=== PATIENT | male | born 1950 | race Caucasian/White ===

== ENCOUNTER 2016-11-02 10:06 | Outpatient (RCR) | payer MEDICARE, MEDICAID ==
--- OUTSIDE RECORDS SUMMARY | 2016-08-17 14:19 | XMS REPORT | Continuity of Care Document ---
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 Name Role Phone ZAC LUZ DO PCP Insurance Providers Payer Name Policy Number Subscriber Name Relationship Wps Medicare [id number] Teresita Blanco 18 Self / Same As Patient [facility] [id number] Teresita Blanco 18 Self / Same As Patient Advance Directives Directive Response Recorded Date/Time Advance Directives No 03/16/16 10:05am Health Care Power of Archivist Military History No 03/16/16 10:05am Organ Donor No 03/16/16 10:05am Chief Complaint and Reason for Visit Chief Complaint Trauma-Non Activation Reason for Visit Morbid exogenous obesity Anticoagulated on Coumadin Fall Contusion of right hip Problems Active Problems Medical Problem Onset Date Status Anticoagulated on Coumadin Unknown Acute Contusion of right hip Unknown Acute Epistaxis Unknown Acute Fall Unknown Acute Foot sprain Unknown Acute Morbid exogenous obesity Unknown Acute Medications Current Home Medications Medication Dose Units Route Directions Days/Qty Instructions Start Date Amlodipine Besylate (Norvasc 2.5 Mg) 2.5 Mg 2.5 Mg Oral Daily Isosorbide Mononitrate 60 Mg 60 Mg Oral Daily 02/04/09 Gabapentin 300 Mg 300 Mg Oral Three Times A Day 02/04/09 Chlorzoxazone 500 Mg 500 Mg Oral Twice A Day 02/04/09 Fenofibrate 145 Mg 145 Mg Oral Daily 02/04/09 Metoprolol Tartrate (Lopressor) 50 Mg 50 Mg Oral Twice A Day Niacin 1,000 Mg 1,000 Mg Oral Bedtime 01/05/11 Alprazolam 0.25 Mg 0.25 Mg Oral Twice A Day as needed for Anxiety Atorvastatin Calcium 10 Mg 10 Mg Oral Bedtime 09/18/11 Aspirin 81 Mg 81 Mg Oral Bedtime 11/05/11 Acetaminophen/Hydrocodone Bitart 1 Ea 1 Tab Oral Daily as needed for Pain 04/14/12 [place]-3/Dha/Epa/Fish Oil 1 Each 1,000 Mg Oral Three Times A Day Carbidopa/Levodopa 1 Each 1 Tab Oral Three Times A Day 05/17/13 Insulin Detemir 100 U/Ml 45 Unit Sub-Q Twice A Day 05/17/13 Promethazine Hcl 25 Mg 25 Mg Oral Three Times A Day as needed for Nausea 05/17/13 Warfarin Sodium 5 Mg 7.5 Mg Oral Mo,Fr @ 1100 TAKES 1 & 1/2 (5MG) TABLET 08/15/14 Warfarin Sodium 5 Mg 5 Mg Oral Gotti,Tu,We,Th,Sa @1100 08/15/14 Furosemide (Lasix) 80 Mg 80 Mg Oral Daily 08/15/14 Ranolazine 1,000 Mg 1,000 Mg Oral Twice A Day 08/15/14 Ascorbic Acid 1,000 Mg 1,000 Mg Oral Daily 08/15/14 Docusate Sodium 100 Mg 100 Mg Oral Twice A Day 08/15/14 Promethazine Hcl (Phenergan Tablet) 25 Mg 1 Tab Oral Three Times A Day as needed for Nausea 03/06/16 Dapagliflozin Propanediol 5 Mg 1 Tab Oral Daily 03/06/16 Past Home Medications Medication Directions Ordered Status Diazepam (Valium) 2 Mg Tablet, 02/04/09 Discontinued Glyburide 5 Mg Tablet, 02/04/09 Discontinued Furosemide 40 Mg Tab, 80 Mg Oral Daily 02/04/09 Discontinued Losartan Potassium 50 Mg Tab, 50 Mg Oral Twice A Day 02/04/09 Discontinued Aspirin 325 Mg Tab, 81 Mg Oral Daily 06/25/09 Discontinued Fish Oil 1,000 Mg Cap, 06/25/09 Discontinued [Metoprolol] , 12/16/09 Discontinued Propoxyphene Hcl/Acetaminophen 1 Tab Tablet, 12/16/09 Discontinued Acetaminophen/Hydrocodone Bitart 1 Tab Tab, 1 Ea Oral Q 4 - 6 Hr Prn Discontinued Acetaminophen/Hydrocodone Bitart (Lorcet-Hd) 1 Each Capsule, 1 - 2 Each Oral Q6hr Prn 06/27/10 Discontinued Tramadol Hcl 50 Mg Tablet, 50 Mg Oral Every 4HRS as needed 01/05/11 Discontinued Metformin Hcl (Glucophage) 500 Mg Tablet, Buccal As Directed 01/05/11 Discontinued [place]-3/Dha/Epa/Fish Oil 1 Each Capsule.dr, 1000 Mg Oral Three Times A Day Discontinued Omeprazole 40 Mg Capsule.dr, 40 Mg Oral Daily 04/09/11 Discontinued Cephalexin Monohydrate (Keflex) 500 Mg Capsule, 1 Tab Oral Daily 04/09/11 Discontinued Doxycycline Hyclate (Vibramycin) 100 Mg Capsule, 100 Mg 04/09/11 Discontinued Ascorbate Calcium 500 Mg Tablet, 1000 Mg Oral Daily 08/04/11 Discontinued Ranolazine 500 Mg Tab.sr.12h, 1000 Mg Oral Twice A Day 09/18/11 Discontinued Warfarin Sodium 5 Mg Tablet, 5 Mg Oral 11/05/11 Discontinued Warfarin Sodium 5 Mg Tab, 7.5 Mg Oral Tuesday01/26/12 Discontinued Linezolid 600 Mg Tab, 600 Mg Oral Twice A Day 05/26/12 Discontinued Sitagliptin Phosphate 100 Mg Tablet, 1 Each Oral Daily 07/12/12 Discontinued Carbidopa/Levodopa 1 Each Tab.rapdis, 1 Each Oral Three Times A Day 07/12/12 Discontinued Sulfamethoxazole/Trimethoprim 1 Each Tablet, 1 Each Oral Twice A Day Discontinued Metformin Hcl (Glucophage) 500 Mg Tablet, 1 Each Oral Daily 11/08/12 Discontinued Ascorbic Acid 250 Mg Tab, 1000 Mg Oral Daily 05/17/13 Discontinued Pantoprazole Sodium 40 Mg Tablet.dr, 40 Mg Oral 05/17/13 Discontinued Social History Social History Problem Response Recorded Date/Time Alcohol Use Denies Use 03/16/2016 10:05am Recreational Drug Use No 03/16/2016 10:05am Recent Foreign Travel No 04/05/2016 11:22am Recent Infectious Disease Exposure No 04/05/2016 11:22am Do you dip or chew tobacco? Y 1can/4days 03/06/2016 2:50am Type Used Smokeless Tobacco 03/16/2016 10:05am Recent Hopitalizations No 04/05/2016 11:42am Hospital Discharge Instructions No hospital discharge instructions. Plan of Care Discharge Date 04/05/16 2:00pm Disposition 01 HOME, SELF-CARE Condition at Discharge Stable Instructions/Education Provided Contusion (ED) Prescriptions See Medication Section Referrals ZAC LUZ DO - Primary Care Physician Additional Instructions/Education All discharge instructions reviewed with patient and/or family. Voiced understanding. RECOMMEND MAKING A FOLLOW UP APPOINTMENT WITH DR. LUZ REGARDING PATIENT'S FREQUENT FALLS. Functional Status No functional status results. Allergies, Adverse Reactions, Alerts Allergen Type Severity Reaction Status Last Updated amoxicillin ([id number]) Allergy Mild Active 02/04/09 Immunizations No immunization records. Vital Signs Acute Vital Signs Vital Response Date/Time Temperature (Fahrenheit) 97.5 degrees F (97.6 - 99.5) 04/05/2016 2:00pm Temperature (Calculated Celsius) 36.72784 degrees C (36.4 - 37.5) 04/05/2016 2:00pm Temperature Source Tympanic 04/05/2016 2:00pm Pulse Rate (adult) 72 bpm (60 - 90) 04/05/2016 2:00pm Respiratory Rate 16 bpm (12 - 24) 04/05/2016 2:00pm O2 Sat by Pulse Oximetry 98 % (88 - 100) 04/05/2016 2:00pm Blood Pressure 140/82 mm Hg 04/05/2016 2:00pm Blood Pressure Mean 103 mm Hg 04/05/2016 11:42am Pain Numeric Pain Scale 2 04/05/2016 2:00pm Height (Feet) 6 feet 04/05/2016 11:22am Height (Inches) 2 inches 04/05/2016 11:22am Height (Calculated Centimeters) 187.059682 cm 04/05/2016 11:22am Weight (Pounds) 445 pounds 04/05/2016 11:22am Weight (Ounces) 0 oz 03/16/2016 10:05am Weight (Calculated Grams) 580890.976 gm 03/16/2016 10:05am Weight (Calculated Kilograms) 201.043668 kilograms 04/05/2016 11:22am Calculated BMI 62.76 03/16/2016 10:05am Capillary Refill Capillary Refill Less Than 3 Seconds 04/05/2016 11:42am Results Laboratory Results Test Name Result Units Flags Reference Collection Date/Time Result Date/ Time Comments Prothrombin Time 25.0 SEC H 12.2-14.7 02/11/2016 2:56pm 02/11/2016 3: 19pm INR Comment 2.3 H 0.8-1.4 02/11/2016 2:56pm 02/11/2016 3:19pm INTERPRETIVE DATA SUGGESTED THERAPEUTIC RANGE FOR INR'S: VENOUS THROMBOSIS, PULMONARY EMBOLISM, OR PREVENTION OF SYSTEMIC EMBOLISM (EG. IN ATRIAL FIBRILLATION): 2.0 - 3.0 MECHANICAL PROSTHETIC HEART VALVES: 2.5 - 3.5* *NOTE: INR'S UP TO 4.5 MAY BE NECESSARY IN SELECTED GROUPS OF HIGH RISK PATIENTS. [employer] CONSENSUS CONFERENCE ON ANTITHROMBOTIC THERAPY (2000). Pending Laboratory Results Test Name Collection Date/Time Procedures No known history of procedures. Encounters Encounter Location Arrival/Admit Date Discharge/Depart Date Attending Provider Departed Emergency Room [facility] 04/05/16 11:12am 04/13 2:00pm CARLOS DE LA CRUZ DO Departed Emergency Room [facility] 03/16/16 10:07am 11:00am MANPREET NEWBERRY APRN Discharged Recurring [facility] 02/11/16 2:56pm 11:59pm ZAC LUZ DO Recent Diagnosis
[2016-08-17 14:34] LABS: INR 2.9 (0.8-1.4); PROTHROMBIN TIME PATIENT 30.3 SEC (12.2-14.7)
[2016-09-21 14:13] LABS: INR 3.1 (0.8-1.4); PROTHROMBIN TIME PATIENT 31.5 SEC (12.2-14.7)
[2016-10-06 10:55] LABS: INR 2.3 (0.8-1.4); PROTHROMBIN TIME PATIENT 25.5 SEC (12.2-14.7)
[~2016-11-02 10:06] MED LIST: ALPR.25T PO; AMLO2.5T PO; ASCO-262 PO; ASCO-277 PO; ASP325T PO; ASP81TEC PO; ATRV10T PO; C250T PO; CARB1TAB4 PO; CARB1TAB44 PO; CEPH500C PO; CHLO500T2 PO; DAPA5TAB PO; DCS100C PO; DIAZ2TAB2; DOXY100C2; FENO145T2 PO; FRSM40T PO; FURO80TA3 PO; GABA300C PO; GLYB5TAB3; HCT25T PO; HYDR-34 PO; HYDR-3583 PO; HYDR1CAP2 PO; HYDR1TAB PO; ISOS60TA PO; LEVE1U SQ; LNZ600T PO; LSRT50T PO; METOPROLOL; MTF500T BC; MTF500T PO; MTF500TCR PO; MTP50T PO; NIAC1000 PO; OMEG-12 PO; OMEP40CA36 PO; OMG1KC; PANT40TA PO; PNT40TEC PO; PRM25T PO; PROM25TA14 PO; PROP1TAB77; RANI150T66 PO; RANO10003 PO; RANO500T2 PO; SITA100T PO; SULF1TAB7 PO; TRAM-21 PO; TRAM50TA2 PO; WARF5TAB58 PO; WRF5T PO
[2016-11-02 10:24] LABS: INR 2.1 (0.8-1.4); PROTHROMBIN TIME PATIENT 23.4 SEC (12.2-14.7)
== END 2016-11-15 | disposition home or self-care (01) ==
LOC: LAB 10:06
PROVIDERS: ATTEND Family Medicine
DX: I82.401 Acute embolism and thrombosis of unspecified deep veins of right lower extremity (principal)
CPT/HCPCS: 36415; 85610

== ENCOUNTER 2016-12-16 11:51 | Observation (INO) | payer MEDICARE, MEDICAID ==
[~2016-12-16] VITALS: Ht 180.3 cm; Wt 191.0 kg
--- NOTE | 2016-12-16 12:02 | ED General ---
General Chief Complaint: Neurological Problems Stated Complaint: WEAKNESS IN LEGS Source of Information: Patient History of Present Illness Time Seen by Provider: 11:57 Initial Comments Patient is a 65-year-old white male known to me. He was sent by ambulance from Dr. Luz's office. He presented with complaints of progressive weakness. At the end of the office visit he was unable to stand for discharge. His weight is 415 pounds at best guess. He has always been heavy but has steadily gained weight over the last 20 years. He also reports having fallen several times recently. Timing/Duration: Other (weeks) Associated Systoms: Weakness Allergies and Home Medications Allergies Coded Allergies: amoxicillin (Unverified Allergy, Mild, 02/04/09) Home Medications Alprazolam 0.25 Mg Tablet, 0.25 MG PO BID PRN for ANXIETY, (Reported) Amlodipine Besylate 2.5 Mg Tablet, 2.5 MG PO DAILY, (Reported) Ascorbic Acid 1,000 Mg Tablet.er, 1,000 MG PO DAILY, (Reported) Aspirin 81 Mg Tabec, 81 MG PO HS, (Reported) Atorvastatin Calcium 10 Mg Tablet, 10 MG PO HS, (Reported) Carbidopa/Levodopa 1 Each Tablet.sa, 1 TAB PO TID, (Reported) Chlorzoxazone 500 Mg Tablet, 500 MG PO BID, (Reported) Dapagliflozin Propanediol 5 Mg Tablet, 1 TAB PO DAILY, #30 (Reported) Docusate Sodium 100 Mg Cap, 100 MG PO BID, (Reported) Fenofibrate,Micronized 145 Mg Tablet, 145 MG PO DAILY, (Reported) Furosemide 80 Mg Tablet, 80 MG PO DAILY, (Reported) Gabapentin 300 Mg Capsule, 300 MG PO TID, (Reported) Hydrocodone Bit/Acetaminophen 1 Ea Tablet, 1 TAB PO DAILY PRN for PAIN, ( Reported) Insulin Determir 100 U/Ml Insuln.pen, 45 UNIT SQ BID, (Reported) Isosorbide Mononitrate 60 Mg Tab.sr.24h, 60 MG PO DAILY, (Reported) Metoprolol Tartrate 50 Mg Tablet, 50 MG PO BID, (Reported) Niacin 1,000 Mg Tablet.sa, 1,000 MG PO HS, (Reported) [place]-3/Dha/Epa/Fish Oil 1 Each Capsule.dr, 1,000 MG PO TID, (Reported) Promethazine HCl 25 Mg Tablet, 1 TAB PO TID PRN for NAUSEA, #18 (Reported) Promethazine Hcl 25 Mg Tablet, 25 MG PO TID PRN for NAUSEA, (Reported) Ranolazine 1,000 Mg Tab.sr.12h, 1,000 MG PO BID, (Reported) Warfarin Sodium 5 Mg Tablet, 7.5 MG PO MO,FR @ 1100, (Reported) TAKES 1 & 1/2 (5MG) TABLET Warfarin Sodium 5 Mg Tablet, 5 MG PO CEDILLO,TU,WE,TH,SA @1100, (Reported) Constitutional: see HPI EENTM: no symptoms reported Respiratory: dyspnea on exertion, short of breath Cardiovascular: no symptoms reported Gastrointestinal: no symptoms reported Genitourinary: no symptoms reported Musculoskeletal: joint pain, joint swelling, muscle stiffness, muscle weakness Skin: no symptoms reported Psychiatric/Neurological: No Symptoms Reported Hematologic/Lymphatic: No Symptoms Reported Immunological/Allergic: no symptoms reported Past Kwsgadr-Usttqc-Kwsbdp Hx Patient Social History Type Used: Smokeless Tobacco Former Smoker/When Quit: Oct 29, 1983 Recent Hopitalizations: No Immunizations Up To Date Tetanus Booster (TDap): Less than 5yrs Date of Pneumonia Vaccine: May 07, 2014 Date of Influenza Vaccine: May 29, 2014 Seasonal Allergies Seasonal Allergies: No Surgeries HX Surgeries: Yes (right ear) Surgeries: Ear Surgery, Tonsillectomy Respiratory Hx Respiratory Disorders: Yes Respiratory Disorders: Pulmonary Embolism, COPD Cardiovascular Hx Cardiac Disorders: Yes Cardiac Disorders: Deep Vein Thrombosis, High Cholesterol, Hypertension Neurological Hx Neurological Disorders: Yes Neurological Disorders: Neuropathy Reproductive System Hx Reproductive Disorders: No Genitourinary Hx Genitourinary Disorders: No Gastrointestinal Hx Gastrointestinal Disorders: Yes Gastrointestinal Disorders: Gastroesophageal Reflux Musculoskeletal Hx Musculoskeletal Disorders: Yes Musculoskeletal Disorders: Arthritis Endocrine Hx Endocrine Disorders: Yes Endocrine Disorders: Diabetes, Insulin dep HEENT HX ENT Disorders: No Cancer Hx Cancer: No Psychosocial Hx Psychiatric Problems: Yes Behavioral Health Disorders: Anxiety Integumentary HX Skin/Integumentary Disorder: No Blood Transfusions Hx Blood Disorders: No Adverse Reaction to a Blood Tr: No Physical Exam Vital Signs Capillary Refill : General Appearance: Mild Distress, Moderate Distress Eyes: Bilateral Eye Normal Inspection HEENT: Normal ENT Inspection Neck: Normal Inspection Respiratory: Decreased Breath Sounds (distant) Cardiovascular: Regular Rate, Rhythm, No Edema, No Gallop, No JVD, No Murmur, Normal Peripheral Pulses Gastrointestinal: Other (belly was huge and impossible to palpate) Extremity: Other (2+ bilateral pitting edema and bronzy discoloration consistent with venous stasis) Neurologic/Psychiatric: Alert, Oriented x3, No Motor/Sensory Deficits, Normal Mood/Affect Skin: Normal Color, Warm/Dry Lymphatic: No Adenopathy Departure Impression Impression: Primary Impression: Generalized weakness Additional Impression: morbidly morbid obesity Disposition: ADMITTED INPATIENT Decision to Admit Reason: Admit from ER (General) Decision to Admit/Date: Dec 16, 2016 Time/Decision to Admit Time: 11:59 Departure-Patient Inst. Referrals: ZAC LUZ DO (PCP/Family) Primary Care Physician GERRI SPEARS MD Dec 16, 2016 12:02
[2016-12-16 12:30] VITALS: BP 165/72
[2016-12-16] MEDS ORDERED: CATHETER FLUSH 10 ML SYR IV PRN (12:30)
[2016-12-16] MEDS ORDERED: DOCU100C23 PO (14:13)
[2016-12-16] MEDS ORDERED: RANO10003 PO (14:13)
[2016-12-16] MEDS ORDERED: ALPR0.254 PO (14:13)
[2016-12-16] MEDS ORDERED: NIAC100045 PO (14:13)
[2016-12-16] MEDS ORDERED: POLY255P PO (14:13)
[2016-12-16] MEDS ORDERED: AMLO5TAB2 PO (14:13)
[2016-12-16] MEDS ORDERED: CARB1TAB22 PO ×2 (14:13)
[2016-12-16] MEDS ORDERED: GABA-488 PO (14:13)
[2016-12-16] MEDS ORDERED: FURO80TA3 PO (14:13)
[2016-12-16] MEDS ORDERED: INSU100I14 SC (14:13)
[2016-12-16] MEDS ORDERED: ISM60TCR PO (14:13)
[2016-12-16] MEDS ORDERED: ASCO500T7 PO (14:13)
[2016-12-16] MEDS ORDERED: DAPA10TA PO (14:13)
[2016-12-16] MEDS ORDERED: HYDR-3812 PO (14:13)
[2016-12-16] MEDS ORDERED: METO50TA2 PO (14:13)
[2016-12-16] MEDS ORDERED: WARF5TAB8 PO (14:13)
[2016-12-16] MEDS ORDERED: CYCL10TA9 PO (14:13)
[2016-12-16] MEDS ORDERED: ATOR10TA66 PO (14:13)
[2016-12-16] MEDS ORDERED: INSU100I29 SC (14:13)
[2016-12-16] MEDS: CATHETER FLUSH 10 ML SYR IV SCH ×2 (15:22→21:05)
[2016-12-16 15:25] VITALS: BP 161/85
[2016-12-16] MEDS ORDERED: warFARin 5 MG (COUMADIN) TAB PO SCH (18:30)
[2016-12-16] MEDS ORDERED: PROMETHAZINE 25 MG (PHENERGAN) TAB PO PRN (18:30)
[2016-12-16] MEDS ORDERED: PATIENT MAY USE OWN MEDS, ALL MC SCH (18:45)
[2016-12-16 19:20] VITALS: BP 152/89
[2016-12-16] MEDS ORDERED: HYDROcodone/APAP 5 MG/325 MG (LORTAB) TAB PO PRN (19:45)
[2016-12-16] MEDS: Ranolazine (Ranexa) 1,000 MG PO SCH (20:57)
[2016-12-16] MEDS: DOCUSATE SODIUM 100 MG (COLACE) CAP PO SCH (20:58)
[2016-12-16] MEDS: CYCLOBENZAPRINE 10 MG (FLEXERIL) TAB PO SCH (20:59)
[2016-12-16] MEDS ORDERED: POLYETHYLENE GLYCOL 17 GM (MIRALAX) PACK PO PRN (21:00)
[2016-12-16] MEDS ORDERED: NIACIN 1000 MG PO SCH (21:00)
[2016-12-16] MEDS ORDERED: ASPIRIN E.C. 81 MG (ECOTRIN) TAB PO SCH (21:00)
[2016-12-16] MEDS ORDERED: ATORVASTATIN 10 MG (LIPITOR) TABLET PO SCH (21:00)
[2016-12-16] MEDS: meTOprolol TARTRATE 50 MG (LOPRESSOR) TAB PO SCH (21:01)
[2016-12-16] MEDS: GABAPENTIN 300 MG (NEURONTIN) CAP PO SCH (21:01)
[2016-12-16] MEDS: ALPRAZolam 0.25 MG (XANAX) TAB PO SCH (21:02)
[2016-12-16] MEDS: SINEMET 25/250 (CARBIDOPA/LEVODOPA) TAB PO SCH (21:04)
[2016-12-16] MEDS: inSUlin (REGULAR) HUMAN 1 UNIT/0.01 ML (CHARGE PER UNIT) SC SCH (21:06)
[2016-12-16 21:07] LABS: BILIRUBIN,URINE NEGATIVE (NEGATIVE); KETONES,URINE NEGATIVE (NEGATIVE); LEUKOCYTE ESTERASE ,URINE NEGATIVE (NEGATIVE); NITRITE,URINE NEGATIVE (NEGATIVE); PH,URINE 5 (5-9); PROTEIN,URINE 2+ (NEGATIVE); UROBILINOGEN,URINE NORMAL (NORMAL)
[2016-12-16 21:15] LABS: SQUAMOUS EPITHELIAL CELL,UR RARE /HPF
[2016-12-17 00:59] VITALS: BP 126/82
[2016-12-17 04:20] VITALS: BP 141/75
[2016-12-17 04:59] LABS: BASOPHILS # (AUTO) 0.1 10^3/uL (0.0-0.1); BASOPHILS % (AUTO) 1 % (0-10); EOSINOPHILS # (AUTO) 0.2 10^3/uL (0.0-0.3); EOSINOPHILS % (AUTO) 3 % (0-10); LYMPHOCYTES % (AUTO) 26 % (12-44); MEAN CORPUSCULAR HEMOGLOBIN 28 PG (25-34); MEAN CORPUSCULAR HGB CONC 33 G/DL (32-36); MEAN CORPUSCULAR VOLUME 86 FL (80-99); MEAN PLATELET VOLUME 9.7 FL (7.4-10.4); MONOCYTES # (AUTO) 0.7 X 10^3 (0.0-1.0); MONOCYTES % (AUTO) 10 % (0-12); NEUTROPHILS # (AUTO) 4.5 X 10^3 (1.8-7.8); NEUTROPHILS % (AUTO) 60 % (42-75); PLATELET COUNT 189 10^3/uL (130-400); WHITE BLOOD COUNT 7.4 10^3/uL (4.3-11.0)
[2016-12-17 05:10] LABS: INR 2.5 (0.8-1.4); PROTHROMBIN TIME PATIENT 26.5 SEC (12.2-14.7)
[2016-12-17 05:24] LABS: ALANINE AMINOTRANSFERASE < 6 U/L (0-55); ALBUMIN 3.5 G/DL (3.2-4.5); ANION GAP 11 MMOL/L (5-14); ASPARTATE AMINO TRANSFERASE 18 U/L (5-34); BILIRUBIN,TOTAL 0.9 MG/DL (0.1-1.0); BLOOD UREA NITROGEN 17 MG/DL (7-18); BUN/CREATININE RATIO 16; CALCIUM 8.7 MG/DL (8.5-10.1); CARBON DIOXIDE 23 MMOL/L (21-32); CHLORIDE 105 MMOL/L (98-107); CREATININE SERUM 1.04 MG/DL (0.60-1.30); GFR ESTIMATED > 60; GLUCOSE 149 MG/DL (70-105); POTASSIUM 4.5 MMOL/L (3.6-5.0); SODIUM 139 MMOL/L (135-145); TOTAL PROTEIN 6.8 G/DL (6.4-8.2)
[2016-12-17] MEDS: inSUlin (REGULAR) HUMAN 1 UNIT/0.01 ML (CHARGE PER UNIT) SC SCH ×2 (05:54→11:28)
[2016-12-17] MEDS: OMEGA 3 (FISH OIL) 1000 MG CAP PO SCH ×2 (06:52→12:22)
[2016-12-17] MEDS: CATHETER FLUSH 10 ML SYR IV SCH (06:52)
[2016-12-17] MEDS ORDERED: ASCORBIC ACID (VIT C) 500 MG TABLET PO SCH (07:00)
--- NOTE | 2016-12-17 07:58 | Progress Note (SOAP) ---
Subjective Subjective/Events-last exam patient was in my office yesterday. Patient unable to get up and walk. Patient weighs over 425 pounds. Patient has fallen 4 times in the last few days. Patient sent to emergency room by ambulance. Patient has generalized weakness. Patient and known diabetic, coronary artery disease, hyperlipidemia, and back pain. Patient admitted Objective Exam Vital Signs Date Time Temp Pulse Resp B/P (MAP) Pulse Ox O2 Delivery O2 Flow Rate FiO2 12/17/16 04:20 98.8 77 18 141/75 94 Room Air 12/17/16 00:59 97.6 78 24 126/82 93 Room Air 12/16/16 22:14 Room Air 12/16/16 19:20 98.1 92 16 152/89 93 Room Air 12/16/16 15:25 97.0 90 24 161/85 93 Room Air 12/16/16 12:30 99.0 92 20 165/72 93 Room Air 12/16/16 11:56 98.9 96 16 93 12/16/16 11:51 98.9 96 16 197/95 93 Room Air I & O 12/17/16 07:00 Intake Total 1930 ml Output Total 1400 ml Balance 530 ml Capillary Refill : Less Than 3 Seconds General Appearance: No Apparent Distress, WD/WN HEENT: Normal ENT Inspection Neck: Normal Inspection Respiratory: Chest Non Tender, Lungs Clear, Normal Breath Sounds, No Accessory Muscle Use, No Respiratory Distress Cardiovascular: Regular Rate, Rhythm, No Murmur Gastrointestinal: soft Results Lab Laboratory Tests 12/16/16 17:57: Glucometer 158H 12/16/16 20:58: Urine Color YELLOW, Urine Clarity CLEAR, Urine pH 5, Urine Specific [place] 1.020, Urine Protein 2+H, Urine Glucose (UA) 4+H, Urine Ketones NEGATIVE, Urine Nitrite NEGATIVE, Urine Bilirubin NEGATIVE, Urine Urobilinogen NORMAL, Urine Leukocyte Esterase NEGATIVE, Urine RBC (Auto) NEGATIVE, Urine RBC NONE, Urine WBC NONE, Urine Squamous Epithelial Cells RARE, Urine Crystals NONE, Urine Bacteria NONE, Urine Casts NONE, Urine Mucus NEGATIVE, Urine Culture Indicated NO 12/16/16 21:05: Glucometer 209H 12/17/16 04:30: White Blood Count 7.4, Red Blood Count 5.40, Hemoglobin 15.3, Hematocrit 47, Mean Corpuscular Volume 86, Mean Corpuscular Hemoglobin 28, Mean Corpuscular Hemoglobin Concent 33, Red Cell Distribution Width 15.0H, Platelet Count 189, Mean Platelet Volume 9.7, Neutrophils (%) (Auto) 60, Lymphocytes (%) (Auto) 26, Monocytes (%) (Auto) 10, Eosinophils (%) (Auto) 3, Basophils (%) (Auto) 1, Neutrophils # (Auto) 4.5, Lymphocytes # (Auto) 2.0, Monocytes # (Auto) 0.7, Eosinophils # (Auto) 0.2, Basophils # (Auto) 0.1, Prothrombin Time 26.5H, INR Comment 2.5H, Sodium Level 139, Potassium Level 4.5, Chloride Level 105, Carbon Dioxide Level 23, Anion Gap 11, Blood Urea Nitrogen 17, Creatinine 1.04, Estimat Glomerular Filtration Rate > 60, BUN/Creatinine Ratio 16, Glucose Level 149H, Calcium Level 8.7, Total Bilirubin 0.9, Aspartate Amino Transf (AST/SGOT) 18, Alanine Aminotransferase (ALT/SGPT) < 6, Alkaline Phosphatase 57, Total Protein 6.8, Albumin 3.5 Assessment/Plan Assessment/Plan Assess & Plan/Chief Complaint generalized weakness. Diabetes. Exogenous obesity. Coronary artery disease. Clinical Quality Measures DVT/VTE Risk/Contraindication: Risk Factor Score Per Nursin RFS Level Per Nursing on Admit: 4+=Very High ZAC LUZ DO Dec 17, 2016 07:58
[2016-12-17 08:00] VITALS: BP 135/80
[2016-12-17] MEDS ORDERED: SINEMET 25/250 (CARBIDOPA/LEVODOPA) TAB PO SCH (08:00)
--- NOTE | 2016-12-17 08:04 | History & Physicial ---
History of Present Illness History of Present Illness Reason for visit/HPI patient in office. Patient unable to get out of chair. Patient weighs over 425 pounds. Patient is generalized weakness. Patient has diabetes, coronary artery disease,. And Parkinson disease. hyperlipidemia. Patient sent out by ambulance to the emergency room. Patient evaluated and admitted. Patient has fallen 4 times in the last few days at home Date of Admission Dec 16, 2016 at 11:59 I consulted on this patient on 12/17/16 08:00 Attending Physician Anshu Luz DO Admitting Physician Anshu Luz DO Consult Allergies and Home Medications Allergies Coded Allergies: amoxicillin (Unverified Allergy, Mild, 02/04/09) Home Medications Alprazolam 0.25 Mg Tablet, 0.25 MG PO BID, (Reported) Amlodipine Besylate 5 Mg Tablet, 5 MG PO DAILY, (Reported) Ascorbic Acid 500 Mg Tablet, 1,000 MG PO DAILY, (Reported) TAKES 2 (1000MG) TABLETS Aspirin 81 Mg Tabec, 81 MG PO HS, (Reported) Atorvastatin Calcium 10 Mg Tablet, 10 MG PO HS, (Reported) Carbidopa/Levodopa 1 Each Tablet, 2 TAB PO 0800, (Reported) Carbidopa/Levodopa 1 Each Tablet, 1 TAB PO 1200,1700,2200, (Reported) Cyclobenzaprine HCl 10 Mg Tablet, 10 MG PO BID, (Reported) Dapagliflozin Propanediol 10 Mg Tablet, 10 MG PO DAILY, (Reported) Docusate Sodium 100 Mg Capsule, 100 MG PO BID, (Reported) Furosemide 80 Mg Tablet, 80 MG PO DAILY, (Reported) Gabapentin 300 Mg Capsule, 600 MG PO TID, (Reported) TAKES 2 (300MG) CAPSULES Hydrocodone/Acetaminophen 1 Each Tablet, 1 TAB PO DAILY PRN for PAIN-MODERATE, ( Reported) Insulin Aspart 300 Units/3 Ml Solution, SC 1200,1700, (Reported) USES SLIDING SCALE WITH NOON AND EVENING MEALS Insulin Detemir 100 Unit/1 Ml Insuln.pen, 52 UNITS SC BID, (Reported) Isosorbide Mononitrate 60 Mg Tab, 60 MG PO DAILY, (Reported) Metoprolol Tartrate 50 Mg Tablet, 50 MG PO BID, (Reported) Niacin 1,000 Mg Tab.er.24h, 1,000 MG PO HS, (Reported) [place]-3/Dha/Epa/Fish Oil 1 Each Capsule.dr, 1,000 MG PO TID, (Reported) Polyethylene Glycol 3350 255 Gm Powder, 17 GM PO DAILY PRN for CONSTIPATION-2ND LINE, (Reported) Promethazine Hcl 25 Mg Tablet, 25 MG PO TID PRN for NAUSEA/VOMITING-2ND LINE, ( Reported) Ranolazine 1,000 Mg Tab.er.12h, 1,000 MG PO BID, (Reported) Warfarin Sodium 5 Mg Tablet, 5 MG PO SuTuTh, (Reported) TAKES AT 1800 Warfarin Sodium 5 Mg Tablet, 7.5 MG PO MoWeFrSa, (Reported) TAKES 1 & 1/2 (5MG) TABLET Past Drryfum-Vcaeet-Xmfwyv Hx Patient Social History Marrital Status: Employed/Student: unemployed Alcohol Use: Denies Use Recreational Drug Use: No Smoking Status: Light Tobacco Smoker Former smoker/When Quit: Oct 29, 1983 Type Used: Smokeless Tobacco Physical Abuse Screen: No Sexual Abuse: No Recent Foreign Travel: No Contact w/other who traveled: No Recent Hopitalizations: No Recent Infectious Disease Expo: No Immunizations Up To Date Tetanus Booster (TDap): Less than 5yrs Date of Pneumonia Vaccine: May 07, 2014 Date of Influenza Vaccine: May 29, 2014 Seasonal Allergies Seasonal Allergies: No Surgeries HX Surgeries: Yes (right ear) Surgeries: Ear Surgery, Tonsillectomy Respiratory Hx Respiratory Disorders: Yes Cardiovascular Hx Cardiovascular Disorders: Yes Cardiac Disorders: Deep Vein Thrombosis, High Cholesterol, Hypertension Neurological Hx Neurological Disorders: Yes Neurological Disorders: Neuropathy Reproductive System Hx Reproductive Disorders: No Genitourinary Hx Genitourinary Disorders: No Gastrointestinal Hx Gastrointestinal Disorders: Yes Gastrointestinal Disorders: Gastroesophageal Reflux Musculoskeletal Hx Musculoskeletal Disorders: Yes Musculoskeletal Disorders: Arthritis Endocrine Hx Endocrine Disorders: Yes Endocrine Disorders: Diabetes, Insulin dep HEENT HX ENT Disorders: No Cancer Hx Cancer: No Psychosocial Hx Psychiatric Problems: Yes Behavioral Health Disorders: Anxiety Integumentary HX Skin/Integumentary Disorder: No Blood Transfusions Hx Blood Disorders: No Adverse Reaction to a Blood Tr: No Constitutional: weakness, weight gain EENTM: no symptoms reported Respiratory: no symptoms reported Cardiovascular: other (coronary artery disease, hyperlipidemia) Gastrointestinal: no symptoms reported Genitourinary: no symptoms reported Physical Exam Vital Signs Vital Sign - Last 12Hours 12/16/16 11:51 Temp 98.9 Pulse 96 Resp 16 B/P (MAP) 197/95 Pulse Ox 93 O2 Delivery Room Air Capillary Refill : Less Than 3 Seconds General Appearance: No Apparent Distress, WD/WN, Obese Eyes: Bilateral Eye Normal Inspection HEENT: Normal ENT Inspection Neck: Full Range of Motion, Normal Inspection Respiratory: Chest Non Tender, Lungs Clear, No Accessory Muscle Use, No Respiratory Distress Cardiovascular: Regular Rate, Rhythm, No Murmur Gastrointestinal: Non Tender, Soft Assessment/Plan Assessment and Plan generalized weakness. Obesity. Parkinson disease. Coronary artery disease. Diabetes. Problems: Clinical Quality Measures DVT/VTE Risk/Contraindication: Risk Factor Score Per Nursin RFS Level Per Nursing on Admit: 4+=Very High Contraindications-Pharm: Other *list below* ANSHU LUZ DO Dec 17, 2016 08:04
--- NOTE | 2016-12-17 08:39 | Physical Therapy Evaluation ---
PT Evaluation-General Medical Diagnosis Admission Date Dec 16, 2016 at 11:59 Medical Diagnosis: Generalized weakness Onset Date: Dec 16, 2016 Therapy Diagnosis Therapy Diagnosis: generalized weakness/debility Height/Weight Height (Feet): 5 Height (Inches): 11.00 Weight (Pounds): 421 Weight (Ounces): 0.0 Precautions Precautions/Isolations: Standard Precautions Referral Physician: Paty Reason for Referral: Evaluation/Treatment Medical History Pertinent Medical History: Arthritis, CAD, COPD, DM, GERD, HTN, Neuropathy, Parkinson's Additional Medical History morbid obesity Current History progressive weakness; transferred from office to ED via ambulance; multiple falls Reviewed History: Yes Social History Home: Single Level Current Living Status: Spouse Entry Into Home: Stairs With Railing PT Steps Into Home: 4 Prior/Core FIM Prior Level of Function Functional [place] Measure 0=Not Assessed/NA 4=Minimal Assistance 1=Total Assistance 5=Supervision or Setup 2=Maximal Assistance 6=Modified [place] 3=Moderate Assistance 7=Complete [place] Bed Mobility: 6 Transfers (B,C,W/C) (FIM): 6 Gait: 1 ambulates short distances only with FWW PT Evaluation-Current Subjective Patient reports he is feeling "100% better" than yesterday. Pain Numeric Pain Scale: 0-No Pain Location: No Pain Reported Objective Patient Orientation: Normal For Age Problem Solving: Fair ROM/Strength ROM Lower Extremities bilateral WNL Strenght Lower Extremities right knee flexion/extension 4/5; hip flexion NT secondary to obesity and unable to perform; ankle dorsi/plantarflexion 4/5 left knee flexion/extension 4/5; hip flexion NT; ankle dorsi/plantarflexion 4/5 Integumentary/Posture Integumentary refer to nursing notes Bowel Incontinence: No Bladder Incontinence: No Posture hip flexed posture in stand and with FWW Neuromuscular (Tone, Coordination, Reflexes) Parkinson's - decrease coordination Sensory Vision: Wears Glasses Hearing: Functional Sensation Right Lower Extremit: Impaired Sensation Left Lower Extremity: Impaired Transfers Functional [place] Measure 0=Not Assessed/NA 4=Minimal Assistance 1=Total Assistance 5=Supervision or Setup 2=Maximal Assistance 6=Modified [place] 3=Moderate Assistance 7=Complete [place] Transfers (B, C, W/C) (FIM): 6 Scootin Supine to/from Sit: 6 Sit to/from Stand: 6 Patient performed sit to stand from recliner x 20 reps Gait Mode of Locomotion: Walk Anticipated Mode of Locomotion: Walk Gait (FIM): 1 Distance (FIM): 1=up to 49 ft Distance: 20' Gait Level of Assist: 6 Gait Assistive Device: FWW Comments/Gait Description slow, shuffle gait sequence Balance Sitting Static: Normal Sitting Dynamic: Normal Standing Static: Normal Standing Dynamic: Good Treatment bilateral LE exercises 20 reps each sit to stand, AP, LAQ; standing marching Assessment/Needs 65 y.o. male, is currently at [facility] with gross motor skills. Patient reports he has continued his PT exercises issued to him from outpatient services. From a PT standpoint, patient would benefit from home health PT. Dr. Newman notified. Rehab Potential: Fair Post Rehab Potential-Barriers: morbid obesity/inactivity [facility] PT Plan Treatment/Plan Treatment Plan: Discontinue PT, goals met Safety Risks/Education Patient Education: Transfer Techniques, Safety Issues Teaching Recipient: Patient Teaching Methods: Demonstration, Discussion Response to Teaching: Verbalize Understanding, Return Demonstration Discharge Recommendations Therapy D/C Recommendations: Physical Therapy Home Care Equpiment Recommendations-D/C: 3 in 1 Commode Barriers to Progress Progression of Parkinson's prevents patient from consistent days of mobility. A bedside commode would allow patient to return to home successfully. Time/GCodes Time In: 805 Time Out: 835 Total Billed Treatment Time: 25 Total Billed Treatment 1 visit EVHighC 20 min EX 10 min G Codes Necessary: Yes PT/OT Therapy GCodes Therapy Functional Limitation: Physical Therapy Test(s)/Tool used to determine: Level of Assistance Scale Functional Limitation-Current Charge Code: MOBCUR Modifier: CI Functional Limitation-Goal Charge Code: MOBGOAL Modifier: CI Functional Limitation-D/C Charge Codes: MOBDC Modifier: CI SIENA REYES PT Dec 17, 2016 08:39
[2016-12-17] MEDS ORDERED: amLODIPine 5 MG (NORVASC) TAB PO SCH (09:00)
[2016-12-17] MEDS ORDERED: FUROSEMIDE 80 MG PO SCH (09:00)
[2016-12-17] MEDS ORDERED: ISOSORBIDE MONONITRATE 60 MG (IMDUR) TAB PO SCH (09:00)
[2016-12-17] MEDS: DOCUSATE SODIUM 100 MG (COLACE) CAP PO SCH (09:54)
[2016-12-17] MEDS: CYCLOBENZAPRINE 10 MG (FLEXERIL) TAB PO SCH (09:56)
[2016-12-17] MEDS: meTOprolol TARTRATE 50 MG (LOPRESSOR) TAB PO SCH (09:56)
[2016-12-17] MEDS: GABAPENTIN 300 MG (NEURONTIN) CAP PO SCH ×2 (09:57→15:16)
[2016-12-17] MEDS: Ranolazine (Ranexa) 1,000 MG PO SCH (10:04)
[2016-12-17] MEDS: ALPRAZolam 0.25 MG (XANAX) TAB PO SCH (10:06)
[2016-12-17 12:00] VITALS: BP 127/77
[2016-12-17] MEDS: SINEMET 25/250 (CARBIDOPA/LEVODOPA) TAB PO SCH (12:22)
--- NOTE | 2016-12-17 14:20 | Occ Therapy Progress Note ---
Therapy Progress Note [id number] Pt seen in room, dressed and waiting to be discharged to home. Per case management note, pt will be getting a BSC for home. He is getting a bariatric one which will be adequate for his weight. Pt also will be getting Home Health PT and OT. No OT evaluation due to imminent discharge and follow-up therapy ordered. Pt and family have no concerns. DC OT visit LANDRY GARCIA OT Dec 17, 2016 14:20
[2016-12-17] MEDS ORDERED: warFARin 5 MG (COUMADIN) TAB PO SCH (18:00)
--- NOTE | 2016-12-22 08:45 | Clinic Account Progress/Dx ---
Clinic Account Progress/Dx DIAGNOSIS: Diagnosis generalized weakness. Morbid obesity. Anxiety disorder. Coronary artery disease. Body mass index 50-59. Parkinson disease. COPD. Hyperlipidemia. Type II diabetes ZAC LUZ DO Dec 22, 2016 08:45
== END 2016-12-17 12:17 | disposition home health service (06) ==
LOC: EDUNIT# 11:51 → ER 11:53 → UNDOADMOB 11:59 → 4TH 11:59
PROVIDERS: ADMIT Family Medicine; ATTEND Family Medicine
DX: R53.1 Weakness (principal); J44.9 Chronic obstructive pulmonary disease, unspecified; I10 Essential (primary) hypertension; E11.9 Type 2 diabetes mellitus without complications; Z79.4 Long term (current) use of insulin; E66.01 Morbid (severe) obesity due to excess calories; Z68.43 Body mass index [BMI] 50.0-59.9, adult; I25.10 Atherosclerotic heart disease of native coronary artery without angina pectoris; F41.9 Anxiety disorder, unspecified; E78.5 Hyperlipidemia, unspecified; Z86.718 Personal history of other venous thrombosis and embolism; Z86.711 Personal history of pulmonary embolism
CPT/HCPCS: 36415; 80053; 81000; 82962; 85025; 85610; 99211; G0378

== ENCOUNTER → 2016-12-22 | Outpatient (CLI) | payer MEDICARE, MEDICAID ==
[~2016-12-22] MED LIST changes: +ALPR0.254 PO; +AMLO5TAB2 PO; +ASCO500T7 PO; +ATOR10TA66 PO; +CARB1TAB22 PO; +CYCL10TA9 PO; +DAPA10TA PO; +DOCU100C23 PO; +GABA-488 PO; +HYDR-3812 PO; +INSU100I14 SC; +INSU100I29 SC; +ISM60TCR PO; +METO50TA2 PO; +NIAC100045 PO; +POLY255P PO; +WARF5TAB8 PO
[2016-12-22 11:41] LABS: INR 2.8 (0.8-1.4); PROTHROMBIN TIME PATIENT 29.7 SEC (12.2-14.7)
== END ==
LOC: HH 11:00
PROVIDERS: ATTEND Family Medicine
DX: Z51.81 Encounter for therapeutic drug level monitoring (principal); Z79.01 Long term (current) use of anticoagulants
CPT/HCPCS: 85610

== ENCOUNTER 2017-02-01 12:03 | Outpatient (RCR) | payer MEDICARE, MEDICAID ==
[2016-12-01 14:24] LABS: INR 2.3 (0.8-1.4); PROTHROMBIN TIME PATIENT 25.5 SEC (12.2-14.7)
[2017-01-03 12:50] LABS: INR 2.9 (0.8-1.4)
[2017-02-01 12:47] LABS: INR 2.2 (0.8-1.4); PROTHROMBIN TIME PATIENT 24.1 SEC (12.2-14.7)
== END 2017-03-01 | disposition home or self-care (01) ==
LOC: LAB 12:03
PROVIDERS: ATTEND Family Medicine
DX: I82.401 Acute embolism and thrombosis of unspecified deep veins of right lower extremity (principal)
CPT/HCPCS: 36415; 85610

== ENCOUNTER 2017-05-12 09:50 | Outpatient (RCR) | payer MEDICARE, MEDICAID ==
[2017-03-08 10:50] LABS: INR 2.5 (0.8-1.4); PROTHROMBIN TIME PATIENT 26.6 SEC (12.2-14.7)
[2017-04-13 10:41] LABS: INR 2.4 (0.8-1.4); PROTHROMBIN TIME PATIENT 26.1 SEC (12.2-14.7)
[2017-05-12 10:25] LABS: INR 2.9 (0.8-1.4); PROTHROMBIN TIME PATIENT 30.1 SEC (12.2-14.7)
== END 2017-05-28 | disposition home or self-care (01) ==
LOC: LAB 09:50
PROVIDERS: ATTEND Family Medicine
DX: I82.401 Acute embolism and thrombosis of unspecified deep veins of right lower extremity (principal)
CPT/HCPCS: 36415; 85610

== ENCOUNTER 2017-06-17 11:17 | Outpatient (RCR) | payer MEDICARE, MEDICAID ==
[~2017-06-17 11:17] MED LIST changes: +ACHD5005 PO; +ASPI-983 PO; -HYDR-3812 PO; +LISI2.5T PO; +METO50TA15 PO; -METO50TA2 PO; +OMEG-160 PO
[2017-06-17 11:39] LABS: INR 2.6 (0.8-1.4); PROTHROMBIN TIME PATIENT 27.6 SEC (12.2-14.7)
== END 2017-09-15 | disposition home or self-care (01) ==
LOC: LAB 11:17
PROVIDERS: ATTEND Family Medicine
DX: I82.401 Acute embolism and thrombosis of unspecified deep veins of right lower extremity (principal)
CPT/HCPCS: 36415; 85610

== ENCOUNTER 2018-11-10 08:31 | Outpatient (CLI) | payer MEDICARE, MEDICAID ==
[~2018-11-10] VITALS: Ht 180.3 cm; Wt 152.4 kg
[~2018-11-10 08:31] MED LIST changes: -AMLO5TAB2 PO; +AMLO5TAB9 PO; +DOCU-250 PO; -DOCU100C23 PO; -POLY255P PO; +POLY255P16 PO
[2018-11-10 08:42] VITALS: BP 132/61
[2018-11-10] MEDS ORDERED: TRAM50TA2 PO (09:28)
[2018-11-10] MEDS ORDERED: ALPR0.254 PO (09:28)
[2018-11-10] MEDS ORDERED: ONDA8TAB12 PO (09:28)
[2018-11-10] MEDS ORDERED: OMEP20CA12 PO (09:28)
[2018-11-10 09:30] LABS: BASOPHILS % (AUTO) 0 % (0-10); EOSINOPHILS # (AUTO) 0.2 10^3/uL (0.0-0.3); EOSINOPHILS % (AUTO) 2 % (0-10); HEMATOCRIT 44 % (40-54); HEMOGLOBIN 14.6 G/DL (13.3-17.7); LYMPHOCYTES # (AUTO) 1.7 X 10^3 (1.0-4.0); LYMPHOCYTES % (AUTO) 20 % (12-44); MEAN CORPUSCULAR HEMOGLOBIN 30 PG (25-34); MEAN CORPUSCULAR HGB CONC 33 G/DL (32-36); MEAN CORPUSCULAR VOLUME 89 FL (80-99); MEAN PLATELET VOLUME 9.8 FL (7.4-10.4); MONOCYTES # (AUTO) 0.9 X 10^3 (0.0-1.0); MONOCYTES % (AUTO) 10 % (0-12); NEUTROPHILS # (AUTO) 5.7 X 10^3 (1.8-7.8); NEUTROPHILS % (AUTO) 68 % (42-75); PLATELET COUNT 205 10^3/uL (130-400); RED CELL DISTRIBUTION WIDTH 14.7 % (10.0-14.5); WHITE BLOOD COUNT 8.4 10^3/uL (4.3-11.0)
[2018-11-10 09:44] LABS: BUN/CREATININE RATIO 14; CALCIUM 8.8 MG/DL (8.5-10.1); CARBON DIOXIDE 24 MMOL/L (21-32); CHLORIDE 103 MMOL/L (98-107); CREATININE SERUM 0.98 MG/DL (0.60-1.30); GFR ESTIMATED > 60; GLUCOSE 95 MG/DL (70-105); POTASSIUM 3.7 MMOL/L (3.6-5.0); SODIUM 140 MMOL/L (135-145)
== END 2018-11-10 09:15 | disposition home or self-care (01) ==
LOC: PREOP 08:31
PROVIDERS: ATTEND Surgery
DX: Z01.812 Encounter for preprocedural laboratory examination (principal); Z11.2 Encounter for screening for other bacterial diseases; L98.9 Disorder of the skin and subcutaneous tissue, unspecified
CPT/HCPCS: 36415; 80048; 85025; 87081

== ENCOUNTER 2018-11-16 07:18 | Day surgery (SDC) | payer MEDICARE, MEDICAID ==
[~2018-11-16] VITALS: Ht 180.3 cm; Wt 148.3 kg
[~2018-11-16 07:18] MED LIST changes: +OMEP20CA12 PO; +ONDA8TAB12 PO
[2018-11-16 07:30] VITALS: BP 126/66
[2018-11-16] MEDS ORDERED: CLINDAMYCIN 600 MG/50 ML IVPB 50 ML IV ONE (08:00)
[2018-11-16] MEDS: LACTATED RINGERS 1,000 ML IV PRN ×2 (08:15→12:21)
[2018-11-16 08:52] LABS: INR 1.1 (0.8-1.4); PROTHROMBIN TIME PATIENT 13.9 SEC (12.2-14.7)
--- NOTE | 2018-11-16 11:09 | Progress Note-Pre Operative ---
Pre-Operative Progress Note H&P Reviewed The H&P was reviewed, patient examined and no changes noted. Date Seen by Provider: Nov 16, 2018 Time Seen by Provider: 11:08 Date H&P Reviewed: Nov 16, 2018 Time H&P Reviewed: 11:08 Pre-Operative Diagnosis: lesion right chest PORSHA BYRNES DO Nov 16, 2018 11:09
[2018-11-16] MEDS ORDERED: ONDANSETRON 4 MG/2 ML (SDV) Z0FRAN IVP PRN (11:15)
[2018-11-16] MEDS ORDERED: morphine INJ 10 MG/ML 1ML (SYR OR VIAL) IVP ONE (11:15)
[2018-11-16] MEDS ORDERED: LIDOCAINE 1% INJ 20 ML 20 ML VIAL ONE (11:20)
[2018-11-16] MEDS ORDERED: BUP/EPI 0.5% 1:200,000 (SENSORCAINE) 30 ML VIAL ONE (11:20)
[2018-11-16] MEDS ORDERED: ONDANSETRON 4 MG/2 ML (SDV) Z0FRAN ONE (11:53)
[2018-11-16] MEDS ORDERED: PROPOFOL INJECTION 50 ML IV ONE (11:53)
[2018-11-16] MEDS ORDERED: MIDAZOLAM 2 MG/2 ML (VERSED) VIAL ONE (11:54)
--- NOTE | 2018-11-16 13:17 | Discharge Inst-Simple/Standard ---
Discharge Inst-Standard Patient Instructions/Follow Up Plan of Care/Instructions/FU: 2 weeks Speedy Activity as Tolerated: Yes Discharge Diet: Regular Diet Other Inst to Patient Follow up Appt: Make appointment for 2 week. Instructions: No strenuous activity. May shower in 24 hours, no tub bath or soaking. Use incentive spirometer at home as directed. No Smoking Skin/Wound Care: May remove bandages in 24 hours. Keep area clean and dry. Symptoms to Report: Appetite Changes, Extremity Discoloration, Numbness/Tingling, Swelling Increased , Bleeding Excessive, Eyesight Changes, Pain Increased, Urine Color Change, Constipation(Persistent), Fever over 101 degree F, Pain/Pressure in chest, Urinating Difficulty, Cough Up/Vomit Blood, Heart Beat Irreg/Pounding, Pain/ Pressure in jaw, Vaginal Bleeding Increase, Cramps in feet or legs, Lightheadedness, Pain/Pressure in shoulder, Diarrhea(Persistent), Memory Changes Suddenly, Questions/Concerns, Weight gain consecutive days, Dizziness/ Fainting, Nausea/Vomiting, Shortness of Breath, Weight gain over 2 pounds If questions or concerns contact your physician Or seek help at emergency department. PORSHA BYRNES DO Nov 16, 2018 13:17
--- NOTE | 2018-11-16 13:20 | Progress Note-Post Operative ---
Post-Operative Progess Note Surgeon (s)/Manager Pool (s) Surgeon PORSHA BYRNES DO Manager Pool: na Pre-Operative Diagnosis lesion right chest Post-Operative Diagnosis same Procedure & Operative Findings Date of Procedure 11/16/18 Procedure Performed/Findings excision lesion right chest 5.5x4cm Anesthesia Type mac c local Estimated Blood Loss Estimated blood loss (mL): min Specimens/Packing Specimens Removed lesion chest PORSHA BYRNES DO Nov 16, 2018 13:20
[2018-11-16 13:30] VITALS: BP 162/72
[2018-11-16 14:00] VITALS: BP 143/64
[2018-11-16 14:10] VITALS: BP 126/66
--- NOTE | 2018-11-16 14:24 | Anesthesia-General Post-Op ---
MAC Patient Condition Mental Status/LOC: Same as Preop Cardiovascular: Satisfactory Nausea/Vomiting: Absent Respiratory: Satisfactory Pain: Controlled Complications: Absent Post Op Complications Complications None Follow Up Care/Instructions Patient Instructions None needed. Anesthesiology Discharge Order Discharge Order Patient is doing well, no complaints, stable vital signs, no apparent adverse anesthesia problems. No complications reported per nursing. PÉREZ YANES CRNA Nov 16, 2018 14:24
--- NOTE | 2018-11-16 18:24 | OPERATIVE REPORT ---
DATE OF SERVICE: 11/16/2018 PREOPERATIVE DIAGNOSIS: Lesion, right chest. POSTOPERATIVE DIAGNOSIS: Lesion, right chest. PROCEDURE PERFORMED: Excision of lesion right chest, 5.5 x 4 cm. ANESTHESIA: MAC with local. ESTIMATED BLOOD LOSS: Minimal. COMPLICATIONS: None. INDICATIONS: The patient is a 67-year-old male with large right chest lesion. He understands risks and benefits of procedure and wished to proceed with the procedure. Consent was signed on the chart. DESCRIPTION OF PROCEDURE: The patient was taken to the operating suite. He was prepped and draped in sterile fashion. Surgical pause was performed. Local anesthetic was used to infiltrate the area. An elliptical incision measuring 5.5 x 4 cm was made around the lesion and the skin and subcutaneous tissues were removed. Long suture lateral and short suture superior for markings of the lesion. Hemostasis was then achieved. The skin was then closed using 3-0 Prolene in a simple running fashion. The patient then had the area washed and dried, sterile bandage applied. The patient tolerated the procedure well without any complications. He was taken to the recovery room in stable condition. Job ID: [id number] DocumentID: [id number] Dictated Date: 11/16/2018 13:20:30 Steam Heating Installer Date: 11/16/2018 18:24:36 Dictated By: PORSHA BYRNES DO
== END 2018-11-16 14:10 | disposition home or self-care (01) ==
LOC: SDC 07:18
PROVIDERS: ATTEND Surgery
DX: D04.5 Carcinoma in situ of skin of trunk (principal); E11.43 Type 2 diabetes mellitus with diabetic autonomic (poly)neuropathy; I25.10 Atherosclerotic heart disease of native coronary artery without angina pectoris; I10 Essential (primary) hypertension; E78.5 Hyperlipidemia, unspecified; E66.01 Morbid (severe) obesity due to excess calories; Z68.42 Body mass index [BMI] 45.0-49.9, adult; J44.9 Chronic obstructive pulmonary disease, unspecified; Z79.01 Long term (current) use of anticoagulants; G47.33 Obstructive sleep apnea (adult) (pediatric); K21.9 Gastro-esophageal reflux disease without esophagitis; R60.0 Localized edema; Z79.82 Long term (current) use of aspirin; Z79.4 Long term (current) use of insulin; Z79.899 Other long term (current) drug therapy; Z87.891 Personal history of nicotine dependence; Z86.711 Personal history of pulmonary embolism; Z86.718 Personal history of other venous thrombosis and embolism
CPT/HCPCS: 36415; 82962; 85610; 88305

== ENCOUNTER → 2019-01-25 | Outpatient (CLI) | payer MEDICARE, MEDICAID | LOC: CARD 13:34 | PROVIDERS: ATTEND Physician Assistant | DX: I25.10 Atherosclerotic heart disease of native coronary artery without angina pectoris (principal); I10 Essential (primary) hypertension; E78.5 Hyperlipidemia, unspecified; R06.02 Shortness of breath; I34.0 Nonrheumatic mitral (valve) insufficiency | CPT/HCPCS: 93306 ==

== ENCOUNTER → 2019-01-31 | Outpatient (CLI) | payer MEDICARE, MEDICAID ==
[~2019-01-31] VITALS: Ht 182.9 cm; Wt 148.3 kg
[~2019-01-31] MED LIST changes: +CATHETER FLUSH 10 ML SYR IV PRN; +REGADENOSON 0.4 MG/5 ML SYR (LEXISCAN) IV ONE
--- NOTE | 2019-01-31 17:05 | STRESS TEST ---
DATE OF SERVICE: 01/31/2019 LEXISCAN MYOVIEW STRESS TEST REPORT REFERRING PHYSICIAN: Anshu Newman DO. Baseline heart rate is 69, baseline blood pressure 133/79. Baseline EKG is sinus rhythm with no ischemic changes. In summary, the patient was injected with 10.78 mCi of technetium-99 Myoview and the resting images were obtained. Then, the patient received 0.4 mg of Lexiscan followed by 31.6 mCi of technetium-99 Myoview. Throughout the test, there were no EKG changes. The resting and stress images were reviewed and compared in the short axis, horizontal long axis, and vertical long axis views. Review of the images showed diaphragmatic attenuation with mild decreased uptake involving the basal to mid inferolateral wall with no significant reversibility. SSS is 2, SDS 2, TID value 0.98. On the gated images, the left ventricle appeared to be normal size with normal contractility. Calculated ejection fraction is 55%. CONCLUSION: 1. The patient tolerated Lexiscan well. 2. Diaphragmatic attenuation with typical male pattern with no significant ischemia or infarction on SPECT images. 3. Normal left ventricular size with normal contractility. Calculated ejection fraction is 55%. Job ID: [id number] DocumentID: [id number] Dictated Date: 01/31/2019 16:50:28 Concrete Products Machine Operator Date: 01/31/2019 17:04:46 Dictated By: JUANITO MANDUJANO MD
== END ==
LOC: CARD 11:35
PROVIDERS: ATTEND Physician Assistant
DX: I25.10 Atherosclerotic heart disease of native coronary artery without angina pectoris (principal); I10 Essential (primary) hypertension; E78.5 Hyperlipidemia, unspecified; R06.02 Shortness of breath
CPT/HCPCS: 78452; 93017

== ENCOUNTER 2020-07-11 05:53 | Outpatient (RCR) | payer MEDICAID, MEDICARE ==
[~2020-07-11] VITALS: Ht 180.3 cm; Wt 148.3 kg
[~2020-07-11 05:53] MED LIST changes: -ALPR0.254 PO; +AMLO-250 PO; -AMLO5TAB9 PO; +ASCO100024 PO; +ASPI-1238 PO; -ASPI-983 PO; -CATHETER FLUSH 10 ML SYR IV PRN; +GBPN600T PO; -OMEP20CA12 PO; +OMEP20CA18 PO; -ONDA8TAB12 PO; +ONDA8TAB15 PO; -REGADENOSON 0.4 MG/5 ML SYR (LEXISCAN) IV ONE; +TRM50T PO; -WARF5TAB8 PO; +WARF7.5T6 PO
== END 2020-07-11 10:28 | disposition home or self-care (01) ==
LOC: PREOP 05:53
PROVIDERS: ATTEND Surgery
DX: Z01.812 Encounter for preprocedural laboratory examination (principal); Z20.828 Contact with and (suspected) exposure to other viral communicable diseases
CPT/HCPCS: 87635

== ENCOUNTER 2020-07-15 09:55 | Day surgery (SDC) | payer MEDICARE, MEDICAID ==
[~2020-07-15] VITALS: Ht 180.3 cm; Wt 148.3 kg
[2020-07-15] MEDS ORDERED: LACTATED RINGERS 1,000 ML IV ONE (10:04)
[2020-07-15] MEDS ORDERED: LACTATED RINGERS 1,000 ML IV STA (10:08)
[2020-07-15 10:30] VITALS: BP 105/74
[2020-07-15] MEDS ORDERED: PROPOFOL INJECTION 50 ML IV ONE ×2 (11:31→11:52)
[2020-07-15] MEDS ORDERED: MIDAZOLAM 2 MG/2 ML (VERSED) VIAL ONE (11:31)
[2020-07-15] MEDS ORDERED: KETAMINE/NaCl 50 MG/5 ML SYRINGE (ED ONLY) ONE (11:41)
[2020-07-15 12:38] VITALS: BP 109/62
--- NOTE | 2020-07-15 12:39 | Progress Note-Post Operative ---
Post-Operative Progess Note Surgeon (s)/Garbage Worker (s) Surgeon PORSHA BYRNES DO Garbage Worker: na Pre-Operative Diagnosis +cologuard Post-Operative Diagnosis colon polyps Procedure & Operative Findings Date of Procedure 07/15/20 Procedure Performed/Findings colonoscopy c hot bx polypectomy x 5 and snare polypectomy x 1 Anesthesia Type per parking regulation enforcement officer Estimated Blood Loss Estimated blood loss (mL): none Specimens/Packing Specimens Removed colon polyps PORSHA BYRNES DO Jul 15, 2020 12:39
--- NOTE | 2020-07-15 12:41 | Discharge Inst-Simple/Standard ---
Discharge Inst-Standard Patient Instructions/Follow Up Plan of Care/Instructions/FU: 2 weeks Speedy Activity as Tolerated: Yes Discharge Diet: Regular Diet PORSHA BYRNES DO Jul 15, 2020 12:41
[2020-07-15 12:43] VITALS: BP 110/64
[2020-07-15 12:45] VITALS: BP 110/64
[2020-07-15 13:15] VITALS: BP 108/72
--- NOTE | 2020-07-15 13:25 | Anesthesia-General Post-Op ---
MAC Patient Condition Mental Status/LOC: Same as Preop Cardiovascular: Satisfactory Nausea/Vomiting: Absent Respiratory: Satisfactory Pain: Controlled Complications: Absent Post Op Complications Complications None Follow Up Care/Instructions Patient Instructions None needed. Anesthesiology Discharge Order Discharge Order Patient is doing well, no complaints, stable vital signs, no apparent adverse anesthesia problems. No complications reported per nursing. SANDRA ALONSO CRNA Jul 15, 2020 13:25
[2020-07-15 13:45] VITALS: BP 108/72
--- NOTE | 2020-07-15 19:52 | OPERATIVE REPORT ---
DATE OF SERVICE: 07/15/2020 PREOPERATIVE DIAGNOSIS: Positive Cologuard. POSTOPERATIVE DIAGNOSIS: Colon polyps x6. SURGEON: Porsha Ruff DO PROCEDURE: Colonoscopy with hot biopsy polypectomy x5 and snare polypectomy x1. ANESTHESIA: Per GARDEN EQUIPMENT MECHANIC. ESTIMATED BLOOD LOSS: None. COMPLICATIONS: None. INDICATIONS: The patient is a 69-year-old male with a positive Cologuard test. He understands risks and benefits of procedure and wished to proceed with procedure. Consent was signed in the chart. DESCRIPTION OF PROCEDURE: The patient was taken to endoscopy suite, placed in left lateral recumbent position. Timeout was performed. Digital rectal exam was performed. There were no palpable polyps, masses or ulcerations. Scope was inserted in the rectum, advanced all the way to cecum with minimal difficulty. Prep was adequate with lots of irrigation and suction. Scope was then slowly retracted back. There were no polyps, masses or ulcerations in the cecum. In the ascending colon, a small polyp was present, which snare polypectomy was performed. Scope was then continuously retracted back. There were no polyps, masses or ulcerations within the remainder of the ascending colon and transverse colon, there was polyps in close proximity, which hot biopsy polypectomies were performed. Scope was then continuously retracted back. No polyps, masses or ulcerations within the descending colon. In the sigmoid colon, two small polyps were present, which hot biopsy polypectomy was performed. Scope was then continuously retracted back in the rectum, it was also retroflexed noting no other pathology. Scope was returned to its normal position, slowly withdrawn until completely removed. The patient tolerated procedure well without any complications, taken to recovery room in stable condition. RECOMMENDATIONS: The patient will follow up on pathology in 2 to 3 weeks. Any issues before that be seen at that time. The patient would recommend repeat colonoscopy in 3 to 5 years. Any issues before that be seen at that time. Job ID: [id number] DocumentID: [id number] Dictated Date: 07/15/2020 12:44:42 Lead Solutions Architect Date: 07/15/2020 19:51:50 Dictated By: PORSHA RUFF DO
== END 2020-07-15 13:45 | disposition home or self-care (01) ==
LOC: ENDO 09:55
PROVIDERS: ATTEND Surgery
DX: D12.2 Benign neoplasm of ascending colon (principal); D12.3 Benign neoplasm of transverse colon; D12.5 Benign neoplasm of sigmoid colon; I65.23 Occlusion and stenosis of bilateral carotid arteries; I12.9 Hypertensive chronic kidney disease with stage 1 through stage 4 chronic kidney disease, or unspecified chronic kidney disease; N18.9 Chronic kidney disease, unspecified; E11.22 Type 2 diabetes mellitus with diabetic chronic kidney disease; I25.10 Atherosclerotic heart disease of native coronary artery without angina pectoris; E11.51 Type 2 diabetes mellitus with diabetic peripheral angiopathy without gangrene; J44.9 Chronic obstructive pulmonary disease, unspecified; G47.33 Obstructive sleep apnea (adult) (pediatric); K21.9 Gastro-esophageal reflux disease without esophagitis; E66.01 Morbid (severe) obesity due to excess calories; Z68.42 Body mass index [BMI] 45.0-49.9, adult; Z79.82 Long term (current) use of aspirin; Z79.899 Other long term (current) drug therapy; Z88.0 Allergy status to penicillin; Z88.1 Allergy status to other antibiotic agents; Z87.891 Personal history of nicotine dependence; Z80.9 Family history of malignant neoplasm, unspecified; Z80.0 Family history of malignant neoplasm of digestive organs
CPT/HCPCS: 82962; 88305

== ENCOUNTER 2021-07-26 14:37 | Observation (INO) | payer MEDICARE, MEDICAID ==
[~2021-07-26] VITALS: Ht 180.3 cm; Wt 161.0 kg
[~2021-07-26 14:37] MED LIST changes: +CYCL10TA25 PO; -CYCL10TA9 PO; -ISM60TCR PO; +ISOS60TA63 PO; -LISI2.5T PO; +LISI2.5T13 PO; +ONDA-106 PO; -ONDA8TAB15 PO
--- NOTE | 2021-07-26 14:59 | ED Lower Extremity ---
General Stated Complaint: L LEG LAC/ON BLOOD THINNERS Source: patient, family Exam Limitations: no limitations History of Present Illness Date Seen by Provider: Jul 26, 2021 Time Seen by Provider: 14:57 Initial Comments Patient is a 70-year-old male who presents ED with bilateral leg swelling, drainage, bleeding. Patient states today he hit his left leg against his wheelchair at home. This resulted in bleeding. Patient was brought to ED by family. Patient states he has been having lower leg swelling. Crusting and noted odor to his left leg. Patient is diabetic. 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 Denies any chest pain or shortness of breath. Concern for redness to the lower extremities. Denies any fever, vomiting, diarrhea. Reports numbness and tingling distally but is able to move his digits. Mild bleeding noted to left lower leg. Not up-to-date on his tetanus. Allergies and Home Medications Allergies Coded Allergies: amoxicillin (Unverified Allergy, Mild, 02/04/09) Penicillins (Unverified Allergy, Unknown, 07/09/20) Patient Home Medication List Home Medication List Reviewed: Yes Ascorbic Acid (Vitamin C) 1,000 Mg Tablet, 1,000 MG PO DAILY, (Reported) Entered as Reported by: TRISTON RESENDEZ on 07/09/20 1147 Aspirin (Aspirin EC) 81 Mg Tablet.dr, 81 MG PO HS, (Reported) Entered as Reported by: SARITA KUHN on 06/03/17 0948 Atorvastatin Calcium (Atorvastatin Calcium) 10 Mg Tablet, 10 MG PO HS, ( Reported) Entered as Reported by: SARITA KUHN on 12/16/16 1413 Carbidopa/Levodopa (Carbidopa-Levodopa 25-250 Tab) 1 Each Tablet, 2 TAB PO 0800, (Reported) Entered as Reported by: SARITA KUHN on 12/16/16 141 Carbidopa/Levodopa (Carbidopa-Levodopa 25-250 Tab) 1 Each Tablet, 1 TAB PO 1200,1700,2200, (Reported) Entered as Reported by: SARITA KUHN on 12/16/16 1413 Furosemide (Furosemide) 80 Mg Tablet, 80 MG PO DAILY, (Reported) Entered as Reported by: SARITA KUHN on 12/16/16 1413 Gabapentin (Gabapentin) 600 Mg Tablet, 600 MG PO TID, (Reported) Entered as Reported by: TRISTON RESENDEZ on 07/09/20 1147 Isosorbide Mononitrate (Isosorbide Mononitrate ER) 60 Mg Tab, 60 MG PO DAILY, (Reported) Entered as Reported by: SARITA KUHN on 12/16/16 1413 Lisinopril (Lisinopril) 2.5 Mg Tablet, 2.5 MG PO DAILY, (Reported) Entered as Reported by: SARITA KUHN on 06/03/17 0948 Niacin (Niaspan) 1,000 Mg Tab.er.24h, 1,000 MG PO DAILY, (Reported) Entered as Reported by: TRISTON RESENDEZ on 07/09/20 1147 [place]-3/Dha/Epa/Fish Oil (Fish Oil 1,000 mg Softgel) 1 Each Capsule, 1,000 MG PO TID, (Reported) Entered as Reported by: SARITA KUHN on 06/03/17 0948 Warfarin Sodium (Jantoven) 7.5 Mg Tablet, 7.5 MG PO MOWEFR, (Reported) Entered as Reported by: TRISTON RESENDEZ on 07/09/20 1147 Warfarin Sodium (Jantoven) 5 Mg Tablet, 5 MG PO TUTHSATSUN, (Reported) Entered as Reported by: TRISTON RESENDEZ on 07/09/20 1147 Review of Systems Constitutional: No chills, No diaphoresis, No dizziness, No fever EENTM: No ear discharge, No ear pain, No eye pain Respiratory: No cough, No short of breath Gastrointestinal: see HPI; No abdominal pain, No constipation, No diarrhea Musculoskeletal: muscle pain Skin: other (Swelling, crusting, redness and bleeding of left leg and swelling of right leg with mild redness) All Other Systems Reviewed Negative Unless Noted: Yes Past Rqdvkva-Smjeeb-Luuguv Hx Immunizations Up To Date Tetanus Booster (TDap): Less than 5yrs Seasonal Allergies Seasonal Allergies: No Past Medical History Surgeries: Yes (right ear) Ear Surgery, Tonsillectomy Respiratory: Yes Pulmonary Embolism, Sleep Apnea, COPD Currently Using CPAP: No Currently Using BIPAP: No Cardiac: Yes Deep Vein Thrombosis, High Cholesterol, Hypertension Neurological: Yes Neuropathy, Parkinson's Disease Reproductive Disorders: No Genitourinary: No Gastrointestinal: Yes Gastroesophageal Reflux Musculoskeletal: Yes Arthritis, Chronic Back Pain Endocrine: Yes Diabetes, Insulin dep HEENT: No (glasses) Cancer: No Psychosocial: Yes Anxiety, Depression Integumentary: Yes (chest lesion) Pruritis Blood Disorders: No Adverse Reaction/Blood Tranf: No Physical Exam Vital Signs Vital Signs - First Documented 07/26/21 14:40 Temp 36.4 Pulse 86 Resp 16 B/P (MAP) 174/80 (111) Pulse Ox 100 O2 Delivery Room Air Capillary Refill : Height, Weight, BMI Height: 6'0.00" Weight: 327lbs. 0.0oz. 148.148164ex; 45.61 BMI Method:Estimated General Appearance: WD/WN, no apparent distress HEENT: PERRL/EOMI, normal ENT inspection, TMs normal, pharynx normal Neck: non-tender, full range of motion, supple Cardiovascular: regular rate, rhythm Respiratory: chest non-tender, lungs clear, normal breath sounds Gastrointestinal: non tender, soft Back: normal inspection, no CVA tenderness Legs: bilateral leg soft tissue tenderness, bilateral leg swelling Skin: other (Swelling bilateral lower extremities. Edematous. +2 dorsalis pedis bilateral. Crusting, with purulent drainage left lower leg. Mild bleeding) Progress/Results/Core Measures Results/Orders Lab Results Laboratory Tests Test 07/26/21 15:00 Range/Units White Blood Count 11.0 4.3-11.0 10^3/uL Red Blood Count 4.22 L 4.30-5.52 10^6/uL Hemoglobin 11.2 L 13.3-17.7 g/dL Hematocrit 36 L 40-54 % Mean Corpuscular Volume 86 80-99 fL Mean Corpuscular Hemoglobin 27 25-34 pg Mean Corpuscular Hemoglobin Concent 31 L 32-36 g/dL Red Cell Distribution Width 15.8 H 10.0-14.5 % Platelet Count 309 130-400 10^3/uL Mean Platelet Volume 8.7 L 9.0-12.2 fL Immature Granulocyte % (Auto) 1 % Neutrophils (%) (Auto) 69 42-75 % Lymphocytes (%) (Auto) 19 12-44 % Monocytes (%) (Auto) 8 0-12 % Eosinophils (%) (Auto) 3 0-10 % Basophils (%) (Auto) 0 0-10 % Neutrophils # (Auto) 7.7 1.8-7.8 X 10^3 Lymphocytes # (Auto) 2.0 1.0-4.0 X 10^3 Monocytes # (Auto) 0.9 0.0-1.0 X 10^3 Eosinophils # (Auto) 0.4 H 0.0-0.3 10^3/uL Basophils # (Auto) 0.0 0.0-0.1 10^3/uL Immature Granulocyte # (Auto) 0.1 0.0-0.1 10^3/uL Prothrombin Time 31.2 H 12.2-14.7 SEC INR Comment 2.9 H 0.8-1.4 Activated Partial Thromboplast Time 59 H 24-35 SEC Sodium Level 138 135-145 MMOL/L Potassium Level 4.3 3.6-5.0 MMOL/L Chloride Level 103 98-107 MMOL/L Carbon Dioxide Level 22 21-32 MMOL/L Anion Gap 13 5-14 MMOL/L Blood Urea Nitrogen 25 H 7-18 MG/DL Creatinine 1.57 H 0.60-1.30 MG/DL Estimat Glomerular Filtration Rate 44 BUN/Creatinine Ratio 16 Glucose Level 177 H 70-105 MG/DL Lactic Acid Level 2.42 *H 0.50-2.00 MMOL/L Calcium Level 8.6 8.5-10.1 MG/DL Corrected Calcium 8.8 8.5-10.1 MG/DL Total Bilirubin 0.4 0.1-1.0 MG/DL Aspartate Amino Transf (AST/SGOT) 9 5-34 U/L Alanine Aminotransferase (ALT/SGPT) < 6 0-55 U/L Alkaline Phosphatase 67 40-136 U/L C-Reactive Protein High Sensitivity 2.90 H 0.00-0.50 MG/DL B-Type Natriuretic Peptide 56.1 <100.0 PG/ML Total Protein 7.5 6.4-8.2 GM/DL Albumin 3.8 3.2-4.5 GM/DL My Orders Orders - MARITA YANG PA Blood Culture (07/26/21 14:50) Lactic Acid Analyzer (07/26/21 14:50) Cbc With Automated Diff (07/26/21 14:50) Comprehensive Metabolic Panel (07/26/21 14:50) Hs C Reactive Protein (07/26/21 14:50) Tibia/Fibula, Left, 2 Views (07/26/21 14:50) Ankle, Left, 3 Views (07/26/21 14:50) Vancomycin Injection (Vancomycin Injecti (07/26/21 15:00) Chest 1 View, Ap/Pa Only (07/26/21 14:50) BNP (07/26/21 14:50) Dipht,Pertuss(Acell),Tet Adult (Boostrix (07/26/21 15:00) Protime With Inr (07/26/21 14:57) Partial Thromboplastin Time (07/26/21 14:57) Blood Culture (07/26/21 15:28) Wound Culture (07/26/21 15:34) Ns Iv 1000 Ml (Sodium Chloride 0.9%) (07/26/21 16:15) Medications Given in ED Current Medications Medications Dose Ordered Sig/Myla Route Start Time Stop Time Status Last Admin Dose Admin Diphtheria/ Tetanus/Acell Pertussis 0.5 ml ONCE ONCE IM 07/26/21 15:00 07/26/21 15:01 DC 07/26/21 15:59 0.5 ML Vancomycin HCl 1000 mg/Sodium Chloride 250 ml @ 250 mls/hr ONCE ONCE IV 07/26/21 15:00 07/26/21 15:59 DC 07/26/21 16:00 250 MLS/HR Vital Signs/I&O 07/26/21 14:40 Temp 36.4 Pulse 86 Resp 16 B/P (MAP) 174/80 (111) Pulse Ox 100 O2 Delivery Room Air Departure Communication (Admissions) Time/Spoke to Admitting Phy: 17:04 Patient was discussed with Dr. Camacho who accepts the patient at this time. Observation with cellulitis of left leg. Patient with lower extremity edema. +2 dorsalis pedis bilateral. Patient with normal sensation. Subtle delayed cap refill bilateral feet. Warm to touch. Normal active range of motion of the digits and ankle. Does have purulent drainage with scabbing left lower leg. Clear fluid drainage bilateral. Concerning for fluid overload. Normal BMP. Chest x-ray negative for effusion, pulmonary edema. Denies any chest pain or cough. 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 Patient with normal white blood count. Slightly eleva jazzy CRP and lactic acid. Was given a liter fluid here in the ED and started on vancomycin and Rocephin. Slight change in kidney function with acute kidney injury. Patient denies history of CHF. Concerning for cellulitis of the left leg. Patient was discussed with Dr. Burnett accepts patient at this time. Patient agrees with this plan of action. Patient does live at home. Patient uses a wheelchair. Concerning that patient may have difficulty taking care of himself at home. Recommend strong family support to help assist patient if he was to return. X-ray without strong evidence of infection. Possible lucency through the left distal fibula. He has no point tenderness. Unlikely fracture secondary to the mechanism of injury. Continue monitoring. Impression Primary Impression: Cellulitis Additional Impressions: BREANNA (acute kidney injury) Elevated lactic acid level Disposition: ADMITTED INPATIENT Condition: Stable Admissions Decision to Admit Reason: Admit from ER (General) Decision to Admit/Date: Jul 26, 2021 Time/Decision to Admit Time: 17:05 Departure-Patient Inst. Referrals: ZAC LUZ DO (PCP/Family) Primary Care Physician MARITA YANG Jul 26, 2021 14:59
[2021-07-26] MEDS ORDERED: TETANUS,DIPTH,PERTUSS P/F (BOOSTRIX) 0.5 ML VIAL IM ONE (15:00)
[2021-07-26] MEDS ORDERED: VANCOMYCIN INJECTION 1,000 MG in NS (IVPB) 250 ML IV ONE (15:00)
[2021-07-26 15:13] LABS: BASOPHILS % (AUTO) 0 % (0-10); EOSINOPHILS # (AUTO) 0.4 10^3/uL (0.0-0.3); EOSINOPHILS % (AUTO) 3 % (0-10); HEMATOCRIT 36 % (40-54); HEMOGLOBIN 11.2 g/dL (13.3-17.7); LYMPHOCYTES % (AUTO) 19 % (12-44); MEAN CORPUSCULAR HEMOGLOBIN 27 pg (25-34); MEAN CORPUSCULAR HGB CONC 31 g/dL (32-36); MEAN CORPUSCULAR VOLUME 86 fL (80-99); MEAN PLATELET VOLUME 8.7 fL (9.0-12.2); MONOCYTES # (AUTO) 0.9 X 10^3 (0.0-1.0); MONOCYTES % (AUTO) 8 % (0-12); NEUTROPHILS # (AUTO) 7.7 X 10^3 (1.8-7.8); NEUTROPHILS % (AUTO) 69 % (42-75); PLATELET COUNT 309 10^3/uL (130-400)
[2021-07-26 15:27] LABS: ALBUMIN 3.8 GM/DL (3.2-4.5); CHLORIDE 103 MMOL/L (98-107); POTASSIUM 4.3 MMOL/L (3.6-5.0); SODIUM 138 MMOL/L (135-145)
[2021-07-26 15:28] LABS: CALCIUM 8.6 MG/DL (8.5-10.1)
[2021-07-26 15:29] LABS: INR 2.9 (0.8-1.4); PROTHROMBIN TIME PATIENT 31.2 SEC (12.2-14.7)
[2021-07-26 15:30] LABS: GLUCOSE 177 MG/DL (70-105); TOTAL PROTEIN 7.5 GM/DL (6.4-8.2)
[2021-07-26 15:31] LABS: BILIRUBIN,TOTAL 0.4 MG/DL (0.1-1.0); CARBON DIOXIDE 22 MMOL/L (21-32)
[2021-07-26 15:33] LABS: ALKALINE PHOSPHATASE 67 U/L (40-136); CREATININE SERUM 1.57 MG/DL (0.60-1.30); GFR ESTIMATED 44
[2021-07-26 15:34] LABS: BUN/CREATININE RATIO 16
--- NOTE | 2021-07-26 15:35 | Diagnostic Imaging Report ---
INDICATION: Left leg laceration. EXAMINATION: Left ankle, 07/26/2021. COMPARISON: 10/01/2008. FINDINGS: Three views of the ankle demonstrate marked soft tissue prominence about the foot and ankle. There is severe osteopenia which limits evaluation for a nondisplaced fracture. The vague transverse lucency in the distal fibula is likely a nutrient foramen but if there is point tenderness a fracture not excluded. There are no dislocations. The ankle mortise and talar dome appear intact. There are no radiopaque foreign bodies. Atherosclerotic disease and a benign-appearing calcification are seen within the anterior soft tissues of the lower extremity. IMPRESSION: Severely limited evaluation for fracture given the osteopenia with a lucency in the distal fibula likely a nutrient foramen. If there is point tenderness a nondisplaced fracture not excluded. Otherwise incidental findings as above. Dictated by: Dictated on workstation # [id number]
[2021-07-26 15:36] LABS: ALANINE AMINOTRANSFERASE < 6 U/L (0-55)
--- NOTE | 2021-07-26 15:36 | Diagnostic Imaging Report ---
EXAMINATION: Chest 1 view. HISTORY: Injury, pain. COMPARISON: 10/29/2011. FINDINGS: Heart size and pulmonary vasculature are normal. The lungs are clear without consolidation, pleural effusion, or pneumothorax. The osseous structures are intact. IMPRESSION: No acute radiographic abnormality in the chest. Dictated by: Dictated on workstation # [id number]
--- NOTE | 2021-07-26 15:38 | Diagnostic Imaging Report ---
EXAM: Left tibia and fibular radiograph. EXAM DATE: 07/26/2021. COMPARISON: None. TECHNIQUE: Four views of the left tibia and fibula. FINDINGS: There is diffuse osseous demineralization. There is no acute fracture, dislocation or destructive osseous process. There is mild degenerative joint space narrowing. Diffuse soft tissue swelling. IMPRESSION: No acute osseous abnormality of the left tibia or fibula. Dictated by: Dictated on workstation # [id number]
[2021-07-26] MEDS: NS IV 1000 ML 1,000 ML IV SCH ×2 (16:16→22:54)
[2021-07-26] MEDS ORDERED: cefTRIAXone 1 GM PRE-MIX 50 ML IV STA (16:55)
[2021-07-26 17:55] VITALS: BP 132/58
[2021-07-26] MEDS ORDERED: ONDANSETRON 4 MG (ZOFRAN) ORAL DISSOLVE TAB PO PRN (19:30)
[2021-07-26] MEDS ORDERED: PATIENT MAY USE OWN MEDS, ALL PO SCH (19:30)
[2021-07-26] MEDS ORDERED: ANTACID SUSP 30 ML UDC (MYLANTA) PO PRN (19:30)
[2021-07-26] MEDS ORDERED: diphenhydrAMINE 25 MG TAB (BENADRYL) PO PRN (19:30)
[2021-07-26] MEDS ORDERED: polyethylene glycoL POWDER 17 GM (MIRALAX) PACK PO PRN (19:30)
[2021-07-26] MEDS ORDERED: ACETAMINOPHEN 325 MG TABLET PO PRN (19:30)
[2021-07-26] MEDS ORDERED: MELATONIN 3 MG TABLET PO PRN (19:30)
[2021-07-26 20:09] VITALS: BP 101/60
[2021-07-26] MEDS ORDERED: AtorvaSTATin TABLET 10 MG TABLET PO SCH (21:00)
[2021-07-26] MEDS ORDERED: SINEMET 25/250 (CARBIDOPA/LEVODOPA) TAB PO ONE (22:30)
[2021-07-26] MEDS: GABAPENTIN 600 MG (NEURONTIN) TAB PO SCH (22:30)
[2021-07-26] MEDS ORDERED: ASPIRIN E.C. 81 MG (ECOTRIN) TAB PO SCH (22:30)
[2021-07-26] MEDS ORDERED: warFARin 5 MG (COUMADIN) TAB PO ONE (22:30)
[2021-07-26] MEDS ORDERED: AtorvaSTATin TABLET 10 MG TABLET PO ONE (22:30)
[2021-07-26] MEDS: RANOLAZINE ER 500 MG TAB (RANEXA) PO SCH (22:30)
[2021-07-26] MEDS ORDERED: GABAPENTIN 600 MG (NEURONTIN) TAB PO ONE (22:30)
[2021-07-26] MEDS: inSUlin ASPART (NovoLOG) 1 UNIT/0.01 ML (CHARGE PER UNIT) SC SCH (22:55)
[2021-07-26] MEDS ORDERED: VANCOMYCIN 1 GM/NS 250 ML IVPB IV SCH ×2 (23:00)
[2021-07-27 00:38] VITALS: BP 105/66
[2021-07-27 04:00] VITALS: BP 103/52
[2021-07-27 05:53] LABS: BASOPHILS % (AUTO) 0 % (0-10); EOSINOPHILS # (AUTO) 0.2 10^3/uL (0.0-0.3); EOSINOPHILS % (AUTO) 2 % (0-10); HEMATOCRIT 31 % (40-54); HEMOGLOBIN 9.6 g/dL (13.3-17.7); LYMPHOCYTES # (AUTO) 2.1 10^3/uL (1.0-4.0); LYMPHOCYTES % (AUTO) 23 % (12-44); MEAN CORPUSCULAR HEMOGLOBIN 27 pg (25-34); MEAN CORPUSCULAR HGB CONC 31 g/dL (32-36); MEAN CORPUSCULAR VOLUME 85 fL (80-99); MEAN PLATELET VOLUME 9.3 fL (9.0-12.2); MONOCYTES # (AUTO) 0.9 10^3/uL (0.0-1.0); MONOCYTES % (AUTO) 10 % (0-12); NEUTROPHILS # (AUTO) 5.8 10^3/uL (1.8-7.8); NEUTROPHILS % (AUTO) 64 % (42-75); PLATELET COUNT 283 10^3/uL (130-400)
[2021-07-27 06:15] LABS: CALCIUM 8.2 MG/DL (8.5-10.1); CREATININE SERUM 1.33 MG/DL (0.60-1.30); POTASSIUM 4.2 MMOL/L (3.6-5.0)
[2021-07-27] MEDS: inSUlin ASPART (NovoLOG) 1 UNIT/0.01 ML (CHARGE PER UNIT) SC SCH ×3 (06:35→15:00)
[2021-07-27] MEDS ORDERED: VANCOMYCIN 1 GM/NS 250 ML IVPB IV SCH ×2 (07:00)
[2021-07-27 07:30] VITALS: BP 114/72
[2021-07-27] MEDS ORDERED: VANCOMYCIN 1 GM/NS 250 ML IVPB IV NR ×2 (08:30)
[2021-07-27] MEDS ORDERED: ISOSORBIDE MONONITRATE 60 MG (IMDUR) TAB PO SCH (09:00)
[2021-07-27] MEDS ORDERED: amLODIPine 5 MG (NORVASC) TAB PO SCH (09:00)
[2021-07-27] MEDS ORDERED: lisINopril 5 MG (PRINIVIL) TABLET PO SCH (09:00)
[2021-07-27] MEDS ORDERED: FUROSEMIDE 40 MG (LASIX) TAB PO SCH (09:00)
[2021-07-27] MEDS: GABAPENTIN 600 MG (NEURONTIN) TAB PO SCH (09:16)
[2021-07-27] MEDS: RANOLAZINE ER 500 MG TAB (RANEXA) PO SCH (09:17)
[2021-07-27] MEDS: SINEMET 25/250 (CARBIDOPA/LEVODOPA) TAB PO SCH ×2 (09:17→14:33)
[2021-07-27 11:15] VITALS: BP 111/67
[2021-07-27] MEDS: NS IV 1000 ML 1,000 ML IV SCH (12:09)
[2021-07-27] MEDS ORDERED: LEVO750T39 PO ×2 (12:19)
--- NOTE | 2021-07-27 13:58 | Discharge Summary ---
Discharge Summary Hospital Course Problems/Dx: (1) Cellulitis Status: Acute Qualifiers: Hospital Course Date of Admission: Jul 26, 2021 at 16:54 Admission Diagnosis : Cellulitis Family Physician/Provider: Zac Newman DO Date of Discharge: 07/27/21 Discharge Diagnosis: Cellulitis Hospital Course: Gurvinder Nevarez is a 70 year old male with PMH HTN, HLD, CAD, Parkinson's, history of DVT/PE on Warfarin, who was admitted with left leg cellulitis. He was not septic. He was started on IV Vancomycin and Rocephin. There was no evidence of purulence. He was transitioned to oral Levaquin and will complete a 10 day course as an outpatient. He should decrease his Warfarin to 5 mg daily while on Levaquin. He should have a repeat INR on . He was seen by wound care and they were able to provide wound care recommendations. He will follow up in the wound care clinic. He has a follow up scheduled with his PCP, Dr. Newman, on . He was discharged home in stable condition. Labs and Pending Lab Test: Laboratory Tests 07/26/21 15:00: White Blood Count 11.0, Red Blood Count 4.22L, Hemoglobin 11.2L, Hematocrit 36L, Mean Corpuscular Volume 86, Mean Corpuscular Hemoglobin 27, Mean Corpuscular Hemoglobin Concent 31L, Red Cell Distribution Width 15.8H, Platelet Count 309, Mean Platelet Volume 8.7L, Immature Granulocyte % (Auto) 1, Neutrophils (%) (Auto) 69, Lymphocytes (%) (Auto) 19, Monocytes (%) (Auto) 8, Eosinophils (%) (Auto) 3, Basophils (%) (Auto) 0, Neutrophils # (Auto) 7.7, Lymphocytes # (Auto) 2.0, Monocytes # (Auto) 0.9, Eosinophils # (Auto) 0.4H, Basophils # (Auto) 0.0, Immature Granulocyte # (Auto) 0.1, Prothrombin Time 31.2H, INR Comment 2.9H, Activated Partial Thromboplast Time 59H, Sodium Level 138, Potassium Level 4.3, Chloride Level 103, Carbon Dioxide Level 22, Anion Gap 13, Blood Urea Nitrogen 25H, Creatinine 1.57H, Estimat Glomerular Filtration Rate 44, BUN/Creatinine Ratio 16, Glucose Level 177H, Lactic Acid Level 2.42*H, Calcium Level 8.6, Corrected Calcium 8.8, Total Bilirubin 0.4, Aspartate Amino Transf (AST/SGOT) 9, Alanine Aminotransferase (ALT/SGPT) < 6, Alkaline Phosphatase 67, C-Reactive Protein High Sensitivity 2.90H, B-Type Natriuretic Peptide 56.1, Total Protein 7.5, Albumin 3.8 07/26/21 18:41: Lactic Acid Level 2.22*H 07/26/21 20:40: Lactic Acid Level 1.58 07/26/21 22:53: Glucometer 139H 07/27/21 05:14: White Blood Count 9.0, Red Blood Count 3.62L, Hemoglobin 9.6L, Hematocrit 31L, Mean Corpuscular Volume 85, Mean Corpuscular Hemoglobin 27, Mean Corpuscular Hemoglobin Concent 31L, Red Cell Distribution Width 15.5H, Platelet Count 283, Mean Platelet Volume 9.3, Immature Granulocyte % (Auto) 0, Neutrophils (%) (Auto) 64, Lymphocytes (%) (Auto) 23, Monocytes (%) (Auto) 10, Eosinophils (%) (Auto) 2, Basophils (%) (Auto) 0, Neutrophils # (Auto) 5.8, Lymphocytes # (Auto) 2.1, Monocytes # (Auto) 0.9, Eosinophils # (Auto) 0.2, Basophils # (Auto) 0.0, Immature Granulocyte # (Auto) 0.0, Sodium Level 140, Potassium Level 4.2, Chloride Level 110H, Carbon Dioxide Level 20L, Anion Gap 10, Blood Urea Nitrogen 28H, Creatinine 1.33H, Estimat Glomerular Filtration Rate 53, BUN/Creatinine Ratio 21, Glucose Level 115H, Calcium Level 8.2L 07/27/21 05:49: Glucometer 118H 07/27/21 10:03: Glucometer 129H Microbiology 07/26/21 Gram Stain, Resulted Pending 07/26/21 Wound Culture - Preliminary, Resulted Gram Negative Willam Gram Pos Mixed Bacterial Hemalatha Home Meds Active Levofloxacin 750 Mg Tablet 750 Mg PO DAILY 10 Days Reported Vitamin C (Ascorbic Acid) 1,000 Mg Tablet 1,000 Mg PO DAILY Niaspan (Niacin) 1,000 Mg Tab.er.24h 1,000 Mg PO DAILY Jantoven (Warfarin Sodium) 5 Mg Tablet 5 Mg PO ASAD Brandontoven (Warfarin Sodium) 7.5 Mg Tablet 7.5 Mg PO MOWEFR Gabapentin 600 Mg Tablet 600 Mg PO TID Lisinopril 2.5 Mg Tablet 2.5 Mg PO DAILY Fish Oil 1,000 mg Softgel ([place]-3/Dha/Epa/Fish Oil) 1 Each Capsule 1,000 Mg PO TID Aspirin EC (Aspirin) 81 Mg Tablet.dr 81 Mg PO HS Furosemide 80 Mg Tablet 80 Mg PO DAILY Isosorbide Mononitrate ER (Isosorbide Mononitrate) 60 Mg Tab 60 Mg PO DAILY Atorvastatin Calcium 10 Mg Tablet 10 Mg PO HS Carbidopa-Levodopa 25-250 Tab (Carbidopa/Levodopa) 1 Each Tablet 1 Tab PO 1200,1700,2200 Carbidopa-Levodopa 25-250 Tab (Carbidopa/Levodopa) 1 Each Tablet 2 Tab PO 0800 Assessment/Pt Instructions See instructions. Discharge Planning: <30 minutes discharge planning Discharge Instructions Discharge Diet: Low Sodium Diet Activity as Tolerated: Yes Consultations Wound care Discharge Physical Examination Vital Signs Vital Signs Date Time Temp Pulse Resp B/P (MAP) Pulse Ox O2 Delivery O2 Flow Rate FiO2 07/27/21 11:15 36.2 82 18 111/67 (82) 92 Room Air General Appearance: No Apparent Distress, Obese Respiratory: Lungs Clear, Normal Breath Sounds, No Respiratory Distress Cardiovascular: Regular Rate, Rhythm, No Murmur Gastrointestinal: Normal Bowel Sounds, Non Tender, Soft Extremity: Non Tender, Inflammation, Pedal Edema, Swelling Skin: Other (venous stasis dermatitis, left lateral leg wound with surrounding erythema) Neurologic/Psychiatric: Alert, Oriented x3, No Motor/Sensory Deficits, Normal Mood/Affect Allergies: Coded Allergies: amoxicillin (Unverified Allergy, Mild, 02/04/09) Penicillins (Unverified Allergy, Unknown, 07/09/20) Copy Copies To 1: ZAC NEWMAN DO Discharge Summary Date of Admission Jul 26, 2021 at 16:54 Date of Discharge Discharge Date: Jul 27, 2021 Discharge Time: 13:57 Admission Diagnosis Cellulitis Consults/Procedures Consulations Cellulitis Discharge Diagnosis (1) Cellulitis Status: Acute Qualifiers: SWAPNA FALLON MD Jul 27, 2021 13:57
[2021-07-27 14:00] VITALS: BP 111/67
[2021-07-27] MEDS ORDERED: warFARin 5 MG (COUMADIN) TAB PO SCH (18:00)
[2021-07-27] MEDS ORDERED: cefTRIAXone 1 GM/50 ML (PRE-MIX) IV SCH (18:00)
[2021-07-27] MEDS ORDERED: VANCOMYCIN 2000 MG/NS 500 ML IVPB IV SCH ×2 (21:00)
[2021-07-28] MEDS ORDERED: TROUGH ORDER-PHARMACY XX ONE (08:00)
== END 2021-07-27 13:50 | disposition home or self-care (01) ==
LOC: EDUNIT# 14:37 → ER 14:38 → 4TH 16:54
PROVIDERS: ADMIT Internal Medicine; ATTEND Internal Medicine
DX: L03.116 Cellulitis of left lower limb (principal); I10 Essential (primary) hypertension; E78.5 Hyperlipidemia, unspecified; G20 Parkinson's disease; Z86.718 Personal history of other venous thrombosis and embolism; Z79.01 Long term (current) use of anticoagulants; Z79.2 Long term (current) use of antibiotics; Z79.899 Other long term (current) drug therapy; Z79.82 Long term (current) use of aspirin; J44.9 Chronic obstructive pulmonary disease, unspecified; G47.30 Sleep apnea, unspecified; K21.9 Gastro-esophageal reflux disease without esophagitis; M19.90 Unspecified osteoarthritis, unspecified site; G89.29 Other chronic pain; M54.50 Low back pain, unspecified; F41.9 Anxiety disorder, unspecified; F32.A Depression, unspecified; E11.40 Type 2 diabetes mellitus with diabetic neuropathy, unspecified; Z79.4 Long term (current) use of insulin; E78.00 Pure hypercholesterolemia, unspecified; N17.9 Acute kidney failure, unspecified; R74.02 Elevation of levels of lactic acid dehydrogenase [LDH]
CPT/HCPCS: 71045; 73590; 73610; 80048; 80053; 82947 ×2; 83036; 83605; 83880; 85025 ×2; 85610; 85730; 86141; 87040; 87070; 87077; 87186; 87205; 99284; G0378; 36415; 90715

== ENCOUNTER → 2021-07-28 | Outpatient (CLI) | payer MEDICARE, MEDICAID ==
[~2021-07-28] MED LIST changes: +LEVO750T39 PO
== END ==
LOC: WOUNDCARE 13:02
PROVIDERS: ATTEND Family Medicine
DX: I89.0 Lymphedema, not elsewhere classified (principal); I96 Gangrene, not elsewhere classified; L97.222 Non-pressure chronic ulcer of left calf with fat layer exposed; L97.212 Non-pressure chronic ulcer of right calf with fat layer exposed; E11.622 Type 2 diabetes mellitus with other skin ulcer; L03.115 Cellulitis of right lower limb; L03.116 Cellulitis of left lower limb; Z86.718 Personal history of other venous thrombosis and embolism
CPT/HCPCS: 99213

== ENCOUNTER → 2021-08-06 | Outpatient (CLI) | payer MEDICARE, MEDICAID | LOC: WOUNDCARE 12:35 | PROVIDERS: ATTEND Family Medicine | DX: I89.0 Lymphedema, not elsewhere classified (principal); L97.222 Non-pressure chronic ulcer of left calf with fat layer exposed; L97.212 Non-pressure chronic ulcer of right calf with fat layer exposed; E11.52 Type 2 diabetes mellitus with diabetic peripheral angiopathy with gangrene; E11.622 Type 2 diabetes mellitus with other skin ulcer; L03.116 Cellulitis of left lower limb; L03.115 Cellulitis of right lower limb; Z86.718 Personal history of other venous thrombosis and embolism | CPT/HCPCS: 11042; A6197; A6253; G0463 ==

== ENCOUNTER → 2021-08-13 | Outpatient (CLI) | payer MEDICARE, MEDICAID | LOC: WOUNDCARE 14:24 | PROVIDERS: ATTEND Family Medicine | DX: I89.0 Lymphedema, not elsewhere classified (principal); L97.222 Non-pressure chronic ulcer of left calf with fat layer exposed; E11.52 Type 2 diabetes mellitus with diabetic peripheral angiopathy with gangrene; E11.622 Type 2 diabetes mellitus with other skin ulcer; Z86.718 Personal history of other venous thrombosis and embolism | CPT/HCPCS: 11042; 29581; G0463 ==

== ENCOUNTER → 2021-08-20 | Outpatient (CLI) | payer MEDICARE, MEDICAID ==
[~2021-08-20] MED LIST changes: +DOCU100T7 PO; +NITR0.4T39 SL; +PANT40TA52 PO
== END ==
LOC: WOUNDCARE 14:26
PROVIDERS: ATTEND Family Medicine
DX: I89.0 Lymphedema, not elsewhere classified (principal); L97.222 Non-pressure chronic ulcer of left calf with fat layer exposed; E11.622 Type 2 diabetes mellitus with other skin ulcer; E11.52 Type 2 diabetes mellitus with diabetic peripheral angiopathy with gangrene; Z86.718 Personal history of other venous thrombosis and embolism
CPT/HCPCS: 29581; A6197; G0463

== ENCOUNTER → 2021-08-27 | Outpatient (CLI) | payer MEDICARE, MEDICAID ==
[~2021-08-27] MED LIST changes: -DOCU100T7 PO; -NITR0.4T39 SL; -PANT40TA52 PO
== END ==
LOC: WOUNDCARE 14:26
PROVIDERS: ATTEND Family Medicine
DX: I89.0 Lymphedema, not elsewhere classified (principal); L97.222 Non-pressure chronic ulcer of left calf with fat layer exposed; E11.52 Type 2 diabetes mellitus with diabetic peripheral angiopathy with gangrene; E11.622 Type 2 diabetes mellitus with other skin ulcer; Z86.718 Personal history of other venous thrombosis and embolism
CPT/HCPCS: 99213

== ENCOUNTER 2021-09-02 10:16 | Inpatient (IN) | payer MEDICARE, MEDICAID ==
[~2021-09-02] VITALS: Ht 180 cm; Wt 147.0 kg
--- NOTE | 2021-09-02 11:10 | ED Abdominal Pain ---
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 DID FALL YESTERDAY AND LANDED ON KNEE'S IS ON BLOOD THINNER FOR PMH OF CLOTS. Source of Information: Patient, Family Exam Limitations: No Limitations History of Present Illness Date Seen by Provider: Sep 02, 2021 Time Seen by Provider: 11:09 Initial Comments Patient is a 70-year-old male with a history of PE currently on warfarin who presents ED with rectal bleeding. Patient has been wearing pads. Noted bright red blood and dark tarry stool yesterday. Few episodes today. Reports left lower quad abdominal discomfort. Reports history of colonoscopy in the past but has been several years. Denies history of cancer. Patient did fall injuring his right lower leg during transfer at home resulting in abrasion to his right lower leg. Bleeding controlled. Patient reports mild weakness of fatigue. Denies chest pain, shortness of breath, headache, dizziness, vomiting. Denies of any change in urination, fever, cough. Allergies and Home Medications Allergies Coded Allergies: amoxicillin (Unverified Allergy, Mild, 02/04/09) Penicillins (Unverified Allergy, Unknown, 07/09/20) Patient Home Medication List Home Medication List Reviewed: Yes Ascorbic Acid (Vitamin C) 1,000 Mg Tablet, 1,000 MG PO DAILY, (Reported) Entered as Reported by: TRISTON RESENDEZ on 07/09/20 1147 Aspirin (Aspirin EC) 81 Mg Tablet.dr, 81 MG PO HS, (Reported) Entered as Reported by: SARITA KUHN on 06/03/17 0948 Atorvastatin Calcium (Atorvastatin Calcium) 10 Mg Tablet, 10 MG PO HS, (Re ported) Entered as Reported by: SARITA KUHN on 12/16/16 1413 Carbidopa/Levodopa (Carbidopa-Levodopa 25-250 Tab) 1 Each Tablet, 2 TAB PO 0800, (Reported) Entered as Reported by: SARITA KUHN on 12/16/16 141 Carbidopa/Levodopa (Carbidopa-Levodopa 25-250 Tab) 1 Each Tablet, 1 TAB PO 1200,1700,2200, (Reported) Entered as Reported by: SARITA KUHN on 12/16/16 1413 Furosemide (Furosemide) 80 Mg Tablet, 80 MG PO DAILY, (Reported) Entered as Reported by: SARITA KUHN on 12/16/16 1413 Gabapentin (Gabapentin) 600 Mg Tablet, 600 MG PO TID, (Reported) Entered as Reported by: TRISTON RESENDEZ on 07/09/20 1147 Isosorbide Mononitrate (Isosorbide Mononitrate ER) 60 Mg Tab, 60 MG PO DAILY, (Reported) Entered as Reported by: SARITA KUHN on 12/16/16 1413 Levofloxacin (Levofloxacin) 750 Mg Tablet, 750 MG PO DAILY Prescribed by: SWAPNA FALLON on 07/27/21 1219 Lisinopril (Lisinopril) 2.5 Mg Tablet, 2.5 MG PO DAILY, (Reported) Entered as Reported by: SARITA KUHN on 06/03/17 0948 Niacin (Niaspan) 1,000 Mg Tab.er.24h, 1,000 MG PO DAILY, (Reported) Entered as Reported by: TRISTON RESENDEZ on 07/09/20 1147 Ellery-3/Dha/Epa/Fish Oil (Fish Oil 1,000 mg Softgel) 1 Each Capsule, 1,000 MG PO TID, (Reported) Entered as Reported by: SARITA KUHN on 06/03/17 0948 Warfarin Sodium (Jantoven) 7.5 Mg Tablet, 7.5 MG PO MOWEFR, (Reported) Entered as Reported by: TRISTON RESENDEZ on 07/09/20 114 Warfarin Sodium (Jantoven) 5 Mg Tablet, 5 MG PO TUTHSATSUN, (Reported) Entered as Reported by: TRISTON RESENDEZ on 07/09/20 1147 Review of Systems Review of Systems Constitutional: malaise EENTM: No Blurred Vision, No Double Vision Respiratory: Denies Cough, Denies Shortness of Air, Denies Stridor, Denies Wheezing Cardiovascular: Denies Chest Pain, Denies Edema, Denies Lightheadedness Gastrointestinal: Abdominal Pain; Denies Diarrhea; Rectal Bleeding; Denies Vomiting Genitourinary: Denies Burning, Denies Drainage, Denies Frequency Musculoskeletal: No back pain, No joint pain, No joint swelling Skin: No change in color, No change in hair/nails All Other Systems Reviewed Negative Unless Noted: Yes Past Jpthevt-Qwrwgk-Vlkwmd Hx Patient Social History Substance use?: No Alcohol Use?: No Immunizations Up To Date Tetanus Booster (TDap): Less than 5yrs First/Initial COVID19 Vaccinat: JUL Second COVID19 Vaccination Misael: OCTOBER 2020 Third COVID19 Vaccination Date: OCTOBER 2020 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 Seasonal Allergies Seasonal Allergies: No Past Medical History Surgeries: Yes (right ear) Ear Surgery, Tonsillectomy Respiratory: Yes Pulmonary Embolism, Sleep Apnea, COPD Currently Using CPAP: No Currently Using BIPAP: No Cardiac: Yes Deep Vein Thrombosis, High Cholesterol, Hypertension Neurological: Yes Neuropathy, Parkinson's Disease Reproductive Disorders: No Genitourinary: No Gastrointestinal: Yes Gastroesophageal Reflux Musculoskeletal: Yes Arthritis, Chronic Back Pain Endocrine: Yes Diabetes, Insulin dep HEENT: No (glasses) Cancer: No Psychosocial: Yes Anxiety, Depression Integumentary: Yes (chest lesion) Pruritis Blood Disorders: No Adverse Reaction/Blood Tranf: No Physical Exam Vital Signs Vital Signs - First Documented 09/02/21 10:30 Temp 37.0 Pulse 100 Resp 20 B/P (MAP) 119/61 (80) Pulse Ox 96 O2 Delivery Room Air Capillary Refill : Less Than 3 Seconds Height/Weight/BMI Height: 6'0.00" Weight: 327lbs. 0.0oz. 148.164665bt; 45.00 BMI Method:Estimated General Appearance: WD/WN, no apparent distress HEENT: PERRL/EOMI, normal ENT inspection, TMs normal, pharynx normal Neck: non-tender, full range of motion Respiratory: chest non-tender, lungs clear, normal breath sounds, no respiratory distress, no accessory muscle use Cardiovascular: normal peripheral pulses, regular rate, rhythm, no edema, no gallop, no JVD Gastrointestinal: normal bowel sounds, non tender, soft, no organomegaly Extremities: normal range of motion, non-tender, normal inspection, no pedal edema Back: normal inspection, no CVA tenderness, no vertebral tenderness Neurologic/Psychiatric: chili powder mixer II-XII nml as tested, no motor/sensory deficits, alert, normal mood/affect, oriented x 3 Skin: normal color, warm/dry Progress/Results/Core Measures Results/Orders Lab Results Laboratory Tests Test 09/02/21 10:56 Range/Units White Blood Count 17.3 H 4.3-11.0 10^3/uL Red Blood Count 3.95 L 4.30-5.52 10^6/uL Hemoglobin 10.6 L 13.3-17.7 g/dL Hematocrit 34 L 40-54 % Mean Corpuscular Volume 86 80-99 fL Mean Corpuscular Hemoglobin 27 25-34 pg Mean Corpuscular Hemoglobin Concent 31 L 32-36 g/dL Red Cell Distribution Width 15.7 H 10.0-14.5 % Platelet Count 177 130-400 10^3/uL Mean Platelet Volume 9.9 9.0-12.2 fL Immature Granulocyte % (Auto) 1 % Neutrophils (%) (Auto) 81 H 42-75 % Lymphocytes (%) (Auto) 8 L 12-44 % Monocytes (%) (Auto) 9 0-12 % Eosinophils (%) (Auto) 1 0-10 % Basophils (%) (Auto) 0 0-10 % Neutrophils # (Auto) 14.0 H 1.8-7.8 10^3/uL Lymphocytes # (Auto) 1.5 1.0-4.0 10^3/uL Monocytes # (Auto) 1.6 H 0.0-1.0 10^3/uL Eosinophils # (Auto) 0.2 0.0-0.3 10^3/uL Basophils # (Auto) 0.0 0.0-0.1 10^3/uL Immature Granulocyte # (Auto) 0.1 0.0-0.1 10^3/uL Neutrophils % (Manual) 84 % Lymphocytes % (Manual) 10 % Monocytes % (Manual) 6 % Anisocytosis SLIGHT Prothrombin Time 46.7 *H 12.2-14.7 SEC INR Comment 5.0 H 0.8-1.4 Activated Partial Thromboplast Time 29 24-35 SEC Sodium Level 136 135-145 MMOL/L Potassium Level 3.8 3.6-5.0 MMOL/L Chloride Level 106 98-107 MMOL/L Carbon Dioxide Level 18 L 21-32 MMOL/L Anion Gap 12 5-14 MMOL/L Blood Urea Nitrogen 33 H 7-18 MG/DL Creatinine 1.68 H 0.60-1.30 MG/DL Estimat Glomerular Filtration Rate 41 BUN/Creatinine Ratio 20 Glucose Level 130 H 70-105 MG/DL Calcium Level 8.4 L 8.5-10.1 MG/DL Corrected Calcium 8.7 8.5-10.1 MG/DL Total Bilirubin 0.8 0.1-1.0 MG/DL Aspartate Amino Transf (AST/SGOT) 7 5-34 U/L Alanine Aminotransferase (ALT/SGPT) < 6 0-55 U/L Alkaline Phosphatase 51 40-136 U/L Total Protein 7.0 6.4-8.2 GM/DL Albumin 3.6 3.2-4.5 GM/DL Lipase 5 L 8-78 U/L My Orders Orders - MARITA YANG Cbc With Automated Diff (09/02/21 11:04) Comprehensive Metabolic Panel (09/02/21 11:04) Partial Thromboplastin Time (09/02/21 11:04) Protime With Inr (09/02/21 11:04) Lipase (09/02/21 11:04) Type And Screen (09/02/21 11:04) Pantoprazole Injection (Protonix Injecti (09/02/21 11:15) Ns Iv 1000 Ml (Sodium Chloride 0.9%) (09/02/21 11:15) Occult Blood Stool (09/02/21 11:06) Tibia/Fibula, Right, 2 Views (09/02/21 11:07) Manual Differential (09/02/21 10:56) Ct Abdomen/Pelvis Wo (09/02/21 11:04) Ciprofloxacin Iv 400mg/200ml (Cipro Iv S (09/02/21 13:30) Metronidazole 500mg/100ml Ivpb (Flagyl 5 (09/02/21 13:30) Admission Order(Inpt,Obs,Sdc) (09/02/21 13:29) Code/Resuscitation (09/02/21 13:29) Ambulate 08,12,20 (09/02/21 13:29) Sequential Compression Device ONCE (09/02/21 13:29) Initiate Admission Nursing Pro .admission (09/02/21 13:29) Isolation Central Supply Req (09/02/21 13:29) Medications Given in ED Current Medications Medications Dose Ordered Sig/Myla Route Start Time Stop Time Status Last Admin Dose Admin Ciprofloxacin/ Dextrose 200 ml @ 200 mls/hr ONCE ONCE IV 09/02/21 13:30 09/02/21 14:29 DC 09/02/21 14:08 200 MLS/HR Metronidazole 100 ml @ 100 mls/hr ONCE ONCE IV 09/02/21 13:30 09/02/21 14:29 DC 09/02/21 14:08 100 MLS/HR Pantoprazole 40 mg ONCE ONCE IV 09/02/21 11:15 09/02/21 11:16 DC 09/02/21 11:18 40 MG Vital Signs/I&O 09/02/21 10:30 Temp 37.0 Pulse 100 Resp 20 B/P (MAP) 119/61 (80) Pulse Ox 96 O2 Delivery Room Air Blood Pressure Mean: 80 Departure Communication (Admissions) Patient presents ED with rectal bleeding, left side abdominal pain. Patient was hypotensive on arrival. Was given a liter fluid with significant improvement. Mild weakness with patient other complaint. No chest pain, shortness of breath or cough. Patient is currently on warfarin. Rectal exam negative for gross blood. Positive Hemoccult. Hemoglobin 10.6 which is stable. Elevated white blood count 17,000. Creatinine 1.68. History of kidney disease. Was given a liter of fluid. CT abdomen pelvis positive for colitis. Concerning for infecti ous etiology versus cancerous. Did have a colonoscopy on 06/2020 that did show tubular adenomas. Further GI and surgical evaluation is likely needed. Discussed patient with Dr. Maravilla who recommends Cipro and Flagyl with clear liquid diet at this time. Patient will be admitted to the hospitalist for further evaluation. Patient was not given vitamin K. His INR was 5.0. Patient agrees with admission at this time. Impression Primary Impression: Colitis Additional Impression: GI bleed Disposition: ADMITTED INPATIENT Condition: Stable Admissions Decision to Admit Reason: Admit from ER (General) Decision to Admit/Date: Sep 02, 2021 Time/Decision to Admit Time: 13:28 Departure-Patient Inst. Referrals: ZAC LUZ DO (PCP/Family) Primary Care Physician MARITA YANG Sep 02, 2021 11:10
[2021-09-02 11:12] LABS: BASOPHILS % (AUTO) 0 % (0-10); EOSINOPHILS # (AUTO) 0.2 10^3/uL (0.0-0.3); EOSINOPHILS % (AUTO) 1 % (0-10); HEMATOCRIT 34 % (40-54); HEMOGLOBIN 10.6 g/dL (13.3-17.7); LYMPHOCYTES # (AUTO) 1.5 10^3/uL (1.0-4.0); LYMPHOCYTES % (AUTO) 8 % (12-44); MEAN CORPUSCULAR HEMOGLOBIN 27 pg (25-34); MEAN CORPUSCULAR HGB CONC 31 g/dL (32-36); MEAN CORPUSCULAR VOLUME 86 fL (80-99); MEAN PLATELET VOLUME 9.9 fL (9.0-12.2); MONOCYTES # (AUTO) 1.6 10^3/uL (0.0-1.0); MONOCYTES % (AUTO) 9 % (0-12); NEUTROPHILS % (AUTO) 81 % (42-75); PLATELET COUNT 177 10^3/uL (130-400); WHITE BLOOD COUNT 17.3 10^3/uL (4.3-11.0)
[2021-09-02] MEDS ORDERED: NS IV 1000 ML 1,000 ML IV SCH (11:15)
[2021-09-02] MEDS ORDERED: PANTOPRAZOLE 40 MG (PROTONIX) VIAL IV ONE (11:15)
[2021-09-02 11:19] LABS: ALBUMIN 3.6 GM/DL (3.2-4.5); CHLORIDE 106 MMOL/L (98-107); POTASSIUM 3.8 MMOL/L (3.6-5.0); SODIUM 136 MMOL/L (135-145)
[2021-09-02 11:20] LABS: CALCIUM 8.4 MG/DL (8.5-10.1)
[2021-09-02 11:21] LABS: GLUCOSE 130 MG/DL (70-105)
[2021-09-02 11:22] LABS: PROTHROMBIN TIME PATIENT 46.7 SEC (12.2-14.7)
[2021-09-02 11:23] LABS: BILIRUBIN,TOTAL 0.8 MG/DL (0.1-1.0); CARBON DIOXIDE 18 MMOL/L (21-32)
[2021-09-02 11:25] LABS: ALKALINE PHOSPHATASE 51 U/L (40-136); CREATININE SERUM 1.68 MG/DL (0.60-1.30); GFR ESTIMATED 41
[2021-09-02 11:26] LABS: BUN/CREATININE RATIO 20
[2021-09-02 11:28] LABS: ALANINE AMINOTRANSFERASE < 6 U/L (0-55); LIPASE 5 U/L (8-78)
[2021-09-02 11:32] LABS: ANISOCYTOSIS SLIGHT; LYMPHOCYTES % (MANUAL) 10 %; MONOCYTES % (MANUAL) 6 %; NEUTROPHILS % (MANUAL) 84 %
--- NOTE | 2021-09-02 12:11 | Diagnostic Imaging Report ---
INDICATION: Right lower leg injury from a fall. FINDINGS: AP and lateral views of the right tibia-fibula show no fracture or dislocation. IMPRESSION: Negative right tibia and fibula. Dictated by: Dictated on workstation # [id number]
--- NOTE | 2021-09-02 12:13 | Diagnostic Imaging Report ---
PROCEDURE: CT abdomen and pelvis without contrast. TECHNIQUE: Multiple contiguous axial images were obtained through the abdomen and pelvis without the use of intravenous contrast. Auto Exposure Controls were utilized during the CT exam to meet ALARA standards for radiation dose reduction. INDICATION: Bleeding from rectum. There are no prior exams available for comparison. FINDINGS: There does seem to be generalized thickening of the wall of the descending colon and the rectosigmoid colon. There is also some distortion of the pericolonic fat about the descending colon and I suspect that there is an element of colitis present. Whether this accounts for the patient's rectal bleeding is not certain, however. If further evaluation is desired, then endoscopy would be recommended when the patient's condition permits. There is no pelvic mass or free fluid collection evident. The urinary bladder is grossly unremarkable as is the prostate gland. The appendix was not well-visualized but there are no indirect signs of acute appendicitis. The liver, spleen, pancreas, kidneys, adrenals, gallbladder, aorta and inferior vena cava show no sign of an acute abnormality. There is a 3 mL nonobstructive calculus within the left kidney. The stomach is not well-distended and difficult to assess. The lung bases are generally clear. The bone windows show no evidence for fracture or for destructive lesion. IMPRESSION: 1. There is generalized thickening of the wall of the rectosigmoid and descending colon. Furthermore the slight distortion of the pericolonic fat about the descending colon does suggest edema/inflammation and most likely there is an element of colitis present. Recommendations as above. 2. There is no acute abnormality the abdomen or pelvis noted otherwise. 3. There is a 3 mm nonobstructive calculus within the left kidney. Dictated by: Dictated on workstation # [id number]
[2021-09-02] MEDS ORDERED: metroNIDAZOLE 500MG/100ML IVPB 100 ML IV ONE (13:30)
[2021-09-02] MEDS ORDERED: CIPROFLOXACIN IV 400MG/200ML 200 ML IV ONE (13:30)
--- NOTE | 2021-09-02 14:44 | CONSULTATION REPORT ---
DATE OF SERVICE: ADMITTING PRIMARY CARE PHYSICIAN: Dr. Anshu Newman. HISTORY OF PRESENT ILLNESS: The patient is a 70-year-old male, who presented to the Emergency Department with a left-sided abdominal pain as well as several episodes of blood per rectum. He states that his last episode was yesterday. He also reports a mild left lower quadrant abdominal discomfort. He did have a colonoscopy in 06/2020 and was found to have a tubular adenoma; however, no other lesions. The patient is on Coumadin for a history of DVT as well as pulmonary embolism. Besides the previously mentioned symptoms, he states some mild weakness and fatigue at home. He does not report any shortness of breath as well as no chest pain, palpitations or diaphoresis. A CT scan was performed, which did show thickening of the descending as well as the sigmoid colon. There are also calcifications within his mesenteric arterial system, likely consistent with peripheral vascular disease. PAST MEDICAL HISTORY: Hypertension, hypercholesterolemia, COPD, sleep apnea, history of DVT and pulmonary embolism, Parkinson's disease, insulin-dependent diabetes, neuropathy, depression, and degenerative joint disease. PAST SURGICAL HISTORY: Tonsillectomy and right ear surgery. ALLERGIES: AMOXICILLIN and PENICILLIN. MEDICATIONS: Aspirin 81 mg daily, atorvastatin 10 mg daily, carbidopa/levodopa 25/250 mg q.i.d., furosemide 80 mg daily, gabapentin 600 mg t.i.d., isosorbide mononitrate 60 mg daily, levofloxacin 750 mg daily, lisinopril 2.5 mg daily, niacin 1000 mg daily, and Coumadin 7.5 mg three days a week, 5 mg four days a week. SOCIAL HISTORY: Negative smoke and negative alcohol. FAMILY HISTORY: Noncontributory. REVIEW OF SYSTEMS: A well-nourished male currently in no acute distress. He is not experiencing any shortness of breath or difficulty in breathing. No chest pain, palpitations, diaphoresis. No nausea, vomiting, crampy left lower as well as the left lateral abdominal pain starting yesterday with several episodes of blood per rectum, which he described as a maroon in coloration. No fever, chills, and no recent inadvertent weight loss. PHYSICAL EXAMINATION: VITAL SIGNS: Temperature is 37.0, blood pressure 119/61, pulse 100, respirations 20, and pulse ox 96% on room air. CHEST: Distant breath sounds and scattered wheezes bilaterally. HEART: Regular and no murmurs. EXTREMITIES: +1/3 bilateral lower extremity edema and negative Homans sign. HEENT: No scleral icterus. NECK: No cervical lymphadenopathy. ABDOMEN: Soft and nondistended. There is some mild discomfort in the left lower abdominal quadrant. No rebounding and no guarding. SKIN: Warm and dry. LABORATORY DATA: WBC 17.3, hemoglobin 10.6, hematocrit 34, and platelets 177. BUN 33, creatinine 1.68, PT 46.7, and INR is 5.0. ASSESSMENT AND PLAN: A 70-year-old male with likely an ischemic colitis due to low flow states from dehydration. The colitis on top of his supratherapeutic INR from Coumadin is the likely etiology of his rectal bleeding. Our recommendation is to correct his INR as well as antibiotics with ciprofloxacin and Flagyl to decrease the bacterial load as well as IV fluids to increase mesenteric arterial circulation and allow for resolution of the colitis. He had a recent colonoscopy and this is not likely a malignancy and we will recommend a followup colonoscopy in approximately six weeks. We will continue to follow him clinically as well. Job ID: [id number] DocumentID: [id number] Dictated Date: 09/02/2021 14:21:02 Product Grader Date: 09/02/2021 14:43:46 Dictated By: CARISSA GONZALEZ MD
[2021-09-02 15:50] VITALS: BP 115/74
[2021-09-02] MEDS ORDERED: polyethylene glycoL POWDER 17 GM (MIRALAX) PACK PO PRN (16:15)
[2021-09-02] MEDS ORDERED: ANTACID SUSP 30 ML UDC (MYLANTA) PO PRN (16:15)
[2021-09-02] MEDS ORDERED: ACETAMINOPHEN 325 MG TABLET PO PRN (16:15)
[2021-09-02] MEDS ORDERED: MELATONIN 3 MG TABLET PO PRN (16:15)
[2021-09-02] MEDS ORDERED: diphenhydrAMINE 25 MG TAB (BENADRYL) PO PRN (16:15)
[2021-09-02] MEDS ORDERED: ONDANSETRON 4 MG/2 ML (SDV) Z0FRAN IV PRN (16:15)
[2021-09-02] MEDS ORDERED: ONDANSETRON 4 MG (ZOFRAN) ORAL DISSOLVE TAB PO PRN (16:15)
[2021-09-02] MEDS: LACTATED RINGERS 1,000 ML IV SCH (17:34)
[2021-09-02 19:40] VITALS: BP 104/61
[2021-09-02] MEDS: CIPROFLOXACIN IV 400MG/200ML 200 ML IV SCH (19:57)
[2021-09-02] MEDS: inSUlin ASPART (NovoLOG) 1 UNIT/0.01 ML (CHARGE PER UNIT) SC SCH (21:34)
[2021-09-02] MEDS: metroNIDAZOLE 500MG/100ML IVPB 100 ML IV SCH (21:47)
[2021-09-02 23:30] VITALS: BP 93/57
[2021-09-03 04:00] VITALS: BP 114/56
[2021-09-03] MEDS: LACTATED RINGERS 1,000 ML IV SCH ×3 (05:02→23:17)
[2021-09-03] MEDS: metroNIDAZOLE 500MG/100ML IVPB 100 ML IV SCH ×3 (05:03→21:58)
[2021-09-03] MEDS: inSUlin ASPART (NovoLOG) 1 UNIT/0.01 ML (CHARGE PER UNIT) SC SCH ×4 (05:49→21:23)
[2021-09-03 07:26] LABS: BASOPHILS % (AUTO) 0 % (0-10); EOSINOPHILS # (AUTO) 0.3 10^3/uL (0.0-0.3); EOSINOPHILS % (AUTO) 2 % (0-10); HEMATOCRIT 31 % (40-54); HEMOGLOBIN 9.7 g/dL (13.3-17.7); LYMPHOCYTES # (AUTO) 1.6 10^3/uL (1.0-4.0); LYMPHOCYTES % (AUTO) 12 % (12-44); MEAN CORPUSCULAR HEMOGLOBIN 26 pg (25-34); MEAN CORPUSCULAR HGB CONC 31 g/dL (32-36); MEAN CORPUSCULAR VOLUME 85 fL (80-99); MEAN PLATELET VOLUME 9.5 fL (9.0-12.2); MONOCYTES % (AUTO) 8 % (0-12); NEUTROPHILS % (AUTO) 77 % (42-75); PLATELET COUNT 161 10^3/uL (130-400)
[2021-09-03 07:27] VITALS: BP 122/68
[2021-09-03 07:31] LABS: POTASSIUM 3.8 MMOL/L (3.6-5.0)
[2021-09-03 07:33] LABS: CALCIUM 8.2 MG/DL (8.5-10.1)
[2021-09-03 07:37] LABS: CREATININE SERUM 1.26 MG/DL (0.60-1.30)
[2021-09-03 07:39] LABS: MAGNESIUM 1.9 MG/DL (1.6-2.4)
[2021-09-03] MEDS: MAGNESIUM 1 GM/100 ML IVPB 100 ML IV SCH (07:46)
[2021-09-03] MEDS: POTASSIUM CL 10MEQ/50ML IVPB 50 ML IV SCH (07:46)
[2021-09-03 07:57] LABS: PROTHROMBIN TIME PATIENT 46.9 SEC (12.2-14.7)
[2021-09-03] MEDS: KCL 20 MEQ TAB (K-DUR) PO SCH (09:30)
[2021-09-03] MEDS: CIPROFLOXACIN IV 400MG/200ML 200 ML IV SCH ×2 (09:30→22:41)
[2021-09-03 11:21] VITALS: BP 130/61
[2021-09-03] MEDS ORDERED: ISOS60TA63 PO (11:48)
[2021-09-03] MEDS ORDERED: AMLO-250 PO (11:48)
[2021-09-03] MEDS ORDERED: RANO10003 PO (11:48)
[2021-09-03] MEDS ORDERED: DOCU100T7 PO (11:48)
[2021-09-03] MEDS ORDERED: NIAC100045 PO (11:48)
[2021-09-03] MEDS ORDERED: GABA300C PO (11:48)
[2021-09-03] MEDS ORDERED: NITR0.4T39 SL (11:48)
--- NOTE | 2021-09-03 15:30 | History & Physical-Hospitalist ---
History of Present Illness HPI/Chief Complaint Gurvinder Nevarez is a 70 year old male with PMH HTN, HLD, CAD, history of DVT/PE anticoagulated on Warfarin, Parkinson's disease, who presented with bloody stools. He has not had any bloody or dark stools since arrival. He denies abdominal pain. He denies nausea and vomiting. He denies fevers. He denies chest pain and shortness of breath. He is asking to go home. Source: patient Exam Limitations: no limitations Date Seen 09/03/21 Time Seen by a Provider: 10:30 Attending Physician Swapna Fallon MD PCP Anshu Newman DO Referring Physician Date of Admission Sep 02, 2021 at 14:58 Home Medications & Allergies Home Medications Reviewed patient Home Medication Reconciliation performed by pharmacy medication reconciliations optics manufacturing technician and/or nursing. Patients Allergies have been reviewed. Allergies Allergies Coded Allergies amoxicillin (Unverified Allergy, Mild, 02/04/09) Penicillins (Unverified Allergy, Unknown, 07/09/20) Past Cmubksc-Cflxoo-Nrztqk Hx Patient Social History Tobacco Use?: Yes Smokeless type used: Chew Smokeless Tobacco Frequency: Current Everyday User Use of E-Cig and/or Vaping dev: No Substance use?: No Alcohol Use?: No Pt feels they are or have been: No Immunizations Up To Date Date of Influenza Vaccine: May 03, 2021 First/Initial COVID19 Vaccinat: AUGUST Second COVID19 Vaccination Misael: OCTOBER Tetanus Booster (TDap): Unknown Date of Pneumonia Vaccine: Dec 22, 2017 Seasonal Allergies Seasonal Allergies: No Current Status Advance Directives: Yes Advance Directive Location: Scanned into EMR Communicates: Verbally Primary Language: Azeri Preferred Spoken Language: Azeri Is interpretation needed?: No Sensory deficits: Vision impairment Implanted or Applied Medical D: None Past Medical History Surgeries: Ear Surgery, Tonsillectomy Pulmonary Embolism, Sleep Apnea, COPD Currently Using CPAP: No Currently Using BIPAP: No Deep Vein Thrombosis, High Cholesterol, Hypertension Neuropathy, Parkinson's Disease Gastroesophageal Reflux Arthritis, Chronic Back Pain Diabetes, Insulin dep Anxiety, Depression Pruritis Blood Disorders: No Adverse Reaction/Blood Tranf: No Family Medical History No Pertinent Family Hx Review of Systems Constitutional: no symptoms reported EENTM: no symptoms reported Respiratory: no symptoms reported Cardiovascular: no symptoms reported Gastrointestinal: melena Genitourinary: no symptoms reported Musculoskeletal: no symptoms reported Skin: no symptoms reported Psychiatric/Neurological: No Symptoms Reported Physical Exam Physical Exam Vital Signs Vital Signs - First Documented 09/02/21 10:30 Temp 37.0 Pulse 100 Resp 20 B/P (MAP) 119/61 (80) Pulse Ox 96 O2 Delivery Room Air Capillary Refill : Less Than 3 Seconds Height, Weight, BMI Height: 6'0.00" Weight: 327lbs. 0.0oz. 148.097506yg; 45.37 BMI Method:Estimated General Appearance: No Apparent Distress, Obese HEENT: PERRL/EOMI, Pharynx Normal Neck: Normal Inspection, Supple Respiratory: Lungs Clear, Normal Breath Sounds, No Respiratory Distress Cardiovascular: Regular Rate, Rhythm, No Murmur Gastrointestinal: Normal Bowel Sounds, Non Tender, Soft Extremity: No Inflammation; Swelling, Other (venous stasis) Neurologic/Psychiatric: Alert, Normal Mood/Affect Skin: Warm/Dry, Ecchymosis Results Results/Procedures Labs Laboratory Tests 09/02/21 10:56 09/03/21 07:00 Patient resulted labs reviewed. Imaging: Reviewed Imaging Report Assessment/Plan Admission Diagnosis GI bleeding Admission Status: Inpatient Order (span 2 midnights) Reason for Inpatient Admission: Monitoring, possible intervention Assessment and Plan GI bleeding Supratherapeutic INR Anticoagulated on coumadin History of DVT/PE Hgb down slightly No evidence of ongoing bleeding INR 5, stable Hold coumadin Continue to monitor H/H and INR Surgery following HTN HLD CAD Parkinson's Continue home meds Morbid obesity Clinically significant, no acute management needs DVT prophylaxis: supratherapeutic INR Diagnosis/Problems Diagnosis/Problems (1) GI bleed Status: Acute (2) Anticoagulated on Coumadin Status: Acute (3) Supratherapeutic INR Status: Acute (4) History of DVT (deep vein thrombosis) Status: Chronic (5) History of pulmonary embolus (PE) Status: Chronic (6) Morbid obesity Status: Chronic SWAPNA FALLON MD Sep 03, 2021 15:30
[2021-09-03 16:00] VITALS: BP 130/69
[2021-09-03] MEDS: SINEMET 25/250 (CARBIDOPA/LEVODOPA) TAB PO SCH ×2 (17:20→22:03)
[2021-09-03 20:00] VITALS: BP 136/72
[2021-09-03] MEDS ORDERED: ASPIRIN E.C. 81 MG (ECOTRIN) TAB PO SCH (21:00)
[2021-09-03] MEDS ORDERED: RANOLAZINE PO SCH (21:00)
[2021-09-03] MEDS ORDERED: AtorvaSTATin TABLET 10 MG TABLET PO SCH (21:00)
[2021-09-03] MEDS: GABAPENTIN 300 MG (NEURONTIN) CAP PO SCH (21:58)
[2021-09-04 00:50] VITALS: BP 147/64
[2021-09-04] MEDS: metroNIDAZOLE 500MG/100ML IVPB 100 ML IV SCH (05:00)
[2021-09-04] MEDS: LACTATED RINGERS 1,000 ML IV SCH (05:00)
[2021-09-04] MEDS: inSUlin ASPART (NovoLOG) 1 UNIT/0.01 ML (CHARGE PER UNIT) SC SCH ×2 (06:23→13:18)
[2021-09-04 06:47] LABS: POTASSIUM 3.8 MMOL/L (3.6-5.0)
[2021-09-04 06:48] LABS: CALCIUM 8.2 MG/DL (8.5-10.1)
[2021-09-04] MEDS: POTASSIUM CL 10MEQ/50ML IVPB 50 ML IV SCH (06:51)
[2021-09-04] MEDS: KCL 20 MEQ TAB (K-DUR) PO SCH (06:51)
[2021-09-04 06:52] LABS: CREATININE SERUM 0.88 MG/DL (0.60-1.30)
[2021-09-04 06:54] LABS: PROTHROMBIN TIME PATIENT 39.5 SEC (12.2-14.7)
[2021-09-04 06:55] LABS: MAGNESIUM 1.9 MG/DL (1.6-2.4)
[2021-09-04] MEDS: MAGNESIUM 1 GM/100 ML IVPB 100 ML IV SCH (07:06)
[2021-09-04] MEDS ORDERED: SINEMET 25/250 (CARBIDOPA/LEVODOPA) TAB PO SCH (08:00)
[2021-09-04 08:01] VITALS: BP 129/77
[2021-09-04] MEDS: GABAPENTIN 300 MG (NEURONTIN) CAP PO SCH ×2 (08:40→13:19)
[2021-09-04] MEDS: CIPROFLOXACIN IV 400MG/200ML 200 ML IV SCH (08:42)
[2021-09-04] MEDS ORDERED: ISOSORBIDE MONONITRATE 60 MG (IMDUR) TAB PO SCH (09:00)
[2021-09-04] MEDS ORDERED: lisINopril 5 MG (PRINIVIL) TABLET PO SCH (09:00)
[2021-09-04] MEDS ORDERED: FUROSEMIDE 40 MG (LASIX) TAB PO SCH (09:00)
[2021-09-04] MEDS ORDERED: amLODIPine 5 MG (NORVASC) TAB PO SCH (09:00)
--- NOTE | 2021-09-04 11:27 | Progress Note ---
Subjective Date Seen by a Provider: Sep 04, 2021 Time Seen by a Provider: 11:15 Subjective/Events-last exam doing well. no episodes rectal bleed. tolerating diet. hb stable. Objective Exam Vital Signs Date Time Temp Pulse Resp B/P (MAP) Pulse Ox O2 Delivery O2 Flow Rate FiO2 09/04/21 08:01 36.6 77 20 129/77 (94) 96 Room Air 09/04/21 08:00 Room Air 09/04/21 07:00 74 09/04/21 01:00 73 09/04/21 00:50 37.2 82 20 147/64 (91) 96 Room Air 09/03/21 20:00 Room Air 09/03/21 20:00 36.8 85 22 136/72 (93) 97 Room Air 09/03/21 19:00 80 09/03/21 16:00 37.0 76 16 130/69 (89) 97 Room Air 09/03/21 12:16 78 I & O 09/04/21 06:59 Intake Total 1700 ml Output Total 3125 ml Balance -1425 ml Capillary Refill : Less Than 3 Seconds General Appearance: No Apparent Distress HEENT: PERRL/EOMI Neck: Full Range of Motion Respiratory: Chest Non Tender, Lungs Clear Cardiovascular: Regular Rate, Rhythm Gastrointestinal: normal bowel sounds, soft Extremity: Normal Capillary Refill Neurologic/Psychiatric: Alert, Oriented x3 Skin: Normal Color Lymphatic: No Adenopathy Results Lab Laboratory Tests 09/03/21 16:30: Glucometer 141H 09/03/21 20:41: Glucometer 129H 09/04/21 06:21: Glucometer 92 09/04/21 06:30: Prothrombin Time 39.5H, INR Comment 4.0H, Sodium Level 136, Potassium Level 3.8, Chloride Level 108H, Carbon Dioxide Level 19L, Anion Gap 9, Blood Urea Nitrogen 14, Creatinine 0.88, Estimat Glomerular Filtration Rate 86, BUN/Creatinine Ratio 16, Glucose Level 95, Calcium Level 8.2L, Magnesium Level 1.9 09/04/21 08:30: Hemoglobin 11.0L, Hematocrit 35L Assessment/Plan Assessment/Plan Assess & Plan/Chief Complaint ischemic colitis with supratherapeautic INR. diet as johs. weight loss/exercise. f/u colonoscopy 6 weeks. CARISSA GONZALEZ MD Sep 04, 2021 11:27
[2021-09-04] MEDS ORDERED: PANT40TA52 PO (11:33)
[2021-09-04] MEDS ORDERED: WRF5T PO (11:33)
--- NOTE | 2021-09-04 11:43 | Discharge Summary ---
Discharge Summary Hospital Course Was the Problem List Reviewed?: Yes Problems/Dx: (1) GI bleed Status: Acute (2) Anticoagulated on Coumadin Status: Acute (3) Supratherapeutic INR Status: Acute (4) History of DVT (deep vein thrombosis) Status: Chronic (5) History of pulmonary embolus (PE) Status: Chronic (6) Morbid obesity Status: Chronic Hospital Course Date of Admission: Sep 02, 2021 at 14:58 Admission Diagnosis : Gi bleeding, supratherapeutic INR Family Physician/Provider: Anshu Newman DO Date of Discharge: 09/04/21 Discharge Diagnosis: Gi bleeding, supratherapeutic INR Hospital Course: Gurvinder Nevarez is a 70 year old male with history of DVT/PE on coumadin who presented with melena. He was found to have a supratherapeutic INR. His hemoglobin remained stable around 10. His INR improved but remained slightly above goal. He was instructed to hold his coumadin today and resume a lower dose of 5 mg daily starting 09/05. He should get his INR checked early next week. He was given a one month supply of Protonix. He should follow up with his PCP, Dr. Newman, next week. He was discharged home in stable condition. Labs and Pending Lab Test: Laboratory Tests 09/03/21 16:30: Glucometer 141H 09/03/21 20:41: Glucometer 129H 09/04/21 06:21: Glucometer 92 09/04/21 06:30: Prothrombin Time 39.5H, INR Comment 4.0H, Sodium Level 136, Potassium Level 3.8, Chloride Level 108H, Carbon Dioxide Level 19L, Anion Gap 9, Blood Urea Nitrogen 14, Creatinine 0.88, Estimat Glomerular Filtration Rate 86, BUN/Creatinine Ratio 16, Glucose Level 95, Calcium Level 8.2L, Magnesium Level 1.9 09/04/21 08:30: Hemoglobin 11.0L, Hematocrit 35L Home Meds Active Pantoprazole Sodium 40 Mg Tablet. 40 Mg PO DAILY 30 Days Jantoven (Warfarin Sodium) 5 Mg Tablet 5 Mg PO DAILY 30 Days Reported Stool Softener (Docusate Sodium) 100 Mg Tablet 100 Mg PO DAILY PRN Nitroglycerin 0.4 Mg Tab.subl 0.4 Mg SL UD PRN Isosorbide Mononitrate ER (Isosorbide Mononitrate) 60 Mg Tab 60 Mg PO DAILY Ranexa (Ranolazine) 1,000 Mg Tab.er.12h 100 Mg PO HS Niacin ER (Niacin) 1,000 Mg Tab.er.24h 1,000 Mg PO HS Amlodipine Besylate 5 Mg Tablet 5 Mg PO DAILY Neurontin (Gabapentin) 300 Mg Capsule 600 Mg PO TID TAKES 2 (300MG) CAPS Jantoven (Warfarin Sodium) 7.5 Mg Tablet 7.5 Mg PO MOWEFR TAKES 1 & (5MG) TABS Lisinopril 2.5 Mg Tablet 2.5 Mg PO DAILY Aspirin EC (Aspirin) 81 Mg Tablet.dr 81 Mg PO HS Furosemide 80 Mg Tablet 80 Mg PO DAILY Atorvastatin Calcium 10 Mg Tablet 10 Mg PO HS Carbidopa-Levodopa 25-250 Tab (Carbidopa/Levodopa) 1 Each Tablet 1 Tab PO 1200,1700,2200 Carbidopa-Levodopa 25-250 Tab (Carbidopa/Levodopa) 1 Each Tablet 2 Tab PO 0800 Assessment/Pt Instructions Take medications as prescribed. Begin taking Protonix daily for one month. Decrease to Coumadin 5 mg daily starting 09/05. Get your INR checked on Tuesday or Tuesday. Follow up with Dr. Newman next week. Return with recurrent melena, lightheadedness/dizziness, uncontrolled bleeding, or if you feel like you are getting worse. Discharge Planning: <30 minutes discharge planning Discharge Instructions Discharge Diet: Coumadin Patient Diet Activity as Tolerated: Yes Consultations Surgery Discharge Physical Examination Vital Signs Vital Signs Date Time Temp Pulse Resp B/P (MAP) Pulse Ox O2 Delivery O2 Flow Rate FiO2 09/04/21 08:01 36.6 77 20 129/77 (94) 96 Room Air General Appearance: No Apparent Distress, Obese HEENT: PERRL/EOMI, Pharynx Normal Respiratory: Lungs Clear, Normal Breath Sounds, No Respiratory Distress Cardiovascular: Regular Rate, Rhythm, No Murmur Gastrointestinal: Normal Bowel Sounds, Non Tender, Soft Extremity: Normal Inspection, Pedal Edema Skin: Warm/Dry, Other (venous stasis dermatitis) Neurologic/Psychiatric: Alert, Oriented x3, No Motor/Sensory Deficits, Normal Mood/Affect Allergies: Coded Allergies: amoxicillin (Unverified Allergy, Mild, 02/04/09) Penicillins (Unverified Allergy, Unknown, 07/09/20) Copy Copies To 1: ANSHU NEWMAN DO Discharge Summary Date of Admission Sep 02, 2021 at 14:58 Date of Discharge Discharge Date: Sep 04, 2021 Discharge Time: 11:42 Admission Diagnosis GI bleeding Consults/Procedures Consulations Surgery Discharge Diagnosis GI bleeding Supratherapeutic INR Anticoagulated on coumadin History of DVT/PE (1) GI bleed Status: Acute (2) Anticoagulated on Coumadin Status: Acute (3) Supratherapeutic INR Status: Acute (4) History of DVT (deep vein thrombosis) Status: Chronic (5) History of pulmonary embolus (PE) Status: Chronic (6) Morbid obesity Status: Chronic SWAPNA FALLON MD Sep 04, 2021 11:42
[2021-09-04] MEDS: SINEMET 25/250 (CARBIDOPA/LEVODOPA) TAB PO SCH (13:19)
== END 2021-09-04 13:30 | disposition home or self-care (01) | DRG 392 ==
LOC: EDUNIT# 10:16 → ER 10:18 → 4TH 14:58
PROVIDERS: ADMIT Internal Medicine; ATTEND Internal Medicine
DX: K52.9 Noninfective gastroenteritis and colitis, unspecified (principal); Z68.42 Body mass index [BMI] 45.0-49.9, adult; E66.01 Morbid (severe) obesity due to excess calories; I25.10 Atherosclerotic heart disease of native coronary artery without angina pectoris; E11.40 Type 2 diabetes mellitus with diabetic neuropathy, unspecified; G20 Parkinson's disease; J44.9 Chronic obstructive pulmonary disease, unspecified; G47.30 Sleep apnea, unspecified; E78.00 Pure hypercholesterolemia, unspecified; E78.5 Hyperlipidemia, unspecified; I10 Essential (primary) hypertension; M19.91 Primary osteoarthritis, unspecified site; Z86.711 Personal history of pulmonary embolism; Z86.718 Personal history of other venous thrombosis and embolism; Z79.82 Long term (current) use of aspirin; Z88.1 Allergy status to other antibiotic agents; Z88.0 Allergy status to penicillin
CPT/HCPCS: 36415; 73590; 74176; 80048; 80053; 82947; 83690; 83735; 85007; 85014; 85018; 85025; 85027; 85610; 85730; 86850; 86900; 86901; 99281

== ENCOUNTER → 2021-09-11 | Outpatient (CLI) | payer MEDICARE, MEDICAID ==
[~2021-09-11] MED LIST changes: +DOCU100T7 PO; +NITR0.4T39 SL; +PANT40TA52 PO
== END ==
LOC: WOUNDCARE 11:10
PROVIDERS: ATTEND Family Medicine
DX: I89.0 Lymphedema, not elsewhere classified (principal); E11.622 Type 2 diabetes mellitus with other skin ulcer; S81.811A Laceration without foreign body, right lower leg, initial encounter; E11.52 Type 2 diabetes mellitus with diabetic peripheral angiopathy with gangrene; Z86.718 Personal history of other venous thrombosis and embolism
CPT/HCPCS: 11042; G0463

== ENCOUNTER → 2021-09-18 | Outpatient (CLI) | payer MEDICARE, MEDICAID | LOC: WOUNDCARE 10:23 | PROVIDERS: ATTEND Family Medicine | DX: S81.811A Laceration without foreign body, right lower leg, initial encounter (principal); I89.0 Lymphedema, not elsewhere classified; E11.622 Type 2 diabetes mellitus with other skin ulcer; E11.52 Type 2 diabetes mellitus with diabetic peripheral angiopathy with gangrene; Z86.718 Personal history of other venous thrombosis and embolism | CPT/HCPCS: 97597; G0463 ==

== ENCOUNTER → 2021-09-25 | Outpatient (CLI) | payer MEDICARE, MEDICAID | LOC: WOUNDCARE 10:21 | PROVIDERS: ATTEND Family Medicine | DX: I89.0 Lymphedema, not elsewhere classified (principal); E11.622 Type 2 diabetes mellitus with other skin ulcer; S81.811A Laceration without foreign body, right lower leg, initial encounter; Z86.718 Personal history of other venous thrombosis and embolism | CPT/HCPCS: 99212 ==

== ENCOUNTER 2021-10-05 15:50 | Emergency (ER) | payer MEDICARE, MEDICAID ==
[~2021-10-05] VITALS: Ht 180 cm; Wt 147.4 kg
[2021-10-05 15:56] VITALS: BP 147/74
[2021-10-05] MEDS ORDERED: NS IV 1000 ML 1,000 ML IV SCH (16:00)
[2021-10-05] MEDS ORDERED: ACETAMINOPHEN 500 MG TAB (TYLENOL) PO PRN (16:00)
[2021-10-05 16:51] LABS: BASOPHILS # (AUTO) 0.1 10^3/uL (0.0-0.1); BASOPHILS % (AUTO) 0 % (0-10); EOSINOPHILS % (AUTO) 0 % (0-10); HEMATOCRIT 36 % (40-54); MEAN CORPUSCULAR VOLUME 87 fL (80-99); MEAN PLATELET VOLUME 11.6 fL (9.0-12.2); MONOCYTES % (AUTO) 8 % (0-12); NEUTROPHILS % (AUTO) 88 % (42-75)
[2021-10-05 16:52] LABS: BILIRUBIN,URINE NEGATIVE (NEGATIVE); CLARITY,URINE CLEAR; COLOR,URINE YELLOW; GLUCOSE, URINE (UA) NEGATIVE (NEGATIVE); KETONES,URINE NEGATIVE (NEGATIVE); LEUKOCYTE ESTERASE ,URINE 2+ (NEGATIVE); NITRITE,URINE POSITIVE (NEGATIVE); PH,URINE 5.5 (5-9); PROTEIN,URINE 2+ (NEGATIVE)
[2021-10-05 16:53] LABS: LYMPHOCYTES # (AUTO) 0.9 10^3/uL (1.0-4.0); LYMPHOCYTES % (AUTO) 4 % (12-44); MEAN CORPUSCULAR HEMOGLOBIN 26 pg (25-34); MEAN CORPUSCULAR HGB CONC 31 g/dL (32-36); MONOCYTES # (AUTO) 1.9 10^3/uL (0.0-1.0); NEUTROPHILS # (AUTO) 21.6 10^3/uL (1.8-7.8); PLATELET COUNT 183 10^3/uL (130-400); WHITE BLOOD COUNT 24.6 10^3/uL (4.3-11.0)
--- NOTE | 2021-10-05 16:53 | Diagnostic Imaging Report ---
INDICATION: Increased generalized weakness. Fever. Slurred speech. COMPARISON: 07/26/2021. FINDINGS: Single frontal radiographic view of the chest was obtained and shows normal cardiac silhouette and pulmonary vasculature. Lungs show low inspiratory volumes with minimal patchy airspace opacities in the left base. There is no large effusion or pneumothorax. Osseous structures show no gross acute abnormalities. IMPRESSION: 1. Low lung volumes with probable patchy left basilar atelectasis. If there is concern for infiltrate, follow-up is advised. Dictated by: Dictated on workstation # [id number]
[2021-10-05 16:58] LABS: BACTERIA,URINE LARGE /HPF; SQUAMOUS EPITHELIAL CELL,UR 0-2 /HPF; WBC,URINE 25-50 /HPF
[2021-10-05 17:11] LABS: ELLIPT/OVALOCYTES SLIGHT; LYMPHOCYTES % (MANUAL) 5 %; MONOCYTES % (MANUAL) 7 %; NEUTROPHILS % (MANUAL) 88 %
[2021-10-05 17:12] LABS: ALBUMIN 4.1 GM/DL (3.2-4.5)
[2021-10-05 17:13] LABS: CHLORIDE 101 MMOL/L (98-107); POTASSIUM 4.3 MMOL/L (3.6-5.0); SODIUM 135 MMOL/L (135-145)
[2021-10-05 17:14] LABS: CALCIUM 9.2 MG/DL (8.5-10.1)
[2021-10-05 17:15] LABS: FIBRIN DEGRADATION PRODUCTS 0.5 UG/ML (0.00-0.49); GLUCOSE 176 MG/DL (70-105); INR 1.9 (0.8-1.4); TOTAL PROTEIN 8.2 GM/DL (6.4-8.2)
[2021-10-05] MEDS ORDERED: CEFEPIME INJECTION 1,000 MG in NS (IVPB) 50 ML IV ONE (17:15)
[2021-10-05 17:16] LABS: CARBON DIOXIDE 20 MMOL/L (21-32)
[2021-10-05 17:17] LABS: BILIRUBIN,TOTAL 0.8 MG/DL (0.1-1.0)
--- NOTE | 2021-10-05 17:17 | ED Neurological Problem ---
General Chief Complaint: Fever-Adult/Adol Stated Complaint: WEAKNESS Nursing Triage Note: PT PRESENTS TO ED VIA EMS FROM HOME WITH COMPLAITNS OF INCREASED GENERAL EAKNESS, FEVER, AND SLURRED SPEACH STARTING TODAY. Source: patient Exam Limitations: no limitations History of Present Illness Date Seen by Provider: Oct 05, 2021 Time Seen by Provider: 16:42 Initial Comments This is a 70-year-old male who presented to the ER via [facility] with complaints of lower extremity weakness that started around noon today. States that he was standing up when all of a sudden his legs became weak and he fell onto his knees. States that he did fall but did not hit his head or have any loss of consciousness. Also notes that he was shaking and shivering. Denies any no known ill contacts however he does note that he was admitted to this hospital proximally 1 month ago. At this time he has no complaints other than feeling cold. He denies headache, chest pain, cough, shortness of breath, nausea, vomiting, abdominal pain. States "I feel great". On arrival his temperature is 101.0. Allergies and Home Medications Allergies Coded Allergies: amoxicillin (Unverified Allergy, Mild, 02/04/09) Penicillins (Unverified Allergy, Unknown, 07/09/20) Patient Home Medication List Home Medication List Reviewed: Yes Amlodipine Besylate (Amlodipine Besylate) 5 Mg Tablet, 5 MG PO DAILY, (Reported) Entered as Reported by: KARLA PATEL on 09/03/21 1148 Aspirin (Aspirin EC) 81 Mg Tablet.dr, 81 MG PO HS, (Reported) Entered as Reported by: SARITA KUHN on 06/03/17 0948 Atorvastatin Calcium (Atorvastatin Calcium) 10 Mg Tablet, 10 MG PO HS, (Reported) Entered as Reported by: SARITA KUHN on 12/16/16 1413 Carbidopa/Levodopa (Carbidopa-Levodopa 25-250 Tab) 1 Each Tablet, 2 TAB PO 0800, (Reported) Entered as Reported by: SARITA KUHN on 12/16/16 1413 Carbidopa/Levodopa (Carbidopa-Levodopa 25-250 Tab) 1 Each Tablet, 1 TAB PO 1200,1700,2200, (Reported) Entered as Reported by: SARITA KUHN on 12/16/16 1413 Docusate Sodium (Stool Softener) 100 Mg Tablet, 100 MG PO DAILY PRN for CONSTIPATION-1ST LINE, (Reported) Entered as Reported by: KARLA PATEL on 09/03/21 1148 Furosemide (Furosemide) 80 Mg Tablet, 80 MG PO DAILY, (Reported) Entered as Reported by: SARITA KUHN on 12/16/16 1413 Gabapentin (Neurontin) 300 Mg Capsule, 600 MG PO TID, (Reported) Entered as Reported by: KARLA PATEL on 09/03/21 1148 Isosorbide Mononitrate (Isosorbide Mononitrate ER) 60 Mg Tab, 60 MG PO DAILY, (Reported) Entered as Reported by: KARLA PATEL on 09/03/21 1148 Lisinopril (Lisinopril) 2.5 Mg Tablet, 2.5 MG PO DAILY, (Reported) Entered as Reported by: SARITA KUHN on 06/03/17 0948 Niacin (Niacin ER) 1,000 Mg Tab.er.24h, 1,000 MG PO HS, (Reported) Entered as Reported by: KARLA PATEL on 09/03/21 1148 Nitroglycerin (Nitroglycerin) 0.4 Mg Tab.subl, 0.4 MG SL UD PRN for CHEST PAIN, (Reported) Entered as Reported by: KARLA PATEL on 09/03/21 1148 Pantoprazole Sodium (Pantoprazole Sodium) 40 Mg Tablet.dr, 40 MG PO DAILY Prescribed by: SWAPNA FALLON on 09/04/21 1133 Ranolazine (Ranexa) 1,000 Mg Tab.er.12h, 100 MG PO HS, (Reported) Entered as Reported by: KARLA PATEL on 09/03/21 1148 Warfarin Sodium (Jantoven) 5 Mg Tablet, 5 MG PO DAILY Prescribed by: SWAPNA FALLON on 09/04/21 1133 Review of Systems Review of Systems Constitutional: chills, fever, malaise, weakness Eyes: No Symptoms Reported Ears, Nose, Mouth, Throat: no symptoms reported Respiratory: no symptoms reported Cardiovascular: no symptoms reported Gastrointestinal: no symptoms reported Musculoskeletal: muscle weakness Skin: no symptoms reported Psychiatric/Neurological: See HPI Endocrine: No Symptoms Reported Hematologic/Lymphatic: No Symptoms Reported Past Kpjbzpr-Gbvtqn-Zsmfsh Hx Patient Social History Tobacco Use?: No Smokeless Tobacco Frequency: Current Everyday User Substance use?: No Alcohol Use?: No Pt feels they are or have been: No Immunizations Up To Date Tetanus Booster (TDap): Less than 5yrs First/Initial COVID19 Vaccinat: August COVID19 Vaccination Misael: October COVID19 Vaccination Date: JUL COVID19 Vaccine Evaluation Analyst: j&j and booster Seasonal Allergies Seasonal Allergies: No Past Medical History Surgery/Hospitalization HX: pmh: parkinsons, htn, Surgeries: Yes (right ear) Ear Surgery, Tonsillectomy Respiratory: Yes Pulmonary Embolism, Sleep Apnea, COPD Currently Using CPAP: No Currently Using BIPAP: No Cardiac: Yes Deep Vein Thrombosis, High Cholesterol, Hypertension Neurological: Yes Neuropathy, Parkinson's Disease Reproductive Disorders: No Genitourinary: No Gastrointestinal: Yes Gastroesophageal Reflux Musculoskeletal: Yes Arthritis, Chronic Back Pain Endocrine: Yes Diabetes, Insulin dep HEENT: No (glasses) Cancer: No Psychosocial: Yes Anxiety, Depression Integumentary: Yes (chest lesion) Pruritis Blood Disorders: No Adverse Reaction/Blood Tranf: No Family Medical History No Pertinent Family Hx Physical Exam Vital Signs Vital Signs - First Documented 10/05/21 15:56 Temp 38.3 Pulse 99 Resp 14 B/P (MAP) 147/74 (98) Pulse Ox 97 Capillary Refill : Less Than 3 Seconds Height, Weight, BMI Height: 6'0.00" Weight: 327lbs. 0.0oz. 148.867916og; 45.00 BMI Method:Estimated General Appearance: WD/WN, no apparent distress HEENT: PERRL/EOMI, normal ENT inspection, TMs normal, pharynx normal Neck: full range of motion, supple, normal inspection Respiratory: lungs clear, normal breath sounds, no respiratory distress, no accessory muscle use Cardiovascular: normal peripheral pulses; No no gallop; systolic murmur Gastrointestinal: normal bowel sounds, non tender, soft Back: normal inspection, no vertebral tenderness Extremities: normal range of motion, non-tender, normal inspection, pedal edema Neurologic/Psychiatric: metal fitter II-XII nml as tested, no motor/sensory deficits, alert, normal mood/affect, oriented x 3 Crainal Nerves: normal hearing (speech impedement ), normal speech, PERRL Coordination/Gait: normal finger to nose Motor/Sensory: no motor deficit, no sensory deficit Skin: normal color, warm/dry Stroke Onset of Symptoms Date of Onset of Symptoms: Oct 05, 2021 Time of Symptom Onset: 12:00 Onset of Symptoms: Yes (1200) NIH Stroke Scale Assessment Select: Initial Level of Consciousness: 0=Alert (0), Level of Consciousness- Questions: 0=Answers both month/age (0), LOC Commands: 0=Performs both tasks (0), Gaze: Normal (0), Visual Rivero: 0=No visual loss (0), Facial Movement (Facial Paresis): 0=Normal symmetrical mnt (0), Motor Function-Arms Right: 0=No drift (0), Motor Function-Arms Left: 0=No drift (0), Motor Function-Legs Right: 0=No drift (0), Motor Function-Legs Left: 0=No drift (0), Limb Ataxia: 0=Absent (0), Sensory: 0=Normal:no loss (0), Best Language: 0=No aphasia (0), Dysarthria: 0=Normal (0), Extinction & Inattention: 0=No abnormality (0), Total: 0 Focused Exam Sepsis Stage: Sepsis Lactate Level 10/05/21 16:05: Lactic Acid Level 2.22*H Time of Focused Exam: 18:15 Respiratory: Lungs Clear, Normal Breath Sounds, No Accessory Muscle Use, No Respiratory Distress Cardiovascular: Regular Rate, Rhythm, No Edema, Systolic Murmur; No Gallop/S3 Peripheral Pulses: 2+ Radial Pulses (R), 2+ Radial Pulses (L) Skin: normal color, warm/dry Lactic Acid Level Laboratory Tests Test 10/05/21 16:05 Lactic Acid Level 2.22 MMOL/L (0.50-2.00) *H Within 3hrs of presentation: Admin fluids, Admin ABX, Blood cultures prior to ABX's, Focus exam, Lactate level Progress/Results/Core Measures Results/Orders Lab Results Laboratory Tests Test 10/05/21 16:00 10/05/21 16:05 10/05/21 16:08 10/05/21 16:24 Range/Units Influenza Type A Antigen NEGATIVE NEGATIVE Influenza Type B Antigen NEGATIVE NEGATIVE SARS-CoV-2 RNA (RT-PCR) Not Detected Negative White Blood Count 24.6 H 4.3-11.0 10^3/uL Red Blood Count 4.16 L 4.30-5.52 10^6/uL Hemoglobin 11.0 L 13.3-17.7 g/dL Hematocrit 36 L 40-54 % Mean Corpuscular Volume 87 80-99 fL Mean Corpuscular Hemoglobin 26 25-34 pg Mean Corpuscular Hemoglobin Concent 31 L 32-36 g/dL Red Cell Distribution Width 16.0 H 10.0-14.5 % Platelet Count 183 130-400 10^3/uL Mean Platelet Volume 11.6 9.0-12.2 fL Immature Granulocyte % (Auto) 1 % Neutrophils (%) (Auto) 88 H 42-75 % Lymphocytes (%) (Auto) 4 L 12-44 % Monocytes (%) (Auto) 8 0-12 % Eosinophils (%) (Auto) 0 0-10 % Basophils (%) (Auto) 0 0-10 % Neutrophils # (Auto) 21.6 H 1.8-7.8 10^3/uL Lymphocytes # (Auto) 0.9 L 1.0-4.0 10^3/uL Monocytes # (Auto) 1.9 H 0.0-1.0 10^3/uL Eosinophils # (Auto) 0.0 0.0-0.3 10^3/uL Basophils # (Auto) 0.1 0.0-0.1 10^3/uL Immature Granulocyte # (Auto) 0.2 H 0.0-0.1 10^3/uL Neutrophils % (Manual) 88 % Lymphocytes % (Manual) 5 % Monocytes % (Manual) 7 % Percent Immature Platelet Fraction 3.9 0.0-7.6 % Elliptocytes SLIGHT Blood Morphology Comment NA Prothrombin Time 22.0 H 12.2-14.7 SEC INR Comment 1.9 H 0.8-1.4 Activated Partial Thromboplast Time 41 H 24-35 SEC D-Dimer 0.50 H 0.00-0.49 UG/ML Sodium Level 135 135-145 MMOL/L Potassium Level 4.3 3.6-5.0 MMOL/L Chloride Level 101 98-107 MMOL/L Carbon Dioxide Level 20 L 21-32 MMOL/L Anion Gap 14 5-14 MMOL/L Blood Urea Nitrogen 39 H 7-18 MG/DL Creatinine 2.19 H 0.60-1.30 MG/DL Estimat Glomerular Filtration Rate 32 BUN/Creatinine Ratio 18 Glucose Level 176 H 70-105 MG/DL Lactic Acid Level 2.22 *H 0.50-2.00 MMOL/L Calcium Level 9.2 8.5-10.1 MG/DL Corrected Calcium 9.1 8.5-10.1 MG/DL Total Bilirubin 0.8 0.1-1.0 MG/DL Aspartate Amino Transf (AST/SGOT) 15 5-34 U/L Alanine Aminotransferase (ALT/SGPT) 7 0-55 U/L Alkaline Phosphatase 61 40-136 U/L Troponin I < 0.028 <0.028 NG/ML Total Protein 8.2 6.4-8.2 GM/DL Albumin 4.1 3.2-4.5 GM/DL Glucometer 166 H 70-110 MG/DL Urine Color YELLOW Urine Clarity CLEAR Urine pH 5.5 5-9 Urine Specific [place] 1.025 H 1.016-1.022 Urine Protein 2+ H NEGATIVE Urine Glucose (UA) NEGATIVE NEGATIVE Urine Ketones NEGATIVE NEGATIVE Urine Nitrite POSITIVE H NEGATIVE Urine Bilirubin NEGATIVE NEGATIVE Urine Urobilinogen 0.2 < = 1.0 MG/DL Urine Leukocyte Esterase 2+ H NEGATIVE Urine RBC (Auto) 3+ H NEGATIVE Urine RBC NONE /HPF Urine WBC 25-50 H /HPF Urine Squamous Epithelial Cells 0-2 /HPF Urine Renal Epithelial Cells NONE /HPF Urine Crystals NONE /LPF Urine Bacteria LARGE H /HPF Urine Casts NONE /LPF Urine Mucus NEGATIVE /LPF Urine Culture Indicated YES My Orders Orders - REGGIE WOOD PANTS CLOSER Cbc With Automated Diff (10/05/21 15:57) Comprehensive Metabolic Panel (10/05/21 15:57) Blood Culture (10/05/21 15:57) Sputum Culture (10/05/21 15:57) Urine Culture (10/05/21 15:57) Protime With Inr (10/05/21 15:57) Partial Thromboplastin Time (10/05/21 15:57) Chest 1 View, Ap/Pa Only (10/05/21 15:57) Acetaminophen Tablet (Tylenol Tablet) (10/05/21 16:00) Ed Iv/Invasive Line Start (10/05/21 15:57) Vital Signs Adult Sepsis Patie Q15M (10/05/21 15:57) O2 (10/05/21 15:57) Remove Rings In Anticipation O (10/05/21 15:57) Lactic Acid Analyzer (10/05/21 15:57) Influenza A & B Antigens (10/05/21 15:57) Ns Iv 1000 Ml (Sodium Chloride 0.9%) (10/05/21 16:00) Fibrin Degradation Products (10/05/21 15:59) Troponin I Hanson (10/05/21 15:59) Ua Culture If Indicated (10/05/21 15:59) Ekg Tracing (10/05/21 15:59) Accucheck Stat ONCE (10/05/21 15:59) Vital Signs Stroke Patient Q15M (10/05/21 15:59) Ct Head Wo-R/O Stroke (10/05/21 15:59) Monitor-Rhythm Ecg Trace Only (10/05/21 15:59) Dysphagia Screening Tool (10/05/21 15:59) Manual Differential (10/05/21 16:05) Cefepime Injection (Maxipime Injection) (10/05/21 17:15) Covid 19 Inhouse Test (10/05/21 17:26) Ns Iv 1000 Ml (Sodium Chloride 0.9%) (10/05/21 17:30) Cefepime Injection (Maxipime Injection) (10/05/21 17:32) Ns (Ivpb) (Sodium Chloride 0.9% Ivpb Bag (10/05/21 17:32) Medications Given in ED Current Medications Medications Dose Ordered Sig/Myla Route Start Time Stop Time Status Last Admin Dose Admin Acetaminophen 1,000 mg ONCE PRN PO 10/05/21 16:00 10/05/21 16:33 DC 10/05/21 16:32 1,000 MG Cefepime HCl 1000 mg/Sodium Chloride 50 ml @ 100 mls/hr ONCE ONCE IV 10/05/21 17:15 10/05/21 17:44 DC 10/05/21 17:37 100 MLS/HR Sodium Chloride 1,000 ml @ 999 mls/hr ONCE ONCE IV 10/05/21 17:30 10/05/21 18:30 DC 10/05/21 17:37 999 MLS/HR Vital Signs/I&O 10/05/21 15:56 Temp 38.3 Pulse 99 Resp 14 B/P (MAP) 147/74 (98) Pulse Ox 97 Blood Pressure Mean: 98 FSBG Bedside Testing Finger Stick Blood Glucose: 166 Progress Progress Note #1: Progress Note Patient examined and in no acute distress. Upon arrival his vital signs are stable. Was reported to have slurred speech however he does remark that he has a speech impediment and his speech appears his norm. NIH 0. Initiated sepsis workup with COVID swabs. Orders placed for 1 liter NS bolus. With recent fall and current warfarin therapy will obtain CT head w/o contrast. Labs and imaging reviewed. Orders placed for Cefepime 1gm IV and 2nd liter NS. Labs indicative of urosepsis and acute kidney injury. Reviewed findings with patient, states "I was worried that was the problem" due to decreased urine, dark color, and foul odor. Reviewed case with Dr. Delatorre, will plan to admit to [facility] due to no bed availability at [facility]. Discussed plan with patient and he is agreeable with plan. Wendi FERNANDEZ updated family. Progress Note #2: Time: 18:[address] Delatorre here to evaluate patient in ED. Initial ECG Impression Date: Oct 05, 2021 Initial ECG Impression Time: 16:05 Initial ECG Rate: 109 Initial ECG Rhythm: S.Tach Initial ECG Impression: Nonspecific Changes Diagnostic Imaging Diagonstic Imaging: Xray Plain Films/CT/US/NM/MRI: chest Comments [facility] [place] NAME: TERESITA BLANCO [facility] REC#: [id number] PT STATUS: REG ER : 1950 PHYSICIAN: REGGIE WOOD APRN ADMIT DATE: 10/05/21/ER Draft Date of Exam:10/05/21 CHEST 1 VIEW, AP/PA ONLY INDICATION: Increased generalized weakness. Fever. Slurred speech. COMPARISON: 07/26/2021. FINDINGS: Single frontal radiographic view of the chest was obtained and shows normal cardiac silhouette and pulmonary vasculature. Lungs show low inspiratory volumes with minimal patchy airspace opacities in the left base. There is no large effusion or pneumothorax. Osseous structures show no gross acute abnormalities. IMPRESSION: 1. Low lung volumes with probable patchy left basilar atelectasis. If there is concern for infiltrate, follow-up is advised. Dictated on workstation # [id number] Dict: 10/05/21 1649 Trans: 10/05/21 1652 [id number] Interpreted by: ANANYA PERALTA MD Electronically signed by: Florian Imaging: CT Plain Films/CT/US/NM/MRI: head Comments [facility] [place] NAME: TERESITA BLANCO [facility] REC#: [id number] PT STATUS: REG ER : 1950 PHYSICIAN: REGGIE WOOD PANTS CLOSER ADMIT DATE: 10/05/21/ER Draft Date of Exam:10/05/21 CT HEAD WO-R/O STROKE EXAMINATION: CT head without contrast. TECHNIQUE: Multiple contiguous axial images were obtained through the brain without the use of intravenous contrast. All CT scans use one or more of the following dose optimizing techniques: Automated exposure control, MA and/or KvP adjustment based on patient size and exam type or iterative reconstruction. HISTORY: Weakness, fever, and slurred speech. COMPARISON: 04/05/2016. FINDINGS: Mild diffuse cerebral volume loss with proportional enlargement of the ventricles and sulci. No abnormal attenuation of brain parenchyma is present. No acute intracranial hemorrhage or abnormal extra-axial fluid collections are present. Calcification of the intracranial ICAs. No hyperdense vessel. The calvarium is intact. Surgical changes from right mastoidectomy. Left mastoid air cells are clear. Debris within the left external auditory canal and right external auditory canal. The visualized paranasal sinuses are clear. The orbits are normal. IMPRESSION: 1. No acute intracranial abnormality. 2. Mild volume loss. Dictated on workstation # [id number] Dict: 10/05/21 1753 Trans: 10/05/21 [id number] Interpreted by: SANDRA MISHRA DO Electronically signed by: Reviewed: Reviewed by Me Departure Impression Primary Impression: Urinary tract infection Additional Impressions: Sepsis BREANNA (acute kidney injury) Disposition: ADMITTED INPATIENT Condition: Stable Admissions Decision to Admit Reason: Admit from ER (General) Decision to Admit/Date: Oct 05, 2021 Time/Decision to Admit Time: 18:24 Transfer Transfer Reason: Diversion Time Spoke to Accepting Phy: 18:00 Transfer Progress Notes Will transfer to room 101 at [facility]. Transfer Time: 18:25 Transfer Facility: [facility] Method of Transfer: EMS Departure-Patient Inst. Referrals: ZAC LUZ DO (PCP/Family) Primary Care Physician Copy Copies To 1: ZAC LUZ STORMY D APRN Oct 05, 2021 17:17
[2021-10-05 17:18] LABS: ALKALINE PHOSPHATASE 61 U/L (40-136)
[2021-10-05 17:19] LABS: CREATININE SERUM 2.19 MG/DL (0.60-1.30); GFR ESTIMATED 32
[2021-10-05 17:20] LABS: BUN/CREATININE RATIO 18
[2021-10-05 17:21] LABS: ALANINE AMINOTRANSFERASE 7 U/L (0-55)
[2021-10-05] MEDS ORDERED: NS IV 1000 ML 1,000 ML IV ONE (17:30)
[2021-10-05] MEDS ORDERED: NS (IVPB) 50 ML ONE (17:32)
[2021-10-05] MEDS ORDERED: CEFEPIME 1 GM/10 ML (MAXIPIME) VIAL ONE (17:32)
--- NOTE | 2021-10-05 17:59 | Diagnostic Imaging Report ---
EXAMINATION: CT head without contrast. TECHNIQUE: Multiple contiguous axial images were obtained through the brain without the use of intravenous contrast. All CT scans use one or more of the following dose optimizing techniques: Automated exposure control, MA and/or KvP adjustment based on patient size and exam type or iterative reconstruction. HISTORY: Weakness, fever, and slurred speech. COMPARISON: 04/05/2016. FINDINGS: Mild diffuse cerebral volume loss with proportional enlargement of the ventricles and sulci. No abnormal attenuation of brain parenchyma is present. No acute intracranial hemorrhage or abnormal extra-axial fluid collections are present. Calcification of the intracranial ICAs. No hyperdense vessel. The calvarium is intact. Surgical changes from right mastoidectomy. Left mastoid air cells are clear. Debris within the left external auditory canal and right external auditory canal. The visualized paranasal sinuses are clear. The orbits are normal. IMPRESSION: 1. No acute intracranial abnormality. 2. Mild volume loss. Dictated by: Dictated on workstation # [id number]
== END 2021-10-05 19:31 | disposition other institution (70) ==
LOC: EDUNIT# 15:50 → ER 15:51
DX: N39.0 Urinary tract infection, site not specified (principal); A41.9 Sepsis, unspecified organism; N17.9 Acute kidney failure, unspecified; G47.30 Sleep apnea, unspecified; J44.9 Chronic obstructive pulmonary disease, unspecified; I10 Essential (primary) hypertension; G20 Parkinson's disease; K21.9 Gastro-esophageal reflux disease without esophagitis; E78.00 Pure hypercholesterolemia, unspecified; E11.9 Type 2 diabetes mellitus without complications; F17.290 Nicotine dependence, other tobacco product, uncomplicated; Z20.822 Contact with and (suspected) exposure to COVID-19; Z86.711 Personal history of pulmonary embolism; Z86.718 Personal history of other venous thrombosis and embolism; Z79.01 Long term (current) use of anticoagulants; Z79.82 Long term (current) use of aspirin; Z79.899 Other long term (current) drug therapy
CPT/HCPCS: 36415; 70450; 71045; 80053; 81000; 82947; 83605; 84484; 85007; 85027; 85379; 85610; 85730; 87040; 87077; 87088; 87184; 87186; 87636; 87804; 93005; 93041

== ENCOUNTER 2021-11-10 19:21 | Emergency (ER) | payer MEDICARE, MEDICAID ==
[~2021-11-10] VITALS: Ht 180 cm; Wt 148.0 kg
[2021-11-10] MEDS ORDERED: RX-MUPIROCIN (BACTROBAN) 2% OINT 22 GM TUBE TOP STA (19:37)
--- NOTE | 2021-11-10 19:45 | ED Lower Extremity ---
General Chief Complaint: Skin/Wound Problems Stated Complaint: LEG INJURY Source: patient, family History of Present Illness Date Seen by Provider: Nov 10, 2021 Time Seen by Provider: 19:32 Initial Comments PT ARRIVES VIA POV FROM HOME C/O INJURY TO LEFT LOWER LEG OCCURRED JUST PRIOR TO ARRIVAL STATES HE WAS GETTING UP TO GO TO THE BATHROOM AND BUMPED HIS LEFT LOWER LEG ON THE SIDE OF THE BED--WAS A PLASTIC PART OF THE BED HAS A SKIN TEAR TO LATERAL ASPECT OF LEFT LOWER LEG DID NOT FALL OR INJURE HIMSELF IN ANY OTHER WAY NO PAIN TO LEG ITSELF AND NO PAIN WITH WALKING PT IS ON COUMADIN FOR HISTORY OF BLOOD CLOTS/DVT AND P.E. HAS HISTORY OF SIMILAR SKIN TEARS PT IS DIABETIC, AND HAS HISTORY OF PARKINSON'S PT STATES HE IS UP TO DATE ON TETANUS VACCINE PCP: DR. LUZ Allergies and Home Medications Allergies Coded Allergies: amoxicillin (Unverified Allergy, Mild, 02/04/09) Penicillins (Unverified Allergy, Unknown, 07/09/20) Patient Home Medication List Home Medication List Reviewed: Yes Amlodipine Besylate (Amlodipine Besylate) 5 Mg Tablet, 5 MG PO DAILY, (Reported) Entered as Reported by: KARLA PATEL on 09/03/21 1148 Aspirin (Aspirin EC) 81 Mg Tablet.dr, 81 MG PO HS, (Reported) Entered as Reported by: SARITA KUHN on 06/03/17 0948 Atorvastatin Calcium (Atorvastatin Calcium) 10 Mg Tablet, 10 MG PO HS, (Reported) Entered as Reported by: SARITA KUHN on 12/16/16 1413 Carbidopa/Levodopa (Carbidopa-Levodopa 25-250 Tab) 1 Each Tablet, 2 TAB PO 0800, (Reported) Entered as Reported by: SARITA KUHN on 12/16/16 1413 Carbidopa/Levodopa (Carbidopa-Levodopa 25-250 Tab) 1 Each Tablet, 1 TAB PO 1200,1700,2200, (Reported) Entered as Reported by: SARITA KUHN on 12/16/16 1413 Docusate Sodium (Stool Softener) 100 Mg Tablet, 100 MG PO DAILY PRN for CONSTIPATION-1ST LINE, (Reported) Entered as Reported by: KARLA PATEL on 09/03/21 1148 Furosemide (Furosemide) 80 Mg Tablet, 80 MG PO DAILY, (Reported) Entered as Reported by: SARITA KUHN on 12/16/16 1413 Gabapentin (Neurontin) 300 Mg Capsule, 600 MG PO TID, (Reported) Entered as Reported by: KARLA PATEL on 09/03/21 1148 Isosorbide Mononitrate (Isosorbide Mononitrate ER) 60 Mg Tab, 60 MG PO DAILY, (Reported) Entered as Reported by: KARLA PATEL on 09/03/21 1148 Lisinopril (Lisinopril) 2.5 Mg Tablet, 2.5 MG PO DAILY, (Reported) Entered as Reported by: SARITA KUHN on 06/03/17 0948 Niacin (Niacin ER) 1,000 Mg Tab.er.24h, 1,000 MG PO HS, (Reported) Entered as Reported by: KARLA PATEL on 09/03/21 1148 Nitroglycerin (Nitroglycerin) 0.4 Mg Tab.subl, 0.4 MG SL UD PRN for CHEST PAIN, (Reported) Entered as Reported by: KARLA PATEL on 09/03/21 1148 Pantoprazole Sodium (Pantoprazole Sodium) 40 Mg Tablet.dr, 40 MG PO DAILY Prescribed by: SWAPNA FALLON on 09/04/21 1133 Ranolazine (Ranexa) 1,000 Mg Tab.er.12h, 100 MG PO HS, (Reported) Entered as Reported by: KARLA PATEL on 09/03/21 1148 Warfarin Sodium (Jantoven) 5 Mg Tablet, 5 MG PO DAILY Prescribed by: SWAPNA FALLON on 09/04/21 1133 Review of Systems Constitutional: no symptoms reported Musculoskeletal: see HPI Skin: see HPI Psychiatric/Neurological: No Symptoms Reported Past Ydwlara-Icrbhe-Hyhfpx Hx Patient Social History Tobacco Use?: No Substance use?: No Alcohol Use?: No Pt feels they are or have been: No Immunizations Up To Date Tetanus Booster (TDap): Less than 5yrs First/Initial COVID19 Vaccinat: August COVID19 Vaccination Misael: October COVID19 Vaccination Date: JUL COVID19 Vaccine Concrete Rubber: j&j Seasonal Allergies Seasonal Allergies: No Past Medical History Surgery/Hospitalization HX: pmh: parkinsons, htn, Surgeries: Yes (RIGHT EAR CANAL SURGERY; CARDIAC CATH-NO INTERVENTION) Adenoidectomy, Cardiac, Ear Surgery, Tonsillectomy Respiratory: Yes Pulmonary Embolism, Sleep Apnea, COPD Currently Using CPAP: No Currently Using BIPAP: No Cardiac: Yes Chronic Edema/Swelling, Deep Vein Thrombosis, High Cholesterol, Hypertension Neurological: Yes Neuropathy, Parkinson's Disease Reproductive Disorders: No Genitourinary: No Gastrointestinal: Yes Gastroesophageal Reflux Musculoskeletal: Yes Arthritis, Chronic Back Pain Endocrine: Yes (MORBID OBESITY) Diabetes, Insulin dep HEENT: Yes (S/P T&A, RIGHT EAR SURGERY) Cancer: No Psychosocial: Yes Anxiety, Depression Integumentary: Yes (chest lesion) Pruritis Blood Disorders: No Adverse Reaction/Blood Tranf: No Family Medical History No Pertinent Family Hx Physical Exam Vital Signs Vital Signs - First Documented 11/10/21 11/10/21 19:29 20:27 Temp 36.6 Pulse 94 Resp 18 B/P (MAP) 172/92 (118) Pulse Ox 96 O2 Delivery Room Air Capillary Refill : Height, Weight, BMI Height: 6'0.00" Weight: 327lbs. 0.0oz. 148.894407ct; 45.00 BMI Method:Estimated General Appearance: WD/WN, no apparent distress, obese, other (VERY PLEASANT AND SMILING, TALKATIVE. ) Cardiovascular: regular rate, rhythm Respiratory: normal breath sounds Hips: bilateral hip non-tender Legs: bilateral leg other (BOTH LOWER LEGS WITH 3-4+ EDEMA BILATERALLY WITH CHRONIC VENOUS STASIS CHANGES. LATERAL ASPECT OF LEFT LOWER LEG WITH APPROXIMATELY 3 CM DIAMETER C-SHAPED SKIN TEAR, WITH SLIGHT OOZING OF BLOOD AT THIS TIME. NO BONY TENDERNESS OR DEFORMITY. MILD EARLY BRUISING NOTED AROUND SKIN TEAR, BUT NO OBVIOUS LARGE HEMATOMA AT THIS TIME.) Knees: bilateral knee non-tender Progress/Results/Core Measures Results/Orders Lab Results Laboratory Tests Test 11/10/21 19:50 Range/Units White Blood Count 11.0 4.3-11.0 10^3/uL Red Blood Count 4.23 L 4.30-5.52 10^6/uL Hemoglobin 11.3 L 13.3-17.7 g/dL Hematocrit 36 L 40-54 % Mean Corpuscular Volume 85 80-99 fL Mean Corpuscular Hemoglobin 27 25-34 pg Mean Corpuscular Hemoglobin Concent 31 L 32-36 g/dL Red Cell Distribution Width 16.5 H 10.0-14.5 % Platelet Count 228 130-400 10^3/uL Mean Platelet Volume 8.9 L 9.0-12.2 fL Prothrombin Time 40.5 H 12.2-14.7 SEC INR Comment 4.1 H 0.8-1.4 Activated Partial Thromboplast Time 56 H 24-35 SEC My Orders Orders - TEENA NAJERA DO Cbc No Diff (11/10/21 19:37) Protime With Inr (11/10/21 19:37) Partial Thromboplastin Time (11/10/21 19:37) Wound Dressing-Ed (11/10/21 19:37) Rx-Mupirocin 2% Oint (Rx-Bactroban) (11/10/21 19:37) Vital Signs/I&O 11/10/21 11/10/21 19:29 20:27 Temp 36.6 36.5 Pulse 94 89 Resp 18 18 B/P (MAP) 172/92 (118) 157/89 Pulse Ox 96 O2 Delivery Room Air Room Air Progress Progress Note : Progress Note WOUND CLEANSED AND DRESSED--IS A SKIN TEAR WITH NO REPAIR REQUIRED, SKIN EDGES ARE WELL APPROXIMATED NO BLEEDING AT DISMISSAL Departure Impression Primary Impression: Noninfected skin tear of left leg Disposition: 01 HOME, SELF-CARE Condition: Stable Departure-Patient Inst. Decision time for Depature: 20:22 Referrals: ZAC LUZ DO (PCP/Family) Primary Care Physician Patient Instructions: Wound Care Add. Discharge Instructions: LEAVE DRESSING IN PLACE FOR 24 HOURS AFTER 24 HOURS, BEGAN TO CLEAN THE AREA TWICE A DAY WITH ANTIBACTERIAL SOAP AND WATER ON A Q-TIP, APPLY ANTIBIOTIC OINTMENT AND FRESH DRESSING TWICE A DAY IF WOUND BEGINS TO BLEED, LEAVE THE CURRENT DRESSING IN PLACE AND APPLY MORE DRESSINGS ON TOP OF CURRENT DRESSING. APPLY PRESSURE TO THE AREA APPLY ICE TO AREA AT 20 MINUTE INTERVALS ELEVATE THE LEG MUCH POSSIBLE YOU MAY TAKE TYLENOL NEEDED FOR PAIN CONTINUE YOUR REGULAR MEDICATIONS PRESCRIBED FOLLOW UP WITH DR. LUZ IN 2-3 DAYS TO RECHECK THE WOUND. CALL IN THE MORNING TO SCHEDULE APPOINTMENT All discharge instructions reviewed with patient and/or family. Voiced understanding. TEENA NAJERA DO Nov 10, 2021 19:45
[2021-11-10 19:56] LABS: HEMATOCRIT 36 % (40-54); HEMOGLOBIN 11.3 g/dL (13.3-17.7); MEAN CORPUSCULAR HEMOGLOBIN 27 pg (25-34); MEAN CORPUSCULAR HGB CONC 31 g/dL (32-36); MEAN CORPUSCULAR VOLUME 85 fL (80-99); MEAN PLATELET VOLUME 8.9 fL (9.0-12.2); PLATELET COUNT 228 10^3/uL (130-400)
[2021-11-10 20:11] LABS: INR 4.1 (0.8-1.4); PROTHROMBIN TIME PATIENT 40.5 SEC (12.2-14.7)
[2021-11-10 20:27] VITALS: BP 157/89
== END 2021-11-10 20:30 | disposition home or self-care (01) ==
LOC: EDUNIT# 19:21 → ER 19:23
DX: S81.812A Laceration without foreign body, left lower leg, initial encounter (principal); E66.9 Obesity, unspecified; Z68.42 Body mass index [BMI] 45.0-49.9, adult; Z86.711 Personal history of pulmonary embolism; Z86.718 Personal history of other venous thrombosis and embolism; Z79.01 Long term (current) use of anticoagulants; W22.8XXA Striking against or struck by other objects, initial encounter; Y92.091 Bathroom in other non-institutional residence as the place of occurrence of the external cause
CPT/HCPCS: 36415; 85027; 85610; 85730; 99282

== ENCOUNTER 2022-11-16 12:26 | Inpatient (IN) | payer MEDICARE, MEDICAID ==
[~2022-11-16] VITALS: Ht 182.9 cm; Wt 148.3 kg
[2022-11-16] VITALS (12 sets, daily range): BP systolic 91–160; BP diastolic 52–85
[~2022-11-16 12:26] MED LIST changes: -CARB1TAB22 PO; +CARB1TAB35 PO; +LEVO750T PO; -LEVO750T39 PO
[2022-11-16 13:01] LABS: BASOPHILS % (AUTO) 0 % (0-10); EOSINOPHILS # (AUTO) 0.1 10^3/uL (0.0-0.3); EOSINOPHILS % (AUTO) 1 % (0-10); LYMPHOCYTES # (AUTO) 1.6 10^3/uL (1.0-4.0); LYMPHOCYTES % (AUTO) 14 % (12-44); MEAN CORPUSCULAR HEMOGLOBIN 23 pg (25-34); MEAN CORPUSCULAR HGB CONC 28 g/dL (32-36); MEAN CORPUSCULAR VOLUME 83 fL (80-99); MEAN PLATELET VOLUME 9.9 fL (9.0-12.2); MONOCYTES # (AUTO) 0.8 10^3/uL (0.0-1.0); MONOCYTES % (AUTO) 7 % (0-12); NEUTROPHILS # (AUTO) 8.6 10^3/uL (1.8-7.8); NEUTROPHILS % (AUTO) 77 % (42-75); PLATELET COUNT 289 10^3/uL (130-400); WHITE BLOOD COUNT 11.1 10^3/uL (4.3-11.0)
[2022-11-16 13:05] LABS: HEMATOCRIT 13 % (40-54); HEMOGLOBIN 3.6 g/dL (13.3-17.7)
--- NOTE | 2022-11-16 13:05 | ED General ---
General Chief Complaint: General Problems/Pain Stated Complaint: LOW HEMOGLOBIN Nursing Triage Note: Patient to room 1 via EMS. EMS reports family called with altered mental status. Dr. Luz joanna labs today- low hbg. hx of GI bleed. Weak. family denies patient falling. Source of Information: Patient Exam Limitations: No Limitations History of Present Illness Date Seen by Provider: Nov 16, 2022 Time Seen by Provider: 13:02 Initial Comments Patient is a 71-year-old male with a history of GI bleed, DVT, PE, GERD, morbid obese, Parkinson's who presents ED for concern for GI bleed with dark tarry stool. Patient went to Dr. Luz's office today and had lab work drawn which showed low hemoglobin. Was recommended to come to the ER. Patient Was transferred by EMS. According to family patient has been more confused over the past few days. Patient appears pale. He is currently on warfarin for DVT and PE. Patient denies of any specific abdominal pain, chest pain, cough, headache. Does report some dizziness. He is slow to respond to questions. Alert and luciano ent x2. Denies of any urinary symptoms. Patient states he gets around with a motorized wheelchair. Denies fever, unilateral muscle weakness, visual changes, nausea, vomiting, diarrhea Allergies and Home Medications Allergies Coded Allergies: amoxicillin (Unverified Allergy, Mild, 02/04/09) Penicillins (Unverified Allergy, Unknown, 07/09/20) Patient Home Medication List Home Medication List Reviewed: Yes Amlodipine Besylate (Amlodipine Besylate) 5 Mg Tablet, 5 MG PO DAILY, (Reported) Entered as Reported by: KARLA PATEL on 09/03/21 1148 Last Action: Reviewed Aspirin (Aspirin EC) 81 Mg Tablet.dr, 81 MG PO HS, (Reported) Entered as Reported by: SARITA KUHN on 06/03/17 0948 Last Action: Reviewed Atorvastatin Calcium (Atorvastatin Calcium) 10 Mg Tablet, 10 MG PO HS, (Reported) Entered as Reported by: SARITA KUHN on 12/16/16 208 Last Action: Reviewed Carbidopa/Levodopa (Carbidopa-Levodopa 25-250 Tab) 1 Each Tablet, 2 TAB PO 0800, (Reported) Entered as Reported by: SARITA KUHN on 12/16/161412 Last Action: Reviewed Carbidopa/Levodopa (Carbidopa-Levodopa 25-250 Tab) 1 Each Tablet, 1 TAB PO 1200,1700,2200, (Reported) Entered as Reported by: SARITA KUHN on 12/16/161412 Last Action: Reviewed Docusate Sodium (Stool Softener) 100 Mg Tablet, 100 MG PO DAILY PRN for CONSTIPATION-1ST LINE, (Reported) Entered as Reported by: KARLA PATEL on 09/03/211147 Last Action: Reviewed Fish Oil/Dha/Epa (Fish Oil 1,200 mg Fish Oil) 1,200 Mg-144 Mg-216 Mg Capsule, 1 EACH PO TID, (Reported) Entered as Reported by: KARLA PATEL on 11/17/22 115 Last Action: Reviewed Furosemide (Furosemide) 80 Mg Tablet, 40 MG PO DAILY, (Reported) Entered as Reported by: SARITA KUHN on 12/16/161412 Last Action: Reviewed Gabapentin (Neurontin) 300 Mg Capsule, 600 MG PO TID, (Reported) Entered as Reported by: KARLA PATEL on 09/03/211147 Last Action: Reviewed Isosorbide Mononitrate (Isosorbide Mononitrate ER) 60 Mg Tab, 60 MG PO DAILY, (Reported) Entered as Reported by: KARLA PATEL on 09/03/211147 Last Action: Reviewed Lisinopril (Lisinopril) 5 Mg Tablet, 5 MG PO DAILY, (Reported) Entered as Reported by: KARLA PATEL on 11/17/22 115 Last Action: Reviewed Loratadine (Loratadine) 10 Mg Tablet, 10 MG PO DAILY PRN for ALLERGY SYMPTOMS, (Reported) Entered as Reported by: KARLA PATEL on 11/17/22 115 Last Action: Reviewed Niacin (Niacin ER) 1,000 Mg Tab.er.24h, 1,000 MG PO HS, (Reported) Entered as Reported by: KARLA PATEL on 09/03/211147 Last Action: Reviewed Nitroglycerin (Nitroglycerin) 0.4 Mg Tab.subl, 0.4 MG SL UD PRN for CHEST PAIN, (Reported) Entered as Reported by: KARLA PATEL on 09/03/211147 Last Action: Reviewed Ranolazine (Ranexa) 1,000 Mg Tab.er.12h, 1,000 MG PO 1700, (Reported) Entered as Reported by: KARLA PATEL on 09/03/21 1148 Last Action: Reviewed Warfarin Sodium (Warfarin Sodium) 5 Mg Tablet, 5 MG PO CEDILLO,,TH,SA @1200, (Reported) Entered as Reported by: KARLA PATEL on 11/17/22 1156 Last Action: Reviewed Warfarin Sodium (Warfarin Sodium) 5 Mg Tablet, 7.5 MG PO MO,,FR @1200, (Reported) Entered as Reported by: KARLA PATEL on 11/17/22 115 Last Action: Reviewed Discontinued Medications Lisinopril (Lisinopril) 2.5 Mg Tablet, 2.5 MG PO DAILY, (Reported) Discontinued Reason: No Longer Taking Entered as Reported by: SARITA KUHN on 06/03/17 0948 Last Action: Discontinued Pantoprazole Sodium (Pantoprazole Sodium) 40 Mg Tablet.dr, 40 MG PO DAILY Discontinued Reason: No Longer Taking Prescribed by: SWAPNA FALLON on 09/04/211132 Last Action: Discontinued Warfarin Sodium (Jantoven) 5 Mg Tablet, 5 MG PO DAILY Discontinued Reason: Duplicate Order Prescribed by: SWAPNA FALLON on 09/04/211132 Last Action: Discontinued Review of Systems Review of Systems Constitutional: No chills, No diaphoresis EENTM: No ear pain, No blurred vision, No double vision, No vision loss, No dental problems, No mouth pain, No mouth swelling, No throat pain, No throat swelling Respiratory: No cough Gastrointestinal: No abdominal pain, No diarrhea, No nausea, No vomiting Musculoskeletal: No back pain, No joint pain Skin: No change in color, No change in hair/nails Psychiatric/Neurological: Denies Anxiety, Denies Depressed All Other Systems Reviewed Negative Unless Noted: Yes Past Rphrhpa-Bkxhgy-Jgjsfl Hx Immunizations Up To Date Tetanus Booster (TDap): Less than 5yrs First/Initial COVID19 Vaccinat: August COVID19 Vaccination Misael: October COVID19 Vaccination Date: JUL Seasonal Allergies Seasonal Allergies: No Past Medical History Surgery/Hospitalization HX: pmh: parkinsons, htn, Surgeries: Yes (RIGHT EAR CANAL SURGERY; CARDIAC CATH-NO INTERVENTION) Adenoidectomy, Cardiac, Ear Surgery, Tonsillectomy Respiratory: Yes Pulmonary Embolism, Sleep Apnea, COPD Currently Using CPAP: No Currently Using BIPAP: No Cardiac: Yes Chronic Edema/Swelling, Deep Vein Thrombosis, High Cholesterol, Hypertension Neurological: Yes Neuropathy, Parkinson's Disease Reproductive Disorders: No Genitourinary: No Gastrointestinal: Yes Gastroesophageal Reflux Musculoskeletal: Yes Arthritis, Chronic Back Pain Endocrine: Yes (MORBID OBESITY) Diabetes, Insulin dep HEENT: Yes (S/P T&A, RIGHT EAR SURGERY) Cancer: No Psychosocial: Yes Anxiety, Depression Integumentary: Yes (chest lesion) Pruritis Blood Disorders: No Adverse Reaction/Blood Tranf: No Family Medical History No Pertinent Family Hx Physical Exam Vital Signs Vital Signs - First Documented 11/16/22 12:29 Temp 36.8 Pulse 97 Resp 18 B/P (MAP) 113/93 (100) Pulse Ox 100 O2 Delivery Room Air Capillary Refill : Less Than 3 Seconds Height, Weight, BMI Height: 6'0.00" Weight: 327lbs. 0.0oz. 148.235824or; 46.00 BMI Method:Estimated General Appearance: No Apparent Distress, WD/WN Eyes: Bilateral Eye Normal Inspection, Bilateral Eye PERRL, Bilateral Eye EOMI HEENT: PERRL/EOMI, TMs Normal, Normal ENT Inspection, Pharynx Normal Focused Exam Lactate Level 11/16/22 13:06: Lactic Acid Level 3.62*H Lactic Acid Level Laboratory Tests Test 11/16/22 13:06 Lactic Acid Level 3.62 MMOL/L (0.50-2.00) *H Progress/Results/Core Measures Suspected Sepsis SIRS Temperature: Pulse: 97 Respiratory Rate: 18 Laboratory Tests 11/16/22 12:51: White Blood Count 11.1H Blood Pressure 113 /93 Mean: 100 11/16/22 13:06: Lactic Acid Level 3.62*H Laboratory Tests 11/16/22 12:51: Creatinine 2.16H, INR Comment 4.2H, Platelet Count 289, Total Bilirubin 0.3 Results/Orders Lab Results Laboratory Tests Test 11/16/22 12:51 11/16/22 13:06 11/16/22 13:55 Range/Units White Blood Count 11.1 H 4.3-11.0 10^3/uL Red Blood Count 1.55 L 4.30-5.52 10^6/uL Hemoglobin 3.6 *L 3.6 *L 13.3-17.7 g/dL Hematocrit 13 *L 40-54 % Mean Corpuscular Volume 83 80-99 fL Mean Corpuscular Hemoglobin 23 L 25-34 pg Mean Corpuscular Hemoglobin Concent 28 L 32-36 g/dL Red Cell Distribution Width 16.8 H 10.0-14.5 % Platelet Count 289 130-400 10^3/uL Mean Platelet Volume 9.9 9.0-12.2 fL Immature Granulocyte % (Auto) 1 % Neutrophils (%) (Auto) 77 H 42-75 % Lymphocytes (%) (Auto) 14 12-44 % Monocytes (%) (Auto) 7 0-12 % Eosinophils (%) (Auto) 1 0-10 % Basophils (%) (Auto) 0 0-10 % Neutrophils # (Auto) 8.6 H 1.8-7.8 10^3/uL Lymphocytes # (Auto) 1.6 1.0-4.0 10^3/uL Monocytes # (Auto) 0.8 0.0-1.0 10^3/uL Eosinophils # (Auto) 0.1 0.0-0.3 10^3/uL Basophils # (Auto) 0.0 0.0-0.1 10^3/uL Immature Granulocyte # (Auto) 0.1 0.0-0.1 10^3/uL Prothrombin Time 40.9 H 12.2-14.7 SEC INR Comment 4.2 H 0.8-1.4 Activated Partial Thromboplast Time 45 H 24-35 SEC Sodium Level 137 135-145 MMOL/L Potassium Level 5.2 H 3.6-5.0 MMOL/L Chloride Level 108 H 98-107 MMOL/L Carbon Dioxide Level 15 L 21-32 MMOL/L Anion Gap 14 5-14 MMOL/L Blood Urea Nitrogen 61 H 7-18 MG/DL Creatinine 2.16 H 0.60-1.30 MG/DL Estimat Glomerular Filtration Rate 32 BUN/Creatinine Ratio 28 Glucose Level 196 H 70-105 MG/DL Calcium Level 8.3 L 8.5-10.1 MG/DL Corrected Calcium 8.8 8.5-10.1 MG/DL Total Bilirubin 0.3 0.1-1.0 MG/DL Aspartate Amino Transf (AST/SGOT) 7 5-34 U/L Alanine Aminotransferase (ALT/SGPT) 10 0-55 U/L Alkaline Phosphatase 48 40-136 U/L Troponin I < 0.028 <0.028 NG/ML Total Protein 6.2 L 6.4-8.2 GM/DL Albumin 3.4 3.2-4.5 GM/DL Lipase 24 8-78 U/L Lactic Acid Level 3.62 *H 0.50-2.00 MMOL/L My Orders Orders - MARITA YANG Cbc With Automated Diff (11/16/22 12:49) Comprehensive Metabolic Panel (11/16/22 12:49) Partial Thromboplastin Time (11/16/22 12:49) Protime With Inr (11/16/22 12:49) Ua Culture If Indicated (11/16/22 12:49) Iv/Invasive Line Insertion .IV INSERT (11/16/22 12:49) Lipase (11/16/22 12:49) Type And Screen (11/16/22 12:55) Troponin I Anatoly (11/16/22 12:56) Ekg Tracing (11/16/22 12:56) Lactic Acid Analyzer (11/16/22 12:59) Red Cells Leukocytes Reduced (11/16/22 13:05) Pantoprazole Injection (Protonix Injecti (11/16/22 13:15) Fresh Frozen Plasma (11/16/22 13:29) Ns Iv 500 Ml (Sodium Chloride 0.9%) (11/16/22 13:30) Phytonadione (Adult) Injection (Aquameph (11/16/22 13:45) Ns (Ivpb) (Sodium C... W/Pantoprazole In (11/16/22 13:34) Hemoglobin (11/16/22 13:36) Phytonadione (Adult) Injection (Aquameph (11/16/22 13:45) Ed Admission (Communication) (11/16/22 14:12) Ct Abdomen/Pelvis Wo (11/16/22 14:04) Code/Resuscitation (11/16/22 14:47) Medications Given in ED Vital Signs/I&O 11/16/22 11/16/22 11/16/22 11/16/22 12:29 14:41 15:00 15:00 Temp 36.8 37.0 37.2 Pulse 97 104 100 99 Resp 18 20 16 20 B/P (MAP) 113/93 (100) 122/52 118/65 118/65 Pulse Ox 100 100 99 99 O2 Delivery Room Air Room Air Room Air Room Air 11/17/22 00:00 Intake Total 270 ml Balance 270 ml Capillary Refill : Less Than 3 Seconds Blood Pressure Mean: 100 ECG Comment Sinus rhythm, 95 bpm, QRS duration 101 MS, QTc 387 MS. Critical Care Note Critical Care Start Time: 13:30 Stop Time: 12:15 Total Time (minutes) 45 min Progress Patient with active GI bleed currently on warfarin. Hemoglobin of 3.6. Patient Was given IV blood product, FFP, IV vitamin K. Patient was normotensive. Departure Communication (Admissions) Time/Spoke to Admitting Phy: 14:38 Patient was discussed with general surgeon Dr. Ruff. Recommend Protonix drip, FFP, vitamin K and admission to the ICU. Patient was discussed with hospitalist Dr. Ayala who accepts patient. Communication (PCP) Reviewed previous ER visits, H&P, lab testing. History of GI bleed. Patient lives at home. Home health does visit patient at home. Patient was sent to the ED by EMS secondary to low hemoglobin after lab drawn done today. Patient was unsure if he was on warfarin as patient was altered on arrival. Patient was able to contact his granddaughter who verified that patient is on warfarin. Due to current presentation of increased weakness, confusion, paleness, abdominal pain. Differential diagnosis of GI bleed, colitis, diverticulitis, abdominal mass, sepsis. CBC, CMP, coags, type and screen, CT abdomen and pelvis, urinalysis, cardiac work-up was initiated. Patient blood pressure was fairly normotensive. Patient with a heart rate between 90-100. Did not have any severe localized tenderness on exam of his abdomen. Concern for active bleed. Hemoccult was positive with dark tarry stool on digital exam. Concerning for upper GI bleed. Patient Was given 80 mg IV Protonix. Patient CBC showed a white blood count of 11. Hemoglobin 3.6. Redraw verified of hemoglobin of 3.6. Patient INR 4.2. Creatinine of 2.16 acute kidney injury. Had a potassium 5.2. EKG without any acute changes. Patient was given 1 unit FFP, started on 2 unit blood product, IV vitamin K 10 mg for reversal of the warfarin and active bleed. Patient started to have abdominal pain here. 2 IV sites were started due to the blood product. Patient was a difficult IV stick. Continue maintaining his blood pressure. CT abdomen and pelvis without contrast secondary to the kidney function and hemoglobin showed No obstructive features, inflammatory processes, free fluid, or findings of hemorrhage. Patient was slow to respond. Alert and orient x2- aware of name and place. Has no chest pain or shortness of breath. Did vomit this morning. No evidence of hematemesis. History of colonoscopy with polyectomy by Dr. Ruff in 2019 secondary to positive Cologuard and history of GI bleed. Patient was consulted with Dr. Ruff who recommended IV FFP 1 unit, vitamin K 10 mg, 2 unit of blood product. Critical care time secondary to severe anemia requiring blood transfusion, FFP and, vitamin K for active GI bleed. 45 minutes of critical care time. Spent time reviewing lab work, review of history, treatment for active GI bleed. Patient was discussed with Dr. Dyer hospitalist who graciously accepts patient to the ICU. Patient is currently a full code according to granddaughter. Impression Primary Impression: Acute GI bleeding Additional Impression: BREANNA (acute kidney injury) Disposition: ADMITTED INPATIENT Condition: Stable Admissions Decision to Admit Reason: Admit from ER (General) Decision to Admit/Date: Nov 16, 2022 Time/Decision to Admit Time: 14:38 Departure-Patient Inst. Referrals: ZAC LUZ DO (PCP/Family) Primary Care Physician MARITA YANG Nov 16, 2022 13:05
[2022-11-16 13:10] LABS: ALBUMIN 3.4 GM/DL (3.2-4.5); POTASSIUM 5.2 MMOL/L (3.6-5.0)
[2022-11-16 13:11] LABS: CALCIUM 8.3 MG/DL (8.5-10.1)
[2022-11-16 13:13] LABS: TOTAL PROTEIN 6.2 GM/DL (6.4-8.2)
[2022-11-16 13:14] LABS: BILIRUBIN,TOTAL 0.3 MG/DL (0.1-1.0)
[2022-11-16] MEDS ORDERED: PANTOPRAZOLE 40 MG (PROTONIX) VIAL IV ONE (13:15)
[2022-11-16 13:16] LABS: CREATININE SERUM 2.16 MG/DL (0.60-1.30); INR 4.2 (0.8-1.4); PROTHROMBIN TIME PATIENT 40.9 SEC (12.2-14.7)
[2022-11-16] MEDS ORDERED: NS IV 500 ML 500 ML IV SCH (13:30)
[2022-11-16] MEDS ORDERED: PANTOPRAZOLE INJECTION 200 MG in NS (IVPB) 100 ML IV STA (13:34)
[2022-11-16] MEDS ORDERED: PHYTONADIONE (ADULT) INJECTION 10 MG in NS (IVPB) 50 ML IV NR (13:45)
[2022-11-16] MEDS ORDERED: PHYTONADIONE (VIT. K) 10 MG/ML AMP IV ONE (13:45)
--- NOTE | 2022-11-16 14:07 | Consultation - Surgery ---
MAYRA VEGA 11/16/22 1407: History of Present Illness History of Present Illness Patient Consulted On(justin/time) 11/16/22 14:07 Date Seen by Provider: Nov 16, 2022 Time Seen by Provider: 14:20 Reason for Visit: GI Bleed History of Present Illness Consult requested by VICENTE Luna 71yo M with h/o GI bleed, colon polyps, and GERD was admitted after presenting to the ED today with AMS and low hgb. Pt is altered and only able to answer a few questions, history mainly obtained by granddaughter and previous notes. Per granddaughter, pt became progressively altered and somnolent today, prompting them to see pt's PCP, Dr. Newman. Pt was found to have a low Hgb and was referred to the ED for further evaluation. Granddaughter states that pt c/o abd pain last night and had a decreased appetite but was able to a small amount in the evening. This morning, granddaughter states that pt experienced an episode of vomiting in the presence of her uncle. She was unable to report whether or not there was blood in his emesis. Granddaughter states that pt has a h/o GI bleed a few years ago in which experienced similar symptoms to today. Granddaughter notes that GI bleed before was due to rectal bleeding that was apparent on his bed sheets. Granddaughter states that there was no evidence of rectal bleeding today or prior to onset of symptoms but does note that pt's bed was "covered in pee" when they checked today, which is not normal for the pt. In ED, workup found the pt's hgb to be 3.6, which was confirmed with recheck, and an elevated lactic acid of 3.62. FOB was also found to be positive. Pt given Vit K injection and was admitted. In room, pt has visible pallor, is shivering, and seems to be in mild distress, wincing and holding his abd intermittently throughout encounter. Pt states that he is currently having abd pain but does not respond to further questioning. Pt is on warfarin daily and has been taking it as prescribed, per granddaughter. INR, PT, and PTT were all elevated in ED at 4.2, 40.9, and 45, respectively. Pt was seen in [address] Byrnes for a colonoscopy that was remarkable for multiple tubular adenomatous colon polyps. Pt had an EGD in 2010 that was remarkable for GERD and negative for H.pylori. Granddaughter states that the pt has not been taking his protonix at home for some time. There are no other scopes on record but granddaughter states that the pt was "worked up for colon cancer but it was ruled out" a few years ago. Allergies and Home Medications Allergies Coded Allergies: amoxicillin (Unverified Allergy, Mild, 02/04/09) Penicillins (Unverified Allergy, Unknown, 07/09/20) Patient Home Medication List Home Medication List Reviewed: Yes Amlodipine Besylate (Amlodipine Besylate) 5 Mg Tablet, 5 MG PO DAILY, (Reported) Entered as Reported by: KARLA PATEL on 09/03/21 1148 Aspirin (Aspirin EC) 81 Mg Tablet.dr, 81 MG PO HS, (Reported) Entered as Reported by: SARITA KUHN on 06/03/17 0948 Atorvastatin Calcium (Atorvastatin Calcium) 10 Mg Tablet, 10 MG PO HS, (Reported) Entered as Reported by: SARITA KUHN on 12/16/16 1413 Carbidopa/Levodopa (Carbidopa-Levodopa 25-250 Tab) 1 Each Tablet, 2 TAB PO 0800, (Reported) Entered as Reported by: SARITA KUHN on 12/16/16 1413 Carbidopa/Levodopa (Carbidopa-Levodopa 25-250 Tab) 1 Each Tablet, 1 TAB PO 1200,1700,2200, (Reported) Entered as Reported by: SARITA KUHN on 12/16/16 1413 Docusate Sodium (Stool Softener) 100 Mg Tablet, 100 MG PO DAILY PRN for CONSTIPATION-1ST LINE, (Reported) Entered as Reported by: KARLA PATEL on 09/03/21 1148 Furosemide (Furosemide) 80 Mg Tablet, 80 MG PO DAILY, (Reported) Entered as Reported by: SARITA KUHN on 12/16/16 1413 Gabapentin (Neurontin) 300 Mg Capsule, 600 MG PO TID, (Reported) Entered as Reported by: KARLA PATEL on 09/03/21 1148 Isosorbide Mononitrate (Isosorbide Mononitrate ER) 60 Mg Tab, 60 MG PO DAILY, (Reported) Entered as Reported by: KARLA PATEL on 09/03/21 1148 Lisinopril (Lisinopril) 2.5 Mg Tablet, 2.5 MG PO DAILY, (Reported) Entered as Reported by: SARITA KUHN on 06/03/17 0948 Niacin (Niacin ER) 1,000 Mg Tab.er.24h, 1,000 MG PO HS, (Reported) Entered as Reported by: KARLA PATEL on 09/03/21 1148 Nitroglycerin (Nitroglycerin) 0.4 Mg Tab.subl, 0.4 MG SL UD PRN for CHEST PAIN, (Reported) Entered as Reported by: KARLA PATEL on 09/03/21 1148 Pantoprazole Sodium (Pantoprazole Sodium) 40 Mg Tablet.dr, 40 MG PO DAILY Prescribed by: SWAPNA FALLON on 09/04/21 1133 Ranolazine (Ranexa) 1,000 Mg Tab.er.12h, 100 MG PO HS, (Reported) Entered as Reported by: KARLA PATEL on 09/03/21 1148 Warfarin Sodium (Jantoven) 5 Mg Tablet, 5 MG PO DAILY Prescribed by: SWAPNA FALLON on 09/04/21 1133 Past Gcsuujg-Arguoy-Kfsufw Hx Patient Social History Former Smoker, Quit: Nov 10, 1973 Type Used: Smokeless Tobacco 2nd Hand Smoke Exposure: No Recent Hopitalizations: No Immunizations Up To Date Tetanus Booster (TDap): Less than 5yrs Date of Pneumonia Vaccine: Dec 22, 2017 Date of Influenza Vaccine: May 03, 2021 Seasonal Allergies Seasonal Allergies: No Surgeries History of Surgeries: Yes (RIGHT EAR CANAL SURGERY; CARDIAC CATH-NO INTERVENTION) Surgeries: Adenoidectomy, Cardiac, Ear Surgery, Tonsillectomy Respiratory History of Respiratory Disorde: Yes Respiratory Disorders: Pulmonary Embolism, Sleep Apnea, COPD Cardiovascular History of Cardiac Disorders: Yes Cardiac Disorders: Chronic Edema/Swelling, Deep Vein Thrombosis, High Cholesterol, Hypertension Neurological History of Neurological Disord: Yes Neurological Disorders: Neuropathy, Parkinson's Disease Reproductive System Hx Reproductive Disorders: No Genitourinary History of Genitourinary Disor: No Gastrointestinal History of Gastrointestinal Di: Yes Gastrointestinal Disorders: Gastroesophageal Reflux, Gastrointestinal Bleed, Polyps Musculoskeletal History of Musculoskeletal Dis: Yes Musculoskeletal Disorders: Arthritis, Chronic Back Pain Endocrine History of Endocrine Disorders: No HEENT History of HEENT Disorders: Yes (S/P T&A, RIGHT EAR SURGERY) Cancer History of Cancer: No Cancer: Skin (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 Byrnes) Psychosocial History of Psychiatric Problem: Yes Behavioral Health Disorders: Anxiety, Depression Integumentary History of Skin or Integumenta: No Blood Transfusions History of Blood Disorders: No Adverse Reaction to a Blood Tr: No Family Medical History Significant Family History: No Pertinent Family Hx, Cancer (father- stomach cancer; brother- lung cancer; aunt- unknown) Review of Systems-General ROS-Unable to Obtain: d/t AMS/somnolence Physical Exam-General Problems Physical Exam Vital Signs Vital Signs - First Documented 11/16/22 12:29 Temp 36.8 Pulse 97 Resp 18 B/P (MAP) 113/93 (100) Pulse Ox 100 O2 Delivery Room Air Capillary Refill : Less Than 3 Seconds General Appearance: other (somnolent, pale, groaning in pain intermittently, and shivering) Respiratory: lungs clear, normal breath sounds, no respiratory distress, no accessory muscle use Cardiovascular: no gallop, no murmur, tachycardia Gastrointestinal: non tender, soft, no pulsatile mass Extremities: no calf tenderness, pedal edema (3/4+ pitting edema b/l ) Neurologic/Psychiatric: No alert, No oriented x 3 Skin: cool (extremities cold to touch and cap refill; cap refill >3 seconds on all extremities ), other (venous stasis dermatitis b/l LE; erythema and warmth of L kumar; welts present on R kumar), pallor Lymphatic: no adenopathy Data Review Labs Laboratory Tests 11/16/22 12:51: White Blood Count 11.1H, Red Blood Count 1.55L, Hemoglobin 3.6*L, Hematocrit 13*L, Mean Corpuscular Volume 83, Mean Corpuscular Hemoglobin 23L, Mean Corpuscular Hemoglobin Concent 28L, Red Cell Distribution Width 16.8H, Platelet Count 289, Mean Platelet Volume 9.9, Immature Granulocyte % (Auto) 1, Neutrophils (%) (Auto) 77H, Lymphocytes (%) (Auto) 14, Monocytes (%) (Auto) 7, Eosinophils (%) (Auto) 1, Basophils (%) (Auto) 0, Neutrophils # (Auto) 8.6H, Lymphocytes # (Auto) 1.6, Monocytes # (Auto) 0.8, Eosinophils # (Auto) 0.1, Basophils # (Auto) 0.0, Immature Granulocyte # (Auto) 0.1, Prothrombin Time 40.9H, INR Comment 4.2H, Activated Partial Thromboplast Time 45H, Sodium Level 137, Potassium Level 5.2H, Chloride Level 108H, Carbon Dioxide Level 15L, Anion Gap 14, Blood Urea Nitrogen 61H, Creatinine 2.16H, Estimat Glomerular Filtration Rate 32, BUN/Creatinine Ratio 28, Glucose Level 196H, Calcium Level 8.3L, Corrected Calcium 8.8, Total Bilirubin 0.3, Aspartate Amino Transf (AST/SGOT) 7, Alanine Aminotransferase (ALT/SGPT) 10, Alkaline Phosphatase 48, Troponin I < 0.028, Total Protein 6.2L, Albumin 3.4, Lipase 24 11/16/22 13:06: Lactic Acid Level 3.62*H 11/16/22 13:55: Hemoglobin 3.6*L Assessment/Plan Assessment/Plan Assessment/Plan GI Bleed Anemia FOB+ Lactic acidosis h/o GI bleed h/o colon polyps GERD Chronic Anticoagulation Blood transfusion and FFP IVF IV Protonix Pain medication prn CT abd/pelvis ordered, awaiting results NPO Trend Hgb daily, transfuse if <7 No indication for emergent scope today as pt is currently hemodynamically stable. Will plan for inpt scope during pt's admission unless there is a worsening in pt condition PORSHA BYRNES DO 11/16/22 1809: History of Present Illness History of Present Illness History of Present Illness Patient altered. Found to have hgb of 3.6. Is on Warfarin and INR 4.2. Granddaughter present in ED was complaining of Epigastric pain yesterday and episode of emesis. Unsure if any blood in emesis or stool. History of polyps from colonoscopy in 2019. Allergies and Home Medications Allergies Coded Allergies: amoxicillin (Unverified Allergy, Mild, 02/04/09) Penicillins (Unverified Allergy, Unknown, 07/09/20) Patient Home Medication List Home Medication List Reviewed: Yes Amlodipine Besylate (Amlodipine Besylate) 5 Mg Tablet, 5 MG PO DAILY, (Reported) Entered as Reported by: KARLA PATEL on 09/03/21 1148 Aspirin (Aspirin EC) 81 Mg Tablet.dr, 81 MG PO HS, (Reported) Entered as Reported by: SARITA KUHN on 06/03/17 0948 Atorvastatin Calcium (Atorvastatin Calcium) 10 Mg Tablet, 10 MG PO HS, (Reported) Entered as Reported by: SARITA KUHN on 12/16/16 1413 Carbidopa/Levodopa (Carbidopa-Levodopa 25-250 Tab) 1 Each Tablet, 2 TAB PO 0800, (Reported) Entered as Reported by: SARITA KUHN on 12/16/16 141 Carbidopa/Levodopa (Carbidopa-Levodopa 25-250 Tab) 1 Each Tablet, 1 TAB PO 1200,1700,2200, (Reported) Entered as Reported by: SARITA KUHN on 12/16/16 141 Docusate Sodium (Stool Softener) 100 Mg Tablet, 100 MG PO DAILY PRN for CONSTIPATION-1ST LINE, (Reported) Entered as Reported by: KARLA PATEL on 09/03/21 1148 Furosemide (Furosemide) 80 Mg Tablet, 80 MG PO DAILY, (Reported) Entered as Reported by: SARITA KUHN on 12/16/16 1413 Gabapentin (Neurontin) 300 Mg Capsule, 600 MG PO TID, (Reported) Entered as Reported by: KARLA PATEL on 09/03/21 1148 Isosorbide Mononitrate (Isosorbide Mononitrate ER) 60 Mg Tab, 60 MG PO DAILY, (Reported) Entered as Reported by: KARLA PATEL on 09/03/21 1148 Lisinopril (Lisinopril) 2.5 Mg Tablet, 2.5 MG PO DAILY, (Reported) Entered as Reported by: SARITA KUHN on 06/03/17 0948 Niacin (Niacin ER) 1,000 Mg Tab.er.24h, 1,000 MG PO HS, (Reported) Entered as Reported by: KARLA PATEL on 09/03/21 1148 Nitroglycerin (Nitroglycerin) 0.4 Mg Tab.subl, 0.4 MG SL UD PRN for CHEST PAIN, (Reported) Entered as Reported by: KARLA PATEL on 09/03/21 1148 Pantoprazole Sodium (Pantoprazole Sodium) 40 Mg Tablet.dr, 40 MG PO DAILY Prescribed by: SWAPNA FALLON on 09/04/21 1133 Ranolazine (Ranexa) 1,000 Mg Tab.er.12h, 100 MG PO HS, (Reported) Entered as Reported by: KARLA PATEL on 09/03/21 1148 Warfarin Sodium (Jantoven) 5 Mg Tablet, 5 MG PO DAILY Prescribed by: SWAPNA FALLON on 09/04/21 1133 Past Tehhzrw-Kudcng-Jzigts Hx Reviewed Nursing Assessment Reviewed/Agree w Nursing PMH: Yes Family Medical History Significant Family History: Cancer (father- stomach cancer; brother- lung cancer; aunt- unknown) Review of Systems-General ROS-Unable to Obtain: altered mental status Physical Exam-General Problems Physical Exam General Appearance: no apparent distress, other (somnolent, pale, groaning in pain intermittently, and shivering) HEENT: PERRL/EOMI, normal ENT inspection Neck: non-tender Respiratory: chest non-tender, no respiratory distress, no accessory muscle use Cardiovascular: regular rate, rhythm, no JVD Gastrointestinal: non tender (maybe slight epigastric pain), soft Rectal: deferred Back: normal inspection, no CVA tenderness Extremities: non-tender, normal inspection Neurologic/Psychiatric: No alert, No oriented x 3 Skin: cool (extremities cold to touch and cap refill; cap refill >3 seconds on all extremities ), other (venous stasis dermatitis b/l LE; erythema and warmth of L kumar; welts present on R kumar), pallor Lymphatic: no adenopathy Assessment/Plan Assessment/Plan Assessment/Plan Anemia - possible upper or lower gi bleed with FOB+ Supratherapeutic INR Lactic acidosis h/o GI bleed h/o colon polyps GERD Chronic Anticoagulation Blood transfusion and FFP follow cbc and INR transfuse as needed IVF IV Protonix Pain medication prn CT abd/pelvis ordered NPO Trend Hgb daily, transfuse if <7 No indication for emergent scope today as pt is currently hemodynamically stable. Will plan for inpt vs outpatient scope during pt's admission unless there is a worsening in pt condition and need to do emergently Supervisory-Addendum Brief Verification & Attestation Participated in pt care: history, MDM, physical Personally performed: exam, history, MDM, supervision of care Care discussed with: Medical Student Procedures: n/a Results interpretation: Verified all documentation Verification and Attestation of Medical Student E/M Service A medical student performed and documented this service in my presence. I reviewed and verified all information documented by the medical student and made modifications to such information, when appropriate. I personally performed the physical exam and medical decision making. Porsha Byrnes, Nov 16, 2022,18:16 MAYRA VEGA Nov 16, 2022 14:07 PORSHA BYRNES DO Nov 16, 2022 18:09
--- NOTE | 2022-11-16 15:04 | History & Physical-Hospitalist ---
History of Present Illness HPI/Chief Complaint Patient is 71-year-old male with past medical history of GI bleed,PE, reported DVT, hypertension, Parkinson's who presented to the emergency department due to altered mental status and anemia. He is unable to provide any history but he has a granddaughter who supplements some. She reports yesterday he was not his normal self and was more confused and less alert. He complained of abdominal pain but they thought he just had a stomachache and did not think much of it. This morning he continued to complain of abdominal pain and vomited as well. He seemed pale and so they called Dr. Newman. Home health was there and [facility] and they were told his blood count was low and advised to go to the emergency department. In the emergency department he was found to have a suzy red and dark blood on a digital rectal exam and a hemoglobin of 3.6. He is on warfarin and his INR was 4.2. He is being admitted to the ICU for further management. Granddaughter reports that he was previously told to be on Protonix but has been refusing to take it. Date Seen 11/16/22 Time Seen by a Provider: 15:01 Attending Physician Anshu Newman DO PCP Admitting Physician: Attending Physician: Referring Physician Date of Admission Home Medications & Allergies Home Medications Reviewed patient Home Medication Reconciliation performed by pharmacy medication reconciliations electronic test technician and/or nursing. Patients Allergies have been reviewed. Allergies Allergies Coded Allergies amoxicillin (Unverified Allergy, Mild, 02/04/09) Penicillins (Unverified Allergy, Unknown, 07/09/20) Past Xmqkyws-Amozbx-Nybejs Hx Patient Social History Employed/Student: retired Immunizations Up To Date Date of Influenza Vaccine: May 03, 2021 First/Initial COVID19 Vaccinat: AUGUST Second COVID19 Vaccination Misael: OCTOBER Tetanus Booster (TDap): Unknown Date of Pneumonia Vaccine: Dec 22, 2017 Seasonal Allergies Seasonal Allergies: No Current Status Communicates: Verbally Primary Language: Malaysian Preferred Spoken Language: Malaysian Is interpretation needed?: No Past Medical History Surgeries: Adenoidectomy, Cardiac, Ear Surgery, Tonsillectomy Pulmonary Embolism, Sleep Apnea, COPD Currently Using CPAP: No Currently Using BIPAP: No Chronic Edema/Swelling, Deep Vein Thrombosis, High Cholesterol, Hypertension Neuropathy, Parkinson's Disease Gastroesophageal Reflux, Gastrointestinal Bleed, Polyps Arthritis, Chronic Back Pain Skin (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 Ruff) Anxiety, Depression Blood Disorders: No Adverse Reaction/Blood Tranf: No Family Medical History Reviewed Nursing Family Hx No Pertinent Family Hx, Cancer (father- stomach cancer; brother- lung cancer; aunt- unknown) Review of Systems Constitutional: see HPI Physical Exam Physical Exam Vital Signs Vital Signs - First Documented 11/16/22 11/17/22 12:29 03:01 Temp 36.8 Pulse 97 Resp 18 B/P (MAP) 113/93 (100) Pulse Ox 100 O2 Delivery Room Air O2 Flow Rate 2.00 Capillary Refill : Less Than 3 Seconds Height, Weight, BMI Height: 6'0.00" Weight: 327lbs. 0.0oz. 148.359233lp; 46.00 BMI Method:Estimated General Appearance: Chronically ill, Mild Distress, Obese Respiratory: Lungs Clear, No Respiratory Distress Cardiovascular: Regular Rate, Rhythm, No Murmur Gastrointestinal: Normal Bowel Sounds, Soft, Distended (mild), Tenderness (upper abd pain) Neurologic/Psychiatric: Disoriented, Other (opens eyes but did not otherwise ) Skin: Pallor Results Results/Procedures Labs Laboratory Tests 11/16/22 12:51 11/16/22 13:55 11/17/22 06:32 Patient resulted labs reviewed. Assessment/Plan Admission Diagnosis Acute GI Bleed Admission Status: Inpatient Order (span 2 midnights) Reason for Inpatient Admission: see below Assessment and Plan Acute GI Bleed Severe anemia Chronic anticoagulation Supratherapuetic INR h/o DVT Hgb 3.6 INR 4.2 2 units pRBCs ordered in ER and FFP Vitamin K given in ER Protonix gtt Surgery consulted, appreciate recs- Discussed with Dr Ruff- no indication for intervention right now as HDS CT Abd/pelvis Discussed with Dr Newman and Dr Brennan- PE/DVT the reason fro Warfarin but upon review of records last VTE was in 2011 Discussed with soniya that he may no longer be a candidate for anticoagulation pending clinical course HTN HLD CAD Parkinson's Continue home meds as appropriate granddaughter will call with med names or bring in if needs Morbid obesity Clinically significant, no acute management needs DVT prophylaxis: supratherapeutic INR Diagnosis/Problems Diagnosis/Problems (1) Acute GI bleeding (2) BREANNA (acute kidney injury) Status: Acute (3) History of DVT (deep vein thrombosis) Status: Chronic (4) Anticoagulated on Coumadin Status: Acute (5) History of pulmonary embolus (PE) Status: Chronic (6) Morbid obesity Status: Chronic (7) Parkinson disease Status: Chronic (8) Essential (primary) hypertension Status: Chronic (9) CAD (coronary artery disease) Qualifiers: Coronary Disease-Associated Artery/Lesion type: [place] artery [place] vs. transplanted heart: [place] heart Associated angina: without angina Qualified Codes: I25.10 - Atherosclerotic heart disease of [place] coronary artery without angina pectoris (10) CKD (chronic kidney disease) Qualifiers: Chronic kidney disease stage: stage 3 (moderate) Chronic kidney disease stage 3 subtype: stage 3b (GFR 30-44) Qualified Codes: N18.32 - Chronic kidney disease, stage 3b FRANCESCO DAWSON MD Nov 16, 2022 15:04
[2022-11-16] MEDS ORDERED: MELATONIN 3 MG TABLET PO PRN (15:30)
[2022-11-16] MEDS ORDERED: ONDANSETRON 4 MG/2 ML (SDV) Z0FRAN IV PRN (15:30)
[2022-11-16] MEDS ORDERED: ACETAMINOPHEN 325 MG TABLET PO PRN (15:30)
--- NOTE | 2022-11-16 15:41 | Diagnostic Imaging Report ---
PROCEDURE: CT abdomen and pelvis without contrast. TECHNIQUE: Multiple contiguous axial images were obtained through the abdomen and pelvis without the use of intravenous contrast. Auto Exposure Controls were utilized during the CT exam to meet ALARA standards for radiation dose reduction. INDICATION: Generalized pain, low hemoglobin, history of GI bleed. COMPARISON: Exam compared with study of 09/02/2021. FINDINGS: There is no free fluid. There were no findings of intraperitoneal or retroperitoneal hemorrhage. No focal small or large bowel wall thickening or mural irregularity. No perienteric or pericolonic edema. No focal inflammatory changes. No identifiable hollow visceral mass. There is a small hiatal hernia, chronic. Liver, gallbladder, spleen, adrenals, and pancreas are unremarkable. The unobstructed kidneys are nonfocal and nonacute. The atherosclerotic aorta is nonaneurysmal. No pneumatosis. No free gas. No appendicitis or diverticulitis. The unopacified urinary bladder is unremarkable and the bony structures were nonacute. IMPRESSION: 1. No obstructive features, inflammatory processes, free fluid, or findings of hemorrhage. No acute finding apparent at nonenhanced CT abdomen and pelvis. 2. We note interval resolution of prior features of left-sided colitis. Dictated by: Dictated on workstation # [id number]
[2022-11-16] MEDS: inSUlin ASPART (NovoLOG) 1 UNIT/0.01 ML (CHARGE PER UNIT) SC SCH ×2 (16:00→21:04)
[2022-11-16] MEDS ORDERED: RT-ALBUTEROL SULF 2.5 MG/3 ML PRE-MIX VIAL INH PRN (16:15)
[2022-11-16] MEDS: NS IV 1000 ML 1,000 ML IV SCH ×2 (18:55→23:30)
[2022-11-16] MEDS: RT-ALBUTEROL SULF 2.5 MG/3 ML PRE-MIX VIAL INH SCH (20:56)
[2022-11-16 20:59] LABS: BILIRUBIN,URINE NEGATIVE (NEGATIVE); CLARITY,URINE SL CLOUDY; COLOR,URINE YELLOW; GLUCOSE, URINE (UA) NEGATIVE (NEGATIVE); KETONES,URINE TRACE (NEGATIVE); LEUKOCYTE ESTERASE ,URINE NEGATIVE (NEGATIVE); NITRITE,URINE NEGATIVE (NEGATIVE); PROTEIN,URINE 1+ (NEGATIVE)
[2022-11-16] MEDS: MICONAZOLE 2% POWDER (DESENEX AF) 90 GM TOP SCH (21:05)
[2022-11-16 21:10] LABS: BACTERIA,URINE TRACE /HPF; RBC,URINE TNTC /HPF
[2022-11-16] MEDS: PANTOPRAZOLE INJECTION 200 MG in NS (IVPB) 100 ML IV SCH (21:45)
[2022-11-17] VITALS (13 sets, daily range): BP systolic 108–160; BP diastolic 46–92
[2022-11-17] MEDS: RT-ALBUTEROL SULF 2.5 MG/3 ML PRE-MIX VIAL INH SCH ×3 (02:52→14:35)
[2022-11-17] MEDS: NS IV 1000 ML 1,000 ML IV SCH ×3 (04:36→21:05)
[2022-11-17] MEDS: inSUlin ASPART (NovoLOG) 1 UNIT/0.01 ML (CHARGE PER UNIT) SC SCH ×4 (05:11→21:05)
[2022-11-17 06:49] LABS: MEAN CORPUSCULAR HEMOGLOBIN 25 pg (25-34); MEAN CORPUSCULAR HGB CONC 30 g/dL (32-36); MEAN CORPUSCULAR VOLUME 82 fL (80-99); MEAN PLATELET VOLUME 9.4 fL (9.0-12.2); PLATELET COUNT 246 10^3/uL (130-400); WHITE BLOOD COUNT 12.8 10^3/uL (4.3-11.0)
[2022-11-17 06:51] LABS: POTASSIUM 4.6 MMOL/L (3.6-5.0)
[2022-11-17 06:52] LABS: CALCIUM 8.2 MG/DL (8.5-10.1)
[2022-11-17 06:56] LABS: HEMOGLOBIN 4.8 g/dL (13.3-17.7)
[2022-11-17 06:57] LABS: CREATININE SERUM 1.84 MG/DL (0.60-1.30); HEMATOCRIT 16 % (40-54); PHOSPHORUS 2.8 MG/DL (2.3-4.7)
[2022-11-17 06:59] LABS: MAGNESIUM 2.5 MG/DL (1.6-2.4)
--- NOTE | 2022-11-17 07:33 | Progress Note - Surgery ---
ELYJACOBOMAYRA Gamez 11/17/22 0733: Subjective Date Seen by a Provider: Nov 17, 2022 Time Seen by a Provider: 07:00 Subjective/Events-last exam Pt is sleeping comfortably in bed. Pt is more alert and oriented today and is able to answer questions. Pt states that he is feeling better today and denies any abd pain at this time. Pt states that he has not had a BM since admit but does note prior to coming to ED yesterday he had a small BM that was black. Pt denies experiencing this prior to yesterday. Pt states that he hasn't been taking his protonix "for awhile" and says that his "doctor told me to stop taking it". Pt says that he would not like any scopes at this time but would be open to discussing it with Dr. Byrnes if needed. Hgb improved to 4.8 today after 2 UPRBCs yesterday. INR improved to 1.4 today after receiving 1 UFFP yesterday in ED. Pt has no complaints at this time and states he would like to go home. Pt denies nausea, vomiting, hematemesis, bloody BMs, CP, SOB, and chills. CT abd/pelvis 11/16/22: IMPRESSION: 1. No obstructive features, inflammatory processes, free fluid, or findings of hemorrhage. No acute finding apparent at nonenhanced CT abdomen and pelvis. 2. We note interval resolution of prior features of left-sided colitis. Review of Systems General: No Chills, No Night Sweats HEENT: No Head Aches, No Visual Changes Pulmonary: No Dyspnea, No Cough Cardiovascular: No: Chest Pain, Palpitations Gastrointestinal: No: Nausea, Vomiting, Abdominal Pain Genitourinary: No Dysuria, No Hematuria Musculoskeletal: No: neck pain, shoulder pain Neurological: No: Weakness, Numbness Focused Exam Lactate Level 11/16/22 13:06: Lactic Acid Level 3.62*H 11/16/22 15:52: Lactic Acid Level 2.54*H 11/16/22 18:00: Lactic Acid Level 2.16*H Objective Exam Vital Signs Date Time Temp Pulse Resp B/P (MAP) Pulse Ox O2 Delivery O2 Flow Rate FiO2 11/17/22 06:55 95 Room Air 11/17/22 06:00 86 11 134/68 (99) 95 Nasal Cannula 2.00 11/17/22 05:00 100 16 158/69 (98) 98 Nasal Cannula 2.00 11/17/22 04:00 96 22 139/71 (87) 96 Nasal Cannula 2.00 11/17/22 03:39 100 Nasal Cannula 2.00 11/17/22 03:36 36.8 11/17/22 03:01 Nasal Cannula 2.00 11/17/22 03:00 96 17 134/60 (81) 98 Room Air 11/17/22 02:52 100 Room Air 11/17/22 02:00 86 15 162/67 (92) 96 Room Air 11/17/22 01:52 37.0 11/17/22 01:00 102 11/17/22 01:00 96 17 151/74 (93) 97 Room Air 11/17/22 00:25 37.2 90 17 155/69 96 Room Air 11/17/22 00:00 88 17 155/62 (93) 95 Room Air 11/17/22 00:00 100 Room Air 11/16/22 23:47 37.2 91 16 146/64 Room Air 11/16/22 23:32 37.0 92 16 160/67 96 Room Air 11/16/22 23:17 37.2 93 17 157/66 94 Room Air 11/16/22 23:02 37.1 95 18 147/65 Room Air 11/16/22 23:00 96 16 147/65 (85) 95 Room Air 11/16/22 22:42 37.3 98 19 91/61 96 Room Air 11/16/22 22:00 110 20 115/70 (83) 97 Room Air 11/16/22 21:00 36.9 101 13 144/74 99 Room Air 11/16/22 21:00 101 19 144/74 (95) 100 Room Air 11/16/22 20:56 100 Room Air 11/16/22 20:00 100 19 100/69 (84) 99 Room Air 11/16/22 20:00 100 Room Air 11/16/22 19:37 37.1 11/16/22 19:00 93 21 117/73 (84) 98 Room Air 11/16/22 19:00 93 11/16/22 18:45 37.2 95 20 153/80 100 11/16/22 18:29 37.4 95 16 114/74 100 Room Air 11/16/22 18:00 92 17 97/65 (76) 100 Room Air 11/16/22 17:35 37.1 98 14 147/85 100 Room Air 11/16/22 17:00 97 80/58 (65) Room Air 11/16/22 16:22 99 11/16/22 16:00 100 16 124/113 (117) 93 Room Air 11/16/22 16:00 37.2 100 99 11/16/22 15:45 98 18 141/68 (92) 98 Room Air 11/16/22 15:35 100 Room Air 11/16/22 15:00 99 20 118/65 99 Room Air 11/16/22 15:00 37.2 100 16 118/65 99 Room Air 11/16/22 14:41 37.0 104 20 122/52 100 Room Air 11/16/22 12:29 36.8 97 18 113/93 (100) 100 Room Air I & O 11/17/22 06:59 Intake Total 1370 ml Output Total 1700 ml Balance -330 ml Capillary Refill : Less Than 3 Seconds General Appearance: No Apparent Distress, Chronically ill, Obese HEENT: PERRL/EOMI Neck: Supple Respiratory: Lungs Clear, Normal Breath Sounds, No Accessory Muscle Use, No Respiratory Distress Cardiovascular: Regular Rate, Rhythm, No Gallop, No Murmur Gastrointestinal: non tender, soft Extremity: No Calf Tenderness, Pedal Edema (3+ B/L LE; R>L) Neurologic/Psychiatric: Alert, Normal Mood/Affect Skin: Normal Color, Warm/Dry, Other (venous stasis dermatitis b/l LE) Lymphatic: No Adenopathy Results Lab Laboratory Tests 11/16/22 12:51: White Blood Count 11.1H, Red Blood Count 1.55L, Hemoglobin 3.6*L, Hematocrit 13*L, Mean Corpuscular Volume 83, Mean Corpuscular Hemoglobin 23L, Mean Corpuscular Hemoglobin Concent 28L, Red Cell Distribution Width 16.8H, Platelet Count 289, Mean Platelet Volume 9.9, Immature Granulocyte % (Auto) 1, Neutrophils (%) (Auto) 77H, Lymphocytes (%) (Auto) 14, Monocytes (%) (Auto) 7, Eosinophils (%) (Auto) 1, Basophils (%) (Auto) 0, Neutrophils # (Auto) 8.6H, Lymphocytes # (Auto) 1.6, Monocytes # (Auto) 0.8, Eosinophils # (Auto) 0.1, Basophils # (Auto) 0.0, Immature Granulocyte # (Auto) 0.1, Prothrombin Time 40.9H, INR Comment 4.2H, Activated Partial Thromboplast Time 45H, Sodium Level 137, Potassium Level 5.2H, Chloride Level 108H, Carbon Dioxide Level 15L, Anion Gap 14, Blood Urea Nitrogen 61H, Creatinine 2.16H, Estimat Glomerular Filtration Rate 32, BUN/Creatinine Ratio 28, Glucose Level 196H, Calcium Level 8.3L, Corrected Calcium 8.8, Total Bilirubin 0.3, Aspartate Amino Transf (AST/SGOT) 7, Alanine Aminotransferase (ALT/SGPT) 10, Alkaline Phosphatase 48, Troponin I < 0.028, Total Protein 6.2L, Albumin 3.4, Lipase 24 11/16/22 13:06: Lactic Acid Level 3.62*H 11/16/22 13:55: Hemoglobin 3.6*L 11/16/22 15:52: Lactic Acid Level 2.54*H 11/16/22 17:39: Glucometer 137H 11/16/22 18:00: Lactic Acid Level 2.16*H 11/16/22 20:46: Glucometer 161H 11/16/22 20:52: Urine Color YELLOW, Urine Clarity SL CLOUDY, Urine pH 6.0, Urine Specific [place] 1.015L, Urine Protein 1+H, Urine Glucose (UA) NEGATIVE, Urine Ketones TRACEH, Urine Nitrite NEGATIVE, Urine Bilirubin NEGATIVE, Urine Urobilinogen 1.0, Urine Leukocyte Esterase NEGATIVE, Urine RBC (Auto) 3+H, Urine RBC TNTCH, Urine WBC 5-10H, Urine Squamous Epithelial Cells NONE, Urine Crystals NONE, Urine Bacteria TRACE, Urine Casts NONE, Urine Mucus NEGATIVE, Urine Culture Indicated NO 11/17/22 05:10: Glucometer 140H 11/17/22 06:32: White Blood Count 12.8H, Red Blood Count 1.93L, Hemoglobin 4.8#*L, Hematocrit 16*L, Mean Corpuscular Volume 82, Mean Corpuscular Hemoglobin 25, Mean Corpuscular Hemoglobin Concent 30L, Red Cell Distribution Width 16.3H, Platelet Count 246, Mean Platelet Volume 9.4, Sodium Level 141, Potassium Level 4.6, Chloride Level 115H, Carbon Dioxide Level 15L, Anion Gap 11, Blood Urea Nitrogen 53H, Creatinine 1.84H, Estimat Glomerular Filtration Rate 39, BUN/Creatinine Ratio 29, Glucose Level 151H, Calcium Level 8.2L, Phosphorus Level 2.8, Magnesium Level 2.5H Radiology Date of Exam:11/16/22 CT ABDOMEN/PELVIS WO PROCEDURE: CT abdomen and pelvis without contrast. TECHNIQUE: Multiple contiguous axial images were obtained through the abdomen and pelvis without the use of intravenous contrast. Auto Exposure Controls were utilized during the CT exam to meet ALARA standards for radiation dose reduction. INDICATION: Generalized pain, low hemoglobin, history of GI bleed. COMPARISON: Exam compared with study of 09/02/2021. FINDINGS: There is no free fluid. There were no findings of intraperitoneal or retroperitoneal hemorrhage. No focal small or large bowel wall thickening or mural irregularity. No perienteric or pericolonic edema. No focal inflammatory changes. No identifiable hollow visceral mass. There is a small hiatal hernia, chronic. Liver, gallbladder, spleen, adrenals, and pancreas are unremarkable. The unobstructed kidneys are nonfocal and nonacute. The atherosclerotic aorta is nonaneurysmal. No pneumatosis. No free gas. No appendicitis or diverticulitis. The unopacified urinary bladder is unremarkable and the bony structures were nonacute. IMPRESSION: 1. No obstructive features, inflammatory processes, free fluid, or findings of hemorrhage. No acute finding apparent at nonenhanced CT abdomen and pelvis. 2. We note interval resolution of prior features of left-sided colitis. Dictated by: Dictated on workstation # [id number] Dict: 11/16/22 1533 Trans: 11/16/22 1651 [id number] [id number] Interpreted by: MALINI SMITH Electronically signed by: MALINI SMITH 11/16/22 1658 Assessment/Plan Assessment/Plan Assessment/Plan Anemia - possible upper or lower gi bleed with FOB+ S/P 2UPRBC and 1FFP Supratherapeutic INR-resolved Lactic acidosis- improved h/o GI bleed h/o colon polyps GERD Chronic Anticoagulation IVF IV Protonix Pain medication prn NPO Pt to receive 2UPRBCs today Trend Hgb daily, transfuse if <7 Continue to hold anticoagulation Pt remains to be hemodynamically stable; will discuss possible inpt scope with pt PORSHA BYRNES DO 11/17/227: Subjective Subjective/Events-last exam Patient more alert. Feeling better today. Not having abdominal pain at this time. Hgb 4.8 and being transfused 2 more units. INR 1.4. No family at bedside. Reviewed ct as above. Objective Exam General Appearance: No Apparent Distress, Chronically ill, Obese HEENT: PERRL/EOMI, Normal ENT Inspection Neck: Non Tender, Supple Respiratory: Chest Non Tender, No Accessory Muscle Use, No Respiratory Distress Cardiovascular: Regular Rate, Rhythm, No JVD Gastrointestinal: non tender, soft Extremity: Normal Inspection, No Calf Tenderness, Pedal Edema (3+ B/L LE; R>L) Neurologic/Psychiatric: Alert, Normal Mood/Affect Skin: Normal Color, Warm/Dry Lymphatic: No Adenopathy Assessment/Plan Assessment/Plan Assessment/Plan Anemia - possible upper or lower gi bleed with FOB+ S/P 2UPRBC and 1FFP Supratherapeutic INR-resolved Lactic acidosis- improved h/o GI bleed h/o colon polyps GERD Chronic Anticoagulation IVF IV Protonix Pain medication prn NPO, may have clears till midnight. Pt to receive 2UPRBCs today Trend Hgb daily, transfuse if <7 Continue to hold anticoagulation Pt remains to be hemodynamically stable Likely EGD tomorrow if patient consents to doing it. Supervisory-Addendum Brief Verification & Attestation Participated in pt care: history, MDM, physical Personally performed: exam, history, MDM, supervision of care Care discussed with: Medical Student Procedures: n/a Results interpretation: Verified all documentation Verification and Attestation of Medical Student E/M Service A medical student performed and documented this service in my presence. I reviewed and verified all information documented by the medical student and made modifications to such information, when appropriate. I personally performed the physical exam and medical decision making. Porsha Byrnes, Nov 17, 2022,22:06 MAYRA VEGA Nov 17, 2022 07:33 PORSHA BYRNES DO Nov 17, 2022 22:07
[2022-11-17 08:07] LABS: INR 1.4 (0.8-1.4); PROTHROMBIN TIME PATIENT 17.8 SEC (12.2-14.7)
[2022-11-17] MEDS: PANTOPRAZOLE INJECTION 200 MG in NS (IVPB) 100 ML IV SCH (08:24)
[2022-11-17] MEDS ORDERED: NS IV 500 ML 500 ML IV SCH ×3 (08:30→20:30)
--- NOTE | 2022-11-17 08:55 | Tele-ICU Progress Note ---
Subjective Date Seen by a Provider: Nov 17, 2022 Subjective/Events-last exam This virtual visit was conducted using real time audio/video. Thank you for asking us to see this patient for critical care needs due to GIB, elevated INR. PE: Morbid obesity. VSS. O2 sat 100% on RA HEENT: No obvious masses, adenopathy or JVD. Chest: clear to auscultation, diminished. CV: RRR S1 S2 No murmur or added sounds. Abd: Now non-tender. Bowel sounds Y. : Unremarkable. 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 No obvious focal findings. Extremities: 2+ edema. Capillary refill < 3 seconds. Skin: unremarkable. Results: Elevated BUN 53, Creat 1.84, BG 151, INR 4.2, WCC 12.8 Decreased Hb 4.8. Available chart/ vitals / labs / images reviewed. Video assessment done using teleICU camera, rest of exam as per RN. A/P:n. Critical Care: critically ill patient. Cont. PRBCs, PPI, SSI, possible FFP Discussed with RN OCTAVIO. Asked RN to reach out to eICU if any questions or concerns later. Time spent with patient/coordination of care with other health professionals (mins): 15 Sepsis Event Evaluation Height, Weight, BMI Height: 6'0.00" Weight: 327lbs. 0.0oz. 148.100317ao; 51.74 BMI Method:Estimated Focused Exam Lactate Level 11/16/22 13:06: Lactic Acid Level 3.62*H 11/16/22 15:52: Lactic Acid Level 2.54*H 11/16/22 18:00: Lactic Acid Level 2.16*H Exam Exam Patient acknowledged, consented, and participated in this virtual visit which was conducted using real time audio/video Vital Signs Date Time Temp Pulse Resp B/P (MAP) Pulse Ox O2 Delivery O2 Flow Rate FiO2 11/17/22 06:55 95 Room Air 11/17/22 06:00 86 11 134/68 (99) 95 Nasal Cannula 2.00 11/17/22 05:00 100 16 158/69 (98) 98 Nasal Cannula 2.00 11/17/22 04:00 96 22 139/71 (87) 96 Nasal Cannula 2.00 11/17/22 03:39 100 Nasal Cannula 2.00 11/17/22 03:36 36.8 11/17/22 03:01 Nasal Cannula 2.00 11/17/22 03:00 96 17 134/60 (81) 98 Room Air 11/17/22 02:52 100 Room Air 11/17/22 02:00 86 15 162/67 (92) 96 Room Air 11/17/22 01:52 37.0 11/17/22 01:00 102 11/17/22 01:00 96 17 151/74 (93) 97 Room Air 11/17/22 00:25 37.2 90 17 155/69 96 Room Air 11/17/22 00:00 88 17 155/62 (93) 95 Room Air 11/17/22 00:00 100 Room Air 11/16/22 23:47 37.2 91 16 146/64 Room Air 11/16/22 23:32 37.0 92 16 160/67 96 Room Air 11/16/22 23:17 37.2 93 17 157/66 94 Room Air 11/16/22 23:02 37.1 95 18 147/65 Room Air 11/16/22 23:00 96 16 147/65 (85) 95 Room Air 11/16/22 22:42 37.3 98 19 91/61 96 Room Air 11/16/22 22:00 110 20 115/70 (83) 97 Room Air 11/16/22 21:00 36.9 101 13 144/74 99 Room Air 11/16/22 21:00 101 19 144/74 (95) 100 Room Air 11/16/22 20:56 100 Room Air 11/16/22 20:00 100 19 100/69 (84) 99 Room Air 11/16/22 20:00 100 Room Air 11/16/22 19:37 37.1 11/16/22 19:00 93 21 117/73 (84) 98 Room Air 11/16/22 19:00 93 11/16/22 18:45 37.2 95 20 153/80 100 11/16/22 18:29 37.4 95 16 114/74 100 Room Air 11/16/22 18:00 92 17 97/65 (76) 100 Room Air 11/16/22 17:35 37.1 98 14 147/85 100 Room Air 11/16/22 17:00 97 80/58 (65) Room Air 11/16/22 16:22 99 11/16/22 16:00 100 16 124/113 (117) 93 Room Air 11/16/22 16:00 37.2 100 99 11/16/22 15:45 98 18 141/68 (92) 98 Room Air 11/16/22 15:35 100 Room Air 11/16/22 15:00 99 20 118/65 99 Room Air 11/16/22 15:00 37.2 100 16 118/65 99 Room Air 11/16/22 14:41 37.0 104 20 122/52 100 Room Air 11/16/22 12:29 36.8 97 18 113/93 (100) 100 Room Air I & O 11/17/22 07:00 Intake Total 1370 ml Output Total 1700 ml Balance -330 ml Height & Weight Height: 6'0.00" Weight: 327lbs. 0.0oz. [id number]; 51.74 BMI Method:Estimated General Appearance: No Apparent Distress, Chronically ill, Obese HEENT: PERRL/EOMI Neck: Supple Respiratory: Lungs Clear, Normal Breath Sounds, No Accessory Muscle Use, No Respiratory Distress Cardiovascular: Regular Rate, Rhythm, No Gallop, No Murmur Capillary Refill: Less Than 3 Seconds Gastrointestinal: non tender, soft Extremity: No Calf Tenderness, Pedal Edema (3+ B/L LE; R>L) Neurologic/Psychiatric: Alert, Normal Mood/Affect Skin: Normal Color, Warm/Dry, Other (venous stasis dermatitis b/l LE) Lymphatic: No Adenopathy Results Lab Laboratory Tests 11/16/22 12:51 11/16/22 13:55 11/17/22 06:32 Assessment/Plan Assessment/Plan See free text. Critical Care: Critically Ill Patient SACHA COLEMAN MD Nov 17, 2022 08:55
--- NOTE | 2022-11-17 09:43 | Progress Note - Hospitalist ---
Subjective HPI/CC On Admission Date Seen by Provider: Nov 17, 2022 Patient is 71-year-old male with past medical history of GI bleed,PE, reported DVT, hypertension, Parkinson's who presented to the emergency department due to altered mental status and anemia. He is unable to provide any history but he has a granddaughter who supplements some. She reports yesterday he was not his normal self and was more confused and less alert. He complained of abdominal pain but they thought he just had a stomachache and did not think much of it. This morning he continued to complain of abdominal pain and vomited as well. He seemed pale and so they called Dr. Newman. Home health was there and joanna labs and they were told his blood count was low and advised to go to the emergency department. In the emergency department he was found to have a suzy red and dark blood on a digital rectal exam and a hemoglobin of 3.6. He is on warfarin and his INR was 4.2. He is being admitted to the ICU for further management. Granddaughter reports that he was previously told to be on Protonix but has been refusing to take it. Subjective/Events-last exam Pt reports feeling better today. Abd pain improved. No complaints. Asking about going home. Reviewed his labs with him and how he's not medically stable for DC. Focused Exam Lactate Level 11/16/22 13:06: Lactic Acid Level 3.62*H 11/16/22 15:52: Lactic Acid Level 2.54*H 11/16/22 18:00: Lactic Acid Level 2.16*H Objective Exam Vital Signs Vital Signs Date Time Temp Pulse Resp B/P (MAP) Pulse Ox O2 Delivery O2 Flow Rate FiO2 11/17/22 13:00 36.8 93 22 108/81 99 Room Air 11/17/22 06:00 2.00 Capillary Refill : Less Than 3 Seconds General Appearance: Chronically ill, Obese Respiratory: Lungs Clear, No Respiratory Distress Cardiovascular: Regular Rate, Rhythm, No Murmur Neurologic/Psychiatric: Alert, Other (oriented to person and place) Results/Procedures Lab Laboratory Tests 11/16/22 13:55 11/17/22 06:32 Patient resulted labs reviewed. Assessment/Plan Assessment and Plan Assess & Plan/Chief Complaint Acute GI Bleed Severe anemia Chronic anticoagulation Supratherapuetic INR h/o DVT Hgb 4.8 This AM after 2 units INR down to 1.4 2 more units pRBCs ordered this am Protonix gtt Surgery consulted, appreciate recs- defer need for endoscopic evaluation to him CT Abd/pelvis without perforation or inflammatory process Hold Warfarin HTN HLD CAD Parkinson's Continue home meds as appropriate granddaughter will call with med names or bring in if needs Morbid obesity Clinically significant, no acute management needs DVT prophylaxis: SCDs only for GI bleed Critical Care Critically Ill Patient FRANCESCO DAWSON MD Nov 17, 2022 9:43 am
[2022-11-17] MEDS: MICONAZOLE 2% POWDER (DESENEX AF) 90 GM TOP SCH ×2 (10:35→21:05)
--- NOTE | 2022-11-17 11:55 | Physical Therapy Evaluation ---
PT Evaluation-General Medical Diagnosis Admission Date Nov 16, 2022 at 15:12 Medical Diagnosis: Parkinsons, AMS, anemia Onset Date: Nov 16, 2022 Therapy Diagnosis Therapy Diagnosis: Gait deficit, strength deficit Height/Weight Height (Feet): 6 Height (Inches): 0.00 Weight (Pounds): 327 Weight (Ounces): 0.0 Precautions Precautions/Isolations: Fall Prevention, Standard Precautions Weight Bear Status Right Lower Extremity: Right Full Weight Bearing Left Lower Extremity: Left Full Weight Bearing Referral Physician: Dr. Dyer Reason for Referral: Evaluation/Treatment Medical History Pertinent Medical History: Arthritis, CAD, COPD, DM, GERD, HTN, Neuropathy, Parkinson's Social History Home: Single Level Current Living Status: Alone Entry Into Home: Ramp Patient reports his granddaughter stays with him a significant amount throughout the day and assists with all ADLs except for bathing, his brother assists with that. Prior Prior Level of Function SCALE: Activities may be completed with or without assistive devices. 6-Yaliaqzzcu-ysbjfkz completes the activity by him/herself with no assistance from a helper. 5-Set-up or Clean-up Assistance-helper sets up or cleans up; patient completes activity. [place] assists only prior to or following the activity. 4-Supervision or Touching Assistance-helper provides verbal cues and/or touching/steadying and/or contact guard assistance as patient completes activity. Assistance may be provided throughout the activity or intermittently. 3-Partial/Moderate Assistance-helper does LESS THAN HALF the effort. [place] lifts, holds or supports trunk or limbs, but provides less than half the effort. 2-Substantial/Maximal Assistance-helper does MORE THAN HALF the effort. [place] lifts or holds trunk or limbs and provides more than half the effort. 6-Tptrfyfmg-hanonl does ALL the effort. Patient does none of the effort to complete the activity. Or, the assistance of 2 or more helpers is required for the patient to complete the activity. If activity was not attempted, code reason: 7-Patient Refused. 9-Not Applicable-not attempted and the patient did not perform the activity before the current illness, exacerbation or injury. 10-Not Attempted due to Environmental Limitations-(lack of equipment, weather restraints, etc.). 88-Not Attempted due to Medical Conditions or Safety Concerns. Bed Mobility: 6 Transfers (B,C,W/C): 4 Gait: 3 Wheelchair Mobility: 6 Prior Devices Use: Manual wheelchair PT Evaluation-Current Subjective Patient left sidelying in bed upon PT arrival, granddaughter in the room, agreeable to treatment. Patient rates pain at 0/10 currently. Objective Patient Orientation: Person, Place, Time, Situation Attachments: Oxygen, Beltrán Catheter, IV ROM/Strength ROM Lower Extremities Limited in all planes ~ 10 degrees with ROM BLEs Strength Lower Extremities 3-/5 all planes BLEs Sensory Vision: Functional Hearing: Hearing Aid/Aides Sensation Right Lower Extremit: Impaired Sensation Left Lower Extremity: Impaired Transfers Roll Left to Right (QC): 3 Sit to Lying (QC): 3 Lying to Sitting/Side of Bed(Q: 2 Gait Does the Patient Walk?: No and Walking Goal NOT indicated Mode of Locomotion: Wheelchair Anticipated Mode of Locomotion: Wheelchair Wheelchair Training Does the Pt Use a Wheelchair?: Yes W/C not used this visit but he and granddaughter both report patient uses the w/c for most mobility. Balance Sitting Static: Poor Sitting Dynamic: Poor Assessment/Needs Patient requires mod/max A for all observed bed mobility and transfers. Patient sat at edge of bed ~ 5 minutes. Requires mod/max A for return to bed. Patient able to pull himself up in the bed with UEs with bed flat and declined to allow him to slide. Patient tolerated mobility fair, but fatigues quickly. Patient in bed post treatment with all needs met, nursing notified, call light in hand. Patient and granddaughter report that his main mode of transportation in and outside of the house is the w/c. However he was also independent with bed mobility and transfers at [facility]. Rehab Potential: Guarded PT Fusing Line Inspector Goals Skilled Nursing Goals PT Skilled Nursing Goals Time Frame: Nov 26, 2022 Roll Left & Right (QC): 6 Sit to Lying (QC): 6 Lying-Sitting on Side/Bed(QC): 6 Sit to Stand (QC): 4 Chair/Ngh-uq-Tdaax Xfer(QC): 4 Toilet Transfer (QC): 4 PT Plan Problem List Problem List: Activity Tolerance, Functional Strength, Safety, Balance, Gait, Transfer, Bed Mobility, ROM Treatment/Plan Treatment Plan: Continue Plan of Care Treatment Plan: Bed Mobility, Education, Functional Activity Apple, Functional Strength, Group Therapy, Gait, Safety, Therapeutic Exercise, Transfers Treatment Duration: Nov 26, 2022 Frequency: 6 times per week Estimated Hrs Per Day: .25 hour per day Patient and/or Family Agrees t: Yes Safety Risks/Education Patient Education: Transfer Techniques Teaching Recipient: Patient Teaching Methods: Demonstration, Discussion Response to Teaching: Reinforcement Needed Discharge Recommendations Target Placement Based upon patients current living arrangements, unless significant improvement is made, the safest discharge destination may be a SNF given his recent decline. Time Time In: 1123 Time Out: 1142 DATE: Nov 17, 2022 Total Billed Treatment Time: 19 Total Billed Treatment Visit, OLINDA MCDOWELL PT Nov 17, 2022 11:55
[2022-11-17] MEDS ORDERED: WARF-48 PO ×2 (11:56)
[2022-11-17] MEDS ORDERED: LISI5TAB20 PO (11:56)
[2022-11-17] MEDS ORDERED: LORA10TA7 PO (11:56)
[2022-11-17] MEDS ORDERED: FISH1CAP15 PO (11:59)
--- NOTE | 2022-11-17 13:33 | Occupational Therapy Eval ---
OT Evaluation-General/PLF Medical Diagnosis Admission Date Nov 16, 2022 at 15:12 Medical Diagnosis: Parkinsons, AMS, anemia Onset Date: Nov 16, 2022 Therapy Diagnosis Therapy Diagnosis: Weakness Height/Weight Height (Feet): 6 Height (Inches): 0.00 Weight (Pounds): 327 Weight (Ounces): 0.0 Precautions Precautions/Isolations: Fall Prevention, Standard Precautions Weight Bear Status Weight Bearing Restriction: Weight Bearing/Tolerated Referral Physician: Dr. Dyer Referral Reason: Evaluation/Treatment Medical History Pertinent Medical History: Arthritis, CAD, COPD, DM, GERD, HTN, Neuropathy, Parkinson's Current History Patient is 71-year-old male with past medical history of GI bleed,PE, reported DVT, hypertension, Parkinson's who presented to the emergency department due to altered mental status and anemia Social History Home: Single Level Current Living Status: Alone Entry Into Home: Ramp Lives w/ family, has home [place]. Primary use of WC, barbaric DME needs ADL-Prior Level of Function SCALE: Activities may be completed with or without assistive devices. 6-Kikvoergcc-xixwewd completes the activity by him/herself with no assistance from a helper. 5-Set-up or Clean-up Assistance-helper sets up or cleans up; patient completes activity. [place] assists only prior to or following the activity. 4-Supervision or Touching Assistance-helper provides verbal cues and/or touching/steadying and/or contact guard assistance as patient completes activity. Assistance may be provided throughout the activity or intermittently. 3-Partial/Moderate Assistance-helper does LESS THAN HALF the effort. [place] lifts, holds or supports trunk or limbs, but provides less than half the effort. 2-Substantial/Maximal Assistance-helper does MORE THAN HALF the effort. [place] l ifts or holds trunk or limbs and provides more than half the effort. 9-Ytiksqjtb-sjnmxn does ALL the effort. Patient does none of the effort to complete the activity. Or, the assistance of 2 or more helpers is required for the patient to complete the activity. If activity was not attempted, code reason: 7-Patient Refused. 9-Not Applicable-not attempted and the patient did not perform the activity before the current illness, exacerbation or injury. 10-Not Attempted due to Environmental Limitations-(lack of equipment, weather restraints, etc.). 88-Not Attempted due to Medical Conditions or Safety Concerns. Self Care: Dependent Functional Cognition: Needed Some Help DME/Equipment Comments Wheelchair primary mode of mobility Drive Self: No OT Current Status Subjective Agreeable to OT Mental Status/Objective Attachments: Beltrán Catheter, IV, Oxygen, Telemetry Current Upper Extremity ROM BUE ROM WFLS Upper Extremity Strength BUE Strength WFLs, tip/pinch and composite channel marketing manager WFLS ADL-Treatment Oral Hygiene (QC): 3 Shower/Bathe Self (QC): 88 (OT used bathe clothe to cleanse B arms and hands of patient) Upper Body Dressing (QC): 1 Lower Body Dressing (QC): 1 On/Off Footwear (QC): 1 (multiple wounds, seeping blisters BLEs) Toileting Hygiene (QC): 1 Education OT Patient Education: Correct positioning, Exercise program, Modified ADL techniques, Progress toward Goal/Update tx plan, Purpose of tx/functional activities, Reviewed precautions, Rehab process, Safety issues, Transfer techniques, Use of adapted equipment Teaching Recipient: Patient Teaching Methods: Demonstration, Discussion Response to Teaching: Reinforcement Needed OT Prison Goals Prison Goals Eating (QC): 4 Oral Hygiene (QC): 4 Toileting Hygiene (QC): 4 Shower/Bathe Self (QC): 3 Upper Body Dressing (QC): 4 Lower Body Dressing (QC): 3 On/Off Footwear (QC): 4 1=Demonstrate adherence to instructed precautions during ADL tasks. 2=Patient will verbalize/demonstrate understanding of assistive devices/modifications for ADL. 3=Patient will improve strength/tolerance for activity to enable patient to perform ADL's. OT Education/Plan Problem List/Assessment Assessment: Decreased Activ Tolerance, Decreased UE Strength, Dependent Transfers, Impaired Bed Mobility, Impaired Coordination, Impaired Funct Balance, Impaired Self-Care Skills Discharge Recommendations Plan/Recommendations: Continue POC Therapy Discharge Recommendati: Post Acute OT Treatment Plan/Plan of Care Treatment,Training & Education: Yes Patient would benefit from OT for education, treatment and training to promote independence in ADL's, mobility, safety and/or upper extremity function for ADL's. Plan of Care: ADL Retraining, Cognitive Retraining Treatment Duration: Nov 27, 2022 Frequency: 3 times per week (3-5 times per week) Estimated Hrs Per Day: .25 hour per day Agreement: Yes Rehab Potential: Guarded Time Start Time: :20 Stop Time: 13:37 DATE: Nov 17, 2022 Total Time Billed (hr/min): 17 Billed Treatment Time EV 17 min KIET BARNES OT Nov 17, 2022 13:33
[2022-11-17 20:17] LABS: HEMOGLOBIN 6.5 g/dL (13.3-17.7)
[2022-11-18] VITALS (8 sets, daily range): BP systolic 108–175; BP diastolic 54–88
[2022-11-18 03:05] LABS: HEMOGLOBIN 7.1 g/dL (13.3-17.7)
[2022-11-18] MEDS: NS IV 1000 ML 1,000 ML IV SCH ×2 (04:05→15:19)
[2022-11-18 04:30] LABS: MEAN CORPUSCULAR HEMOGLOBIN 27 pg (25-34); MEAN CORPUSCULAR HGB CONC 33 g/dL (32-36); MEAN CORPUSCULAR VOLUME 83 fL (80-99); MEAN PLATELET VOLUME 9.4 fL (9.0-12.2); PLATELET COUNT 224 10^3/uL (130-400); WHITE BLOOD COUNT 11.2 10^3/uL (4.3-11.0)
[2022-11-18 04:36] LABS: HEMATOCRIT 20 % (40-54); HEMOGLOBIN 6.4 g/dL (13.3-17.7)
[2022-11-18 04:47] LABS: INR 1.2 (0.8-1.4); PROTHROMBIN TIME PATIENT 15.5 SEC (12.2-14.7)
[2022-11-18 04:55] LABS: POTASSIUM 4.1 MMOL/L (3.6-5.0)
[2022-11-18 04:56] LABS: CALCIUM 7.9 MG/DL (8.5-10.1)
[2022-11-18 05:00] LABS: CREATININE SERUM 1.33 MG/DL (0.60-1.30); PHOSPHORUS 2.3 MG/DL (2.3-4.7)
[2022-11-18] MEDS ORDERED: NS IV 500 ML 500 ML IV SCH ×2 (05:00)
[2022-11-18 05:02] LABS: MAGNESIUM 2.2 MG/DL (1.6-2.4)
[2022-11-18] MEDS: inSUlin ASPART (NovoLOG) 1 UNIT/0.01 ML (CHARGE PER UNIT) SC SCH ×4 (05:14→20:12)
--- NOTE | 2022-11-18 07:27 | Progress Note - Surgery ---
SILVIAMAYRA 11/18/22 0727: Subjective Date Seen by a Provider: Nov 18, 2022 Time Seen by a Provider: 06:30 Subjective/Events-last exam Pt sleeping comfortably in bed. Pt notes new onset of constant RLQ that started 20 mintues ago. Pt states that pain is stabbing in quality and rated it a 6/10. Pt states that he has experienced similar pain before in the past but not recently or leading up to admission. Pt is S/P 4 UPRCs and is currently receiving another unit this morning. Pt's Hgb dropped from 7.1 at 2am this morning to 6.4 at 4am this morning. Pt remains hemodynamically stable. Pt has not had a BM since admission. Pt has no complaints at this time. Pt denies nause a, vomiting, CP, SOB, hematuria, cough, chills, weakness, and lightheadedness. Review of Systems General: No Chills, No Night Sweats HEENT: No Head Aches, No Eye Pain Pulmonary: No Dyspnea, No Cough Cardiovascular: No: Chest Pain, Palpitations Gastrointestinal: Abdominal Pain (RLQ); No: Nausea, Vomiting Genitourinary: No Dysuria, No Hematuria Musculoskeletal: No: neck pain, shoulder pain Neurological: No: Weakness, Numbness Focused Exam Lactate Level 11/16/22 13:06: Lactic Acid Level 3.62*H 11/16/22 15:52: Lactic Acid Level 2.54*H 11/16/22 18:00: Lactic Acid Level 2.16*H Objective Exam Vital Signs Date Time Temp Pulse Resp B/P (MAP) Pulse Ox O2 Delivery O2 Flow Rate FiO2 11/18/22 06:08 36.3 83 19 144/55 Nasal Cannula 2.00 11/18/22 06:00 88 18 144/55 (84) 97 Nasal Cannula 2.00 11/18/22 05:53 36.9 82 23 124/54 98 Nasal Cannula 2.00 11/18/22 05:38 37.2 82 8 140/59 Nasal Cannula 2.00 11/18/22 05:23 36.8 82 21 138/62 98 Nasal Cannula 2.00 11/18/22 05:08 36.8 84 12 108/67 97 Nasal Cannula 2.00 11/18/22 05:00 80 13 124/54 (77) 96 Nasal Cannula 2.00 11/18/22 04:00 97 Nasal Cannula 2.00 11/18/22 04:00 75 13 115/57 (76) 96 Nasal Cannula 2.00 11/18/22 03:00 79 14 132/60 (84) 96 Nasal Cannula 2.00 11/18/22 02:00 81 15 150/63 (92) 97 Nasal Cannula 2.00 11/18/22 01:00 80 11/18/22 01:00 93 17 142/60 (87) 98 Nasal Cannula 2.00 11/18/22 00:30 36.6 93 14 147/66 Nasal Cannula 2.00 11/18/22 00:00 94 Nasal Cannula 2.00 11/18/22 00:00 73 14 147/66 (93) 94 Nasal Cannula 2.00 11/18/22 00:00 Nasal Cannula 2.00 11/17/22 23:36 36.9 75 15 154/71 94 Room Air 11/17/22 23:15 36.9 77 15 143/69 Room Air 11/17/22 23:00 37.1 80 15 140/69 96 Room Air 11/17/22 23:00 77 14 143/69 (93) 94 Room Air 11/17/22 22:46 36.9 79 19 146/67 96 Room Air 11/17/22 22:36 37.2 81 12 133/58 93 Room Air 11/17/22 22:00 95 18 120/74 (89) 96 Room Air 11/17/22 21:00 89 17 151/67 (95) 96 Room Air 11/17/22 20:00 96 Room Air 11/17/22 20:00 88 14 144/89 (107) 97 Room Air 11/17/22 19:47 36.9 11/17/22 19:43 36.8 90 97 21 11/17/22 19:00 94 11/17/22 19:00 98 20 127/61 (83) 97 Room Air 11/17/22 18:00 36.8 90 24 126/89 99 Room Air 11/17/22 18:00 100 29 133/60 (84) 97 Room Air 11/17/22 17:00 94 15 126/89 (101) 96 Room Air 11/17/22 16:00 97 Room Air 11/17/22 16:00 96 101/55 (70) 100 Room Air 11/17/22 15:15 36.8 97 24 160/66 94 Room Air 11/17/22 15:00 99 16 159/103 (121) 93 Room Air 11/17/22 14:59 36.9 99 16 138/92 97 Room Air 11/17/22 14:35 97 Room Air 11/17/22 14:00 104 11 138/92 (107) 98 Room Air 11/17/22 13:00 98 14 141/96 (111) 97 Room Air 11/17/22 13:00 36.8 93 22 108/81 99 Room Air 11/17/22 12:50 97 11/17/22 12:00 99 Room Air 11/17/22 12:00 90 13 146/67 (93) 96 Room Air 11/17/22 11:00 101 27 147/67 (93) 98 Room Air 11/17/22 10:48 37.3 100 18 116/66 97 Room Air 11/17/22 10:33 37.3 93 16 128/46 100 Room Air 11/17/22 10:00 101 17 128/46 (73) 98 Room Air 11/17/22 09:00 90 14 121/91 (101) 95 Room Air 11/17/22 08:00 92 14 132/58 (82) 94 Room Air 11/17/22 08:00 98 Nasal Cannula 2.00 I & O 11/18/22 07:00 Intake Total 4705 ml Output Total 3725 ml Balance 980 ml Capillary Refill : Less Than 3 Seconds General Appearance: No Apparent Distress, Chronically ill, Obese HEENT: PERRL/EOMI, Moist Mucous Membranes Neck: Non Tender, Supple Respiratory: Lungs Clear, Normal Breath Sounds, No Accessory Muscle Use, No Respiratory Distress Cardiovascular: Regular Rate, Rhythm, No Gallop, No Murmur Gastrointestinal: soft, tenderness (mild tenderness in RLQ) Extremity: Non Tender, No Calf Tenderness, Pedal Edema (3+ B/L LE; R>L) Neurologic/Psychiatric: Alert, Normal Mood/Affect Skin: Warm/Dry, Other (b/l LE venous stasis dermatitis) Lymphatic: No Adenopathy Results Lab Laboratory Tests 11/17/22 07:23: Prothrombin Time 17.8H, INR Comment 1.4 11/17/22 11:32: Glucometer 156H 11/17/22 16:37: Glucometer 145H 11/17/22 20:08: Hemoglobin 6.5#*L, Hematocrit 20*L 11/17/22 20:35: Glucometer 157H 11/18/22 02:40: Hemoglobin 7.1L, Hematocrit 22L 11/18/22 04:14: Hemoglobin 6.4*L, Hematocrit 20*L, White Blood Count 11.2H, Red Blood Count 2.38L, Mean Corpuscular Volume 83, Mean Corpuscular Hemoglobin 27, Mean Corpuscular Hemoglobin Concent 33, Red Cell Distribution Width 16.1H, Platelet Count 224, Mean Platelet Volume 9.4, Prothrombin Time 15.5H, INR Comment 1.2, Sodium Level 141, Potassium Level 4.1, Chloride Level 114H, Carbon Dioxide Level 18L, Anion Gap 9, Blood Urea Nitrogen 28H, Creatinine 1.33H, Estimat Glomerular Filtration Rate 58, BUN/Creatinine Ratio 21, Glucose Level 119H, Calcium Level 7.9L, Phosphorus Level 2.3, Magnesium Level 2.2 Microbiology 11/16/22 MRSA Screen - Final, Complete MRSA not isolated Assessment/Plan Assessment/Plan Assessment/Plan Anemia - possible upper or lower gi bleed with FOB+ S/P 4UPRBC and 1FFP Supratherapeutic INR-resolved Lactic acidosis- improved h/o GI bleed h/o colon polyps GERD Chronic Anticoagulation IVF IV Protonix Pain medication prn NPO Receiving 1U PRBC today Trend Hgb daily, transfuse if <7 Continue to hold anticoagulation Pt remains to be hemodynamically stable EGD possibly today, consent signed PORSHA RUFF DO 11/18/22 1552: Subjective Subjective/Events-last exam Had drop in hemoglobin to 6.4 from 7.1. NPO currently. Had some abdominal pain today. Denies any other complaints. Okay with EGD today. Denies n/v fever sweats chills shortness of breath or chest pain. Objective Exam General Appearance: Chronically ill, Obese HEENT: PERRL/EOMI, Moist Mucous Membranes Neck: Non Tender, Supple Respiratory: Chest Non Tender, No Accessory Muscle Use, No Respiratory Distress Cardiovascular: Regular Rate, Rhythm, No JVD Gastrointestinal: soft, tenderness (mild tenderness in RLQ) Extremity: Non Tender, No Calf Tenderness, Pedal Edema (3+ B/L LE; R>L) Neurologic/Psychiatric: Alert, Normal Mood/Affect Skin: Warm/Dry, Pallor, Other (b/l LE venous stasis dermatitis) Lymphatic: No Adenopathy Assessment/Plan Assessment/Plan Assessment/Plan Anemia - possible upper or lower gi bleed with FOB+ S/P 4UPRBC and 1FFP Supratherapeutic INR-resolved Lactic acidosis- improved h/o GI bleed h/o colon polyps GERD Chronic Anticoagulation IVF IV Protonix Pain medication prn NPO Receiving 1U PRBC today Trend Hgb daily, transfuse if <7 Continue to hold anticoagulation Pt remains to be hemodynamically stable EGD today, consent signed Supervisory-Addendum Brief Verification & Attestation Participated in pt care: history, MDM, physical Personally performed: exam, history, MDM, supervision of care Care discussed with: Medical Student Procedures: n/a Results interpretation: Verified all documentation Verification and Attestation of Medical Student E/M Service A medical student performed and documented this service in my presence. I reviewed and verified all information documented by the medical student and made modifications to such information, when appropriate. I personally performed the physical exam and medical decision making. Porsha Ruff Nov 18, 2022,15:54 MAYRA VEGA Nov 18, 2022 07:27 PORSHA RUFF DO Nov 18, 2022 15:52
--- NOTE | 2022-11-18 08:15 | Physical Therapy Daily Note ---
PT Daily Note-Current Subjective Patient agrees to bed exercises only. Declined EOB activity on this date. He reports he is going to have a scope today. Pain Section J - Health Conditions 1. Rarely or not at all 2. Occasionally 3. Frequently 4. Almost constantly 8. Unable to answer Pain Effect on Sleep: 2 Pain Interference with Therapy: 2 Pain Interference w/Day-to-Day: 2 Mental Status Patient Orientation: Person, Time, Situation Transfers SCALE: Activities may be completed with or without assistive devices. 5-Jfjomxfeni-vuckumg completes the activity by him/herself with no assistance from a helper. 5-Set-up or Clean-up Assistance-helper sets up or cleans up; patient completes activity. [place] assists only prior to or following the activity. 4-Supervision or Touching Assistance-helper provides verbal cues and/or shwetha freda/steadying and/or contact guard assistance as patient completes activity. Assistance may be provided throughout the activity or intermittently. 3-Partial/Moderate Assistance-helper does LESS THAN HALF the effort. [place] lifts, holds or supports trunk or limbs, but provides less than half the effort. 2-Substantial/Maximal Assistance-helper does MORE THAN HALF the effort. [place] lifts or holds trunk or limbs and provides more than half the effort. 1-Rwglexkpe-qtdjwh does ALL the effort. Patient does none of the effort to complete the activity. Or, the assistance of 2 or more helpers is required for the patient to complete the activity. If activity was not attempted, code reason: 7-Patient Refused. 9-Not Applicable-not attempted and the patient did not perform the activity before the current illness, exacerbation or injury. 10-Not Attempted due to Environmental Limitations-(lack of equipment, weather restraints, etc.). 88-Not Attempted due to Medical Conditions or Safety Concerns. Weight Bearing Right Lower Extremity: Right Full Weight Bearing Left Lower Extremity: Left Full Weight Bearing Exercises Supine Ex: Ankle pumps, Quad Set, Glut sets, Heel Slides, Straight leg raise, Hip abd/add Supine Reps: 20 (x 2 sets) Assessment Patient tolerated bed exercises and declined EOB or OOB activity. PT to increase activity as tolerated by patient. PT Radiator Mechanic Goals Skilled Nursing Goals PT Skilled Nursing Goals Time Frame: Nov 26, 2022 Roll Left & Right (QC): 6 Sit to Lying (QC): 6 Lying-Sitting on Side/Bed(QC): 6 Sit to Stand (QC): 4 Chair/Fsc-yv-Jncco Xfer(QC): 4 Toilet Transfer (QC): 4 PT Plan Treatment/Plan Treatment Plan: Continue Plan of Care Treatment Plan: Bed Mobility, Education, Functional Activity Apple, Functional Strength, Group Therapy, Gait, Safety, Therapeutic Exercise, Transfers Treatment Duration: Nov 26, 2022 Frequency: 6 times per week Estimated Hrs Per Day: .25 hour per day Patient and/or Family Agrees t: Yes Time Time In: 730 Time Out: 753 DATE: Nov 18, 2022 Total Billed Treatment Time: 23 Total Billed Treatment 1 visit EX x 2 23 min SIENA REYES PT Nov 18, 2022 08:15
[2022-11-18] MEDS: MICONAZOLE 2% POWDER (DESENEX AF) 90 GM TOP SCH ×2 (08:25→20:49)
--- NOTE | 2022-11-18 09:06 | Progress Note - Hospitalist ---
Subjective HPI/CC On Admission Date Seen by Provider: Nov 18, 2022 Patient is 71-year-old male with past medical history of GI bleed,PE, reported DVT, hypertension, Parkinson's who presented to the emergency department due to altered mental status and anemia. He is unable to provide any history but he has a granddaughter who supplements some. She reports yesterday he was not his normal self and was more confused and less alert. He complained of abdominal pain but they thought he just had a stomachache and did not think much of it. This morning he continued to complain of abdominal pain and vomited as well. He seemed pale and so they called Dr. Newman. Home health was there and joanna labs and they were told his blood count was low and advised to go to the emergency department. In the emergency department he was found to have a suzy red and dark blood on a digital rectal exam and a hemoglobin of 3.6. He is on warfarin and his INR was 4.2. He is being admitted to the ICU for further management. Granddaughter reports that he was previously told to be on Protonix but has been refusing to take it. Subjective/Events-last exam Pt reports doing ok. Discussed plan for scope today. Also discussed code status with him. He requests to be a DNR. Focused Exam Lactate Level 11/16/22 13:06: Lactic Acid Level 3.62*H 11/16/22 15:52: Lactic Acid Level 2.54*H 11/16/22 18:00: Lactic Acid Level 2.16*H Objective Exam Vital Signs Vital Signs Date Time Temp Pulse Resp B/P (MAP) Pulse Ox O2 Delivery O2 Flow Rate FiO2 11/18/22 08:50 36.6 81 22 125/62 96 Room Air 11/18/22 08:00 2.00 11/17/22 19:43 21 Capillary Refill : Less Than 3 Seconds General Appearance: No Apparent Distress, Chronically ill, Obese Respiratory: Lungs Clear, No Respiratory Distress Gastrointestinal: Normal Bowel Sounds, Non Tender, Soft Neurologic/Psychiatric: Alert, Other (oriented to person, place, and situation) Results/Procedures Lab Laboratory Tests 11/17/22 20:08 11/18/22 02:40 11/18/22 04:14 Patient resulted labs reviewed. Assessment/Plan Assessment and Plan Assess & Plan/Chief Complaint Acute GI Bleed Severe anemia Chronic anticoagulation Supratherapuetic INR h/o DVT Hgb 6.4 This AM after 5 units- another unit ordered INR down to 1.2 2 more units pRBCs ordered this am Protonix gtt Surgery consulted, appreciate recs CT Abd/pelvis without perforation or inflammatory process Hold Warfarin Scope today HTN HLD CAD Parkinson's Continue home meds as appropriate granddaughter will call with med names or bring in if needs Code status Pt requests to be DNR now that AMS status resolved Morbid obesity Clinically significant, no acute management needs DVT prophylaxis: SCDs only for GI bleed Critical Care Critically Ill Patient Diagnosis/Problems Diagnosis/Problems (1) Acute GI bleeding (2) BREANNA (acute kidney injury) Status: Acute (3) History of DVT (deep vein thrombosis) Status: Chronic (4) Anticoagulated on Coumadin Status: Acute (5) History of pulmonary embolus (PE) Status: Chronic (6) Morbid obesity Status: Chronic (7) Parkinson disease Status: Chronic (8) Essential (primary) hypertension Status: Chronic (9) CAD (coronary artery disease) Qualifiers: Coronary Disease-Associated Artery/Lesion type: [place] artery [place] vs. tr ansplanted heart: [place] heart Associated angina: without angina Qualified Codes: I25.10 - Atherosclerotic heart disease of [place] coronary artery without angina pectoris (10) CKD (chronic kidney disease) Qualifiers: Chronic kidney disease stage: stage 3 (moderate) Chronic kidney disease stage 3 subtype: stage 3b (GFR 30-44) Qualified Codes: N18.32 - Chronic kidney disease, stage 3b FRANCESCO DAWSON MD Nov 18, 2022 09:06
--- NOTE | 2022-11-18 10:01 | Tele-ICU Progress Note ---
Subjective Date Seen by a Provider: Nov 18, 2022 Time Seen by a Provider: 10:01 Subjective/Events-last exam (Tele-ICU Physician , Progress Note ) Service provided via interactive audio and video telecommunications E-CARE system to a patient admitted to ICU bed in [facility]. Patient is seen today due to persistent need of ICU care Available chart/ vitals / labs / Images reviewed Video assessment done using teleICU camera, rest of exam as per RN Discussed with RN Events overnight : Afebrile hemodynamically stable Respiratory - 2 l I/O = even Drips: Pressors- no Hospital course: (11/16) 71M Admitted for GIB/severe anemia on chronic anticoagulation w/supratherapeutic INR for h/o DVT. PRBC's/Vit K given. New ARF. A/P Suspected GIB - PPI gtt - CT - Sx consulted for scope ABLA - hb 3.6 --> 6.4 received 6 u prbc and 1 u FFP S/P 4UPRBC and 1FFP BREANNA - improving - cont hydration Coagulopathy , -Supratherapeutic INR on Coumadin -resolved with FFP + vit K - follow h/o PE . DVT - was on coumadin, on hold now Lactic acidosis- improved Lines : , (Central Line Necessity Reviewed) Beltrán: OG: Nutrition: Analgesia: Anxiety/ delirium VTE Prophylaxis: scd Stress Ulcer Prophylaxis: ppi gtt Plans in collaboration with bedside consultants and IM MDs. Discussed with RN to reach out if any questions or concerns Case and care daily discussed on multidisciplinary rounds ( RN, PharmD, Press Cleaner , Respiratory Therapy, frog or oyster farmworker ) A total of 25 minutes of critical care time was devoted to this patient today, required to treat and/or prevent further deterioration of critical care condition ( as above ) . I am remotely monitoring this patient from another state. I am unable to do the bedside exam, and history/physical and pertinent information is taken from other notes in the computer and bedside staff. Sepsis Event Evaluation Height, Weight, BMI Height: 6'0.00" Weight: 327lbs. 0.0oz. [id number]; 52.38 BMI Method:Estimated Focused Exam Lactate Level 11/16/22 13:06: Lactic Acid Level 3.62*H 11/16/22 15:52: Lactic Acid Level 2.54*H 11/16/22 18:00: Lactic Acid Level 2.16*H Exam Exam Patient acknowledged, consented, and participated in this virtual visit which was conducted using real time audio/video Vital Signs Date Time Temp Pulse Resp B/P (MAP) Pulse Ox O2 Delivery O2 Flow Rate FiO2 11/18/22 08:50 36.6 81 22 125/62 96 Room Air 11/18/22 08:00 84 25 125/62 (83) 97 Nasal Cannula 2.00 11/18/22 08:00 98 Room Air 11/18/22 08:00 36.8 Room Air 11/18/22 07:00 89 18 135/81 (99) 97 Nasal Cannula 2.00 11/18/22 07:00 78 11/18/22 06:08 36.3 83 19 144/55 Nasal Cannula 2.00 11/18/22 06:00 88 18 144/55 (84) 97 Nasal Cannula 2.00 11/18/22 05:53 36.9 82 23 124/54 98 Nasal Cannula 2.00 11/18/22 05:38 37.2 82 8 140/59 Nasal Cannula 2.00 11/18/22 05:23 36.8 82 21 138/62 98 Nasal Cannula 2.00 11/18/22 05:08 36.8 84 12 108/67 97 Nasal Cannula 2.00 11/18/22 05:00 80 13 124/54 (77) 96 Nasal Cannula 2.00 11/18/22 04:00 97 Nasal Cannula 2.00 11/18/22 04:00 75 13 115/57 (76) 96 Nasal Cannula 2.00 11/18/22 03:00 79 14 132/60 (84) 96 Nasal Cannula 2.00 11/18/22 02:00 81 15 150/63 (92) 97 Nasal Cannula 2.00 11/18/22 01:00 80 11/18/22 01:00 93 17 142/60 (87) 98 Nasal Cannula 2.00 11/18/22 00:30 36.6 93 14 147/66 Nasal Cannula 2.00 11/18/22 00:00 94 Nasal Cannula 2.00 11/18/22 00:00 73 14 147/66 (93) 94 Nasal Cannula 2.00 11/18/22 00:00 Nasal Cannula 2.00 11/17/22 23:36 36.9 75 15 154/71 94 Room Air 11/17/22 23:15 36.9 77 15 143/69 Room Air 11/17/22 23:00 37.1 80 15 140/69 96 Room Air 11/17/22 23:00 77 14 143/69 (93) 94 Room Air 11/17/22 22:46 36.9 79 19 146/67 96 Room Air 11/17/22 22:36 37.2 81 12 133/58 93 Room Air 11/17/22 22:00 95 18 120/74 (89) 96 Room Air 11/17/22 21:00 89 17 151/67 (95) 96 Room Air 11/17/22 20:00 96 Room Air 11/17/22 20:00 88 14 144/89 (107) 97 Room Air 11/17/22 19:47 36.9 11/17/22 19:43 36.8 90 97 21 11/17/22 19:00 94 11/17/22 19:00 98 20 127/61 (83) 97 Room Air 11/17/22 18:00 36.8 90 24 126/89 99 Room Air 11/17/22 18:00 100 29 133/60 (84) 97 Room Air 11/17/22 17:00 94 15 126/89 (101) 96 Room Air 11/17/22 16:00 97 Room Air 11/17/22 16:00 96 101/55 (70) 100 Room Air 11/17/22 15:15 36.8 97 24 160/66 94 Room Air 11/17/22 15:00 99 16 159/103 (121) 93 Room Air 11/17/22 14:59 36.9 99 16 138/92 97 Room Air 11/17/22 14:35 97 Room Air 11/17/22 14:00 104 11 138/92 (107) 98 Room Air 11/17/22 13:00 98 14 141/96 (111) 97 Room Air 11/17/22 13:00 36.8 93 22 108/81 99 Room Air 11/17/22 12:50 97 11/17/22 12:00 99 Room Air 11/17/22 12:00 90 13 146/67 (93) 96 Room Air 11/17/22 11:00 101 27 147/67 (93) 98 Room Air 11/17/22 10:48 37.3 100 18 116/66 97 Room Air 11/17/22 10:33 37.3 93 16 128/46 100 Room Air I & O 11/18/22 07:00 Intake Total 4705 ml Output Total 3725 ml Balance 980 ml Height & Weight Height: 6'0.00" Weight: 327lbs. 0.0oz. 148.462165yj; 52.38 BMI Method:Estimated General Appearance: No Apparent Distress, Chronically ill, Obese HEENT: PERRL/EOMI, Moist Mucous Membranes Neck: Non Tender, Supple Respiratory: Lungs Clear, No Respiratory Distress Cardiovascular: Regular Rate, Rhythm, No Gallop, No Murmur Capillary Refill: Less Than 3 Seconds Gastrointestinal: soft, tenderness (mild tenderness in RLQ) Extremity: Non Tender, No Calf Tenderness, Pedal Edema (3+ B/L LE; R>L) Neurologic/Psychiatric: Alert, Other (oriented to person, place, and situation) Skin: Warm/Dry, Other (b/l LE venous stasis dermatitis) Lymphatic: No Adenopathy Results Lab Laboratory Tests 11/16/22 12:51 11/16/22 13:55 11/17/22 06:32 11/17/22 20:08 11/18/22 02:40 11/18/22 04:14 Assessment/Plan Assessment/Plan 1 HENNY ALTMAN MD Nov 18, 2022 10:01
--- NOTE | 2022-11-18 10:32 | Occupational Ther Daily Note ---
OT Current Status-Daily Note Subjective Friend visitor in room, patient agrees to therapy w/ visitor in room. Mental Status/Objective Patient Orientation: Person, Place, Time, Situation Attachments: Beltrán Catheter, IV, Oxygen ADL-Treatment ADL not performed this visit d/t visitor in room. Therapy Code Descriptions/Definitions Functional H[place]ed Measure: 0=Not Assessed/NA 4=Minimal Assistance 1=Total Assistance 5=Supervision or Setup 2=Maximal Assistance 6=Modified Harned 3=Moderate Assistance 7=Complete IndependenceSCALE: Activities may be completed with or without assistive devices. 8-Zlmveowvdl-rugslzw completes the activity by him/herself with no assistance from a helper. 5-Set-up or Clean-up Assistance-helper sets up or cleans up; patient completes activity. [place] assists only prior to or following the activity. 4-Supervision or Touching Assistance-helper provides verbal cues and/or touching/steadying and/or contact guard assistance as patient completes activity. Assistance may be provided throughout the activity or intermittently. 3-Partial/Moderate Assistance-helper does LESS THAN HALF the effort. [place] lifts, holds or supports trunk or limbs, but provides less than half the effort. 2-Substantial/Maximal Assistance-helper does MORE THAN HALF the effort. [place] lifts or holds trunk or limbs and provides more than half the effort. 7-Yzgselzru-ajhmrv does ALL the effort. Patient does none of the effort to complete the activity. Or, the assistance of 2 or more helpers is required for the patient to complete the activity. If activity was not attempted, code reason: 7-Patient Refused. 9-Not Applicable-not attempted and the patient did not perform the activity before the current illness, exacerbation or injury. 10-Not Attempted due to Environmental Limitations-(lack of equipment, weather restraints, etc.). 88-Not Attempted due to Medical Conditions or Safety Concerns. Other Treatment BUE thre ex performed for strengthening for bed mobility, transfers and ADLS, Education for offloading and positional changes to reduce risk of APUs Education OT Patient Education: Correct positioning, Exercise program, Purpose of tx/functional activities, Safety issues Teaching Recipient: Patient Teaching Methods: Demonstration, Discussion Response to Teaching: Reinforcement Needed OT Data Management Analyst Goals Data Management Analyst Goals Eating (QC): 4 Oral Hygiene (QC): 4 Toileting Hygiene (QC): 4 Shower/Bathe Self (QC): 3 Upper Body Dressing (QC): 4 Lower Body Dressing (QC): 3 On/Off Footwear (QC): 4 1=Demonstrate adherence to instructed precautions during ADL tasks. 2=Patient will verbalize/demonstrate understanding of assistive devices/modifications for ADL. 3=Patient will improve strength/tolerance for activity to enable patient to perform ADL's. OT Education/Plan Discharge Recommendations Plan/Recommendations: Continue POC Treatment Plan/Plan of Care Patient would benefit from OT for education, treatment and training to promote independence in ADL's, mobility, safety and/or upper extremity function for ADL's. Plan of Care: ADL Retraining, Cognitive Retraining Treatment Duration: Nov 27, 2022 Frequency: 3 times per week (3-5 times per week) Estimated Hrs Per Day: .25 hour per day Agreement: Yes Rehab Potential: Guarded all needs met Time Start Time: 09:50 Stop Time: 10:10 DATE: Nov 18, 2022 Total Time Billed (hr/min): 20 Billed Treatment Time EX 20 min KIET BARNES OT Nov 18, 2022 10:32
[2022-11-18 11:06] LABS: HEMOGLOBIN 8.1 g/dL (13.3-17.7)
[2022-11-18] MEDS ORDERED: LACTATED RINGERS 1,000 ML IV STA (11:10)
[2022-11-18] MEDS ORDERED: HURRICAINE EXT TUBE (BENZOCAINE) XX PRN (11:15)
[2022-11-18] MEDS ORDERED: KETAMINE 50 MG/5 ML SYRINGE ONE (11:42)
[2022-11-18] MEDS ORDERED: proPOfol 200 MG/20 ML (DIPRIVAN) VIAL IV ONE (11:43)
--- NOTE | 2022-11-18 11:56 | Anesthesia-General Post-Op ---
MAC Patient Condition Mental Status/LOC: Same as Preop Cardiovascular: Satisfactory Nausea/Vomiting: Absent Respiratory: Satisfactory Pain: Controlled Complications: Absent Post Op Complications Complications None Follow Up Care/Instructions Patient Instructions None needed. Anesthesiology Discharge Order Discharge Order Patient is doing well, no complaints, stable vital signs, no apparent adverse anesthesia problems. No complications reported per nursing. ALY ZENG CRNA Nov 18, 2022 11:56
--- NOTE | 2022-11-18 15:08 | Progress Note-Post Operative ---
Post-Operative Progess Note Surgeon (s)/Down Filler (s) Surgeon PORSHA BYRNES DO Down Filler: na Pre-Operative Diagnosis Anemia Post-Operative Diagnosis Small hiatal hernia Possible healing ulcer at GE junction Procedure & Operative Findings Date of Procedure 11/18/22 Procedure Performed/Findings EGD with biopsy Anesthesia Type per [facility] Estimated Blood Loss Estimated blood loss (mL): none Specimens/Packing Specimens Removed GE junction biopsy x1 PORSHA BYRNES DO Nov 18, 2022 15:08
[2022-11-18] MEDS: PANTOPRAZOLE INJECTION 200 MG in NS (IVPB) 100 ML IV SCH (15:19)
[2022-11-18 17:41] LABS: HEMOGLOBIN 8.1 g/dL (13.3-17.7)
--- NOTE | 2022-11-18 21:06 | OPERATIVE REPORT ---
DATE OF SERVICE: 11/18/2022 PREOPERATIVE DIAGNOSIS: Anemia. POSTOPERATIVE DIAGNOSES: Small hiatal hernia, possible healing ulcer of the GE junction. SURGEON: Porsha Ruff DO ANESTHESIA: Per MDA. INDICATIONS: The patient is a 71-year-old male who was found to be severely anemic. He understands risks and benefits of procedure and wishes to proceed. Consent was signed in the chart. PROCEDURE PERFORMED: EGD with biopsy of GE junction. DESCRIPTION OF PROCEDURE: The patient was taken to endoscopy suite, placed in the left lateral recumbent position. Timeout was performed. Scope was inserted in the mouth, down the esophagus, stomach, into the duodenum without difficulty. There were no polyps, masses or ulcerations in the duodenum. Scope was then slowly retracted back in the stomach where it was further insufflated. No polyps, masses or ulcerations. Scope was retroflexed noting a questionable possible healing ulcer near the GE junction. Biopsy of this area was obtained. Scope was returned to its normal position, slowly withdrawn until distal esophagus, which had normal appearance, no polyps, masses or ulcerations. Scope was slowly retracted back until completely removed. The patient tolerated the procedure well with no complications, taken to recovery room in stable condition. RECOMMENDATIONS: The patient to continue on current medications. We will start him on clear liquids. The patient if continues to have drop in hemoglobin, would proceed with doing colonoscopy prep and setting up for colonoscopy. Job ID: [id number] DocumentID: [id number] Dictated Date: 11/18/2022 15:08:04 Sales Service Coordinator Date: 11/18/2022 21:05:00 Dictated By: PORSHA RUFF DO
[2022-11-19] MEDS: NS IV 1000 ML 1,000 ML IV SCH ×4 (01:41→23:05)
[2022-11-19 03:12] LABS: HEMATOCRIT 24 % (40-54); HEMOGLOBIN 7.8 g/dL (13.3-17.7); MEAN CORPUSCULAR HEMOGLOBIN 27 pg (25-34); MEAN CORPUSCULAR HGB CONC 32 g/dL (32-36); MEAN CORPUSCULAR VOLUME 83 fL (80-99); MEAN PLATELET VOLUME 9.1 fL (9.0-12.2); PLATELET COUNT 205 10^3/uL (130-400); WHITE BLOOD COUNT 11.8 10^3/uL (4.3-11.0)
[2022-11-19 03:18] LABS: INR 1.2 (0.8-1.4); POTASSIUM 3.7 MMOL/L (3.6-5.0); PROTHROMBIN TIME PATIENT 15.6 SEC (12.2-14.7)
[2022-11-19 03:19] LABS: CALCIUM 7.9 MG/DL (8.5-10.1)
[2022-11-19 03:24] LABS: CREATININE SERUM 1.15 MG/DL (0.60-1.30); PHOSPHORUS 2.1 MG/DL (2.3-4.7)
[2022-11-19 03:26] LABS: MAGNESIUM 1.9 MG/DL (1.6-2.4)
[2022-11-19] MEDS ORDERED: NS IV 500 ML 500 ML IV PRN (04:15)
[2022-11-19] MEDS ORDERED: KCL 20 MEQ TAB (K-DUR) PO ONE (04:15)
[2022-11-19] MEDS: POTASSIUM CL 10MEQ/50ML IVPB 50 ML IV SCH (04:29)
[2022-11-19] MEDS: MAGNESIUM 1 GM/100 ML IVPB 100 ML IV SCH ×3 (04:29→04:33)
[2022-11-19] MEDS: KCL 20 MEQ TAB (K-DUR) PO SCH (04:30)
[2022-11-19] MEDS: inSUlin ASPART (NovoLOG) 1 UNIT/0.01 ML (CHARGE PER UNIT) SC SCH ×4 (04:30→20:20)
--- NOTE | 2022-11-19 07:08 | Progress Note - Surgery ---
SILVIAMAYRA 11/19/22 0708: Subjective Date Seen by a Provider: Nov 19, 2022 Time Seen by a Provider: 07:01 Subjective/Events-last exam Pt is sleeping comfortably in bed. Pt had a large BM last night while in bed last night. Per nurse, stool was very dark and slightly tarry and looked similar to coffee grounds. Nurse states that pt had another small BM this morning that was also very dark and tarry. Pt this morning denies any pain. Pt has been tolerating clear liquids with no issue. Pt has no complaints at this time. Pt had an EGD yesterday that was remarkable for a small hiatal hernia and a possible healing ulcer but no active bleeding noted during scope. Pt's hgb is stable at 7.8 after receiving 1 UPRBCs yesterday. Pt denies nausea, vomiting, CP, SOB, lightheadedness, chills, cough, and weakness. Review of Systems General: No Chills, No Night Sweats HEENT: No Head Aches, No Eye Pain Pulmonary: No Dyspnea, No Cough Cardiovascular: No: Chest Pain, Palpitations Gastrointestinal: No: Nausea, Vomiting, Abdominal Pain Genitourinary: No Dysuria, No Hematuria Musculoskeletal: No: neck pain, shoulder pain Neurological: No: Weakness, Numbness Focused Exam Lactate Level 11/16/22 13:06: Lactic Acid Level 3.62*H 11/16/22 15:52: Lactic Acid Level 2.54*H 11/16/22 18:00: Lactic Acid Level 2.16*H Objective Exam Vital Signs Date Time Temp Pulse Resp B/P (MAP) Pulse Ox O2 Delivery O2 Flow Rate FiO2 11/19/22 06:00 82 19 142/67 (92) 96 Room Air 11/19/22 05:00 73 14 140/62 (88) 95 Room Air 11/19/22 04:03 100 Room Air 11/19/22 04:00 36.5 Room Air 11/19/22 04:00 77 13 143/65 (91) 96 Room Air 11/19/22 03:00 81 20 145/92 (109) 96 Room Air 11/19/22 02:00 85 15 151/73 (99) 97 Room Air 11/19/22 01:00 80 11/19/22 01:00 91 24 137/57 (83) 97 Room Air 11/19/22 00:00 80 15 173/74 (107) 97 Room Air 11/19/22 00:00 36.4 98 Room Air 11/19/22 00:00 98 Room Air 11/18/22 23:00 81 15 132/86 (101) 95 Nasal Cannula 2.00 11/18/22 22:00 75 30 137/68 (91) 95 Nasal Cannula 2.00 11/18/22 21:00 88 37 125/64 (84) 97 Nasal Cannula 2.00 11/18/22 20:00 97 Room Air 11/18/22 20:00 76 18 152/74 (100) 96 Nasal Cannula 2.00 11/18/22 19:47 36.8 11/18/22 19:00 83 11/18/22 19:00 79 14 137/76 (96) 97 Nasal Cannula 2.00 11/18/22 18:00 77 97 Nasal Cannula 2.00 11/18/22 17:00 73 97 Nasal Cannula 2.00 11/18/22 16:00 99 Room Air 11/18/22 16:00 77 16 178/82 (114) 96 Nasal Cannula 2.00 11/18/22 15:00 82 17 184/104 (130) 97 Nasal Cannula 2.00 11/18/22 14:00 84 22 190/98 (128) 97 Nasal Cannula 2.00 11/18/22 13:00 83 17 163/81 (108) 97 Nasal Cannula 2.00 11/18/22 12:00 95 Room Air 11/18/22 11:56 87 18 99 Room Air 11/18/22 11:00 75 17 148/79 (102) 96 Nasal Cannula 2.00 11/18/22 10:50 96 Room Air 11/18/22 10:00 85 18 143/64 (90) 96 Nasal Cannula 2.00 11/18/22 09:00 82 19 130/66 (87) 97 Nasal Cannula 2.00 11/18/22 08:50 36.6 81 22 125/62 96 Room Air 11/18/22 08:00 84 25 125/62 (83) 97 Nasal Cannula 2.00 11/18/22 08:00 98 Room Air 11/18/22 08:00 36.8 Room Air I & O 11/19/22 07:00 Intake Total 3960 ml Output Total 2450 ml Balance 1510 ml Capillary Refill : Less Than 3 Seconds General Appearance: No Apparent Distress, Chronically ill, Obese HEENT: PERRL/EOMI, Moist Mucous Membranes Neck: Non Tender, Supple Respiratory: Lungs Clear, Normal Breath Sounds, No Accessory Muscle Use, No Respiratory Distress Cardiovascular: Regular Rate, Rhythm, No Gallop, No Murmur Gastrointestinal: non tender, soft Extremity: No Calf Tenderness, Pedal Edema (1-2+ B/L LE; R>L; improved from last exam) Neurologic/Psychiatric: Alert, Normal Mood/Affect Skin: Warm/Dry, Pallor, Other (b/l LE venous stasis dermatitis) Lymphatic: No Adenopathy Results Lab Laboratory Tests 11/18/22 11:00: Hemoglobin 8.1#L, Hematocrit 25L, Glucometer 127H 11/18/22 16:20: Glucometer 146H 11/18/22 17:35: Hemoglobin 8.1L, Hematocrit 25L 11/18/22 20:08: Glucometer 124H 11/19/22 02:57: White Blood Count 11.8H, Red Blood Count 2.90L, Hemoglobin 7.8L, Hematocrit 24L, Mean Corpuscular Volume 83, Mean Corpuscular Hemoglobin 27, Mean Corpuscular Hemoglobin Concent 32, Red Cell Distribution Width 15.9H, Platelet Count 205, Mean Platelet Volume 9.1, Prothrombin Time 15.6H, INR Comment 1.2, Sodium Level 138, Potassium Level 3.7, Chloride Level 111H, Carbon Dioxide Level 18L, Anion Gap 9, Blood Urea Nitrogen 16, Creatinine 1.15, Estimat Glomerular Filtration Rate 68, BUN/Creatinine Ratio 14, Glucose Level 108H, Calcium Level 7.9L, Phosphorus Level 2.1L, Magnesium Level 1.9 Microbiology 11/16/22 MRSA Screen - Final, Complete MRSA not isolated Assessment/Plan Assessment/Plan Assessment/Plan Anemia - possible upper or lower gi bleed with FOB+ S/P 4UPRBC and 1FFP Supratherapeutic INR-resolved Lactic acidosis- improved h/o GI bleed h/o colon polyps GERD Chronic Anticoagulation IVF IV Protonix Pain medication prn Clear liquids Trend Hgb daily, transfuse if <7 Continue to hold anticoagulation Pt remains to be hemodynamically stable EGD yielded no source of active bleeding, discussed possible inpt colonoscopy with pt and he is agreeable. Obtain consent PORSHA RUFF DO 11/19/22 1426: Subjective Subjective/Events-last exam Patient having some dark red stools. No abominal pain. Hgb 7.8. No new complaints. Denies n/v fever sweats chills shortness of breath or chest pain. Objective Exam General Appearance: Chronically ill, Obese HEENT: PERRL/EOMI, Moist Mucous Membranes Neck: Full Range of Motion, Non Tender, Supple Respiratory: Chest Non Tender, No Accessory Muscle Use, No Respiratory Distress Cardiovascular: Regular Rate, Rhythm, No JVD Gastrointestinal: non tender, soft Extremity: Non Tender, No Calf Tenderness, Pedal Edema (1-2+ B/L LE; R>L; improved from last exam) Neurologic/Psychiatric: Alert, Oriented x3 Skin: Warm/Dry, Pallor, Other (b/l LE venous stasis dermatitis) Lymphatic: No Adenopathy Assessment/Plan Assessment/Plan Assessment/Plan Anemia - possible upper or lower gi bleed with FOB+ S/P 4UPRBC and 1FFP Supratherapeutic INR-resolved Lactic acidosis- improved h/o GI bleed h/o colon polyps GERD Chronic Anticoagulation IVF IV Protonix Pain medication prn Clear liquids Trend Hgb daily, transfuse if <7 Continue to hold anticoagulation Pt remains to be hemodynamically stable EGD yielded no source of active bleeding, discussed possible inpt colonoscopy with pt and he is agreeable. Obtain consent Prep today for colonoscopy. Supervisory-Addendum Brief Verification & Attestation Participated in pt care: history, MDM, physical Personally performed: exam, history, MDM, supervision of care Care discussed with: Medical Student Procedures: n/a Results interpretation: Verified all documentation Verification and Attestation of Medical Student E/M Service A medical student performed and documented this service in my presence. I reviewed and verified all information documented by the medical student and made modifications to such information, when appropriate. I personally performed the physical exam and medical decision making. Porsha Ruff Nov 19, 2022,14:26 MAYRA VEGA Nov 19, 2022 07:08 PORSHA RUFF DO Nov 19, 2022 14:26
--- NOTE | 2022-11-19 08:04 | Physical Therapy Daily Note ---
PT Daily Note-Current Subjective Patient agrees to PT. He states he may have a colonoscopy today. RN is unaware. Pain Numeric Pain Scale: 0-No Pain Location: No Pain Reported Section J - Health Conditions 1. Rarely or not at all 2. Occasionally 3. Frequently 4. Almost constantly 8. Unable to answer Pain Effect on Sleep: 1 Pain Interference with Therapy: 1 Pain Interference w/Day-to-Day: 1 Mental Status Patient Orientation: Person, Situation Attachments: Beltrán Catheter, IV Transfers SCALE: Activities may be completed with or without assistive devices. 3-Kkykwmlezm-ikknapi completes the activity by him/herself with no assistance from a helper. 5-Set-up or Clean-up Assistance-helper sets up or cleans up; patient completes activity. [place] assists only prior to or following the activity. 4-Supervision or Touching Assistance-helper provides verbal cues and/or touching/steadying and/or contact guard assistance as patient completes activity. Assistance may be provided throughout the activity or intermittently. 3-Partial/Moderate Assistance-helper does LESS THAN HALF the effort. [place] lifts, holds or supports trunk or limbs, but provides less than half the effort. 2-Substantial/Maximal Assistance-helper does MORE THAN HALF the effort. [place] lifts or holds trunk or limbs and provides more than half the effort. 6-Ifdfesgpl-hnblcu does ALL the effort. Patient does none of the effort to complete the activity. Or, the assistance of 2 or more helpers is required for the patient to complete the activity. If activity was not attempted, code reason: 7-Patient Refused. 9-Not Applicable-not attempted and the patient did not perform the activity before the current illness, exacerbation or injury. 10-Not Attempted due to Environmental Limitations-(lack of equipment, weather restraints, etc.). 88-Not Attempted due to Medical Conditions or Safety Concerns. Roll Left & Right (QC): 4 Sit to Lying (QC): 4 Lying to Sitting/Side of Bed(Q: 4 SBA with all bed mobility and sitting EOB Weight Bearing Right Lower Extremity: Right Full Weight Bearing Left Lower Extremity: Left Full Weight Bearing Exercises Supine Ex: Ankle pumps, Quad Set, Heel Slides, Straight leg raise, Hip abd/add Supine Reps: 15 Seated Therapy Exercises: Long arc quads Seated Reps: 15 Assessment Patient sat EOB for several minutes and performed bed exercises without difficulty on this date. SBA with all mobility. Patient is non ambulatory PLOF per report. PT Retirement Goals Retirement Goals PT Inspector And Mender Goals Time Frame: Nov 26, 2022 Roll Left & Right (QC): 6 Sit to Lying (QC): 6 Lying-Sitting on Side/Bed(QC): 6 Sit to Stand (QC): 4 Chair/Fdv-kk-Kwmuq Xfer(QC): 4 Toilet Transfer (QC): 4 PT Plan Treatment/Plan Treatment Plan: Continue Plan of Care Treatment Plan: Bed Mobility, Education, Functional Activity Apple, Functional Strength, Group Therapy, Gait, Safety, Therapeutic Exercise, Transfers Treatment Duration: Nov 26, 2022 Frequency: 6 times per week Estimated Hrs Per Day: .25 hour per day Patient and/or Family Agrees t: Yes Time Time In: 720 Time Out: 743 DATE: Nov 19, 2022 Total Billed Treatment Time: 23 Total Billed Treatment 1 visit EX x 2 23 min SIENA REYES PT Nov 19, 2022 08:04
--- NOTE | 2022-11-19 09:11 | Progress Note - Hospitalist ---
Subjective HPI/CC On Admission Date Seen by Provider: Nov 19, 2022 Patient is 71-year-old male with past medical history of GI bleed,PE, reported DVT, hypertension, Parkinson's who presented to the emergency department due to altered mental status and anemia. He is unable to provide any history but he has a granddaughter who supplements some. She reports yesterday he was not his normal self and was more confused and less alert. He complained of abdominal pain but they thought he just had a stomachache and did not think much of it. This morning he continued to complain of abdominal pain and vomited as well. He seemed pale and so they called Dr. Newman. Home health was there and joanna labs and they were told his blood count was low and advised to go to the emergency department. In the emergency department he was found to have a suzy red and dark blood on a digital rectal exam and a hemoglobin of 3.6. He is on warfarin and his INR was 4.2. He is being admitted to the ICU for further management. Granddaughter reports that he was previously told to be on Protonix but has been refusing to take it. Subjective/Events-last exam Pt reports doing well. No complaints. Only request is for a big Mac. Does ask if he his going to get a colonoscopy but I am unsure of this. Focused Exam Lactate Level 11/16/22 13:06: Lactic Acid Level 3.62*H 11/16/22 15:52: Lactic Acid Level 2.54*H 11/16/22 18:00: Lactic Acid Level 2.16*H Objective Exam Vital Signs Vital Signs Date Time Temp Pulse Resp B/P (MAP) Pulse Ox O2 Delivery O2 Flow Rate FiO2 11/19/22 08:05 96 Room Air 0.00 11/19/22 08:00 80 9 145/86 (95) 11/19/22 07:41 36.8 11/17/22 19:43 21 Capillary Refill : Less Than 3 Seconds General Appearance: No Apparent Distress, Chronically ill, Obese Respiratory: Lungs Clear, No Respiratory Distress Cardiovascular: Regular Rate, Rhythm, No Murmur Gastrointestinal: Normal Bowel Sounds, Non Tender, Soft Neurologic/Psychiatric: Alert, Oriented x3 Results/Procedures Lab Laboratory Tests 11/18/22 11:00 11/18/22 17:35 11/19/22 02:57 Patient resulted labs reviewed. Assessment/Plan Assessment and Plan Assess & Plan/Chief Complaint Acute GI Bleed Severe anemia Chronic anticoagulation Supratherapuetic INR h/o DVT Hgb 7.8 This AM after 6 total units INR still 1.2 Protonix gtt, switch to BID dosing Surgery consulted, appreciate recs CT Abd/pelvis without perforation or inflammatory process EGD with healling ulcer, discussed with Dr Ruff and will plan for colonoscopy tomorrow Transfer to [address] [place] [address] CAD Parkinson's Continue home meds as appropriate Code status Pt requests to be DNR now that AMS status resolved Morbid obesity Clinically significant, no acute management needs DVT prophylaxis: SCDs only for GI bleed Critical Care Critically Ill Patient Diagnosis/Problems Diagnosis/Problems (1) Acute GI bleeding (2) BREANNA (acute kidney injury) Status: Acute (3) History of DVT (deep vein thrombosis) Status: Chronic (4) Anticoagulated on Coumadin Status: Acute (5) History of pulmonary embolus (PE) Status: Chronic (6) Morbid obesity Status: Chronic (7) Parkinson disease Status: Chronic (8) Essential (primary) hypertension Status: Chronic (9) CAD (coronary artery disease) Qualifiers: Coronary Disease-Associated Artery/Lesion type: [place] artery [place] vs. transplanted heart: [place] heart Associated angina: without angina Qualified Codes: I25.10 - Atherosclerotic heart disease of [place] coronary artery without angina pectoris (10) CKD (chronic kidney disease) Qualifiers: Chronic kidney disease stage: stage 3 (moderate) Chronic kidney disease stage 3 subtype: stage 3b (GFR 30-44) Qualified Codes: N18.32 - Chronic kidney disease, stage 3b FRANCESCO DAWSON MD Nov 19, 2022 09:11
[2022-11-19] MEDS ORDERED: LORATADINE (CLARITIN) 10 MG TAB PO PRN (09:15)
[2022-11-19] MEDS ORDERED: POT PHOS/NA PHOS (K-PHOS NEUTRAL) PO NR (10:00)
[2022-11-19] MEDS: MICONAZOLE 2% POWDER (DESENEX AF) 90 GM TOP SCH ×2 (10:20→21:03)
[2022-11-19] MEDS: PANTOPRAZOLE 40 MG (PROTONIX) VIAL IV SCH ×2 (10:20→20:29)
--- NOTE | 2022-11-19 10:24 | Tele-ICU Progress Note ---
Subjective Date Seen by a Provider: Nov 19, 2022 Time Seen by a Provider: 10:24 Subjective/Events-last exam (Tele-ICU Physician , Progress Note ) Service provided via interactive audio and video telecommunications E-CARE system to a patient admitted to ICU bed in [facility]. Patient is seen today due to persistent need of ICU care Available chart/ vitals / labs / Images reviewed Video assessment done using teleICU camera, rest of exam as per RN Discussed with RN Events overnight : Afebrile hemodynamically stable Respiratory - 2 l I/O = even Drips: Pressors- no Hospital course: (11/16) 71M Admitted for GIB/severe anemia on chronic anticoagulation w/supratherapeutic INR for h/o DVT. PRBC's/Vit K given. New ARF. A/P Suspected GIB - PPI gtt - CT -egd 11/18- no active bleeding , for olonoscopy tomorrow as per sx ABLA - hb 3.6 --> 6.4 received 6 u prbc , hb stable now 24 h BREANNA - improving - stop hydration Coagulopathy , -Supratherapeutic INR on Coumadin -resolved with FFP + vit K - follow h/o PE . DVT - was on coumadin, on hold now Lactic acidosis- improved Lines : , (Central Line Necessity Reviewed) Beltrán: OG: Nutrition: Analgesia: Anxiety/ delirium VTE Prophylaxis: scd Stress Ulcer Prophylaxis: ppi gtt Plans in collaboration with bedside consultants and IM MDs. Discussed with RN to reach out if any questions or concerns Case and care daily discussed on multidisciplinary rounds ( RN, PharmD, Spray Ii Painter , Respiratory Therapy, lineworker ) A total of 15 minutes of critical care time was devoted to this patient today, required to treat and/or prevent further deterioration of critical care condition ( as above ) . Sepsis Event Evaluation Height, Weight, BMI Height: 6'0.00" Weight: 327lbs. 0.0oz. 148.101862jx; 52.29 BMI Method:Estimated Focused Exam Lactate Level 11/16/22 13:06: Lactic Acid Level 3.62*H 11/16/22 15:52: Lactic Acid Level 2.54*H 11/16/22 18:00: Lactic Acid Level 2.16*H Exam Exam Patient acknowledged, consented, and participated in this virtual visit which was conducted using real time audio/video Vital Signs Date Time Temp Pulse Resp B/P (MAP) Pulse Ox O2 Delivery O2 Flow Rate FiO2 11/19/22 09:00 89 17 127/91 (97) 98 Room Air 11/19/22 08:05 96 Room Air 0.00 11/19/22 08:00 80 9 145/86 (95) 98 Room Air 11/19/22 07:41 36.8 11/19/22 07:00 74 14 154/85 (110) 92 Room Air 11/19/22 07:00 89 11/19/22 06:00 82 19 142/67 (92) 96 Room Air 11/19/22 05:00 73 14 140/62 (88) 95 Room Air 11/19/22 04:03 100 Room Air 11/19/22 04:00 36.5 Room Air 11/19/22 04:00 77 13 143/65 (91) 96 Room Air 11/19/22 03:00 81 20 145/92 (109) 96 Room Air 11/19/22 02:00 85 15 151/73 (99) 97 Room Air 11/19/22 01:00 80 11/19/22 01:00 91 24 137/57 (83) 97 Room Air 11/19/22 00:00 80 15 173/74 (107) 97 Room Air 11/19/22 00:00 36.4 98 Room Air 11/19/22 00:00 98 Room Air 11/18/22 23:00 81 15 132/86 (101) 95 Nasal Cannula 2.00 11/18/22 22:00 75 30 137/68 (91) 95 Nasal Cannula 2.00 11/18/22 21:00 88 37 125/64 (84) 97 Nasal Cannula 2.00 11/18/22 20:00 97 Room Air 11/18/22 20:00 76 18 152/74 (100) 96 Nasal Cannula 2.00 11/18/22 19:47 36.8 11/18/22 19:00 83 11/18/22 19:00 79 14 137/76 (96) 97 Nasal Cannula 2.00 11/18/22 18:00 77 97 Nasal Cannula 2.00 11/18/22 17:00 73 97 Nasal Cannula 2.00 11/18/22 16:00 99 Room Air 11/18/22 16:00 77 16 178/82 (114) 96 Nasal Cannula 2.00 11/18/22 15:00 82 17 184/104 (130) 97 Nasal Cannula 2.00 11/18/22 14:00 84 22 190/98 (128) 97 Nasal Cannula 2.00 11/18/22 13:00 83 17 163/81 (108) 97 Nasal Cannula 2.00 11/18/22 12:00 95 Room Air 11/18/22 11:56 87 18 99 Room Air 11/18/22 11:00 75 17 148/79 (102) 96 Nasal Cannula 2.00 11/18/22 10:50 96 Room Air I & O 11/19/22 07:00 Intake Total 3960 ml Output Total 2450 ml Balance 1510 ml Height & Weight Height: 6'0.00" Weight: 327lbs. 0.0oz. 148.137294bn; 52.29 BMI Method:Estimated General Appearance: No Apparent Distress, Chronically ill, Obese HEENT: PERRL/EOMI, Moist Mucous Membranes Neck: Non Tender, Supple Respiratory: Lungs Clear, No Respiratory Distress Cardiovascular: Regular Rate, Rhythm, No Murmur Capillary Refill: Less Than 3 Seconds Gastrointestinal: non tender, soft Extremity: No Calf Tenderness, Pedal Edema (1-2+ B/L LE; R>L; improved from last exam) Neurologic/Psychiatric: Alert, Oriented x3 Skin: Warm/Dry, Pallor, Other (b/l LE venous stasis dermatitis) Lymphatic: No Adenopathy Results Lab Laboratory Tests 11/17/22 20:08 11/18/22 02:40 11/18/22 04:14 11/18/22 11:00 11/18/22 17:35 11/19/22 02:57 Assessment/Plan Assessment/Plan 1 HENNY ALTMAN MD Nov 19, 2022 10:24
[2022-11-19] MEDS ORDERED: GOLYTELY POWDER 4000 ML BTL PO NR (11:00)
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
[2022-11-19] MEDS: SINEMET 25/250 (CARBIDOPA/LEVODOPA) TAB PO SCH ×3 (12:09→21:04)
[2022-11-19] MEDS: GABAPENTIN 300 MG (NEURONTIN) CAP PO SCH ×2 (12:09→20:29)
[2022-11-19 15:42] VITALS: BP 142/66
[2022-11-19 19:13] VITALS: BP 150/77
--- NOTE | 2022-11-19 19:48 | Physician Query Clarification ---
Physician Query-General Query to Physician: The medical record reflects the following clinical evidence: Clinical Indicators: "anemia possible upper or lower GI bleed with FOBT positive", on Coumadin Risk Factor(s): Admission H/H 3.6/12 Has improved to 8.1/25, INR 4,2 PT 40.9 did decrease to 1.2 and 15.6, EGD: possible healing ulcer Treatment: 6 units of PRBC's, 1 unit of FFP, Phytonadione IV, Lab monitoring, Holding Coumadin, Hemorrhagic disorder due to extrinsic circulating anticoagulants, present on admission Other explanation of clinical findings Unable to determine (no explanation for clinical findings) Please clarify and document your clinical opinion in the progress notes and discharge summary including the definitive and/or presumptive diagnosis, (suspected or probable), related to the above clinical findings. Please include clinical findings supporting your diagnosis. Gwen Cohen, MSN, RN Clinical Laborer Drying Department [phone] [email or web address] PHYSICIAN RESPONSE: Based on the clinical findings in the record, please respond to the query above on this document as an addendum. Physician Response: Physician Response Hemorrhagic disorder due to extrinsic circulating anticoagulants, present on admission If you have questions please contact: [employer] Field Coordinator: Ext: Thank you for your time and cooperation. Clinical Laborer Drying Department/[employer] Field Coordinator This is a permanent part of the medical record GWEN COHEN Nov 19, 2022 19:48 FRANCESCO DAWSON MD Nov 20, 2022 10:25
[2022-11-19] MEDS: AtorvaSTATin TABLET 10 MG TABLET PO SCH (20:29)
[2022-11-20] VITALS (10 sets, daily range): BP systolic 111–152; BP diastolic 55–95
[2022-11-20 05:49] LABS: HEMATOCRIT 25 % (40-54); HEMOGLOBIN 7.8 g/dL (13.3-17.7); MEAN CORPUSCULAR HEMOGLOBIN 27 pg (25-34); MEAN CORPUSCULAR HGB CONC 32 g/dL (32-36); MEAN CORPUSCULAR VOLUME 84 fL (80-99); MEAN PLATELET VOLUME 9.6 fL (9.0-12.2); PLATELET COUNT 216 10^3/uL (130-400); WHITE BLOOD COUNT 8.1 10^3/uL (4.3-11.0)
[2022-11-20 05:54] LABS: INR 1.2 (0.8-1.4); POTASSIUM 3.6 MMOL/L (3.6-5.0); PROTHROMBIN TIME PATIENT 15.4 SEC (12.2-14.7)
[2022-11-20 05:55] LABS: CALCIUM 7.8 MG/DL (8.5-10.1)
[2022-11-20 05:59] LABS: PHOSPHORUS 2.6 MG/DL (2.3-4.7)
[2022-11-20] MEDS: KCL 20 MEQ TAB (K-DUR) PO SCH (06:00)
[2022-11-20] MEDS: POTASSIUM CL 10MEQ/50ML IVPB 50 ML IV SCH ×5 (06:00→12:54)
[2022-11-20] MEDS: inSUlin ASPART (NovoLOG) 1 UNIT/0.01 ML (CHARGE PER UNIT) SC SCH ×4 (06:01→21:06)
[2022-11-20] MEDS: MAGNESIUM 1 GM/100 ML IVPB 100 ML IV SCH (06:04)
--- NOTE | 2022-11-20 08:02 | Progress Note - Surgery ---
SILVIAMAYRA 11/20/22 0802: Subjective Date Seen by a Provider: Nov 20, 2022 Time Seen by a Provider: 07:00 Subjective/Events-last exam Pt is resting comfortably in bed. Pt denies any abd pain and has no complaints at this time. States that he feels good this morning. Pt finished his golytely prep and per nurse, had been having clear stools since yesterday afternoon. No stools overnight or this morning. Hgb stable today at 7.8. Pt denies any CP, SOB, abd pain, nausea, vomiting, lightheadedness, chills, and weakness. Review of Systems General: No Chills, No Night Sweats HEENT: No Head Aches, No Eye Pain Pulmonary: No Dyspnea, No Cough Cardiovascular: No: Chest Pain, Orthopnea Gastrointestinal: No: Nausea, Vomiting, Abdominal Pain Genitourinary: No Dysuria, No Hematuria Musculoskeletal: No: neck pain, shoulder pain Neurological: No: Weakness, Numbness Objective Exam Vital Signs Date Time Temp Pulse Resp B/P (MAP) Pulse Ox O2 Delivery O2 Flow Rate FiO2 11/20/22 07:18 36.7 78 20 111/56 (74) 97 Room Air 11/20/22 07:00 75 11/20/22 04:00 36.8 75 20 142/76 (98) 97 Room Air 11/20/22 01:00 74 11/20/22 00:52 36.8 80 97 21 11/20/22 00:15 37.0 96 22 133/63 (86) 96 Room Air 11/19/22 20:25 Room Air 11/19/22 19:13 36.8 77 20 150/77 (101) 97 Room Air 11/19/22 19:00 80 11/19/22 15:42 36.6 72 20 142/66 (91) 98 Room Air 11/19/22 13:10 37.3 80 20 151/74 (99) 98 Room Air 11/19/22 13:00 98 Room Air 0.00 11/19/22 13:00 77 11/19/22 12:00 100 Room Air 11/19/22 12:00 98 14 133/75 (81) 98 Room Air 11/19/22 11:47 36.9 11/19/22 09:00 89 17 127/91 (97) 98 Room Air 11/19/22 08:05 96 Room Air 0.00 11/19/22 08:00 100 Room Air 11/19/22 08:00 80 9 145/86 (95) 98 Room Air I & O 11/20/22 07:00 Intake Total 4851 ml Output Total 3875 ml Balance 976 ml Capillary Refill : Less Than 3 Seconds General Appearance: No Apparent Distress, Chronically ill, Obese HEENT: PERRL/EOMI, Moist Mucous Membranes Neck: Non Tender, Supple Respiratory: Lungs Clear, Normal Breath Sounds, No Accessory Muscle Use, No Respiratory Distress Cardiovascular: Regular Rate, Rhythm, No Edema, No Murmur Peripheral Pulses: 2+ Dorsalis Pedis (R), 2+ Left Dors-Pedis (L) Gastrointestinal: non tender, soft Extremity: No Calf Tenderness, Pedal Edema (1-2+ B/L LE; R>L; improved from last exam) Neurologic/Psychiatric: Alert, Oriented x3 Skin: Warm/Dry, Other (b/l LE venous stasis dermatitis) Lymphatic: No Adenopathy Results Lab Laboratory Tests 11/19/22 10:22: Glucometer 171H 11/19/22 13:28: Lab Scanned Report Transfusion Reaction Form 11/19/22 16:08: Glucometer 109 11/19/22 20:15: Glucometer 111H 11/20/22 05:30: White Blood Count 8.1, Red Blood Count 2.94L, Hemoglobin 7.8L, Hematocrit 25L, Mean Corpuscular Volume 84, Mean Corpuscular Hemoglobin 27, Mean Corpuscular Hemoglobin Concent 32, Red Cell Distribution Width 16.5H, Platelet Count 216, Mean Platelet Volume 9.6, Prothrombin Time 15.4H, INR Comment 1.2, Sodium Level 140, Potassium Level 3.6, Chloride Level 112H, Carbon Dioxide Level 19L, Anion Gap 9, Blood Urea Nitrogen 9, Creatinine 1.00, Estimat Glomerular Filtration Rate 81, BUN/Creatinine Ratio 9, Glucose Level 100, Calcium Level 7.8L, Phosphorus Level 2.6, Magnesium Level 2.0 Microbiology 11/16/22 MRSA Screen - Final, Complete MRSA not isolated Assessment/Plan Assessment/Plan Assessment/Plan Anemia - possible upper or lower gi bleed with FOB+ S/P 4UPRBC and 1FFP Supratherapeutic INR-resolved Lactic acidosis- improved h/o GI bleed h/o colon polyps GERD Chronic Anticoagulation IVF IV Protonix Pain medication prn NPO until after colonoscopy then clear liquids Trend Hgb daily, transfuse if <7 Continue to hold anticoagulation Pt remains to be hemodynamically stable Colonoscopy planned for today PORSHA RUFF DO 11/20/22 1005: Subjective Subjective/Events-last exam Laying in bed. Prep went good. No abdominal pain. Denies new complaints. Hgb stable. Denies n/v fever sweats chills shortness of breath or chest pain. Objective Exam General Appearance: No Apparent Distress, Chronically ill, Obese HEENT: PERRL/EOMI, Moist Mucous Membranes Neck: Non Tender, Supple Respiratory: Chest Non Tender, No Accessory Muscle Use, No Respiratory Distress Cardiovascular: Regular Rate, Rhythm, No JVD Gastrointestinal: non tender, soft Extremity: No Calf Tenderness, Pedal Edema (1-2+ B/L LE; R>L; improved from last exam) Neurologic/Psychiatric: Alert, Oriented x3 Skin: Normal Color, Warm/Dry Lymphatic: No Adenopathy Assessment/Plan Assessment/Plan Assessment/Plan Anemia - possible upper or lower gi bleed with FOB+ S/P 4UPRBC and 1FFP Supratherapeutic INR-resolved Lactic acidosis- improved h/o GI bleed h/o colon polyps GERD Chronic Anticoagulation IVF IV Protonix Pain medication prn NPO until after colonoscopy then clear liquids Trend Hgb daily, transfuse if <7 Continue to hold anticoagulation Pt remains to be hemodynamically stable Colonoscopy planned for today Supervisory-Addendum Brief Verification & Attestation Participated in pt care: history, MDM, physical Personally performed: exam, history, MDM, supervision of care Care discussed with: Medical Student Procedures: n/a Results interpretation: Verified all documentation Verification and Attestation of Medical Student E/M Service A medical student performed and documented this service in my presence. I reviewed and verified all information documented by the medical student and made modifications to such information, when appropriate. I personally performed the physical exam and medical decision making. Porsha Ruff Nov 20, 2022,10:04 MAYRA VEGA Nov 20, 2022 08:02 PORSHA RUFF DO Nov 20, 2022 10:05
[2022-11-20] MEDS ORDERED: LACTATED RINGERS 1,000 ML IV ONE (08:28)
[2022-11-20] MEDS ORDERED: KETAMINE 50 MG/5 ML SYRINGE ONE (09:08)
[2022-11-20] MEDS ORDERED: PROPOFOL INJECTION 50 ML IV ONE (09:08)
--- NOTE | 2022-11-20 10:06 | Progress Note-Post Operative ---
Post-Operative Progess Note Surgeon (s)/Shot Tube Machine Tender (s) Surgeon PORSHA BYRNES DO Shot Tube Machine Tender: na Pre-Operative Diagnosis Anemia Post-Operative Diagnosis colon polyp, diverticulosis Procedure & Operative Findings Date of Procedure 11/20/22 Procedure Performed/Findings colonoscopy with hot bx polypectomy x 2 Anesthesia Type per fall intern Estimated Blood Loss Estimated blood loss (mL): none Specimens/Packing Specimens Removed transverse colon polyp x 2 PORSHA BYRNES DO Nov 20, 2022 10:06
[2022-11-20] MEDS ORDERED: LACTATED RINGERS 1,000 ML IV STA (10:21)
[2022-11-20] MEDS: SINEMET 25/250 (CARBIDOPA/LEVODOPA) TAB PO SCH ×4 (10:39→22:21)
[2022-11-20] MEDS: PANTOPRAZOLE 40 MG (PROTONIX) VIAL IV SCH ×2 (10:39→20:16)
[2022-11-20] MEDS: GABAPENTIN 300 MG (NEURONTIN) CAP PO SCH ×3 (10:39→20:16)
[2022-11-20] MEDS: NS IV 1000 ML 1,000 ML IV SCH ×2 (10:39→20:21)
[2022-11-20] MEDS: MICONAZOLE 2% POWDER (DESENEX AF) 90 GM TOP SCH ×2 (10:40→20:17)
--- NOTE | 2022-11-20 11:23 | Progress Note - Hospitalist ---
Subjective HPI/CC On Admission Date Seen by Provider: Nov 20, 2022 Patient is 71-year-old male with past medical history of GI bleed,PE, reported DVT, hypertension, Parkinson's who presented to the emergency department due to altered mental status and anemia. He is unable to provide any history but he has a granddaughter who supplements some. She reports yesterday he was not his normal self and was more confused and less alert. He complained of abdominal pain but they thought he just had a stomachache and did not think much of it. This morning he continued to complain of abdominal pain and vomited as well. He seemed pale and so they called Dr. Newman. Home health was there and joanna labs and they were told his blood count was low and advised to go to the emergency department. In the emergency department he was found to have a suzy red and dark blood on a digital rectal exam and a hemoglobin of 3.6. He is on warfarin and his INR was 4.2. He is being admitted to the ICU for further management. Granddaughter reports that he was previously told to be on Protonix but has been refusing to take it. Subjective/Events-last exam Pt back to room after colonoscopy. No complaints. family at bedside. Discuss plan to watch labs tomorrow AM and if doing well maybe home tomorrow. Objective Exam Vital Signs Vital Signs Date Time Temp Pulse Resp B/P (MAP) Pulse Ox O2 Delivery O2 Flow Rate FiO2 11/20/22 10:25 94 Room Air 11/20/22 10:25 66 21 11/20/22 09:45 18 11/20/22 07:18 36.7 111/56 (74) 11/19/22 13:00 0.00 Capillary Refill : Less Than 3 Seconds General Appearance: No Apparent Distress, Chronically ill, Obese Respiratory: Lungs Clear, No Respiratory Distress Cardiovascular: Regular Rate, Rhythm Neurologic/Psychiatric: Alert, Oriented x3 Results/Procedures Lab Laboratory Tests 11/20/22 05:30 Patient resulted labs reviewed. Assessment/Plan Assessment and Plan Assess & Plan/Chief Complaint Acute GI Bleed Severe anemia Chronic anticoagulation Supratherapuetic INR h/o DVT Hgb stable at 7.8 This AM after 6 total units INR 1.2 Protonix BID Surgery consulted, appreciate recs CT Abd/pelvis without perforation or inflammatory process EGD with healing ulcer, and colonoscopy with diverticulosis s/p polypectomy x2 HTN HLD CAD Parkinson's Continue home meds as appropriate PT Code status Pt requests to be DNR now that AMS status resolved Morbid obesity Clinically significant, no acute management needs DVT prophylaxis: SCDs only for GI bleed Critical Care Critically Ill Patient Diagnosis/Problems Diagnosis/Problems (1) Acute GI bleeding (2) BREANNA (acute kidney injury) Status: Acute (3) History of DVT (deep vein thrombosis) Status: Chronic (4) Anticoagulated on Coumadin Status: Acute (5) History of pulmonary embolus (PE) Status: Chronic (6) Morbid obesity Status: Chronic (7) Parkinson disease Status: Chronic (8) Essential (primary) hypertension Status: Chronic (9) CAD (coronary artery disease) Qualifiers: Coronary Disease-Associated Artery/Lesion type: [place] artery [place] vs. transplanted heart: [place] heart Associated angina: without angina Qualified Codes: I25.10 - Atherosclerotic heart disease of [place] coronary artery without angina pectoris (10) CKD (chronic kidney disease) Qualifiers: Chronic kidney disease stage: stage 3 (moderate) Chronic kidney disease stage 3 subtype: stage 3b (GFR 30-44) Qualified Codes: N18.32 - Chronic kidney disease, stage 3b FRANCESCO DAWSON MD Nov 20, 2022 11:23
--- NOTE | 2022-11-20 11:24 | Physical Therapy Progress Note ---
Therapy Progress Note Patient returning to floor after having colonoscopy. Nurse requested hold for today. Will attempt treatment again and progress per patient tolerance at next available time. OLINDA MUSE PT Nov 20, 2022 11:24
--- NOTE | 2022-11-20 15:46 | OPERATIVE REPORT ---
DATE OF SERVICE: 11/20/2022 PREOPERATIVE DIAGNOSES: Anemia, gastrointestinal bleed. POSTOPERATIVE DIAGNOSES: Diverticulosis, transverse colon polyps. PROCEDURE: Colonoscopy with hot biopsy polypectomy x2. SURGEON: Porsha Ruff DO ANESTHESIA: Per RETREAD MOLD OPERATOR. ESTIMATED BLOOD LOSS: None. COMPLICATIONS: None. INDICATIONS: The patient is a 71-year-old male with anemia and some blood per rectum. He understands risks and benefits of procedure and wishes to proceed. Consent was signed in chart. DESCRIPTION OF PROCEDURE: The patient was taken to the endoscopy suite, placed in left lateral recumbent position. Timeout was performed. Digital rectal exam was performed. No palpable polyps, masses or ulcerations. Scope was inserted in the rectum, advanced all the way to the cecum with minimal difficulty. The terminal ileum was intubated. No pathology noted. Scope was retracted back into the colon, prep was adequate. Scope was then slowly retracted back. No polyps, masses or ulcerations in the cecum and ascending colon. In the transverse colon, 2 small polyps were present, which hot biopsy polypectomy was performed. Scope was then continuously retracted back. No polyps, masses or ulcerations in the remainder of the transverse, descending and sigmoid colon. Sigmoid colon had some minimal diverticulosis present. Scope was then continuously retracted back in the rectum where it was also retroflexed noting no other pathology. Scope was returned to its normal position, slowly withdrawn until completely removed. The patient tolerated the procedure well, no complications, taken to recovery room in stable condition. RECOMMENDATIONS: The patient with no evidence of any bleeding in the colon or terminal ileum. Continue to monitor. If he continues to have bleeding or drop in hemoglobin, we would depending on situation repeat endoscopy or also consider capsule endoscopy. Job ID: [id number] DocumentID: [id number] Dictated Date: 11/20/2022 10:09:46 Link Wire Fabric Machine Operator Date: 11/20/2022 15:43:00 Dictated By: PORSHA RUFF DO
[2022-11-20] MEDS: AtorvaSTATin TABLET 10 MG TABLET PO SCH (20:16)
[2022-11-21 03:30] VITALS: BP 141/64
[2022-11-21 03:58] LABS: HEMATOCRIT 25 % (40-54); HEMOGLOBIN 7.7 g/dL (13.3-17.7); MEAN CORPUSCULAR HEMOGLOBIN 27 pg (25-34); MEAN CORPUSCULAR HGB CONC 31 g/dL (32-36); MEAN CORPUSCULAR VOLUME 85 fL (80-99); MEAN PLATELET VOLUME 9.4 fL (9.0-12.2); PLATELET COUNT 183 10^3/uL (130-400); WHITE BLOOD COUNT 7.8 10^3/uL (4.3-11.0)
[2022-11-21 04:06] LABS: POTASSIUM 3.9 MMOL/L (3.6-5.0)
[2022-11-21 04:08] LABS: CALCIUM 7.6 MG/DL (8.5-10.1)
[2022-11-21 04:12] LABS: CREATININE SERUM 0.96 MG/DL (0.60-1.30); PHOSPHORUS 3.2 MG/DL (2.3-4.7)
[2022-11-21 04:14] LABS: MAGNESIUM 1.9 MG/DL (1.6-2.4)
[2022-11-21] MEDS: KCL 20 MEQ TAB (K-DUR) PO SCH (05:04)
[2022-11-21] MEDS: inSUlin ASPART (NovoLOG) 1 UNIT/0.01 ML (CHARGE PER UNIT) SC SCH ×4 (05:11→20:49)
[2022-11-21] MEDS: POTASSIUM CL 10MEQ/50ML IVPB 50 ML IV SCH (05:13)
[2022-11-21] MEDS: NS IV 1000 ML 1,000 ML IV SCH ×2 (06:38→16:49)
[2022-11-21] MEDS: MAGNESIUM 1 GM/100 ML IVPB 100 ML IV SCH (06:39)
[2022-11-21] MEDS ORDERED: MAGNESIUM 1 GM/100 ML IVPB 100 ML IV ONE (07:30)
--- NOTE | 2022-11-21 07:40 | Progress Note - Surgery ---
Subjective Date Seen by a Provider: Nov 21, 2022 Time Seen by a Provider: 07:38 Subjective/Events-last exam Patient tolerating diet. No more bloody bm. Hgb stable denies n/v fever sweats chills shortness of breath or chest pain. Objective Exam Vital Signs Date Time Temp Pulse Resp B/P (MAP) Pulse Ox O2 Delivery O2 Flow Rate FiO2 11/21/22 07:00 73 11/21/22 03:30 37.7 77 12 141/64 (89) 96 Room Air 11/21/22 01:00 80 11/20/22 23:20 36.7 88 12 152/71 (98) 97 Room Air 11/20/22 20:30 Room Air 11/20/22 19:47 37.1 74 16 122/71 (88) 96 Room Air 11/20/22 19:00 71 11/20/22 16:01 36.7 76 16 118/55 (76) 98 Room Air 11/20/22 12:35 73 11/20/22 11:59 35.9 79 18 144/95 (111) 97 Room Air 11/20/22 10:25 94 Room Air 11/20/22 10:25 66 94 21 11/20/22 09:45 70 18 99 Room Air 11/20/22 09:40 75 16 100 Room Air 11/20/22 08:50 Room Air I & O 11/21/22 07:00 Intake Total 2050 ml Output Total 2475 ml Balance -425 ml Capillary Refill : Less Than 3 Seconds General Appearance: No Apparent Distress, Chronically ill, Obese HEENT: PERRL/EOMI, Moist Mucous Membranes Neck: Non Tender, Supple Respiratory: Lungs Clear, No Respiratory Distress Cardiovascular: Regular Rate, Rhythm Peripheral Pulses: 2+ Dorsalis Pedis (R), 2+ Left Dors-Pedis (L) Gastrointestinal: non tender, soft Extremity: No Calf Tenderness, Pedal Edema (1-2+ B/L LE; R>L; improved from last exam) Neurologic/Psychiatric: Alert, Oriented x3 Skin: Normal Color, Warm/Dry Lymphatic: No Adenopathy Results Lab Laboratory Tests 11/20/22 11:05: Glucometer 96 11/20/22 15:56: Glucometer 119H 11/20/22 20:53: Glucometer 99 3/26/23 03:40: White Blood Count 7.8, Red Blood Count 2.90L, Hemoglobin 7.7L, Hematocrit 25L, Mean Corpuscular Volume 85, Mean Corpuscular Hemoglobin 27, Mean Corpuscular Hemoglobin Concent 31L, Red Cell Distribution Width 16.7H, Platelet Count 183, Mean Platelet Volume 9.4, Sodium Level 141, Potassium Level 3.9, Chloride Level 113H, Carbon Dioxide Level 17L, Anion Gap 11, Blood Urea Nitrogen 9, Creatinine 0.96, Estimat Glomerular Filtration Rate 85, BUN/Creatinine Ratio 9, Glucose Level 98, Calcium Level 7.6L, Phosphorus Level 3.2, Magnesium Level 1.9 11/21/22 05:08: Glucometer 95 Microbiology 11/16/22 MRSA Screen - Final, Complete MRSA not isolated Assessment/Plan Assessment/Plan Assessment/Plan Anemia - possible upper or lower gi bleed with FOB+ S/P 4UPRBC and 1FFP Supratherapeutic INR-resolved Lactic acidosis- improved h/o GI bleed h/o colon polyps GERD Chronic Anticoagulation IVF IV Protonix Pain medication prn Soft diet Trend Hgb daily, transfuse if <7 Continue to hold anticoagulation Pt remains to be hemodynamically stable home soon PORSHA BYRNES DO Nov 21, 2022 07:40
[2022-11-21 07:41] VITALS: BP 142/76
[2022-11-21] MEDS: PANTOPRAZOLE 40 MG (PROTONIX) VIAL IV SCH ×2 (08:41→20:05)
[2022-11-21] MEDS: SINEMET 25/250 (CARBIDOPA/LEVODOPA) TAB PO SCH ×4 (08:41→21:30)
[2022-11-21] MEDS: GABAPENTIN 300 MG (NEURONTIN) CAP PO SCH ×3 (08:41→20:05)
[2022-11-21] MEDS: MICONAZOLE 2% POWDER (DESENEX AF) 90 GM TOP SCH ×2 (08:42→20:06)
--- NOTE | 2022-11-21 10:22 | Progress Note - Hospitalist ---
Subjective HPI/CC On Admission Date Seen by Provider: Nov 21, 2022 Patient is 71-year-old male with past medical history of GI bleed,PE, reported DVT, hypertension, Parkinson's who presented to the emergency department due to altered mental status and anemia. He is unable to provide any history but he has a granddaughter who supplements some. She reports yesterday he was not his normal self and was more confused and less alert. He complained of abdominal pain but they thought he just had a stomachache and did not think much of it. This morning he continued to complain of abdominal pain and vomited as well. He seemed pale and so they called Dr. Newman. Home health was there and joanna labs and they were told his blood count was low and advised to go to the emergency department. In the emergency department he was found to have a suzy red and dark blood on a digital rectal exam and a hemoglobin of 3.6. He is on warfarin and his INR was 4.2. He is being admitted to the ICU for further management. Granddaughter reports that he was previously told to be on Protonix but has been refusing to take it. Subjective/Events-last exam Pt reports doing well. No complaints. RN reports concerns about his mobility. Was unable to take any steps and just scooted from bed to chair. Asked patient about mobility and he states it's touch and go. Objective Exam Vital Signs Vital Signs Date Time Temp Pulse Resp B/P (MAP) Pulse Ox O2 Delivery O2 Flow Rate FiO2 11/21/22 08:00 Room Air 11/21/22 07:41 36.8 70 20 142/76 (98) 95 11/20/22 10:25 21 11/19/22 13:00 0.00 Capillary Refill : Less Than 3 Seconds General Appearance: No Apparent Distress, WD/WN Respiratory: Lungs Clear, No Respiratory Distress Cardiovascular: Regular Rate, Rhythm, No Murmur Gastrointestinal: Normal Bowel Sounds, Soft Neurologic/Psychiatric: Alert, Oriented x3 Results/Procedures Lab Laboratory Tests 11/21/22 03:40 Patient resulted labs reviewed. Assessment/Plan Assessment and Plan Assess & Plan/Chief Complaint Acute GI Bleed Severe anemia Chronic anticoagulation Supratherapuetic INR h/o DVT Hgb stable at 7.7 This AM after 6 total units Protonix BID Surgery consulted, appreciate recs CT Abd/pelvis without perforation or inflammatory process EGD with healing ulcer, and colonoscopy with diverticulosis s/p polypectomy x2 PT HTN HLD CAD Parkinson's Continue home meds as appropriate Code status Pt requests to be DNR now that AMS status resolved Morbid obesity Clinically significant, no acute management needs DVT prophylaxis: SCDs only for GI bleed Critical Care Critically Ill Patient Diagnosis/Problems Diagnosis/Problems (1) Acute GI bleeding (2) BREANNA (acute kidney injury) Status: Acute (3) History of DVT (deep vein thrombosis) Status: Chronic (4) Anticoagulated on Coumadin Status: Acute (5) History of pulmonary embolus (PE) Status: Chronic (6) Morbid obesity Status: Chronic (7) Parkinson disease Status: Chronic (8) Essential (primary) hypertension Status: Chronic (9) CAD (coronary artery disease) Qualifiers: Coronary Disease-Associated Artery/Lesion type: [place] artery [place] vs. transplanted heart: [place] heart Associated angina: without angina Qualified Codes: I25.10 - Atherosclerotic heart disease of [place] coronary artery without angina pectoris (10) CKD (chronic kidney disease) Qualifiers: Chronic kidney disease stage: stage 3 (moderate) Chronic kidney disease sta ge 3 subtype: stage 3b (GFR 30-44) Qualified Codes: N18.32 - Chronic kidney disease, stage 3b FRANCESCO DAWSON MD Nov 21, 2022 10:22 am
[2022-11-21 11:28] VITALS: BP 138/85
[2022-11-21 15:43] VITALS: BP 154/73
[2022-11-21 19:46] VITALS: BP 168/75
[2022-11-21] MEDS: AtorvaSTATin TABLET 10 MG TABLET PO SCH (20:05)
[2022-11-21 23:20] VITALS: BP 158/85
[2022-11-22] MEDS: NS IV 1000 ML 1,000 ML IV SCH (03:05)
[2022-11-22 03:43] VITALS: BP 139/65
[2022-11-22 05:37] LABS: HEMATOCRIT 25 % (40-54); HEMOGLOBIN 7.8 g/dL (13.3-17.7); MEAN CORPUSCULAR HEMOGLOBIN 27 pg (25-34); MEAN CORPUSCULAR HGB CONC 31 g/dL (32-36); MEAN CORPUSCULAR VOLUME 86 fL (80-99); MEAN PLATELET VOLUME 9.6 fL (9.0-12.2); PLATELET COUNT 248 10^3/uL (130-400); WHITE BLOOD COUNT 7.1 10^3/uL (4.3-11.0)
[2022-11-22 05:52] LABS: CHLORIDE 113 MMOL/L (98-107); POTASSIUM 4.4 MMOL/L (3.6-5.0); SODIUM 138 MMOL/L (135-145)
[2022-11-22 05:53] LABS: CALCIUM 7.6 MG/DL (8.5-10.1)
[2022-11-22 05:55] LABS: GLUCOSE 100 MG/DL (70-105); TOTAL PROTEIN 5.7 GM/DL (6.4-8.2)
[2022-11-22 05:56] LABS: CARBON DIOXIDE 19 MMOL/L (21-32)
[2022-11-22 05:57] LABS: BILIRUBIN,TOTAL 0.4 MG/DL (0.1-1.0)
[2022-11-22 05:58] LABS: ALKALINE PHOSPHATASE 46 U/L (40-136); CREATININE SERUM 1.09 MG/DL (0.60-1.30); GFR ESTIMATED 73; PHOSPHORUS 3.4 MG/DL (2.3-4.7)
[2022-11-22 05:59] LABS: BUN/CREATININE RATIO 11
[2022-11-22] MEDS: POTASSIUM CL 10MEQ/50ML IVPB 50 ML IV SCH (06:00)
[2022-11-22] MEDS: inSUlin ASPART (NovoLOG) 1 UNIT/0.01 ML (CHARGE PER UNIT) SC SCH ×2 (06:00→12:00)
[2022-11-22] MEDS: KCL 20 MEQ TAB (K-DUR) PO SCH (06:00)
[2022-11-22 06:01] LABS: ALANINE AMINOTRANSFERASE < 6 U/L (0-55)
[2022-11-22 06:02] LABS: MAGNESIUM 2.1 MG/DL (1.6-2.4)
[2022-11-22] MEDS: MAGNESIUM 1 GM/100 ML IVPB 100 ML IV SCH (06:02)
--- NOTE | 2022-11-22 06:44 | Progress Note - Surgery ---
Subjective Date Seen by a Provider: Nov 22, 2022 Time Seen by a Provider: 06:10 Subjective/Events-last exam Pt is resting comfortably in bed. Pt states that he feels great today. Pt denies any abd pain. Tolerating soft diet without issue. Pt has not had a BM today or yesterday. Continues to void without issue and was able to ambulate to bathroom with walker, per pt. Hgb stable at 7.8. Pt has no complaints at this time and would like to go home today if possible. Denies nausea, vomiting, CP, SOB, cough, lightheadedness, and weakness. Review of Systems General: No Chills, No Night Sweats HEENT: No Head Aches, No Eye Pain Pulmonary: No Dyspnea, No Cough Cardiovascular: No: Chest Pain, Lt Headedness Gastrointestinal: No: Nausea, Vomiting, Abdominal Pain Genitourinary: No Dysuria, No Hematuria Musculoskeletal: No: neck pain, shoulder pain Neurological: No: Weakness, Numbness Objective Exam Vital Signs Date Time Temp Pulse Resp B/P (MAP) Pulse Ox O2 Delivery O2 Flow Rate FiO2 11/22/22 03:43 36.6 76 18 139/65 (89) 95 Room Air 11/22/22 01:00 72 11/21/22 23:20 37.3 82 18 158/85 (109) 98 Room Air 11/21/22 20:00 Room Air 11/21/22 19:46 36.5 77 16 168/75 (106) 98 Room Air 11/21/22 19:00 80 11/21/22 15:43 36.4 71 16 154/73 (100) 98 Room Air 11/21/22 12:35 73 11/21/22 11:28 36.5 66 18 138/85 (102) 98 Room Air 11/21/22 08:00 Room Air 11/21/22 07:41 36.8 70 20 142/76 (98) 95 Room Air 11/21/22 07:00 73 I & O 11/22/22 07:00 Intake Total 2230 ml Output Total 1780 ml Balance 450 ml Capillary Refill : Less Than 3 Seconds General Appearance: No Apparent Distress, WD/WN HEENT: PERRL/EOMI, Moist Mucous Membranes Neck: Non Tender, Supple Respiratory: Lungs Clear, Normal Breath Sounds, No Accessory Muscle Use, No Respiratory Distress Cardiovascular: Regular Rate, Rhythm, No Gallop, No Murmur Gastrointestinal: non tender, soft Extremity: No Calf Tenderness, Pedal Edema (3+ B/L LE; R>L) Neurologic/Psychiatric: Alert, Oriented x3 Skin: Normal Color, Warm/Dry Lymphatic: No Adenopathy Results Lab Laboratory Tests 11/21/22 10:52: Glucometer 112H 11/21/22 15:57: Glucometer 98 11/21/22 20:43: Glucometer 117H 11/22/22 05:25: White Blood Count 7.1, Red Blood Count 2.93L, Hemoglobin 7.8L, Hematocrit 25L, Mean Corpuscular Volume 86, Mean Corpuscular Hemoglobin 27, Mean Corpuscular Hemoglobin Concent 31L, Red Cell Distribution Width 16.9H, Platelet Count 248, Mean Platelet Volume 9.6, Sodium Level 138, Potassium Level 4.4, Chloride Level 113H, Carbon Dioxide Level 19L, Anion Gap 6, Blood Urea Nitrogen 12, Creatinine 1.09, Estimat Glomerular Filtration Rate 73, BUN/Creatinine Ratio 11, Glucose Level 100, Calcium Level 7.6L, Corrected Calcium 8.4L, Phosphorus Level 3.4, Ma gnesium Level 2.1, Total Bilirubin 0.4, Aspartate Amino Transf (AST/SGOT) 16, Alanine Aminotransferase (ALT/SGPT) < 6, Alkaline Phosphatase 46, Total Protein 5.7L, Albumin 3.0L Microbiology 11/16/22 MRSA Screen - Final, Complete MRSA not isolated Assessment/Plan Assessment/Plan Assessment/Plan Anemia - possible upper or lower gi bleed with FOB+ S/P 4UPRBC and 1FFP Supratherapeutic INR-resolved Lactic acidosis- improved h/o GI bleed h/o colon polyps GERD Chronic Anticoagulation IVF IV Protonix Pain medication prn Soft diet Trend Hgb daily, transfuse if <7 Continue to hold anticoagulation Pt remains to be hemodynamically stable Okay to OR home soon after cleared with medicine MAYRA VEGA Nov 22, 2022 06:44
[2022-11-22 07:54] VITALS: BP 133/74
[2022-11-22] MEDS: PANTOPRAZOLE 40 MG (PROTONIX) VIAL IV SCH (09:38)
[2022-11-22] MEDS: GABAPENTIN 300 MG (NEURONTIN) CAP PO SCH ×2 (09:42→12:15)
[2022-11-22] MEDS: SINEMET 25/250 (CARBIDOPA/LEVODOPA) TAB PO SCH ×2 (09:42→12:15)
[2022-11-22] MEDS: MICONAZOLE 2% POWDER (DESENEX AF) 90 GM TOP SCH (09:42)
[2022-11-22] MEDS ORDERED: PANT40TA52 PO (09:53)
[2022-11-22] MEDS ORDERED: LISI10TA25 PO (09:55)
--- NOTE | 2022-11-22 11:01 | Physical Therapy Daily Note ---
PT Daily Note-Current Subjective Patient agrees to up in recliner Pain Section J - Health Conditions 1. Rarely or not at all 2. Occasionally 3. Frequently 4. Almost constantly 8. Unable to answer Pain Effect on Sleep: 1 Pain Interference with Therapy: 1 Pain Interference w/Day-to-Day: 1 Transfers SCALE: Activities may be completed with or without assistive devices. 1-Lgyrlgnxll-smxgyne completes the activity by him/herself with no assistance from a helper. 5-Set-up or Clean-up Assistance-helper sets up or cleans up; patient completes activity. [place] assists only prior to or following the activity. 4-Supervision or Touching Assistance-helper provides verbal cues and/or touching/steadying and/or contact guard assistance as patient completes activity. Assistance may be provided throughout the activity or intermittently. 3-Partial/Moderate Assistance-helper does LESS THAN HALF the effort. [place] lifts, holds or supports trunk or limbs, but provides less than half the effort. 2-Substantial/Maximal Assistance-helper does MORE THAN HALF the effort. [place] lifts or holds trunk or limbs and provides more than half the effort. 4-Dkpccubnp-kmejex does ALL the effort. Patient does none of the effort to complete the activity. Or, the assistance of 2 or more helpers is required for the patient to complete the activity. If activity was not attempted, code reason: 7-Patient Refused. 9-Not Applicable-not attempted and the patient did not perform the activity before the current illness, exacerbation or injury. 10-Not Attempted due to Environmental Limitations-(lack of equipment, weather restraints, etc.). 88-Not Attempted due to Medical Conditions or Safety Concerns. Roll Left & Right (QC): 4 Sit to Lying (QC): 4 Lying to Sitting/Side of Bed(Q: 4 Chair/Wly-cx-Wniew Xfer(QC): 4 Weight Bearing Right Lower Extremity: Right Full Weight Bearing Left Lower Extremity: Left Full Weight Bearing Assessment Patient is up in recliner with needs met. Patient requires time to complete all functional tasks. Plan dismissal to home this week per patient. PT Warp Yarn Sorter Goals Alf Goals PT Alf Goals Time Frame: Nov 26, 2022 Roll Left & Right (QC): 6 Sit to Lying (QC): 6 Lying-Sitting on Side/Bed(QC): 6 Sit to Stand (QC): 4 Chair/Tdi-ui-Zcdpu Xfer(QC): 4 Toilet Transfer (QC): 4 PT Plan Treatment/Plan Treatment Plan: Continue Plan of Care Treatment Plan: Bed Mobility, Education, Functional Activity Apple, Functional Strength, Group Therapy, Gait, Safety, Therapeutic Exercise, Transfers Treatment Duration: Nov 26, 2022 Frequency: 6 times per week Estimated Hrs Per Day: .25 hour per day Patient and/or Family Agrees t: Yes Time Time In: 950 Time Out: 1000 DATE: Nov 22, 2022 Total Billed Treatment Time: 10 Total Billed Treatment 1 visit FA 10 min SIENA REYES PT Nov 22, 2022 11:01
--- NOTE | 2022-11-22 11:38 | Occ Therapy Progress Note ---
Therapy Progress Note Pt reported that he is discharging to home this afternoon. He thanked OTfor the exercises that he can do at home. Had no questions re: ADLs and stated that he will have help at home all the time. LANDRY CARRION OT, OT Nov 22, 2022 11:38
--- NOTE | 2022-11-22 11:56 | Discharge Summary ---
Discharge Summary Reconcile Patient Problems Problems Reviewed?: Yes Instructions for Patient Via Sweta Aviate, Assessment/Instructions See instructions Physician to follow Patient: Paty Discharge Diet for Home: Low Sodium Diet Hospital Course Date of Admission: Nov 16, 2022 at 15:12 Admission Diagnosis : Acute blood loss anemia due to GI bleeding Family Physician/Provider: Anshu Newman DO Date of Discharge: 11/22/22 Discharge Diagnosis: Acute blood loss anemia due to upper GI bleeding secondary to esophageal ulcer Hospital Course: Gurvinder Nevarez is a 71 year old male with PMH HTN, Parkinson's disease, history of VTE on Warfarin, morbid obesity, who was admitted with acute blood loss anemia due to GI bleeding. His hemoglobin was 3.6 on arrival. He was started on IV PPI. He was given 6 units PRBC. His hemoglobin stabilized. Surgery was consulted and performed EGD and colonoscopy. He was found to have an ulcer at the GE junction which was not bleeding at the time of endoscopy. He also had two colon polyps removed. He was started on an oral PPI. He remained stable. His course was complicated by mild hypertension. His Lisinopril was increased. His warfarin was discontinued after a discussion with his PCP Dr. Newman and Bank Teller Machine Mechanic Dr. Brennan. He will have a repeat hemoglobin check later this week. He should follow up with Dr. Newman in about a week. He was set up with home health care on discharge. Labs and Pending Lab Test: Laboratory Tests 11/21/22 15:57: Glucometer 98 11/21/22 20:43: Glucometer 117H 11/22/22 05:25: White Blood Count 7.1, Red Blood Count 2.93L, Hemoglobin 7.8L, Hematocrit 25L, Mean Corpuscular Volume 86, Mean Corpuscular Hemoglobin 27, Mean Corpuscular Hemoglobin Concent 31L, Red Cell Distribution Width 16.9H, Platelet Count 248, Mean Platelet Volume 9.6, Sodium Level 138, Potassium Level 4.4, Chloride Level 113H, Carbon Dioxide Level 19L, Anion Gap 6, Blood Urea Nitrogen 12, Creatinine 1.09, Estimat Glomerular Filtration Rate 73, BUN/Creatinine Ratio 11, Glucose Level 100, Calcium Level 7.6L, Corrected Calcium 8.4L, Phosphorus Level 3.4, Magnesium Level 2.1, Total Bilirubin 0.4, Aspartate Amino Transf (AST/SGOT) 16, Alanine Aminotransferase (ALT/SGPT) < 6, Alkaline Phosphatase 46, Total Protein 5.7L, Albumin 3.0L Microbiology 11/16/22 MRSA Screen - Final, Complete MRSA not isolated Home Meds Active Lisinopril 10 Mg Tablet 10 Mg PO DAILY 90 Days Pantoprazole Sodium 40 Mg Tablet.dr 40 Mg PO BID 60 Days Reported Fish Oil 1,200 mg Fish Oil (Fish Oil/Dha/Epa) 1,200 Mg-144 Mg-216 Mg Capsule 1 Each PO TID Loratadine 10 Mg Tablet 10 Mg PO DAILY PRN Warfarin Sodium 5 Mg Tablet 7.5 Mg PO MO,,FR @1200 TAKES 1 & (5MG) TABS Warfarin Sodium 5 Mg Tablet 5 Mg PO CEDILLO,,,SA @1200 Stool Softener (Docusate Sodium) 100 Mg Tablet 100 Mg PO DAILY PRN Nitroglycerin 0.4 Mg Tab.subl 0.4 Mg SL UD PRN Isosorbide Mononitrate ER (Isosorbide Mononitrate) 60 Mg Tab 60 Mg PO DAILY Ranexa (Ranolazine) 1,000 Mg Tab.er.12h 1,000 Mg PO 1700 Niacin ER (Niacin) 1,000 Mg Tab.er.24h 1,000 Mg PO HS Amlodipine Besylate 5 Mg Tablet 5 Mg PO DAILY Neurontin (Gabapentin) 300 Mg Capsule 600 Mg PO TID TAKES 2 (300MG) CAPS Aspirin EC (Aspirin) 81 Mg Tablet.dr 81 Mg PO HS Furosemide 80 Mg Tablet 40 Mg PO DAILY TAKES OF AN 80MG TAB Atorvastatin Calcium 10 Mg Tablet 10 Mg PO HS Carbidopa-Levodopa 25-250 Tab (Carbidopa/Levodopa) 1 Each Tablet 1 Tab PO 1200,1700,2200 Carbidopa-Levodopa 25-250 Tab (Carbidopa/Levodopa) 1 Each Tablet 2 Tab PO 0800 Consulations Surgery Patient Allergies: Coded Allergies: amoxicillin (Unverified Allergy, Mild, 02/04/09) Penicillins (Unverified Allergy, Unknown, 07/09/20) Height (Feet): 6 Height (Inches): 0.00 Weight (Pounds): 327 Weight (Ounces): 0.0 Home Health Need/Face to Face Date of Face to Face: Nov 22, 2022 Clinical Findings: Generalized weakness and fatigue, Muscle weakness I have seen Pt [id number]: Yes Discharged To: Home Diagnosis/Conditions: Esophageal ulcer with hemorrhage Acute blood loss anemia HTN CAD Parkinson's Morbid obesity Debility Problems/Diagnosis/Condition: (1) ABLA (acute blood loss anemia) (2) Acute GI bleeding (3) Essential (primary) hypertension (4) CAD (coronary artery disease) (5) Parkinson disease (6) Morbid obesity (7) Debility Patient is Homebound due to: Radha fall risk due to instabilty, Muscle weakness Homebound Status Due to the above stated illness, injury or surgical procedure (medical condition or diagnosis) and associated clinical findings, the patient is homebound because of his/her inability to leave home except with aid of a supportive device and/or person AND leaving the home requires a considerable and taxing effort or is medically contraindicated. Pt req the following assistanc: Aid of another person Home Health Nursing Orders Home Health Services Order: Nursing Services, Piling Setter-Evaluate & Treat, Physical Therapy-Evaluate & Treat Home Health Infusion Therapy Line Start Date: Nov 17, 2022 Therapy Orders Therapy Orders: OT (must have SN or PT order), Physical Therapy Therapy Specific Orders: Eval assistive deivces, Teach enviro modifications/safety, Gait training, Increase strength/endurance Certify Stmt I certify that this patient is under my care and that I, a nurse practitioner or a physician; a producer assistant working with me, had a face to face encounter that - meets the physician face to face encounter requirements with this patient as dated. Discharge Physical Exam General: Alert, No Acute Distress, Other (obese) Lungs: Clear to Auscultation, Normal Air Movement Heart: Regular Rate, No Murmurs Abdomen: Normal Bowel Sounds, Soft, No Tenderness Extremities: Other (chronic venous stasis dermatitis, mild edema) Skin: No Rashes, No Significant Lesion Neuro: Normal Speech, Normal Tone Psych/Mental Status: Mental Status NL, Mood NL SWAPNA FALLON MD Nov 22, 2022 11:51
[2022-11-22 12:03] VITALS: BP 143/67
[2022-11-22] MEDS ORDERED: PANTOPRAZOLE 40 MG (PROTONIX) TAB PO SCH (21:00)
== END 2022-11-22 12:30 | disposition home health service (06) | DRG 813 ==
LOC: EDUNIT# 12:26 → ER 12:27 → ICU 15:12 → 4TH 11-19 12:18
PROVIDERS: ADMIT Family Medicine; ATTEND Internal Medicine
PROC: 0DB48ZX Excision of Esophagogastric Junction, Via Natural or Artificial Opening Endoscopic, Diagnostic (ICD-10-PCS; principal; 2022-11-18 11:40)
PROC: 0DBL8ZX Excision of Transverse Colon, Via Natural or Artificial Opening Endoscopic, Diagnostic (ICD-10-PCS; 2022-11-20)
DX: D68.32 Hemorrhagic disorder due to extrinsic circulating anticoagulants (principal); K22.11 Ulcer of esophagus with bleeding; D62 Acute posthemorrhagic anemia; N17.9 Acute kidney failure, unspecified; E87.29 Other acidosis; G20 Parkinson's disease; Z86.718 Personal history of other venous thrombosis and embolism; Z79.01 Long term (current) use of anticoagulants; E66.01 Morbid (severe) obesity due to excess calories; R53.81 Other malaise; K57.90 Diverticulosis of intestine, part unspecified, without perforation or abscess without bleeding; Z66 Do not resuscitate; N18.32 Chronic kidney disease, stage 3b; I12.9 Hypertensive chronic kidney disease with stage 1 through stage 4 chronic kidney disease, or unspecified chronic kidney disease; I25.10 Atherosclerotic heart disease of native coronary artery without angina pectoris; Z86.711 Personal history of pulmonary embolism; K44.9 Diaphragmatic hernia without obstruction or gangrene; K63.5 Polyp of colon; K21.9 Gastro-esophageal reflux disease without esophagitis
CPT/HCPCS: 36410; 36415; 74176; 76937; 80048; 80053; 81000; 82274; 82947; 83605; 83690; 83735; 84100; 84484; 85014; 85018; 85025; 85027; 85610; 85730; 86850; 86900; 86901; 86920; 87081; 88305; 93005; 94640; 94760; 96365; 96367; 96375

== ENCOUNTER 2023-03-12 15:24 | Inpatient (IN) | payer MEDICARE, MEDICAID ==
[~2023-03-12] VITALS: Ht 182.9 cm; Wt 148.3 kg
[~2023-03-12 15:24] MED LIST changes: +FISH1CAP15 PO; -INSU100I29 SC; +INSU100I30 SC; +LISI10TA25 PO; +LISI5TAB20 PO; +LORA10TA7 PO; +WARF-48 PO
--- NOTE | 2023-03-12 15:37 | ED Lower Extremity ---
General Stated Complaint: LOWER EXTREMITY SWELLING Source: patient, EMS Exam Limitations: no limitations History of Present Illness Date Seen by Provider: Mar 12, 2023 Time Seen by Provider: 15:29 Initial Comments 72-year-old male with Parkinson's disease presents the emergency department today for left leg infection. He states symptoms started about a week ago. He typically has swelling in his legs but is gotten severely red and is weeping. He denies any fevers or chills though on check he is febrile upon arrival. He has not been on any antibiotics. No chest pain or shortness of breath. All other systems reviewed and negative except documented per HPI. Voice recognition software was used to help create this chart Allergies and Home Medications Allergies Coded Allergies: amoxicillin (Verified Allergy, Mild, 03/12/23) Penicillins (Verified Allergy, Unknown, 03/12/23) Patient Home Medication List Home Medication List Reviewed: Yes Amlodipine Besylate (Amlodipine Besylate) 10 Mg Tablet, 10 MG PO DAILY Prescribed by: SWAPNA FALLON on 03/16/23 1311 Aspirin (Aspirin EC) 81 Mg Tablet.dr, 81 MG PO HS, (Reported) Entered as Reported by: SARITA KUHN on 06/03/17 0948 Last Action: Continued Atorvastatin Calcium (Atorvastatin Calcium) 10 Mg Tablet, 10 MG PO HS, (Reported) Entered as Reported by: SARITA KUHN on 12/16/161412 Last Action: Continued Carbidopa/Levodopa (Carbidopa-Levodopa 25-250 Tab) 1 Each Tablet, 2 TAB PO 0800, (Reported) Entered as Reported by: SARITA KUHN on 12/16/161412 Last Action: Held Carbidopa/Levodopa (Carbidopa-Levodopa 25-250 Tab) 1 Each Tablet, 1 TAB PO 1200,1700,2200, (Reported) Entered as Reported by: SARITA KUHN on 12/16/161412 Last Action: Held Cefdinir (Cefdinir) 300 Mg Capsule, 300 MG PO BID Prescribed by: SWAPNA FALLON on 03/16/23 1311 Docusate Sodium (Stool Softener) 100 Mg Tablet, 100 MG PO DAILY PRN for CONSTIPATION-1ST LINE, (Reported) Entered as Reported by: KARLA PATEL on 09/03/21 1148 Last Action: Held Fish Oil/Dha/Epa (Fish Oil 1,200 mg Fish Oil) 1,200 Mg-144 Mg-216 Mg Capsule, 1 EACH PO TID, (Reported) Entered as Reported by: KARLA PATEL on 11/17/22 1159 Last Action: Held Furosemide (Furosemide) 80 Mg Tablet, 20 MG PO DAILY, (Reported) Entered as Reported by: SARITA KUHN on 12/16/16 1413 Last Action: Held Gabapentin (Neurontin) 300 Mg Capsule, 600 MG PO TID, (Reported) Entered as Reported by: KARLA PATEL on 09/03/21 114 Last Action: Continued Isosorbide Mononitrate (Isosorbide Mononitrate ER) 60 Mg Tab, 60 MG PO DAILY, (Reported) Entered as Reported by: KARLA PATEL on 09/03/211147 Last Action: Continued Loratadine (Loratadine) 10 Mg Tablet, 10 MG PO DAILY PRN for ALLERGY SYMPTOMS, (Reported) Entered as Reported by: KARLA PATEL on 11/17/22 115 Last Action: Held Niacin (Niacin ER) 1,000 Mg Tab.er.24h, 1,000 MG PO HS, (Reported) Entered as Reported by: KARLA PATEL on 09/03/21 114 Last Action: Held Nitroglycerin (Nitroglycerin) 0.4 Mg Tab.subl, 0.4 MG SL UD PRN for CHEST PAIN, (Reported) Entered as Reported by: KARLA PATEL on 09/03/211147 Last Action: Held Ranolazine (Ranolazine ER) 1,000 Mg Tab.er.12h, 1,000 MG PO 1700, (Reported) Entered as Reported by: KARLA PATEL on 03/14/23 1001 Last Action: Converted Discontinued Medications Amlodipine Besylate (Amlodipine Besylate) 5 Mg Tablet, 5 MG PO DAILY, (Reported) Discontinued Reason: Prescription changed Entered as Reported by: KARLA PATEL on 09/03/211147 Last Action: Continued Lisinopril (Lisinopril) 10 Mg Tablet, 10 MG PO DAILY Discontinued Reason: No Longer Taking Prescribed by: SWAPNA FALLON on 11/22/22 0903 Last Action: Discontinued Pantoprazole Sodium (Pantoprazole Sodium) 40 Mg Tablet.dr, 40 MG PO BID Discontinued Reason: No Longer Taking Prescribed by: SWAPNA FALLON on 11/22/22 0953 Last Action: Discontinued Ranolazine (Ranexa) 1,000 Mg Tab.er.12h, 1,000 MG PO 1700, (Reported) Discontinued Reason: Duplicate Order Entered as Reported by: KARLA PATEL on 09/03/21 1148 Last Action: Discontinued Review of Systems Constitutional: see HPI Past Bnppomu-Tajyna-Jmzapm Hx Patient Social History Tobacco Use?: No Use of E-Cig and/or Vaping dev: No Substance use?: No Alcohol Use?: No Immunizations Up To Date Tetanus Booster (TDap): Less than 5yrs First/Initial COVID19 Vaccinat: unknown Second COVID19 Vaccination Misael: October COVID19 Vaccination Date: JUL Seasonal Allergies Seasonal Allergies: No Past Medical History Surgery/Hospitalization HX: pmh: parkinsons, htn, Surgeries: Yes (RIGHT EAR CANAL SURGERY; CARDIAC CATH-NO INTERVENTION) Adenoidectomy, Cardiac, Ear Surgery, Tonsillectomy Respiratory: Yes Pulmonary Embolism, Sleep Apnea, COPD Currently Using CPAP: No Currently Using BIPAP: No Cardiac: Yes Chronic Edema/Swelling, Deep Vein Thrombosis, High Cholesterol, Hypertension Neurological: Yes Neuropathy, Parkinson's Disease Reproductive Disorders: No Genitourinary: No Gastrointestinal: Yes Gastroesophageal Reflux, Gastrointestinal Bleed, Polyps Musculoskeletal: Yes Arthritis, Chronic Back Pain Endocrine: No HEENT: Yes (S/P T&A, RIGHT EAR SURGERY) Cancer: No Skin Psychosocial: Yes Anxiety, Depression Integumentary: No Blood Disorders: No Adverse Reaction/Blood Tranf: No Family Medical History Cancer Physical Exam Vital Signs Vital Signs - First Documented Capillary Refill : Height, Weight, BMI Height: 6'0.00" Weight: 327lbs. 0.0oz. [id number]; 52.29 BMI Method:Estimated General Appearance: WD/WN, no apparent distress HEENT: normal ENT inspection Neck: supple, normal inspection Cardiovascular: no murmur, tachycardia Respiratory: chest non-tender, lungs clear, normal breath sounds, no respiratory distress, no accessory muscle use Gastrointestinal: soft, other (Patient is morbidly obese) Skin: other (He has changes consistent with chronic venous stasis of bilateral lower extremities. The left lower extremity has some open sores and severe erythema about the mid kumar down. He has significant more swelling in this leg than the other. It is warm to the touch.) Progress/Results/Core Measures Results/Orders Lab Results Laboratory Tests Test 03/12/23 15:34 Range/Units White Blood Count 26.8 H 4.3-11.0 10^3/uL Red Blood Count 4.29 L 4.30-5.52 10^6/uL Hemoglobin 11.2 L 13.3-17.7 g/dL Hematocrit 36 L 40-54 % Mean Corpuscular Volume 84 80-99 fL Mean Corpuscular Hemoglobin 26 25-34 pg Mean Corpuscular Hemoglobin Concent 31 L 32-36 g/dL Red Cell Distribution Width 26.1 H 10.0-14.5 % Platelet Count 206 130-400 10^3/uL Mean Platelet Volume 9.3 9.0-12.2 fL Immature Granulocyte % (Auto) 3 % Neutrophils (%) (Auto) 88 H 42-75 % Lymphocytes (%) (Auto) 4 L 12-44 % Monocytes (%) (Auto) 4 0-12 % Eosinophils (%) (Auto) 0 0-10 % Basophils (%) (Auto) 0 0-10 % Neutrophils # (Auto) 23.6 H 1.8-7.8 10^3/uL Lymphocytes # (Auto) 1.2 1.0-4.0 10^3/uL Monocytes # (Auto) 1.2 H 0.0-1.0 10^3/uL Eosinophils # (Auto) 0.1 0.0-0.3 10^3/uL Basophils # (Auto) 0.1 0.0-0.1 10^3/uL Immature Granulocyte # (Auto) 0.7 H 0.0-0.1 10^3/uL Neutrophils % (Manual) 92 % Lymphocytes % (Manual) 2 % Monocytes % (Manual) 1 % Eosinophils % (Manual) 0 % Band Neutrophils 5 % Anisocytosis MARKED Sodium Level 135 135-145 MMOL/L Potassium Level 4.7 3.6-5.0 MMOL/L Chloride Level 104 98-107 MMOL/L Carbon Dioxide Level 19 L 21-32 MMOL/L Anion Gap 12 5-14 MMOL/L Blood Urea Nitrogen 57 H 7-18 MG/DL Creatinine 2.92 H 0.60-1.30 MG/DL Estimat Glomerular Filtration Rate 22 BUN/Creatinine Ratio 20 Glucose Level 130 H 70-105 MG/DL Lactic Acid Level 2.31 *H 0.50-2.00 MMOL/L Calcium Level 8.7 8.5-10.1 MG/DL Corrected Calcium 8.9 8.5-10.1 MG/DL Total Bilirubin 0.6 0.1-1.0 MG/DL Aspartate Amino Transf (AST/SGOT) 119 H 5-34 U/L Alanine Aminotransferase (ALT/SGPT) 21 0-55 U/L Alkaline Phosphatase 59 40-136 U/L Total Protein 7.6 6.4-8.2 GM/DL Albumin 3.8 3.2-4.5 GM/DL Micro Results Microbiology 03/12/23 Blood Culture - Final, Complete Streptococcus canis See Comments 03/12/23 Blood Culture - Final, Complete Streptococcus canis See Comments My Orders Orders - JAYME FERRIS DO Cbc With Automated Diff (03/12/23 15:32) Comprehensive Metabolic Panel (03/12/23 15:32) Blood Culture (03/12/23 15:32) Ed Iv/Invasive Line Start (03/12/23 15:32) Vital Signs Adult Sepsis Patie Q15M (03/12/23 15:32) Lactic Acid Analyzer (03/12/23 15:32) Metronidazole 500mg/100ml Ivpb (Flagyl 5 (03/12/23 15:45) Cefepime Injection (Maxipime Injection) (03/12/23 15:45) Vancomycin Injection (Vancomycin Injecti (03/12/23 15:45) Manual Differential (03/12/23 15:34) Ns Iv 500 Ml (Sodium Chloride 0.9%) (03/12/23 16:08) Acetaminophen Tablet (Tylenol Tablet) (03/12/23 16:15) Ed Admission (Communication) (03/12/23 16:17) Vital Signs/I&O 03/12/23 03/12/23 03/12/23 03/12/23 15:30 15:30 15:30 16:37 Temp 39.9 39.9 39.9 39.9 Pulse 104 104 104 Resp 25 25 25 B/P (MAP) 199/161 (174) 199/161 (174) 199/161 Pulse Ox 97 97 97 O2 Delivery Room Air Room Air Departure Communication (Admissions) Patient has significant cellulitis of his left lower extremity. He is tachycardic and has significant leukocytosis. He is also found to have BREANNA. His blood pressures are stable, no evidence for severe sepsis at this time. He is given broad-spectrum antibiotics with Zosyn and vancomycin. To be admitted to the hospitalist in otherwise stable condition. Impression Primary Impression: Cellulitis Qualified Codes: L03.116 - Cellulitis of left lower limb Disposition: ADMITTED INPATIENT Condition: Stable Departure-Patient Inst. Referrals: ZAC LUZ DO (PCP/Family) Primary Care Physician Scripts Cefdinir (Cefdinir) 300 Mg Capsule 300 MG PO BID for 10 Days, #20 CAP Prov: SWAPNA FALLON MD 03/16/23 Amlodipine Besylate (Amlodipine Besylate) 10 Mg Tablet 10 MG PO DAILY for 30 Days, #30 TAB Prov: SWAPNA FALLON MD 03/16/23 JAYME FERRIS DO Mar 12, 2023 15:37
[2023-03-12] MEDS ORDERED: VANCOMYCIN INJECTION 1,000 MG in NS (IVPB) 250 ML IV ONE (15:45)
[2023-03-12] MEDS ORDERED: CEFEPIME INJECTION 1,000 MG in NS (IVPB) 50 ML IV ONE (15:45)
[2023-03-12] MEDS ORDERED: metroNIDAZOLE 500MG/100ML IVPB 100 ML IV ONE (15:45)
[2023-03-12 15:48] LABS: BASOPHILS # (AUTO) 0.1 10^3/uL (0.0-0.1); BASOPHILS % (AUTO) 0 % (0-10); EOSINOPHILS # (AUTO) 0.1 10^3/uL (0.0-0.3); EOSINOPHILS % (AUTO) 0 % (0-10); HEMATOCRIT 36 % (40-54); HEMOGLOBIN 11.2 g/dL (13.3-17.7); LYMPHOCYTES # (AUTO) 1.2 10^3/uL (1.0-4.0); LYMPHOCYTES % (AUTO) 4 % (12-44); MEAN CORPUSCULAR HEMOGLOBIN 26 pg (25-34); MEAN CORPUSCULAR HGB CONC 31 g/dL (32-36); MEAN CORPUSCULAR VOLUME 84 fL (80-99); MEAN PLATELET VOLUME 9.3 fL (9.0-12.2); MONOCYTES # (AUTO) 1.2 10^3/uL (0.0-1.0); MONOCYTES % (AUTO) 4 % (0-12); NEUTROPHILS # (AUTO) 23.6 10^3/uL (1.8-7.8); NEUTROPHILS % (AUTO) 88 % (42-75); PLATELET COUNT 206 10^3/uL (130-400); WHITE BLOOD COUNT 26.8 10^3/uL (4.3-11.0)
[2023-03-12 16:03] LABS: ALBUMIN 3.8 GM/DL (3.2-4.5)
[2023-03-12 16:04] LABS: POTASSIUM 4.7 MMOL/L (3.6-5.0)
[2023-03-12 16:05] LABS: CALCIUM 8.7 MG/DL (8.5-10.1)
[2023-03-12 16:06] LABS: TOTAL PROTEIN 7.6 GM/DL (6.4-8.2)
[2023-03-12 16:08] LABS: BILIRUBIN,TOTAL 0.6 MG/DL (0.1-1.0)
[2023-03-12] MEDS ORDERED: NS IV 500 ML 500 ML IV STA (16:08)
[2023-03-12 16:10] LABS: CREATININE SERUM 2.92 MG/DL (0.60-1.30)
[2023-03-12] MEDS ORDERED: ACETAMINOPHEN 500 MG TAB (TYLENOL) PO ONE (16:15)
[2023-03-12 16:45] LABS: ANISOCYTOSIS MARKED; BAND NEUTROPHILS 5 %; EOSINOPHILS % (MANUAL) 0 %; LYMPHOCYTES % (MANUAL) 2 %; MONOCYTES % (MANUAL) 1 %; NEUTROPHILS % (MANUAL) 92 %
[2023-03-12] MEDS ORDERED: hydrALAZINE (APESOLINE) 20 MG/ML VIAL IV PRN (17:45)
[2023-03-12] MEDS ORDERED: NS IV 1000 ML 1,000 ML ONE (17:59)
[2023-03-12] MEDS ORDERED: ACETAMINOPHEN 500 MG TAB (TYLENOL) PO PRN (18:00)
[2023-03-12] MEDS: NS IV 1000 ML 1,000 ML IV SCH (18:05)
[2023-03-12] MEDS ORDERED: ENOXAPARIN 40 MG/0.4 ML (LOVENOX) SYR SC SCH (19:15)
[2023-03-12] MEDS ORDERED: ONDANSETRON 4 MG/2 ML (SDV) Z0FRAN IV PRN (19:15)
[2023-03-12] MEDS ORDERED: MILK OF MAGNESIA 400 MG/5 ML 30 ML UDC PO PRN (19:15)
[2023-03-12] MEDS ORDERED: polyethylene glycoL POWDER 17 GM (MIRALAX) PACK PO PRN (19:15)
[2023-03-12] MEDS ORDERED: CALCIUM CARBONATE 500 MG (TUMS) TAB.CHEW PO PRN (19:15)
[2023-03-12] MEDS ORDERED: MELATONIN 3 MG TABLET PO PRN (19:15)
[2023-03-12] MEDS ORDERED: BISACODYL 10 MG SUPP (DULCOLAX) PR PRN (19:15)
[2023-03-12] MEDS ORDERED: VANCOMYCIN INJECTION 0.1 MG in NS (IVPB) 250 ML IV SCH (19:15)
[2023-03-12] MEDS ORDERED: ANTACID SUSP 30 ML UDC (MYLANTA) PO PRN (19:15)
[2023-03-12] MEDS ORDERED: LACTULOSE SYRUP 10GM/15ML (ENULOSE) 30ML UDC PO PRN (19:15)
[2023-03-12 19:39] VITALS: BP 137/64
[2023-03-12] MEDS: MICONAZOLE 2% POWDER (DESENEX AF) 90 GM TOP SCH (20:47)
[2023-03-12] MEDS: VANCOMYCIN 1 GM/NS 250 ML IVPB IV SCH ×4 (20:54→22:20)
[2023-03-13] VITALS (7 sets, daily range): BP systolic 130–178; BP diastolic 66–80
[2023-03-13] MEDS: NS IV 1000 ML 1,000 ML IV SCH ×4 (00:40→21:50)
[2023-03-13] MEDS ORDERED: CEFEPIME INJECTION 1,000 MG in NS (IVPB) 50 ML IV SCH ×4 (04:00)
[2023-03-13 05:52] LABS: HEMATOCRIT 32 % (40-54); HEMOGLOBIN 10.1 g/dL (13.3-17.7); MEAN CORPUSCULAR HEMOGLOBIN 26 pg (25-34); MEAN CORPUSCULAR HGB CONC 31 g/dL (32-36); MEAN CORPUSCULAR VOLUME 83 fL (80-99); PLATELET COUNT 179 10^3/uL (130-400); WHITE BLOOD COUNT 21.6 10^3/uL (4.3-11.0)
[2023-03-13 06:15] LABS: POTASSIUM 4.1 MMOL/L (3.6-5.0)
[2023-03-13 06:16] LABS: CALCIUM 8.1 MG/DL (8.5-10.1)
[2023-03-13 06:20] LABS: CREATININE SERUM 2.15 MG/DL (0.60-1.30)
[2023-03-13] MEDS: MICONAZOLE 2% POWDER (DESENEX AF) 90 GM TOP SCH ×2 (08:44→21:50)
[2023-03-13] MEDS: ENOXAPARIN 60 MG/0.6 ML (LOVENOX) SYR SC SCH ×2 (10:35→21:51)
[2023-03-13] MEDS: CEFEPIME INJECTION 1,000 MG in NS (IVPB) 50 ML IV SCH ×3 (10:36→21:50)
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
[2023-03-13] MEDS ORDERED: SINEMET 25/250 (CARBIDOPA/LEVODOPA) TAB PO SCH (13:00)
[2023-03-13] MEDS ORDERED: ENOXAPARIN 40 MG/0.4 ML (LOVENOX) SYR SQ SCH (13:00)
[2023-03-13] MEDS: SINEMET 25/250 (CARBIDOPA/LEVODOPA) TAB PO SCH ×3 (13:23→21:51)
--- NOTE | 2023-03-13 15:59 | Diagnostic Imaging Report ---
PROCEDURE: US Venous Lower Ext Serjio. TECHNIQUE: Multiple real-time grayscale images were obtained over the lower extremities in various projections, bilaterally. Additional duplex Doppler and color Doppler images were also obtained. INDICATION: Bilateral lower extremity edema. COMPARISON: None. FINDINGS: Patient body habitus degrades image quality. The great saphenous veins are difficult to visualize bilaterally. The bilateral common femoral veins, superficial femoral veins, popliteal veins, and calf veins are patent. Subcutaneous edema seen within the lower extremity soft tissues. IMPRESSION: No apparent deep venous thrombosis allowing for image quality degradation due to patient body habitus. Can consider a follow-up venous ultrasound if clinically warranted. Dictated by: Dictated on workstation # [id number]
[2023-03-13] MEDS ORDERED: VANCOMYCIN 1250MG/250ML PREMIX 250 ML IV SCH (21:00)
[2023-03-14] VITALS (7 sets, daily range): BP systolic 135–188; BP diastolic 66–98
[2023-03-14] MEDS: CEFEPIME INJECTION 1,000 MG in NS (IVPB) 50 ML IV SCH ×2 (05:10→09:59)
[2023-03-14 05:53] LABS: HEMATOCRIT 32 % (40-54); HEMOGLOBIN 9.9 g/dL (13.3-17.7); MEAN CORPUSCULAR HEMOGLOBIN 26 pg (25-34); MEAN CORPUSCULAR HGB CONC 31 g/dL (32-36); MEAN CORPUSCULAR VOLUME 82 fL (80-99); MEAN PLATELET VOLUME 9.8 fL (9.0-12.2); PLATELET COUNT 173 10^3/uL (130-400); WHITE BLOOD COUNT 15.4 10^3/uL (4.3-11.0)
[2023-03-14 06:09] LABS: POTASSIUM 3.8 MMOL/L (3.6-5.0)
[2023-03-14 06:11] LABS: CALCIUM 8.1 MG/DL (8.5-10.1)
[2023-03-14 06:15] LABS: CREATININE SERUM 1.34 MG/DL (0.60-1.30)
[2023-03-14] MEDS: SINEMET 25/100 (CARBIDOPA/LEVODOPA) TAB PO SCH (08:44)
[2023-03-14] MEDS: ENOXAPARIN 60 MG/0.6 ML (LOVENOX) SYR SC SCH ×2 (08:45→19:39)
[2023-03-14] MEDS: MICONAZOLE 2% POWDER (DESENEX AF) 90 GM TOP SCH ×2 (08:46→19:39)
[2023-03-14] MEDS: NS IV 1000 ML 1,000 ML IV SCH ×2 (08:55→21:04)
--- NOTE | 2023-03-14 09:28 | Occupational Therapy Eval ---
OT Evaluation-General/PLF Medical Diagnosis Admission Date Mar 12, 2023 at 17:01 Medical Diagnosis: cellutiis Onset Date: Mar 12, 2023 Therapy Diagnosis Therapy Diagnosis: weaknes Height/Weight Height (Feet): 6 Height (Inches): 0.00 Weight (Pounds): 327 Weight (Ounces): 0.0 Precautions Precautions/Isolations: Fall Prevention, Standard Precautions Weight Bear Status Weight Bearing Restriction: Weight Bearing/Tolerated Location Restriction: LE Bilateral Cellulites and edema more pronounced on LLE Referral Referral Reason: Activity Tolerance, Self Care, Evaluation/Treatment Medical History Pertinent Medical History: Arthritis, CAD, COPD, DM, GERD, HTN, Neuropathy, Parkinson's Reviewed History: Yes Social History Home: Single Level Entry Into Home: [place] family lives close and assist when needed ADL-Prior Level of Function SCALE: Activities may be completed with or without assistive devices. 5-Exkwtkofax-qqeosui completes the activity by him/herself with no assistance from a helper. 5-Set-up or Clean-up Assistance-helper sets up or cleans up; patient completes activity. [place] assists only prior to or following the activity. 4-Supervision or Touching Assistance-helper provides verbal cues and/or touching/steadying and/or contact guard assistance as patient completes activity. Assistance may be provided throughout the activity or intermittently. 3-Partial/Moderate Assistance-helper does LESS THAN HALF the effort. [place] lifts, holds or supports trunk or limbs, but provides less than half the effort. 2-Substantial/Maximal Assistance-helper does MORE THAN HALF the effort. [place] lifts or holds trunk or limbs and provides more than half the effort. 1-Cmrcckpag-dvlcff does ALL the effort. Patient does none of the effort to complete the activity. Or, the assistance of 2 or more helpers is required for the patient to complete the activity. If activity was not attempted, code reason: 7-Patient Refused. 9-Not Applicable-not attempted and the patient did not perform the activity before the current illness, exacerbation or injury. 10-Not Attempted due to Environmental Limitations-(lack of equipment, weather restraints, etc.). 88-Not Attempted due to Medical Conditions or Safety Concerns. Self Care: Needed Some Help Functional Cognition: Needed Some Help Drive Self: No OT Current Status Subjective BM incont in bed, does not feel safe to stand, rolls SBA w/ rails for bed change and toilet hygiene Mental Status/Objective Patient Orientation: Person, Place, Time, Situation Current Glasses/Contacts: Yes Upper Extremity ROM BUE ROM WFLS Upper Extremity Coordination BUE WFLs Upper Extremity Strength * BUE WFLS however does not sustain MMT strength tor activity ADL-Treatment Eating (QC): 6 Oral Hygiene (QC): 5 Shower/Bathe Self (QC): 88 Upper Body Dressing (QC): 3 Lower Body Dressing (QC): 1 On/Off Footwear (QC): 1 Toileting Hygiene (QC): 1 Education OT Patient Education: Correct positioning, Home exercise program, Modified ADL techniques, Progress toward Goal/Update tx plan, Purpose of tx/functional activities, Reviewed precautions, Rehab process, Safety issues, Transfer techniques, Use of adapted equipment Teaching Recipient: Patient Teaching Methods: Demonstration Response to Teaching: Verbalize Understanding, Reinforcement Needed OT Street Light Servicer Helper Goals Street Light Servicer Helper Goals 1=Demonstrate adherence to instructed precautions during ADL tasks. 2=Patient will verbalize/demonstrate understanding of assistive de vices/modifications for ADL. 3=Patient will improve strength/tolerance for activity to enable patient to perform ADL's. OT Education/Plan Problem List/Assessment Assessment: Decreased Activ Tolerance, Decreased Safety Aware, Decreased UE Strength, Impaired Self-Care Skills Discharge Recommendations Plan/Recommendations: Continue POC Therapy Discharge Recommendati: Post Acute OT Treatment Plan/Plan of Care Treatment,Training & Education: Yes Patient would benefit from OT for education, treatment and training to promote independence in ADL's, mobility, safety and/or upper extremity function for ADL's. Plan of Care: ADL Retraining, Concurrent Therapy, Functional Mobility, Group Exercise/Act as Ind, UE Funct Exercise/Act Treatment Duration: Mar 18, 2023 Frequency: 3 times per week (3-5 times per week) Estimated Hrs Per Day: .25 hour per day Agreement: Yes Rehab Potential: Fair Time Start Time: 08:23 Stop Time: 08:35 DATE: Mar 14, 2023 Total Time Billed (hr/min): 12 Billed Treatment Time EVM 12 min KIET BARNES OT Mar 14, 2023 09:28
--- NOTE | 2023-03-14 09:32 | Physical Therapy Evaluation ---
PT Evaluation-General Medical Diagnosis Admission Date Mar 12, 2023 at 17:01 Medical Diagnosis: cellulitis left LE Onset Date: Mar 12, 2023 Therapy Diagnosis Therapy Diagnosis: debility/weakness Height/Weight Height (Feet): 6 Height (Inches): 0.00 Weight (Pounds): 327 Weight (Ounces): 0.0 Precautions Precautions/Isolations: Fall Prevention, Standard Precautions Referral Physician: Gomez Reason for Referral: Evaluation/Treatment Medical History Pertinent Medical History: Arthritis, CAD, COPD, DM, GERD, HTN, Neuropathy, Parkinson's Current History ER secondary to left LE edema and redness Reviewed History: Yes Social History Home: Single Level Current Living Status: Alone Entry Into Home: [place] Prior Prior Level of Function SCALE: Activities may be completed with or without assistive devices. 9-Vtwrylpyjh-okwwkjy completes the activity by him/herself with no assistance from a helper. 5-Set-up or Clean-up Assistance-helper sets up or cleans up; patient completes activity. [place] assists only prior to or following the activity. 4-Supervision or Touching Assistance-helper provides verbal cues and/or touching/steadying and/or contact guard assistance as patient completes activity. Assistance may be provided throughout the activity or intermittently. 3-Partial/Moderate Assistance-helper does LESS THAN HALF the effort. [place] lifts, holds or supports trunk or limbs, but provides less than half the effort. 2-Substantial/Maximal Assistance-helper does MORE THAN HALF the effort. [place] lifts or holds trunk or limbs and provides more than half the effort. 8-Eiyloivor-hbwykg does ALL the effort. Patient does none of the effort to complete the activity. Or, the assistance of 2 or more helpers is required for the patient to complete the activity. If activity was not attempted, code reason: 7-Patient Refused. 9-Not Applicable-not attempted and the patient did not perform the activity b efore the current illness, exacerbation or injury. 10-Not Attempted due to Environmental Limitations-(lack of equipment, weather restraints, etc.). 88-Not Attempted due to Medical Conditions or Safety Concerns. Bed Mobility: 6 Transfers (B,C,W/C): 6 Gait: 6 Stairs: 9 Indoor Mobility (Ambulation): Independent Prior Devices Use: Walker (PRN) PT Evaluation-Current Subjective Patient agrees to therapy. Objective Patient Orientation: Normal For Age Attachments: IV ROM/Strength ROM Lower Extremities bilateral LE WFL Strength Lower Extremities 3/5 grossly bilateral LE all planes Integumentary/Posture Integumentary refer to nursing notes Bowel Incontinence: Yes Bladder Incontinence: Yes Posture WFL Neuromuscular (Tone, Coordination, Reflexes) grossly intact Sensory Vision: Functional Hearing: Functional Transfers Roll Left to Right (QC): 4 Sit to Lying (QC): 4 Lying to Sitting/Side of Bed(Q: 4 Sit to Stand (QC): 7 patient declined to attempt to stand on this date due to weakness Balance Sitting Static: Normal Sitting Dynamic: Normal Assessment/Needs Patient will benefit from skilled PT to address functional strength and mobility to improve current LOF to safely return to home at maximum LOF. Rehab Potential: Guarded PT Intermediate Goals Intermediate Goals PT Intermediate Goals Time Frame: Mar 26, 2023 Roll Left & Right (QC): 6 Sit to Lying (QC): 6 Lying-Sitting on Side/Bed(QC): 6 Sit to Stand (QC): 6 Chair/Bfe-yy-Bjrga Xfer(QC): 6 Toilet Transfer (QC): 6 Walk 10 feet (QC): 4 Walk 50ft with 2 Turns (QC): 5 PT Plan Problem List Problem List: Activity Tolerance, Functional Strength, Safety, Balance, Gait, Transfer, Bed Mobility Treatment/Plan Treatment Plan: Continue Plan of Care Treatment Plan: Bed Mobility, Education, Functional Activity Apple, Functional Strength, Gait, Safety, Therapeutic Exercise, Transfers Treatment Duration: Mar 26, 2023 Frequency: 5 times per week Estimated Hrs Per Day: .25 hour per day Time Time In: 830 Time Out: 844 DATE: Mar 14, 2023 Total Billed Treatment Time: 14 Total Billed Treatment 1 visit [facility] 15 min SIENA REYES PT Mar 14, 2023 09:31
[2023-03-14] MEDS ORDERED: RANO10005 PO (10:01)
[2023-03-14] MEDS ORDERED: HYPOCHLOROUS ACID/NaCl (VASHE) 250 ML IR PRN (12:15)
[2023-03-14] MEDS: SINEMET 25/250 (CARBIDOPA/LEVODOPA) TAB PO SCH ×3 (12:22→21:04)
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
[2023-03-14] MEDS ORDERED: NON-FORMULARY MEDICATION 1 EA EA (Ranolazine (Ranolazine ER) 1,000 MG) PO SCH (17:00)
[2023-03-14] MEDS ORDERED: amLODIPine 5 MG (NORVASC) TAB PO SCH (17:45)
[2023-03-14] MEDS ORDERED: hydrALAZINE (APESOLINE) 20 MG/ML VIAL IV PRN (17:45)
[2023-03-14] MEDS: amLODIPine 10 MG (NORVASC) TAB PO SCH (17:49)
[2023-03-14] MEDS: RANOLAZINE ER 500 MG TAB (RANEXA) PO SCH (17:49)
[2023-03-14] MEDS: cefTRIAXone 2,000 MG/NS 50 ML IVPB IV SCH ×2 (17:49)
[2023-03-14] MEDS: ISOSORBIDE MONONITRATE 60 MG (IMDUR) TAB PO SCH (17:50)
[2023-03-14] MEDS: AtorvaSTATin TABLET 10 MG TABLET PO SCH (19:39)
[2023-03-14] MEDS: ASPIRIN E.C. 81 MG (ECOTRIN) TAB PO SCH (19:39)
[2023-03-14] MEDS: GABAPENTIN 300 MG (NEURONTIN) CAP PO SCH (19:39)
[2023-03-14] MEDS ORDERED: TROUGH ORDER-PHARMACY XX ONE (20:00)
[2023-03-15 03:34] VITALS: BP 145/76
[2023-03-15 05:50] LABS: HEMATOCRIT 31 % (40-54); HEMOGLOBIN 9.5 g/dL (13.3-17.7); MEAN CORPUSCULAR HEMOGLOBIN 26 pg (25-34); MEAN CORPUSCULAR HGB CONC 31 g/dL (32-36); MEAN CORPUSCULAR VOLUME 83 fL (80-99); MEAN PLATELET VOLUME 9.9 fL (9.0-12.2); PLATELET COUNT 167 10^3/uL (130-400); WHITE BLOOD COUNT 13.3 10^3/uL (4.3-11.0)
[2023-03-15 06:02] LABS: POTASSIUM 3.8 MMOL/L (3.6-5.0)
[2023-03-15 06:08] LABS: CREATININE SERUM 1.05 MG/DL (0.60-1.30)
[2023-03-15] MEDS: NS IV 1000 ML 1,000 ML IV SCH ×2 (06:51→17:03)
[2023-03-15 08:10] VITALS: BP 188/84
[2023-03-15] MEDS: ISOSORBIDE MONONITRATE 60 MG (IMDUR) TAB PO SCH (08:38)
[2023-03-15] MEDS: amLODIPine 10 MG (NORVASC) TAB PO SCH (08:38)
[2023-03-15] MEDS: SINEMET 25/100 (CARBIDOPA/LEVODOPA) TAB PO SCH (08:38)
[2023-03-15] MEDS: GABAPENTIN 300 MG (NEURONTIN) CAP PO SCH ×3 (08:39→20:47)
[2023-03-15] MEDS: ENOXAPARIN 60 MG/0.6 ML (LOVENOX) SYR SC SCH ×2 (08:39→20:48)
[2023-03-15] MEDS: MICONAZOLE 2% POWDER (DESENEX AF) 90 GM TOP SCH ×2 (08:40→20:48)
[2023-03-15] MEDS ORDERED: amLODIPine 5 MG (NORVASC) TAB PO SCH (09:00)
[2023-03-15] MEDS ORDERED: ISOSORBIDE MONONITRATE 60 MG (IMDUR) TAB PO SCH (09:00)
--- NOTE | 2023-03-15 09:04 | Physical Therapy Daily Note ---
PT Daily Note-Current Subjective Patient agrees to PT. No c/o at this time. Pain Section J - Health Conditions 1. Rarely or not at all 2. Occasionally 3. Frequently 4. Almost constantly 8. Unable to answer Pain Effect on Sleep: 1 Pain Interference with Therapy: 1 Pain Interference w/Day-to-Day: 1 Transfers SCALE: Activities may be completed with or without assistive devices. 0-Juhutqxgoo-yrqwouw completes the activity by him/herself with no assistance from a helper. 5-Set-up or Clean-up Assistance-helper sets up or cleans up; patient completes activity. [place] assists only prior to or following the activity. 4-Supervision or Touching Assistance-helper provides verbal cues and/or touching/steadying and/or contact guard assistance as patient completes activity. Assistance may be provided throughout the activity or intermittently. 3-Partial/Moderate Assistance-helper does LESS THAN HALF the effort. [place] lifts, holds or supports trunk or limbs, but provides less than half the effort. 2-Substantial/Maximal Assistance-helper does MORE THAN HALF the effort. [place] lifts or holds trunk or limbs and provides more than half the effort. 2-Ojhglpuhv-bsezok does ALL the effort. Patient does none of the effort to complete the activity. Or, the assistance of 2 or more helpers is required for the patient to complete the activity. If activity was not attempted, code reason: 7-Patient Refused. 9-Not Applicable-not attempted and the patient did not perform the activity before the current illness, exacerbation or injury. 10-Not Attempted due to Environmental Limitations-(lack of equipment, weather restraints, etc.). 88-Not Attempted due to Medical Conditions or Safety Concerns. Roll Left & Right (QC): 6 Sit to Lying (QC): 6 Lying to Sitting/Side of Bed(Q: 6 Sit to Stand (QC): 4 (sit to stand to FWW CGA for safety) patient able to utilize side rails to assist with all bed mobility independently Assessment Patient able to stand to FWW on this date. Noted tremors due to Parkinson's. PT to increase activity as tolerated by patient. PT Custodial Goals Baggage Smasher Goals PT Baggage Smasher Goals Time Frame: Mar 26, 2023 Roll Left & Right (QC): 6 Sit to Lying (QC): 6 Lying-Sitting on Side/Bed(QC): 6 Sit to Stand (QC): 6 Chair/Mdn-dt-Yovfl Xfer(QC): 6 Toilet Transfer (QC): 6 Walk 10 feet (QC): 4 Walk 50ft with 2 Turns (QC): 5 PT Plan Treatment/Plan Treatment Plan: Continue Plan of Care Treatment Plan: Bed Mobility, Education, Functional Activity Apple, Functional Strength, Gait, Safety, Therapeutic Exercise, Transfers Treatment Duration: Mar 26, 2023 Frequency: 5 times per week Estimated Hrs Per Day: .25 hour per day Time Time In: 845 Time Out: 900 DATE: Mar 15, 2023 Total Billed Treatment Time: 15 Total Billed Treatment 1 visit FA 15 min SIENA REYES PT Mar 15, 2023 09:04
--- NOTE | 2023-03-15 09:15 | Occupational Ther Daily Note ---
OT Current Status-Daily Note Subjective Resting in bed, agreeable to therapy and getting out of bed Mental Status/Objective Patient Orientation: Person, Place, Time, Situation Attachments: IV ADL-Treatment Dependent on OT for sock donning, EOB, sitting EOB pad placed on sharp edges to prevent skin tears to LES d/t edema. Therapy Code Descriptions/Definitions Functional [place] Measure: 0=Not Assessed/NA 4=Minimal Assistance 1=Total Assistance 5=Supervision or Setup 2=Maximal Assistance 6=Modified Drew 3=Moderate Assistance 7=Complete IndependenceSCALE: Activities may be completed with or without assistive devices. 7-Mhqgpkgvak-hgjvdie completes the activity by him/herself with no assistance from a helper. 5-Set-up or Clean-up Assistance-helper sets up or cleans up; patient completes activity. [place] assists only prior to or following the activity. 4-Supervision or Touching Assistance-helper provides verbal cues and/or touching/steadying and/or contact guard assistance as patient completes activity. Assistance may be provided throughout the activity or intermittently. 3-Partial/Moderate Assistance-helper does LESS THAN HALF the effort. [place] lifts, holds or supports trunk or limbs, but provides less than half the effort. 2-Substantial/Maximal Assistance-helper does MORE THAN HALF the effort. [place] lifts or holds trunk or limbs and provides more than half the effort. 3-Wytfejthy-hcprtu does ALL the effort. Patient does none of the effort to complete the activity. Or, the assistance of 2 or more helpers is required for the patient to complete the activity. If activity was not attempted, code reason: 7-Patient Refused. 9-Not Applicable-not attempted and the patient did not perform the activity before the current illness, exacerbation or injury. 10-Not Attempted due to Environmental Limitations-(lack of equipment, weather restraints, etc.). 88-Not Attempted due to Medical Conditions or Safety Concerns. Eating (QC): 6 Oral Hygiene (QC): 5 (evidence of poor oral care) Shower/Bathe Self (QC): 7 Upper Body Dressing (QC): 4 Lower Body Dressing (QC): 1 On/Off Footwear: 1 Toileting Hygiene (QC): 1 (OT cleansed nikki area and changed bed pad) Toilet Transfer (QC): 2 Patient has question about isabelle lift for home. Education OT Patient Education: Correct positioning, Modified ADL techniques, Progress toward Goal/Update tx plan, Purpose of tx/functional activities, Reviewed precautions, Rehab process, Safety issues, Transfer techniques, Use of adapted equipment Teaching Recipient: Patient Teaching Methods: Discussion Response to Teaching: Reinforcement Needed OT Care Home Goals Care Home Goals 1=Demonstrate adherence to instructed precautions during ADL tasks. 2=Patient will verbalize/demonstrate understanding of assistive devices/modifications for ADL. 3=Patient will improve strength/tolerance for activity to enable patient to perform ADL's. OT Education/Plan Problem List/Assessment Assessment: Decreased Activ Tolerance Discharge Recommendations Plan/Recommendations: Follow-up Planned Treatment Plan/Plan of Care Patient would benefit from OT for education, treatment and training to promote independence in ADL's, mobility, safety and/or upper extremity function for ADL's. Plan of Care: ADL Retraining, Concurrent Therapy, Functional Mobility, Group Exercise/Act as Ind, UE Funct Exercise/Act Treatment Duration: Mar 18, 2023 Frequency: 3 times per week (3-5 times per week) Estimated Hrs Per Day: .25 hour per day Agreement: Yes Rehab Potential: Fair Returned ot bed following standing tasks EOB, SBA bed mobility Time Start Time: 08:45 Stop Time: 09:00 DATE: Mar 15, 2023 Total Time Billed (hr/min): 15 Billed Treatment Time FA 15 min KIET BARNES OT Mar 15, 2023 09:15
[2023-03-15 11:07] VITALS: BP 155/69
[2023-03-15] MEDS: SINEMET 25/250 (CARBIDOPA/LEVODOPA) TAB PO SCH ×3 (11:08→20:47)
[2023-03-15 15:55] VITALS: BP 140/64
[2023-03-15] MEDS: RANOLAZINE ER 500 MG TAB (RANEXA) PO SCH (17:04)
[2023-03-15] MEDS: cefTRIAXone 2,000 MG/NS 50 ML IVPB IV SCH ×2 (17:05)
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
[2023-03-15 19:49] VITALS: BP 148/65
[2023-03-15] MEDS: ASPIRIN E.C. 81 MG (ECOTRIN) TAB PO SCH (20:47)
[2023-03-15] MEDS: AtorvaSTATin TABLET 10 MG TABLET PO SCH (20:47)
[2023-03-15 23:46] VITALS: BP 143/70
[2023-03-16] MEDS: NS IV 1000 ML 1,000 ML IV SCH ×2 (03:03→12:06)
[2023-03-16 03:44] VITALS: BP 154/83
[2023-03-16 06:13] LABS: HEMATOCRIT 31 % (40-54); HEMOGLOBIN 9.7 g/dL (13.3-17.7); MEAN CORPUSCULAR HEMOGLOBIN 26 pg (25-34); MEAN CORPUSCULAR HGB CONC 31 g/dL (32-36); MEAN CORPUSCULAR VOLUME 83 fL (80-99); MEAN PLATELET VOLUME 9.9 fL (9.0-12.2); PLATELET COUNT 206 10^3/uL (130-400); WHITE BLOOD COUNT 11.7 10^3/uL (4.3-11.0)
[2023-03-16 06:30] LABS: POTASSIUM 3.7 MMOL/L (3.6-5.0)
[2023-03-16 06:31] LABS: CALCIUM 7.9 MG/DL (8.5-10.1)
[2023-03-16 06:35] LABS: CREATININE SERUM 0.92 MG/DL (0.60-1.30)
[2023-03-16 08:00] VITALS: BP 134/82
[2023-03-16] MEDS: GABAPENTIN 300 MG (NEURONTIN) CAP PO SCH ×2 (08:40→12:07)
[2023-03-16] MEDS: ENOXAPARIN 60 MG/0.6 ML (LOVENOX) SYR SC SCH (08:40)
[2023-03-16] MEDS: amLODIPine 10 MG (NORVASC) TAB PO SCH (08:40)
[2023-03-16] MEDS: SINEMET 25/100 (CARBIDOPA/LEVODOPA) TAB PO SCH (08:40)
[2023-03-16] MEDS: MICONAZOLE 2% POWDER (DESENEX AF) 90 GM TOP SCH (08:41)
[2023-03-16] MEDS: ISOSORBIDE MONONITRATE 60 MG (IMDUR) TAB PO SCH (08:43)
--- NOTE | 2023-03-16 10:34 | Occupational Ther Daily Note ---
OT Current Status-Daily Note Subjective Patient in bed declines OOB activity with solo therapist, agrees to ther ex and availably of sock aid and implementation technician. Pain Comment: LLE edema improving Mental Status/Objective Patient Orientation: Person, Place, Time, Situation ADL-Treatment Therapy Code Descriptions/Definitions Functional [place] Measure: 0=Not Assessed/NA 4=Minimal Assistance 1=Total Assistance 5=Supervision or Setup 2=Maximal Assistance 6=Modified [place] 3=Moderate Assistance 7=Complete IndependenceSCALE: Activities may be completed with or without assistive devices. 6-Xtocpuekex-iylockp completes the activity by him/herself with no assistance from a helper. 5-Set-up or Clean-up Assistance-helper sets up or cleans up; patient completes activity. [place] assists only prior to or following the activity. 4-Supervision or Touching Assistance-helper provides verbal cues and/or touching/steadying and/or contact guard assistance as patient completes activity. Assistance may be provided throughout the activity or intermittently. 3-Partial/Moderate Assistance-helper does LESS THAN HALF the effort. [place] lifts, holds or supports trunk or limbs, but provides less than half the effort. 2-Substantial/Maximal Assistance-helper does MORE THAN HALF the effort. [place] lifts or holds trunk or limbs and provides more than half the effort. 8-Blvwgiujp-wripcq does ALL the effort. Patient does none of the effort to complete the activity. Or, the assistance of 2 or more helpers is required for the patient to complete the activity. If activity was not attempted, code reason: 7-Patient Refused. 9-Not Applicable-not attempted and the patient did not perform the activity before the current illness, exacerbation or injury. 10-Not Attempted due to Environmental Limitations-(lack of equipment, weather restraints, etc.). 88-Not Attempted due to Medical Conditions or Safety Concerns. Other Treatment Green theaband provided w/ HEP, patient reports today the band he received is : WAY LONGER THAN MINE". OT instructed in shoulder flex/ext/abd and elbow flex/ext. OT looped band on bed rail following ther ex session, Patient demonstrated 80% accuracy with demonstration Education OT Patient Education: Correct positioning, Exercise program, Modified ADL techniques, Progress toward Goal/Update tx plan, Purpose of tx/functional activities, Reviewed precautions, Rehab process Teaching Recipient: Patient Teaching Methods: Demonstration, Discussion Response to Teaching: Verbalize Understanding, Reinforcement Needed OT Custodial Goals Credit Associate Goals 1=Demonstrate adherence to instructed precautions during ADL tasks. 2=Patient will verbalize/demonstrate understanding of assistive devices/modifications for ADL. 3=Patient will improve strength/tolerance for activity to enable patient to perform ADL's. OT Education/Plan Problem List/Assessment Assessment: Decreased Activ Tolerance, Impaired Funct Balance, Impaired Self- Care Skills Discharge Recommendations Plan/Recommendations: Continue POC Treatment Plan/Plan of Care Patient would benefit from OT for education, treatment and training to promote independence in ADL's, mobility, safety and/or upper extremity function for ADL's. Plan of Care: ADL Retraining, Concurrent Therapy, Functional Mobility, Group Exercise/Act as Ind, UE Funct Exercise/Act Treatment Duration: Mar 18, 2023 Frequency: 3 times per week (3-5 times per week) Estimated Hrs Per Day: .25 hour per day Agreement: Yes Rehab Potential: Fair Time Start Time: 09:33 Stop Time: 09:56 DATE: Mar 16, 2023 Total Time Billed (hr/min): 23 Billed Treatment Time EX 23 KIET BARNES OT Mar 16, 2023 10:34
[2023-03-16 11:50] VITALS: BP 179/84
[2023-03-16] MEDS: SINEMET 25/250 (CARBIDOPA/LEVODOPA) TAB PO SCH (12:07)
[2023-03-16] MEDS ORDERED: CEFD300C3 PO (13:11)
[2023-03-16] MEDS ORDERED: AMLO-251 PO (13:11)
--- NOTE | 2023-03-16 13:21 | Discharge Summary ---
Discharge Summary Instructions for Patient Via [facility], Assessment/Instructions Take medicaitons as prescribed. Follow up with Dr. Newman, PCP. Follow up with Dr. Newman, wound care. You are being set up with home health care. Return with worsening leg pain, swelling, or if you feel like you are getting worse. Physician to follow Patient: Paty Discharge Diet for Home: Low Sodium Diet Hospital Course Date of Admission: Mar 12, 2023 at 17:01 Admission Diagnosis : Severe sepsis due to cellulitis Family Physician/Provider: Anshu Newman DO Date of Discharge: 03/16/23 Discharge Diagnosis: Severe sepsis due to cellulitis Hospital Course: Gurvinder Nevarez is a 72 year old male who was admitted with severe sepsis due to cellulitis. He was treated with IV antibiotics and improved. His blood cultures were positive with Strep canis. He will receive a course of Omnicef as an outpatient due to Amoxicillin allergy. He had an BREANNA which resolved. He was debilitated and worked with physical therapy. He remained weak but insisted on returning home. I encouraged him to consider facility placement for physical therapy prior to returning home, but he was adamant that he would not go anywhere but home. He was set up with home health care. He was discharged home in fair condition. Labs and Pending Lab Test: Laboratory Tests 03/16/23 05:33: White Blood Count 11.7H, Red Blood Count 3.75L, Hemoglobin 9.7L, Hematocrit 31L, Mean Corpuscular Volume 83, Mean Corpuscular Hemoglobin 26, Mean Corpuscular Hemoglobin Concent 31L, Red Cell Distribution Width 25.6H, Platelet Count 206, Mean Platelet Volume 9.9, Sodium Level 139, Potassium Level 3.7, Chloride Level 113H, Carbon Dioxide Level 18L, Anion Gap 8, Blood Urea Nitrogen 16, Creatinine 0.92, Estimat Glomerular Filtration Rate 89, BUN/Creatinine Ratio 17, Glucose Level 125H, Calcium Level 7.9L Microbiology 03/12/23 Blood Culture - Final, Complete Streptococcus canis See Comments Home Meds Active Cefdinir 300 Mg Capsule 300 Mg PO BID 10 Days Amlodipine Besylate 10 Mg Tablet 10 Mg PO DAILY 30 Days Reported Ranolazine ER (Ranolazine) 1,000 Mg Tab.er.12h 1,000 Mg PO 1700 Fish Oil 1,200 mg Fish Oil (Fish Oil/Dha/Epa) 1,200 Mg-144 Mg-216 Mg Capsule 1 Each PO TID Loratadine 10 Mg Tablet 10 Mg PO DAILY PRN Stool Softener (Docusate Sodium) 100 Mg Tablet 100 Mg PO DAILY PRN Nitroglycerin 0.4 Mg Tab.subl 0.4 Mg SL UD PRN Isosorbide Mononitrate ER (Isosorbide Mononitrate) 60 Mg Tab 60 Mg PO DAILY Niacin ER (Niacin) 1,000 Mg Tab.er.24h 1,000 Mg PO HS Neurontin (Gabapentin) 300 Mg Capsule 600 Mg PO TID TAKES 2 (300MG) CAPS Aspirin EC (Aspirin) 81 Mg Tablet.dr 81 Mg PO HS Furosemide 80 Mg Tablet 20 Mg PO DAILY TAKES A OF AN 80MG TAB Atorvastatin Calcium 10 Mg Tablet 10 Mg PO HS Carbidopa-Levodopa 25-250 Tab (Carbidopa/Levodopa) 1 Each Tablet 1 Tab PO 1200,1700,2200 Carbidopa-Levodopa 25-250 Tab (Carbidopa/Levodopa) 1 Each Tablet 2 Tab PO 0800 Patient Allergies: Coded Allergies: amoxicillin (Verified Allergy, Mild, 03/12/23) Penicillins (Verified Allergy, Unknown, 03/12/23) Height (Feet): 6 Height (Inches): 0.00 Weight (Pounds): 327 Weight (Ounces): 0.0 Home Health Need/Face to Face Date of Face to Face: Mar 16, 2023 Clinical Findings: Generalized weakness and fatigue, Instability, Muscle weakness, Unsteady gait I have seen Pt [id number]: Yes Discharged To: Home Diagnosis/Conditions: Celluliitis HTN HLD CAD Parkinsons Problems/Diagnosis/Condition: (1) Cellulitis (2) Parkinson disease (3) Essential (primary) hypertension (4) History of DVT (deep vein thrombosis) (5) CAD (coronary artery disease) (6) Morbid obesity Patient is Homebound due to: Radha fall risk due to instabilty, Muscle weakness Homebound Status Due to the above stated illness, injury or surgical procedure (medical condition or diagnosis) and associated clinical findings, the patient is homeb ound because of his/her inability to leave home except with aid of a supportive device and/or person AND leaving the home requires a considerable and taxing effort or is medically contraindicated. Pt req the following assistanc: Aid of another person, Walker Home Health Nursing Orders Home Health Services Order: Nursing Services, Travel Coordinator-Evaluate & Treat, Physical Therapy-Evaluate & Treat, Wound Care-Eval/Treat Home Health Infusion Therapy Line Start Date: Mar 12, 2023 Therapy Orders Therapy Orders: OT (must have SN or PT order), Physical Therapy Therapy Specific Orders: Eval assistive deivces, Teach enviro modifications/safety, Gait training, Increase strength/endurance Certify Stmt I certify that this patient is under my care and that I, a nurse practitioner or a physician; a trading assistant working with me, had a face to face encounter that - meets the physician face to face encounter requirements with this patient as dated. Discharge Physical Exam General: Alert, No Acute Distress HEENT: Atraumatic, EOMI Lungs: Clear to Auscultation, Normal Air Movement Heart: Regular Rate, No Murmurs Abdomen: Normal Bowel Sounds, Soft Extremities: Other (bilateral edema, left leg with open wound and surrounding erythema and blistering) Neuro: Normal Speech, Normal Tone Psych/Mental Status: Mental Status NL, Mood NL SWAPNA FALLON MD Mar 16, 2023 13:19
[2023-03-16 13:23] VITALS: BP 179/84
--- NOTE | 2023-03-16 15:02 | Physical Therapy Daily Note ---
PT Daily Note-Current Subjective Patient sitting at edge of bed upon PT arrival, agreeable to treatment. Patient rates pain at 0/10 currently. Pain Section J - Health Conditions 1. Rarely or not at all 2. Occasionally 3. Frequently 4. Almost constantly 8. Unable to answer Pain Effect on Sleep: 1 Pain Interference with Therapy: 1 Pain Interference w/Day-to-Day: 1 Transfers SCALE: Activities may be completed with or without assistive devices. 0-Rzszvocfjw-diaipsg completes the activity by him/herself with no assistance from a helper. 5-Set-up or Clean-up Assistance-helper sets up or cleans up; patient completes activity. Ragley assists only prior to or following the activity. 4-Supervision or Touching Assistance-helper provides verbal cues and/or touching/steadying and/or contact guard assistance as patient completes activity. Assistance may be provided throughout the activity or intermittently. 3-Partial/Moderate Assistance-helper does LESS THAN HALF the effort. Ragley lifts, holds or supports trunk or limbs, but provides less than half the effort. 2-Substantial/Maximal Assistance-helper does MORE THAN HALF the effort. Ragley lifts or holds trunk or limbs and provides more than half the effort. 9-Spuuzlcoj-thvmte does ALL the effort. Patient does none of the effort to complete the activity. Or, the assistance of 2 or more helpers is required for the patient to complete the activity. If activity was not attempted, code reason: 7-Patient Refused. 9-Not Applicable-not attempted and the patient did not perform the activity before the current illness, exacerbation or injury. 10-Not Attempted due to Environmental Limitations-(lack of equipment, weather restraints, etc.). 88-Not Attempted due to Medical Conditions or Safety Concerns. Sit to Stand (QC): 4 Chair/Ckt-ih-Gelbm Xfer(QC): 4 Gait Training Does the Patient Walk?: No and Walking Goal NOT indicated Gait Assistive Device: FWW Assessment Current Status: Poor Progress Patient reports at home he has his w/c (transport chair) and BSC near his bed and can stand and pivot or take small steps towards them with his w/c. Patient performs all observed bed mobility and transfers with SBA and is able to transfer to the w/c with his FWW with SBA. Patient in chair post treatment with nurse in the room. Patient will need a better, manual w/c for home use. PT [facility] Goals Telehealth Nurse Educator Goals PT Telehealth Nurse Educator Goals Time Frame: Mar 26, 2023 Roll Left & Right (QC): 6 Sit to Lying (QC): 6 Lying-Sitting on Side/Bed(QC): 6 Sit to Stand (QC): 6 Chair/Upu-uq-Akjmu Xfer(QC): 6 Toilet Transfer (QC): 6 Walk 10 feet (QC): 4 Walk 50ft with 2 Turns (QC): 5 PT Plan Treatment/Plan Treatment Plan: Continue Plan of Care Treatment Plan: Bed Mobility, Education, Functional Activity Apple, Functional Strength, Gait, Safety, Therapeutic Exercise, Transfers Treatment Duration: Mar 26, 2023 Frequency: 5 times per week Estimated Hrs Per Day: .25 hour per day Safety Risks/Education Patient Education: Transfer Techniques Teaching Recipient: Patient Teaching Methods: Demonstration, Discussion Response to Teaching: Verbalize Understanding, Return Demonstration Time Time In: 1447 Time Out: 1457 DATE: Mar 16, 2023 Total Billed Treatment Time: 10 Total Billed Treatment Visit, GT OLINDA MUSE PT Mar 16, 2023 15:02
== END 2023-03-16 15:00 | disposition home health service (06) | DRG 872 ==
LOC: EDUNIT# 15:24 → ER 15:25 → 4TH 17:01
PROVIDERS: ADMIT Family Medicine; ATTEND Internal Medicine
DX: A40.8 Other streptococcal sepsis (principal); L03.116 Cellulitis of left lower limb; N17.9 Acute kidney failure, unspecified; Z68.43 Body mass index [BMI] 50.0-59.9, adult; R65.20 Severe sepsis without septic shock; G20 Parkinson's disease; I10 Essential (primary) hypertension; G62.9 Polyneuropathy, unspecified; G47.30 Sleep apnea, unspecified; J44.9 Chronic obstructive pulmonary disease, unspecified; I25.10 Atherosclerotic heart disease of native coronary artery without angina pectoris; E78.00 Pure hypercholesterolemia, unspecified; K21.9 Gastro-esophageal reflux disease without esophagitis; E66.01 Morbid (severe) obesity due to excess calories; I87.8 Other specified disorders of veins; F17.220 Nicotine dependence, chewing tobacco, uncomplicated; M19.90 Unspecified osteoarthritis, unspecified site; Z86.711 Personal history of pulmonary embolism; Z86.718 Personal history of other venous thrombosis and embolism; Z79.82 Long term (current) use of aspirin; Z79.899 Other long term (current) drug therapy; Z88.1 Allergy status to other antibiotic agents; Z88.0 Allergy status to penicillin
CPT/HCPCS: 36415; 80048; 80053; 82947; 83605; 85007; 85027; 87040; 87077; 87186; 93970; 96365; 96367; 96375

== ENCOUNTER → 2023-04-12 | Outpatient (CLI) | payer MEDICARE, MEDICAID ==
[~2023-04-12] MED LIST changes: +AMLO-251 PO; +CEFD300C3 PO; +RANO10005 PO
== END ==
LOC: CARD 08:01
PROVIDERS: ATTEND Family Medicine
DX: I49.9 Cardiac arrhythmia, unspecified (principal)
CPT/HCPCS: 93005

== ENCOUNTER → 2023-04-14 | Outpatient (CLI) | payer MEDICARE, MEDICAID | LOC: WOUNDCARE 13:25 | PROVIDERS: ATTEND Family Medicine | DX: I89.0 Lymphedema, not elsewhere classified (principal); E66.01 Morbid (severe) obesity due to excess calories; Z68.43 Body mass index [BMI] 50.0-59.9, adult | CPT/HCPCS: 99212 ==

== ENCOUNTER → 2023-04-15 | Outpatient (CLI) | payer MEDICARE, MEDICAID ==
--- NOTE | 2023-04-15 13:18 | Diagnostic Imaging Report ---
PROCEDURE: US left lower extremity venous. TECHNIQUE: Multiple real-time grayscale images were obtained over the left lower extremity in various projections. Additional duplex Doppler and color Doppler images were also obtained. INDICATION: Left leg swelling. There is no evidence of left lower extremity DVT. Left lower extremity deep venous system shows normal compressibility with normal response to augmentation and Valsalva. No fluid collection or mass is detected. IMPRESSION: No evidence of left lower extremity DVT. Dictated by: Dictated on workstation # [id number]
== END ==
LOC: RAD 12:30
PROVIDERS: ATTEND Family Medicine
DX: R22.42 Localized swelling, mass and lump, left lower limb (principal)